=== PATIENT | female | born 1975 | race Caucasian/White ===

== ENCOUNTER → 2017-01-28 | Outpatient (REF) | payer MEDICAID ==
[~2017-01-28] MED LIST: /ADVA50050 INH; /LORA10TA PO; CITA20TA2 PO; FAMO40TA3 PO; HYDR-3363 PO; HYDROXYUREA; IRON325T PO; PRED1TAB32 PO; PROAAER INH; SYNT100T PO; albuterol INH
[2017-01-28 13:50] LABS: MEAN CORPUSCULAR HEMOGLOBIN 29.2 pg (27.0-33.0); MEAN CORPUSCULAR HGB CONC 32.6 g/dl (32.0-36.5); MEAN CORPUSCULAR VOLUME 89.8 fl (80.0-96.0); RED CELL DISTRIBUTION WIDTH 12.6 % (11.5-14.5); WHITE BLOOD COUNT 7.8 K/mm3 (4.0-10.0)
[2017-01-28 14:12] LABS: FOLATE 11.9 NG/ML; VITAMIN B12 LEVEL 558 PG/ML
[2017-01-28 14:18] LABS: ALBUMIN 3.6 GM/DL (3.2-5.2); ALBUMIN/GLOBULIN RATIO 0.92 (1.00-1.93); ALKALINE PHOSPHATASE 102 U/L (45-117); ALT/SGPT 23 U/L (12-78); ANION GAP 7 MEQ/L (8-16); AST/SGOT 11 U/L (15-37); BILIRUBIN,TOTAL 0.4 MG/DL (0.2-1.0); BLOOD UREA NITROGEN 12 MG/DL (7-18); CALCIUM LEVEL 8.9 MG/DL (8.5-10.1); CARBON DIOXIDE LEVEL 31 MEQ/L (21-32); CHLORIDE LEVEL 101 MEQ/L (98-107); CHOLESTEROL LEVEL 240 MG/DL (<200); CREATININE FOR GFR 0.82 MG/DL (0.55-1.02); FREE T4 0.89 NG/DL (0.76-1.46); GLOMERULAR FILTRATION RATE > 60.0 (>60); GLUCOSE, FASTING 97 MG/DL (70-105); POTASSIUM SERUM 4.4 MEQ/L (3.5-5.1); SODIUM LEVEL 139 MEQ/L (136-145); TOTAL PROTEIN 7.5 GM/DL (6.4-8.2); TRIGLYCERIDES LEVEL 200 MG/DL (<150)
== END ==
LOC: M LABDRAW1 13:13
PROVIDERS: ATTEND Family Medicine
DX: Z00.00 Encounter for general adult medical examination without abnormal findings (principal); E03.9 Hypothyroidism, unspecified; K21.9 Gastro-esophageal reflux disease without esophagitis; E55.9 Vitamin D deficiency, unspecified

== ENCOUNTER → 2017-02-02 | Outpatient (CLI) | payer MEDICAID ==
--- NOTE | 2017-02-05 06:48 | SLEEPCENT ---
DATE OF PROCEDURE: 02/02/2017 ORDERED BY: Dr. Roland. Nocturnal polysomnography was performed for evaluation of sleep apnea syndrome symptoms in this patient with a history of excessive somnolence, nonrestorative sleep, obesity, hypothyroidism, asthma, and a seizure disorder. 8 hours and 26 minutes of data were reviewed. There were 458 minutes of sleep identified. Sleep latency was prolonged at 13 minutes. REM latency was prolonged at 227 minutes. Sleep architecture showed poor progression early in the study. Some fragmentation was seen. There were 3 rapid eye movement (REM) periods and overall sleep efficiency was 91.5%. EKG showed a sinus rhythm with an average heart rate of 80 beats per minute. EEG showed reasonably normal wave forms for wake and sleep. There were no focal events identified. There were 160 respiratory events identified of 10 seconds in duration or greater for an apnea-hypopnea index of 21. The events were primarily obstructive not exclusive to sleep stage nor body position. Snoring was noted as well. Arousals from respiratory events cumulatively occurred 4.8 times per hour and oxygen desaturations were seen into the 70s. There was some limb activity but arousals from limb events were few. Remaining measures of sleep physiology were normal. IMPRESSION: Moderate obstructive sleep apnea syndrome (G47.33). Apnea-hypopnea index 21.0. RECOMMENDATION: The patient should be encouraged to return to the sleep disorder center for pressure therapy. In the interim, alcohol and sedative avoidance should be practiced and caution exercised during the operation of motor vehicles.
== END ==
LOC: M SLEEP 19:45
PROVIDERS: ATTEND Internal Medicine Pulmonary Disease
DX: G47.33 Obstructive sleep apnea (adult) (pediatric) (principal)

== ENCOUNTER → 2017-03-13 | Outpatient (CLI) | payer MEDICAID | LOC: M SLEEP 19:34 | PROVIDERS: ATTEND Internal Medicine Pulmonary Disease | DX: G47.33 Obstructive sleep apnea (adult) (pediatric) (principal) ==

== ENCOUNTER → 2017-04-28 | Outpatient (CLI) | payer MEDICAID ==
[2017-04-28 17:48] LABS: FREE T4 0.91 NG/DL (0.76-1.46)
== END ==
LOC: M LAB 14:34
PROVIDERS: ATTEND Family Medicine
DX: E03.9 Hypothyroidism, unspecified (principal)

== ENCOUNTER 2017-07-19 18:45 | Emergency (ER) | payer MEDICAID ==
[~2017-07-19] VITALS: Ht 154.9 cm; Wt 110.5 kg
[2017-07-19 18:49] VITALS: BP 120/68
[2017-07-19] MEDS ORDERED: IBUPROFEN 600 MG TAB PO ONE (19:30)
== END 2017-07-19 20:03 | disposition home or self-care (01) ==
LOC: M ED 18:45
DX: S93.491A Sprain of other ligament of right ankle, initial encounter (principal); X50.1XXA Overexertion from prolonged static or awkward postures, initial encounter; Y92.9 Unspecified place or not applicable; Y93.9 Activity, unspecified; Y99.9 Unspecified external cause status; E11.9 Type 2 diabetes mellitus without complications; F43.10 Post-traumatic stress disorder, unspecified; F10.10 Alcohol abuse, uncomplicated; F81.9 Developmental disorder of scholastic skills, unspecified; R56.9 Unspecified convulsions; J45.909 Unspecified asthma, uncomplicated; G47.33 Obstructive sleep apnea (adult) (pediatric); E03.9 Hypothyroidism, unspecified; Z87.891 Personal history of nicotine dependence; Z79.899 Other long term (current) drug therapy; Z88.6 Allergy status to analgesic agent; Z88.5 Allergy status to narcotic agent; Z88.8 Allergy status to other drugs, medicaments and biological substances

== ENCOUNTER 2017-09-03 03:53 | Emergency (ER) | payer MEDICAID ==
[~2017-09-03] VITALS: Ht 154.9 cm; Wt 108.2 kg
[2017-09-03] MEDS ORDERED: TRAZ25TA GT (04:07)
[2017-09-03] MEDS ORDERED: PRAZ1CAP PO (04:07)
[2017-09-03] MEDS ORDERED: OMEP20CA3 PO (04:07)
[2017-09-03] MEDS ORDERED: FOLI5INJ2 SC (04:07)
[2017-09-03] MEDS ORDERED: MORPHINE 4 MG/ML 1ML SYRINGE IV PRN (05:00)
[2017-09-03] MEDS ORDERED: NS 1,000 ML IV ONE (05:00)
[2017-09-03] MEDS ORDERED: ONDANSETRON 4MG/2ML VIAL (J2405) IV ONE (05:00)
[2017-09-03 05:18] LABS: BASO # 0.1 10^3/uL (0.0-0.2); BASO % 0.5 % (0.0-1.0); EOS # 0.3 10^3/uL (0.0-0.50); IMMATURE GRANULOCYTE % 0.2 % (0-0); LYMPH # 2.2 10^3/uL (1.5-4.5); MEAN CORPUSCULAR HEMOGLOBIN 29.2 pg (27.0-33.0); MEAN CORPUSCULAR HGB CONC 32.3 g/dl (32.0-36.5); MEAN CORPUSCULAR VOLUME 90.5 fl (80.0-96.0); MONO # 0.5 10^3/uL (0.0-0.8); MONO % 5.3 % (0.0-5.0); NEUTROPHILS # 6.9 10^3/uL (1.8-7.7); PLATELET COUNT, AUTOMATED 229 10^3/uL (150-450); RED CELL DISTRIBUTION WIDTH 12.7 % (11.5-14.5)
[2017-09-03 05:36] LABS: ALBUMIN 3.1 GM/DL (3.2-5.2); ALBUMIN/GLOBULIN RATIO 0.89 (1.00-1.93); ALKALINE PHOSPHATASE 83 U/L (45-117); ALT/SGPT 14 U/L (12-78); ANION GAP 7 MEQ/L (8-16); AST/SGOT 8 U/L (7-37); BILIRUBIN,DIRECT < 0.1 MG/DL (0.0-0.2); BILIRUBIN,TOTAL 0.2 MG/DL (0.2-1.0); BLOOD UREA NITROGEN 11 MG/DL (7-18); CALCIUM LEVEL 8.5 MG/DL (8.5-10.1); CARBON DIOXIDE LEVEL 28 MEQ/L (21-32); CHLORIDE LEVEL 105 MEQ/L (98-107); CREATININE FOR GFR 0.91 MG/DL (0.55-1.02); GLOMERULAR FILTRATION RATE > 60.0 (>60); GLUCOSE, FASTING 121 MG/DL (70-105); SODIUM LEVEL 140 MEQ/L (136-145); TOTAL PROTEIN 6.6 GM/DL (6.4-8.2)
[2017-09-03 06:11] LABS: CONTROL LINE HCG INT CTR LINE PRESENT
[2017-09-03] MEDS ORDERED: ISOVUE-370 76% 100ML VIAL (Q9967) As Ordered ONE (06:31)
--- NOTE | 2017-09-03 08:10 | REPUSA ---
CLINICAL HISTORY: Chest pain, exclude PE. TECHNIQUE: Multiple incremental axial, coronal and oblique images are obtained from the thoracic inle t to the upper abdomen. Intravenous contrast material was administered as per pulmonary embolism prot ocol. COMMENTS: Bilateral basilar atelectatic pulmonary changes. There is excellent opacification of pulmonary arterial system without evidence for pulmonary embolism . Aorta is of normal caliber without evidence for dissection or aneurysm. There is no evidence of pleural or parenchymal mass. There are no pleural effusions. There is no evid ence of hilar or mediastinal lymphadenopathy. The heart and great vessels are within normal limits. Images of the upper abdomen demonstrate no evidence of adrenal mass. The bony structures are free of lytic or blastic lesions. Multilevel degenerative changes are seen in volving the visualized thoracolumbar spine. Scattered calcifications are seen involving the aorta and major branches compatible with atherosclero sis. IMPRESSION: No evidence for pulmonary embolism. Bilateral basilar atelectatic pulmonary changes. Thank you for your kind referral of this patient.
--- NOTE | 2017-09-03 08:30 | REPUSA ---
CLINICAL HISTORY: Abdominal pain. TECHNIQUE: Multiple axial, sagittal and coronal CT images were obtained through the abdomen and pelvi s after administration of oral and intravenous contrast material. Images were obtained before and aft er IV contrast administration. COMMENTS: The liver is of uniform attenuation without mass or defect. There is no intra or extrahepatic biliary ductal dilatation. The spleen is normal. The gallbladder is diffusely thickened. The pancreas is of normal contour and attenuation characteristics. There is no evidence of adrenal mass. Both kidneys demonstrate prompt and equal nephrograms. The kidneys are normal in size, shape and conf iguration. There is no evidence of renal or ureteral mass. No renal or ureteral calculi are identifie d. There is no hydroureter or hydronephrosis. No evidence for appendicitis. There is no bowel wall thickening. No evidence for small or large vanessa l obstruction. There is no evidence of abdominal ascites or lymphadenopathy. There is no evidence of intrinsic or extrinsic bladder mass. There is no pelvic ascites or lymphadeno cydney. 3.5 cm uterine fibroid. Images of the lung bases show no evidence of pleural or parenchymal mass. There are no pleural effusi ons. Bilateral basilar atelectatic pulmonary changes. The bony structures are free of lytic or blastic lesions. Multilevel degenerative changes are seen in volving the thoracolumbar spine. Scattered calcifications are seen involving the aorta and major bran ches compatible with atherosclerosis. IMPRESSION: Thickened gallbladder. Possibly developing acute inflammatory changes. Clinical evaluation and possib ly further assessment by ultrasound exam are suggested. Hepatomegaly with fatty infiltration. Uterine fibroid. Thank you for your kind referral of this patient.
[2017-09-03 09:19] VITALS: BP 126/60
--- NOTE | 2017-09-03 14:19 | ECGEPIP ---
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
--- NOTE | 2017-09-03 14:27 | ED PDOC ---
Post-Departure Follow-Up Radiology report faxed to Danny Sal Sarah MD Sep 03, 2017 14:27
[2017-09-04] MEDS ORDERED: FOLI1TAB4 PO (00:40)
[2017-09-04] MEDS ORDERED: CELE10TA PO (00:40)
[2017-09-04] MEDS ORDERED: TRAZ50TA11 PO (00:40)
[2017-09-04] MEDS ORDERED: ADVA230A INH (00:40)
[2017-09-04] MEDS ORDERED: CELE20TA PO (00:40)
[2017-09-04] MEDS ORDERED: VITA1CAP40 PO (00:40)
[2017-09-04] MEDS ORDERED: PROAAER10 INH (00:40)
[2017-09-04] MEDS ORDERED: SYNT112T2 PO (00:40)
[2017-09-04] MEDS ORDERED: PRAZ1CAP PO (00:40)
[2017-09-04] MEDS ORDERED: SYNT100T PO (00:40)
[2017-09-04] MEDS ORDERED: FERR1TAB8 PO (00:40)
[2017-09-04] MEDS ORDERED: ALBU83IN INH (00:40)
[2017-09-04] MEDS ORDERED: VITA100072 PO (00:40)
[2017-09-04] MEDS ORDERED: OMEP20CA3 PO (00:40)
== END 2017-09-03 09:32 | disposition home or self-care (01) ==
LOC: M ED 03:53
DX: R10.9 Unspecified abdominal pain (principal); R07.9 Chest pain, unspecified; K76.0 Fatty (change of) liver, not elsewhere classified; N85.8 Other specified noninflammatory disorders of uterus; K82.9 Disease of gallbladder, unspecified; J98.11 Atelectasis; K21.9 Gastro-esophageal reflux disease without esophagitis; J44.9 Chronic obstructive pulmonary disease, unspecified; Z87.891 Personal history of nicotine dependence; Z79.899 Other long term (current) drug therapy; Z88.6 Allergy status to analgesic agent; Z88.5 Allergy status to narcotic agent; Z88.8 Allergy status to other drugs, medicaments and biological substances
CPT/HCPCS: 71275; 74177; 80048; 80076; 82550; 82553; 83605; 83690; 84703; 85025; 93005; 93041; 96361; 96374; 96375; 99285; J2405; Q9967

== ENCOUNTER 2017-09-03 18:46 | Inpatient (IN) | payer MEDICAID ==
[~2017-09-03] VITALS: Ht 154.9 cm; Wt 109.6 kg
[~2017-09-03 18:46] MED LIST changes: +FOLI5INJ2 SC; +OMEP20CA3 PO; +PRAZ1CAP PO; +TRAZ25TA GT
[2017-09-03] MEDS ORDERED: MORPHINE 4 MG/ML 1ML SYRINGE IV ONE (21:45)
[2017-09-03] MEDS ORDERED: NS 1,000 ML IV ONE (21:45)
[2017-09-03] MEDS ORDERED: ONDANSETRON 4MG/2ML VIAL (J2405) IV ONE (21:45)
[2017-09-03] MEDS ORDERED: ONDANSETRON 4MG/2ML VIAL (J2405) As Ordered ONE (22:07)
[2017-09-03] MEDS ORDERED: MORPHINE 4 MG/ML 1ML SYRINGE As Ordered ONE (22:07)
[2017-09-03 22:18] LABS: BASO % 0.5 % (0.0-1.0); EOS # 0.1 10^3/uL (0.0-0.50); EOS % 1.3 % (0.0-3.0); IMMATURE GRANULOCYTE % 0.2 % (0-0); LYMPH # 0.9 10^3/uL (1.5-4.5); LYMPH % 10.6 % (24.0-44.0); MEAN CORPUSCULAR HEMOGLOBIN 28.8 pg (27.0-33.0); MEAN CORPUSCULAR HGB CONC 31.9 g/dl (32.0-36.5); MEAN CORPUSCULAR VOLUME 90.5 fl (80.0-96.0); MONO # 0.4 10^3/uL (0.0-0.8); MONO % 4.1 % (0.0-5.0); NEUTROPHILS # 7.1 10^3/uL (1.8-7.7); NEUTROPHILS % 83.3 % (36.0-66.0); PLATELET COUNT, AUTOMATED 270 10^3/uL (150-450); RED CELL DISTRIBUTION WIDTH 12.9 % (11.5-14.5); WHITE BLOOD COUNT 8.5 10^3/uL (4.0-10.0)
[2017-09-03 22:36] LABS: ALBUMIN 3.3 GM/DL (3.2-5.2); ALKALINE PHOSPHATASE 116 U/L (45-117); ALT/SGPT 52 U/L (12-78); AMYLASE 29 U/L (25-115); ANION GAP 6 MEQ/L (8-16); AST/SGOT 78 U/L (7-37); BILIRUBIN,DIRECT 0.8 MG/DL (0.0-0.2); BLOOD UREA NITROGEN 7 MG/DL (7-18); CALCIUM LEVEL 8.5 MG/DL (8.5-10.1); CARBON DIOXIDE LEVEL 26 MEQ/L (21-32); CHLORIDE LEVEL 108 MEQ/L (98-107); CREATININE FOR GFR 0.86 MG/DL (0.55-1.02); GLOMERULAR FILTRATION RATE > 60.0 (>60); GLUCOSE, FASTING 139 MG/DL (70-105); SODIUM LEVEL 140 MEQ/L (136-145); TOTAL PROTEIN 7.4 GM/DL (6.4-8.2)
[2017-09-03 22:47] LABS: BILIRUBIN,TOTAL 1.3 MG/DL (0.2-1.0)
--- NOTE | 2017-09-03 23:10 | REPUSA ---
CLINICAL HISTORY: Epigastric pain. TECHNIQUE: Realtime sonographic images were obtained in multiple projections. COMMENTS: The liver is echogenic compatible with mild fatty infiltration without evidence of mass or defect. T here is no intra or extrahepatic biliary ductal dilatation. The common bile duct measures 11.2 mm. The gallbladder shows tiny mobile stones. The gallbladder wall is not thickened measuring 1.9 mm and there is no pericholecystic fluid. There is no abdominal ascites. The pancreas is not visualized due to bowel gas. The right kidney measures 11.6 x 5.9 x 5.5 cm. The right kidney is free of hydronephrosis. IMPRESSION: 1. Mild fatty infiltration of the liver. 2. Tiny mobile gallbladder stones.
[2017-09-04] MEDS ORDERED: PROAAER10 INH (00:40)
[2017-09-04] MEDS ORDERED: CELE20TA PO (00:40)
[2017-09-04] MEDS ORDERED: VITA1CAP40 PO (00:40)
[2017-09-04] MEDS ORDERED: ALBU83IN INH (00:40)
[2017-09-04] MEDS ORDERED: VITA100072 PO (00:40)
[2017-09-04] MEDS ORDERED: PRAZ1CAP PO (00:40)
[2017-09-04] MEDS ORDERED: FERR1TAB8 PO (00:40)
[2017-09-04] MEDS ORDERED: SYNT100T PO (00:40)
[2017-09-04] MEDS ORDERED: TRAZ50TA11 PO (00:40)
[2017-09-04] MEDS ORDERED: CELE10TA PO (00:40)
[2017-09-04] MEDS ORDERED: FOLI1TAB4 PO (00:40)
[2017-09-04] MEDS ORDERED: OMEP20CA3 PO (00:40)
[2017-09-04] MEDS ORDERED: SYNT112T2 PO (00:40)
[2017-09-04] MEDS ORDERED: ADVA230A INH (00:40)
--- NOTE | 2017-09-04 03:21 | HPEPDOC ---
General Date of Admission 09-04-17 Primary Care Physician: A Chief Complaint The patient is a 41-year-old female admitted with a reason for visit of Jania Marroquin. History of Present Illness Dr. Sal is PCP 41 y/o female with past medical history of COPD/asthma, hyperlipidemia, hypothyroidism, vitamin b12 and D deficiency and hx of anemia presents for diffuse and sharp abdominal pain that began one week ago. The pt. came to the ED one day ago and was given pain medication, CT scan at that time showed thickened gallbladder and uterine fibroid. She states that the pain was so intense this morning at home that she had to come back, it was very sharp in nature and in the middle of her abdomen. She states she has been feeling cold chills for the past few days and that the abdominal pain seemed to be worsened with intake of food. She states that she has increase frequency in urination but denied pain with urination nor blood in her urine, she denied change in vision or headaches but stated she was SOB for the past 2 days with exertion, not with laying down or worse at night. She admits she has some mid-sternal pain but she states this is radiating pain from her abdomen, the pain is worsened with a deep breath and pressing on her chest. She also has had some nausea in the past few days but denies vomiting. Denies fevers but admits to some loose stool for the past 3 days. Denies sick contacts or recent travel. She admits she picks and scratches at her skin because she thinks it always itches. Home Medications Scheduled Acetaminophen (Tylenol Extra Strength) 500 Mg Tab, 500 MG PO ASDIRECTED, ( Reported) Citalopram Hydrobromide (Celexa) 10 Mg Tab, 10 MG PO QHS, (Reported) TAKES WITH 20MG FOR 30MG TOTAL Citalopram Hydrobromide (Celexa) 20 Mg Tab, 20 MG PO QHS, (Reported) TAKES WITH 10MG FOR 30MG TOTAL Cyanocobalamin (Vitamin B12) 1,000 Mcg Tab, 1,000 MCG PO DAILY, (Reported) Ergocalciferol (Vitamin D) 50,000 Unit Cap, 50,000 UNIT PO ASDIRECTED, (Reported ) TAKES ON FRIDAY MORNINGS Ferrous Sulfate (Ferrous Sulfate) 325 Mg Tab, 325 MG PO DAILY, (Reported) Folic Acid (Folic Acid) 1 Mg Tab, 1 MG PO QHS, (Reported) Levothyroxine Sodium (Synthroid) 100 Mcg Tab, 100 MCG PO ASDIRECTED, (Reported) TAKES ON FRIDAY, FRIDAY, FRIDAY AND FRIDAY Levothyroxine Sodium (Synthroid) 112 Mcg Tab, 112 MCG PO ASDIRECTED, (Reported) TAKES ON FRIDAY, FRIDAY AND FRIDAY Omeprazole (Omeprazole) 20 Mg Cap, 40 MG PO BID, (Reported) Prazosin Hcl (Prazosin HCl) 1 Mg Cap, 1 MG PO QHS, (Reported) Salmeterol/Fluticasone (Advair Hfa 230-21 Mcg/Act) 1 Aer Aer, 2 PUFF INH BID, ( Reported) Trazodone HCl (Trazodone HCl) 50 Mg Tab, 25 MG PO QHS, (Reported) Trimethoprim/Sulfamethoxazole (Bactrim Ds 800-160 mg) 1 Tab Tab, 1 TAB PO Q12H Scheduled PRN Albuterol Sulfate (Proair Hfa) 108 Mcg/Act Aer, 2 PUFF INH Q4H PRN for SHORTNESS OF BREATH, (Reported) Albuterol Sulfate (Albuterol Sulfate) 2.5 Mg/3 Ml Nebu, 2.5 MG INH QID PRN for SHORTNESS OF BREATH, (Reported) Allergies Coded Allergies: Escitalopram (Unverified Allergy, Unknown, 09/03/17) Hydrocodone (Verified Allergy, Unknown, 09/03/17) Levothyroxine (Unverified Allergy, Unknown, NAUSEA, 09/03/17) Nefazodone (Verified Allergy, Unknown, 09/03/17) Paroxetine (Unverified Allergy, Unknown, 09/03/17) Topiramate (Verified Allergy, Unknown, 09/03/17) Uncoded Nonscreenable Allergen (Verified Adverse Reaction, Severe, ANTIFUNGAL-SEIZURE, 09/03/17) Aspirin (Verified Adverse Reaction, Mild, N/V, 09/04/17) HAS TAKEN IBUPROFEN & TORADOL IN PAST w/o PROBLEM Past Medical History Medical History as per hpi Surgical History tubal Family History Significant Family History: No pertinent family hx Social History * Smoker: former Smoker (quit 2007) Alcohol: other (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 Dyspnea, Edema, Lt Headedness Gastrointestinal: Reports: Nausea, Abdominal Pain, Diarrhea, Denies: Vomiting, Constipation, Melena, Hematochezia Hematologic: Denies: Bruising Neurological: Denies: Weakness, Numbness, Incoordination Psych: Reports: Mood Normal Physical Examination General Exam: Positive: Alert, Cooperative, Mild Distress Eye Exam: Positive: Conjunctiva & lids normal, EOMI, Negative: Sclera icteric ENT Exam: Positive: Atraumatic, Mucous membr. moist/pink, Pharynx Normal, Tongue Midline, Nares Patent Neck Exam: Positive: Supple Chest Exam: Positive: Clear to auscultation, Normal air movement, Negative: Rales, Rhonchi, Wheezing Heart Exam: Positive: Rate Normal, Normal S1, Normal S2, Negative: Tachycardic, Bradycardic, Gallops, Murmurs, Rubs Telemetry: Positive: No significant arrhythmia Abdomen Exam: Positive: Normal bowel sounds, Soft, Tenderness (diffuse), Negative: Hepatospenomegaly Extremity Exam: Negative: Clubbing, Cyanosis, Edema Skin Exam: Positive: Lesion, Other skin issue (scabs on b/l le from patient scratching), Negative: Rash, Breakdown Neuro Exam: Positive: Normal Speech Psych Exam: Positive: Mental status NL Vital Signs Vital Signs Date Time Temp Pulse Resp B/P (MAP) Pulse Ox O2 Delivery O2 Flow Rate FiO2 09/04/17 02:58 09/04/17 02:45 97.4 98 18 96 Room Air Laboratory Data Labs 24H Laboratory Tests 2 09/03/17 21:59: Immature Granulocyte % (Auto) 0.2H, White Blood Count 8.5, Red Blood Count 4.72 , Hemoglobin 13.6, Hematocrit 42.7, Mean Corpuscular Volume 90.5, Mean Corpuscular Hemoglobin 28.8, Mean Corpuscular Hemoglobin Concent 31.9L, Red Cell Distribution Width 12.9, Platelet Count 270, Neutrophils (%) (Auto) 83.3H, Lymphocytes (%) (Auto) 10.6L, Monocytes (%) (Auto) 4.1, Eosinophils (%) (Auto) 1.3, Basophils (%) (Auto) 0.5, Neutrophils # (Auto) 7.1, Lymphocytes # (Auto) 0.9L, Monocytes # (Auto) 0.4, Eosinophils # (Auto) 0.1, Basophils # (Auto) 0.0, Immature Granulocyte # (Auto) 0.0, Nucleated Red Blood Cells % (auto) 0.0, Anion Gap 6L, Glomerular Filtration Rate > 60.0, Calcium Level 8.5, Aspartate Amino Transf (AST/SGOT) 78H, Alanine Aminotransferase (ALT/SGPT) 52, Alkaline Phosphatase 116, Total Bilirubin 1.3#H, Direct Bilirubin 0.8H, Total Creatine Kinase 46, Creatine Kinase MB 1.0, Creatine Kinase MB Relative Index 2.17, Troponin I < 0.02, Total Protein 7.4, Albumin 3.3, Albumin/Globulin Ratio 0.80L , Amylase Level 29, Lipase 102 09/03/17 23:02: Urine Appearance HAZY, Urine Color LOVE, Urine pH 5.0, Urine Specific [place] 1.024, Urine Protein NEGATIVE, Urine Glucose (UA) NEGATIVE, Urine Ketones NEGATIVE, Urine Urobilinogen 4.0H, Urine Bilirubin NEGATIVE, Urine Leukocyte Esterase NEGATIVE, Urine Blood NEGATIVE, Urine Nitrite NEGATIVE, Urine WBC (Auto ) 2, Urine RBC (Auto) 6H, Urine Hyaline Casts (Auto) 0, Urine Bacteria (Auto) NEGATIVE, Urine Squamous Epithelial Cells 1, Urine Mucus (Auto) SMALL, Urine Sperm (Auto) CBC/BMP Laboratory Tests 09/03/17 21:59 Red Blood Count 4.72, Mean Corpuscular Volume 90.5, Mean Corpuscular Hemoglobin 28.8, Mean Corpuscular Hemoglobin Concent 31.9 L, Red Cell Distribution Width 12.9, Neutrophils (%) (Auto) 83.3 H, Lymphocytes (%) (Auto) 10.6 L, Monocytes (% ) (Auto) 4.1, Eosinophils (%) (Auto) 1.3, Basophils (%) (Auto) 0.5, Neutrophils # (Auto) 7.1, Lymphocytes # (Auto) 0.9 L, Monocytes # (Auto) 0.4, Eosinophils # (Auto) 0.1, Basophils # (Auto) 0.0 Problems (1) Abdominal pain Status: Acute Response to Treatment: Stable Problem Text: CT abdomen demonstrated thickening of GB wall and GB stones GB u/s showed mobile gallstones GI has been consulted and will see pt in AM, appreciate their recommendations pain control and NPO fluid hydration (2) COPD (chronic obstructive pulmonary disease) Status: Chronic Response to Treatment: Stable (3) Hyperlipidemia Status: Chronic Response to Treatment: Stable (4) Hypothyroid Status: Chronic Response to Treatment: Stable (5) DVT prophylaxis Status: Chronic Response to Treatment: Stable Problem Text: scd teds Plan / VTE VTE Prophylaxis Ordered?: Yes GME ATTESTATION GME ATTESTATION My faculty preceptor for this patient encounter was physically present during the encounter and was fully available. All aspects of the patient interview, examination, medical decision making process, and medical care plan development were reviewed and approved by the faculty preceptor. The faculty preceptor is aware and concurs with the plan as stated in the body of this note and will attest to such by his/her cosignature. ATTENDING NOTE I have seen and examined the patient as did the resident I have reviewed the case and discussed the plan with her I was not however present for the resident PE and Hx of the patient as she documented above I concur with her findings on HX and PE and agree with her A&P with the following additions/Exceptions: Patient was admitted with Abdominal pain requiring GI work up. LORENZO GROSS DO Sep 04, 2017 03:21 CATHERINE VIGIL MD Sep 13, 2017 22:26
[2017-09-04] MEDS ORDERED: IPRATROPIUM 0.5MG/ALBUTEROL 2.5MG INH SOL UD 3ML (DUONEB)(J7620) NEB PRN (04:30)
[2017-09-04 04:45] VITALS: BP 123/68
[2017-09-04] MEDS: MORPHINE 2 MG/ML 1ML SYRINGE IV PRN ×4 (05:26→20:51)
[2017-09-04] MEDS: LEVOTHYROXINE 100MCG TABLET (0.1MG) PO SCH (05:30)
[2017-09-04 06:37] LABS: BASO % 0.6 % (0.0-1.0); EOS # 0.2 10^3/uL (0.0-0.50); EOS % 2.6 % (0.0-3.0); IMMATURE GRANULOCYTE % 0.1 % (0-0); LYMPH # 1.8 10^3/uL (1.5-4.5); LYMPH % 24.1 % (24.0-44.0); MEAN CORPUSCULAR HEMOGLOBIN 28.9 pg (27.0-33.0); MEAN CORPUSCULAR VOLUME 90.4 fl (80.0-96.0); MONO # 0.6 10^3/uL (0.0-0.8); MONO % 7.6 % (0.0-5.0); NEUTROPHILS # 4.7 10^3/uL (1.8-7.7); PLATELET COUNT, AUTOMATED 230 10^3/uL (150-450); RED CELL DISTRIBUTION WIDTH 12.9 % (11.5-14.5); WHITE BLOOD COUNT 7.3 10^3/uL (4.0-10.0)
[2017-09-04 06:57] LABS: ANION GAP 4 MEQ/L (8-16); BLOOD UREA NITROGEN 5 MG/DL (7-18); CALCIUM LEVEL 8.4 MG/DL (8.5-10.1); CARBON DIOXIDE LEVEL 28 MEQ/L (21-32); CHLORIDE LEVEL 111 MEQ/L (98-107); GLOMERULAR FILTRATION RATE > 60.0 (>60); GLUCOSE, FASTING 98 MG/DL (70-105); POTASSIUM SERUM 4.1 MEQ/L (3.5-5.1); SODIUM LEVEL 143 MEQ/L (136-145)
[2017-09-04] MEDS: SYMBICORT 80/4.5MCG INHALER 6GM INH SCH ×2 (07:42→20:37)
[2017-09-04] MEDS ORDERED: FERROUS SULFATE 325MG TAB PO SCH (09:00)
[2017-09-04] MEDS ORDERED: OMEPRAZOLE 20 MG CAP PO SCH (09:00)
[2017-09-04] MEDS: D5W/0.45% SODIUM CHLORIDE 1,000 ML IV SCH ×2 (09:33→22:55)
--- NOTE | 2017-09-04 09:52 | IPNPDOC ---
Subjective Date Seen The patient was seen on 09/04/17. Subjective Chief Complaint/HPI The patient is a 41-year-old female admitted with a reason for visit of Abdominal Pain. Events since last encounter STILL WITH SEVERE PAIN MORE IN THE EPIGASTRIC AND PERIUMBILICAL AREAS, NO FEVER , NO NAUSEA OR VOMITING , NO CONSTIPATION. HAS NOT BEEN ABLE TO EAT MUCH FOR THE PAST 4 TO 5 DAYS. Objective Physical Examination General Exam: Positive: Alert, Cooperative, Mild Distress Eye Exam: Positive: Conjunctiva & lids normal, EOMI, Negative: Sclera icteric ENT Exam: Positive: Atraumatic, Mucous membr. moist/pink, Pharynx Normal, Tongue Midline, Nares Patent Neck Exam: Positive: Supple Chest Exam: Positive: Clear to auscultation, Normal air movement, Negative: Rales, Rhonchi, Wheezing Heart Exam: Positive: Rate Normal, Normal S1, Normal S2, Negative: Tachycardic, Bradycardic, Gallops, Murmurs, Rubs Telemetry: Positive: No significant arrhythmia Abdomen Exam: Positive: Normal bowel sounds, Soft, Tenderness (diffuse), Negative: Hepatospenomegaly Extremity Exam: Negative: Clubbing, Cyanosis, Edema Skin Exam: Positive: Lesion, Other skin issue (scabs on b/l le from patient scratching), Negative: Rash, Breakdown Neuro Exam: Positive: Normal Speech Psych Exam: Positive: Mental status NL Assessment /Plan Problems (1) Abdominal pain Status: Acute Response to Treatment: Stable Problem Text: Possible acute cholecystitis Vs gastritis and duodenitis. CT abdomen demonstrated thickening of GB wall and GB stones GB u/s showed mobile gallstones pain control and NPO fluid hydration will consult general surgery. (2) COPD (chronic obstructive pulmonary disease) Status: Chronic Response to Treatment: Stable Problem Text: will give symbicort in place of advair and continue duoneb prn (3) Hyperlipidemia Status: Chronic Response to Treatment: Stable (4) Hypothyroid Status: Chronic Response to Treatment: Stable (5) DVT prophylaxis Status: Chronic Response to Treatment: Stable Problem Text: scd teds (6) RIANA on CPAP Status: Chronic (7) Morbid obesity Status: Chronic (8) Anxiety and depression Status: Chronic Problem Text: continue citalopram and trazodone when able to eat by mouth (9) GERD (gastroesophageal reflux disease) Status: Chronic Plan/VTE VTE Prophylaxis Ordered?: Yes VS, I&O, 24H, [facility] Vital Signs/I&O Vital Signs Date Time Temp Pulse Resp B/P (MAP) Pulse Ox O2 Delivery O2 Flow Rate FiO2 09/04/17 05:36 16 09/04/17 04:45 98.1 64 123/68 (86) 97 Room Air Laboratory Data 24H LABS Laboratory Tests 2 09/03/17 21:59: Immature Granulocyte % (Auto) 0.2H, White Blood Count 8.5, Red Blood Count 4.72 , Hemoglobin 13.6, Hematocrit 42.7, Mean Corpuscular Volume 90.5, Mean Corpuscular Hemoglobin 28.8, Mean Corpuscular Hemoglobin Concent 31.9L, Red Cell Distribution Width 12.9, Platelet Count 270, Neutrophils (%) (Auto) 83.3H, Lymphocytes (%) (Auto) 10.6L, Monocytes (%) (Auto) 4.1, Eosinophils (%) (Auto) 1.3, Basophils (%) (Auto) 0.5, Neutrophils # (Auto) 7.1, Lymphocytes # (Auto) 0.9L, Monocytes # (Auto) 0.4, Eosinophils # (Auto) 0.1, Basophils # (Auto) 0.0, Immature Granulocyte # (Auto) 0.0, Nucleated Red Blood Cells % (auto) 0.0, Anion Gap 6L, Glomerular Filtration Rate > 60.0, Calcium Level 8.5, Aspartate Amino Transf (AST/SGOT) 78H, Alanine Aminotransferase (ALT/SGPT) 52, Alkaline Phosphatase 116, Total Bilirubin 1.3#H, Direct Bilirubin 0.8H, Total Creatine Kinase 46, Creatine Kinase MB 1.0, Creatine Kinase MB Relative Index 2.17, Troponin I < 0.02, Total Protein 7.4, Albumin 3.3, Albumin/Globulin Ratio 0.80L , Amylase Level 29, Lipase 102 09/03/17 23:02: Urine Appearance HAZY, Urine Color LOVE, Urine pH 5.0, Urine Specific [place] 1.024, Urine Protein NEGATIVE, Urine Glucose (UA) NEGATIVE, Urine Ketones NEGATIVE, Urine Urobilinogen 4.0H, Urine Bilirubin NEGATIVE, Urine Leukocyte Esterase NEGATIVE, Urine Blood NEGATIVE, Urine Nitrite NEGATIVE, Urine WBC (Auto ) 2, Urine RBC (Auto) 6H, Urine Hyaline Casts (Auto) 0, Urine Bacteria (Auto) NEGATIVE, Urine Squamous Epithelial Cells 1, Urine Mucus (Auto) SMALL, Urine Sperm (Auto) 09/04/17 06:19: Immature Granulocyte % (Auto) 0.1H, White Blood Count 7.3, Red Blood Count 4.08 , Hemoglobin 11.8L, Hematocrit 36.9, Mean Corpuscular Volume 90.4, Mean Corpuscular Hemoglobin 28.9, Mean Corpuscular Hemoglobin Concent 32.0, Red Cell Distribution Width 12.9, Platelet Count 230, Neutrophils (%) (Auto) 65.0, Lymphocytes (%) (Auto) 24.1, Monocytes (%) (Auto) 7.6H, Eosinophils (%) (Auto) 2.6, Basophils (%) (Auto) 0.6, Neutrophils # (Auto) 4.7, Lymphocytes # (Auto) 1.8, Monocytes # (Auto) 0.6, Eosinophils # (Auto) 0.2, Basophils # (Auto) 0.0, Immature Granulocyte # (Auto) 0.0, Nucleated Red Blood Cells % (auto) 0.0 CBC/BMP Laboratory Tests 09/03/17 21:59 Red Blood Count 4.72, Mean Corpuscular Volume 90.5, Mean Corpuscular Hemoglobin 28.8, Mean Corpuscular Hemoglobin Concent 31.9 L, Red Cell Distribution Width 12.9, Neutrophils (%) (Auto) 83.3 H, Lymphocytes (%) (Auto) 10.6 L, Monocytes (% ) (Auto) 4.1, Eosinophils (%) (Auto) 1.3, Basophils (%) (Auto) 0.5, Neutrophils # (Auto) 7.1, Lymphocytes # (Auto) 0.9 L, Monocytes # (Auto) 0.4, Eosinophils # (Auto) 0.1, Basophils # (Auto) 0.0 09/04/17 06:19 Red Blood Count 4.08, Mean Corpuscular Volume 90.4, Mean Corpuscular Hemoglobin 28.9, Mean Corpuscular Hemoglobin Concent 32.0, Red Cell Distribution Width 12.9 , Neutrophils (%) (Auto) 65.0, Lymphocytes (%) (Auto) 24.1, Monocytes (%) (Auto ) 7.6 H, Eosinophils (%) (Auto) 2.6, Basophils (%) (Auto) 0.6, Neutrophils # ( Auto) 4.7, Lymphocytes # (Auto) 1.8, Monocytes # (Auto) 0.6, Eosinophils # (Auto ) 0.2, Basophils # (Auto) 0.0 EUGENE MOSS MD Sep 04, 2017 06:43
[2017-09-04 10:47] LABS: ALBUMIN 2.7 GM/DL (3.2-5.2); ALBUMIN/GLOBULIN RATIO 0.77 (1.00-1.93); ALKALINE PHOSPHATASE 101 U/L (45-117); ALT/SGPT 65 U/L (12-78); AST/SGOT 77 U/L (7-37); BILIRUBIN,DIRECT 0.4 MG/DL (0.0-0.2); BILIRUBIN,TOTAL 0.8 MG/DL (0.2-1.0); TOTAL PROTEIN 6.2 GM/DL (6.4-8.2)
[2017-09-04] MEDS: SUCRALFATE SUSP 1GM/10ML UD PO SCH ×3 (12:29→20:49)
--- NOTE | 2017-09-04 13:54 | ECGEPIP ---
Stationary ECG Study [facility] - ED Test Date: 2017-09-04 Pat Name: SHILOH FLORES Department: Room: [place] [address] Gender: F Treer: : 1975 Requested By: JOSE ENRIQUE Stewart PA-C Order Number: [id number] Reading MD: Jesus Malik Measurements Intervals [place] Rate: 78 P: 42 UT: 154 QRS: 42 QRSD: 109 T: 55 QT: 387 QTc: 443 Interpretive Statements SINUS RHYTHM SIMILAR TO 09/03/17 Electronically Signed On 09-04-2017 13:54:32 EST by Jesus Malik
[2017-09-04 14:00] VITALS: BP 136/70
[2017-09-04] MEDS ORDERED: ACETAMINOPHEN 500 MG TAB PO PRN (17:15)
[2017-09-04] MEDS ORDERED: KETOROLAC 30 MG/ML VIAL (J1885) IV ONE (17:15)
[2017-09-04] MEDS: ONDANSETRON 4MG/2ML VIAL (J2405) IV PRN (18:33)
[2017-09-04] MEDS: PRAZOSIN 1 MG CAP PO SCH (20:50)
[2017-09-04] MEDS: CitaloPRAM (CeleXA) 10 MG TABLET PO SCH (20:50)
[2017-09-04] MEDS: PANTOPRAZOLE 40MG INJ (PROTONIX) (C9113) IV SCH (20:50)
[2017-09-04] MEDS: traZODone 25MG PER 1/2 TABLET PO SCH (20:50)
[2017-09-04] MEDS ORDERED: FOLIC ACID 1 MG TAB PO SCH (21:00)
[2017-09-04] MEDS ORDERED: CitaloPRAM (CeleXA) 20 MG TAB PO SCH (21:00)
[2017-09-04 22:00] VITALS: BP 109/66
[2017-09-05] VITALS (7 sets, daily range): BP systolic 113–133; BP diastolic 62–78
[2017-09-05] MEDS: LEVOTHYROXINE 112MCG TABLET (0.112MG) PO SCH (05:46)
[2017-09-05] MEDS: MORPHINE 2 MG/ML 1ML SYRINGE IV PRN ×2 (05:47→11:15)
[2017-09-05 06:30] LABS: BASO % 0.5 % (0.0-1.0); EOS # 0.2 10^3/uL (0.0-0.50); EOS % 2.7 % (0.0-3.0); IMMATURE GRANULOCYTE % 0.2 % (0-0); LYMPH # 1.7 10^3/uL (1.5-4.5); MEAN CORPUSCULAR HEMOGLOBIN 29.5 pg (27.0-33.0); MEAN CORPUSCULAR HGB CONC 32.2 g/dl (32.0-36.5); MEAN CORPUSCULAR VOLUME 91.6 fl (80.0-96.0); MONO # 0.4 10^3/uL (0.0-0.8); MONO % 6.4 % (0.0-5.0); NEUTROPHILS % 63.2 % (36.0-66.0); PLATELET COUNT, AUTOMATED 223 10^3/uL (150-450); RED CELL DISTRIBUTION WIDTH 13.2 % (11.5-14.5); WHITE BLOOD COUNT 6.3 10^3/uL (4.0-10.0)
[2017-09-05 06:54] LABS: ANION GAP 6 MEQ/L (8-16); BLOOD UREA NITROGEN 4 MG/DL (7-18); CARBON DIOXIDE LEVEL 28 MEQ/L (21-32); CHLORIDE LEVEL 108 MEQ/L (98-107); CREATININE FOR GFR 0.77 MG/DL (0.55-1.02); GLOMERULAR FILTRATION RATE > 60.0 (>60); GLUCOSE, FASTING 119 MG/DL (70-105); POTASSIUM SERUM 3.5 MEQ/L (3.5-5.1); SODIUM LEVEL 142 MEQ/L (136-145)
[2017-09-05] MEDS: SYMBICORT 80/4.5MCG INHALER 6GM INH SCH ×2 (07:10→20:07)
[2017-09-05] MEDS: SUCRALFATE SUSP 1GM/10ML UD PO SCH ×4 (07:43→21:22)
[2017-09-05] MEDS: PANTOPRAZOLE 40MG INJ (PROTONIX) (C9113) IV SCH ×2 (08:39→21:21)
--- NOTE | 2017-09-05 09:41 | CR.PDOC ---
General Surgery Consultation Date of Consultation 09/05/17 History and Physical CONSULT REPORT FOR: Karma Mario MD REASON FOR CONSULTATION: Abdominal pain HISTORY OF PRESENT ILLNESS: Patient is 15-year-old female, morbidly obese with a BMI of 44.5 admitted under the hospitalist service for sudden onset of severe midepigastric, lower sternal pain. Patient reports she's been having pain on and off for the past 5 days but worsened overnight Wednes evening with pain on her mid upper abdomen and lower chest area. She presented to the emergency room was worked up. She had a CTA chest and CT of the abdomen done at that time. Her LFTs and CBC were also taken. She had evidence of cholelithiasis, no evidence of pulmonary embolism. She was subsequently sent home when she mildly improved with the narcotic pain medications. When she got home she tried eating some toast but this worsened her pain prompting her to come back to the emergency room and subsequently was admitted. On her second presentation she had a gallbladder ultrasound done showing mobile gallstones. Also of note the LFTs were repeated and the bilirubin was mildly elevated from the morning labs. She's been admitted overnight and I was called to see the patient to evaluate her with regards to her midepigastric pain that has persisted. PAST MEDICAL HISTORY: 1. COPD/asthma 2. hyperlipidemia 3. hypothyroidism 4. vitamin b12 and D deficiency 5. hx of anemia 6. Patient mentions history of seizures but workup was apparently negative PAST SURGICAL HISTORY: INCLUDES: 1. Tubal ligation PREVIOUS ANESTHESIA REACTIONS: Vomiting ALLERGIES: Please see below. FAMILY HISTORY: Noncontributory HOME MEDICATIONS: Please see below. REVIEW OF SYSTEMS: GENERAL: Denies fevers or chills, sick contacts HEENT: Denies blurred vision and double vision. Denies ear symptoms. Denies hoarseness. NECK: Denies any neck pain. CARDIOVASCULAR: Presented with chest pain. MUSCULOSKELETAL: Denies arthralgias, back pain and thrombophlebitis. SKIN: Denies rash. NEUROLOGIC: Denies headache, stroke and transient ischemic attack. Reports previous history of grand mal seizure, though also reports her workup for this was negative. PSYCHIATRIC: Denies anxiety and depression. ENDOCRINE: Denies thyroid disease. HEMATOLOGY/ONCOLOGY: Denies bleeding or clotting disorder. HEART: Denies any chest pains, palpitations, paroxysmal dyspnea, orthopnea. PULMONARY: Denies chronic cough, dyspnea and wheezing. GASTROINTESTINAL: Denies rectal bleeding, family history of colon cancer, constipation, diarrhea, dysphagia, heartburn and jaundice. GENITOURINARY: Denies dysuria, frequency, hematuria and nocturia. ENDOCRINE: Denies polydipsia, polyphagia, polyuria, heat or cold intolerance. INFECTIOUS: Denies any recent upper respiratory tract infection, UTI, need for use of antibiotics. NUTRITION: Reports good appetite. PHYSICAL EXAMINATION: VITALS SIGNS: Please see below. GENERAL APPEARANCE:Patient seen, laying in bed, awake, alert, and oriented. Comfortable, in no acute distress. SKIN: Warm and moist. HEENT: Normocephalic, atraumatic. [place] palpebral conjunctiva, anicteric sclerae. Lips and mucosa appear moist. NECK: Supple, no thyromegaly. No obvious jugular venous distention. LUNGS: Clear to auscultation bilaterally. No wheezing appreciated. HEART: No chest wall abnormalities. Regular rate and rhythm with no murmurs appreciated. ABDOMEN: Abdomen is round, obese, soft, minimally distended. Tender over the epigastric area, right upper quadrant area, right lower quadrant area with no guarding. EXTREMITIES: Extremities have no deformities. No edema identified ANCILLARIES: . LABORATORY DATA: Please see below. IMAGING STUDIES: . CT scan of the abdomen and pelvis Thickened gallbladder. Possibly developing acute inflammatory changes. Clinical evaluation and possibly further assessment by ultrasound exam are suggested. Hepatomegaly with fatty infiltration. Uterine fibroid. Gallbladder ultrasound IMPRESSION: 1. Mild fatty infiltration of the liver. 2. Tiny mobile gallbladder stones. IMPRESSION AND PLAN: Cholelithiasis possible choledocholithiasis morbid obesity COPD Transient elevation of the LFTs including the direct bilirubin suspicious for most likely a stone from the gallbladder passing through the biliary tree. The last LFTs taken shows the liver function test this coming down with a total bilirubin going back to normal, most likely the stone is passed. Discussed with the patient in need for cholecystectomy whether interval or same hospitalization to prevent recurrence of her symptoms. Patient would like to have the surgery done during this hospitalization. I counseled her on the risks and benefits of performing cholecystectomy during the acute phase with mild increased risk for bleeding, conversion to open surgery, bile duct injury. He' ll perform laparoscopic cholecystectomy, possibly do cholangiogram. Consent was obtained from the patient. Significant medical comorbidities including morbid obesity and COPD so she seems medically stable from the COPD standpoint. Certainly the morbid obesity will affect the technical performance of the cholecystectomy. Vital Signs Vital Signs Date Time Temp Pulse Resp B/P (MAP) Pulse Ox O2 Delivery O2 Flow Rate FiO2 09/05/17 06:00 96.8 74 18 118/64 (82) 95 Room Air I&Os I&O- Last 24 Hours up to 6 AM 09/06/17 06:00 Intake Total 900 ml Output Total 400 ml Balance 500 ml Laboratory Data Labs 24H Laboratory Tests 2 09/05/17 06:21: Immature Granulocyte % (Auto) 0.2H, White Blood Count 6.3, Red Blood Count 3.80L , Hemoglobin 11.2L, Hematocrit 34.8L, Mean Corpuscular Volume 91.6, Mean Corpuscular Hemoglobin 29.5, Mean Corpuscular Hemoglobin Concent 32.2, Red Cell Distribution Width 13.2, Platelet Count 223, Neutrophils (%) (Auto) 63.2, Lymphocytes (%) (Auto) 27.0, Monocytes (%) (Auto) 6.4H, Eosinophils (%) (Auto) 2.7, Basophils (%) (Auto) 0.5, Neutrophils # (Auto) 4.0, Lymphocytes # (Auto) 1.7, Monocytes # (Auto) 0.4, Eosinophils # (Auto) 0.2, Basophils # (Auto) 0.0, Immature Granulocyte # (Auto) 0.0, Nucleated Red Blood Cells % (auto) 0.0, Anion Gap 6L, Glomerular Filtration Rate > 60.0, Blood Urea Nitrogen 4L, Creatinine 0.77, Sodium Level 142, Potassium Level 3.5, Chloride Level 108H, Carbon Dioxide Level 28, Calcium Level 8.0L CBC/BMP Laboratory Tests 09/05/17 06:21 Red Blood Count 3.80 L, Mean Corpuscular Volume 91.6, Mean Corpuscular Hemoglobin 29.5, Mean Corpuscular Hemoglobin Concent 32.2, Red Cell Distribution Width 13.2, Neutrophils (%) (Auto) 63.2, Lymphocytes (%) (Auto) 27.0, Monocytes (%) (Auto) 6.4 H, Eosinophils (%) (Auto) 2.7, Basophils (%) ( Auto) 0.5, Neutrophils # (Auto) 4.0, Lymphocytes # (Auto) 1.7, Monocytes # (Auto ) 0.4, Eosinophils # (Auto) 0.2, Basophils # (Auto) 0.0, Calcium Level 8.0 L Home Medications Scheduled Citalopram Hydrobromide (Celexa) 10 Mg Tab, 10 MG PO QHS, (Reported) TAKES WITH 20MG FOR 30MG TOTAL Citalopram Hydrobromide (Celexa) 20 Mg Tab, 20 MG PO QHS, (Reported) TAKES WITH 10MG FOR 30MG TOTAL Cyanocobalamin (Vitamin B12) 1,000 Mcg Tab, 1,000 MCG PO DAILY, (Reported) Ergocalciferol (Vitamin D) 50,000 Unit Cap, 50,000 UNIT PO ASDIRECTED, (Reported ) TAKES ON FRIDAY MORNING Ferrous Sulfate (Ferrous Sulfate) 325 Mg Tab, 325 MG PO DAILY, (Reported) Folic Acid (Folic Acid) 1 Mg Tab, 1 MG PO QHS, (Reported) Levothyroxine Sodium (Synthroid) 100 Mcg Tab, 100 MCG PO ASDIRECTED, (Reported) TAKES ON FRIDAY, FRIDAY, FRIDAY AND FRIDAY Levothyroxine Sodium (Synthroid) 112 Mcg Tab, 112 MCG PO ASDIRECTED, (Reported) TAKES ON FRIDAY, FRIDAY AND FRIDAY Omeprazole (Omeprazole) 20 Mg Cap, 40 MG PO BID, (Reported) Prazosin Hcl (Prazosin HCl) 1 Mg Cap, 1 MG PO QHS, (Reported) Salmeterol/Fluticasone (Advair Hfa 230-21 Mcg/Act) 1 Aer Aer, 2 PUFF INH BID, ( Reported) Trazodone HCl (Trazodone HCl) 50 Mg Tab, 25 MG PO QHS, (Reported) Scheduled PRN Albuterol Sulfate (Proair Hfa) 108 Mcg/Act Aer, 2 PUFF INH Q4H PRN for SHORTNESS OF BREATH, (Reported) Albuterol Sulfate (Albuterol Sulfate) 2.5 Mg/3 Ml Nebu, 2.5 MG INH QID PRN for SHORTNESS OF BREATH, (Reported) Allergies Coded Allergies: Escitalopram (Unverified Allergy, Unknown, 09/03/17) Hydrocodone (Verified Allergy, Unknown, 09/03/17) Levothyroxine (Unverified Allergy, Unknown, NAUSEA, 09/03/17) Nefazodone (Verified Allergy, Unknown, 09/03/17) Paroxetine (Unverified Allergy, Unknown, 09/03/17) Topiramate (Verified Allergy, Unknown, 09/03/17) Uncoded Nonscreenable Allergen (Verified Adverse Reaction, Severe, ANTIFUNGAL-SEIZURE, 09/03/17) Aspirin (Verified Adverse Reaction, Mild, N/V, 09/04/17) HAS TAKEN IBUPROFEN & TORADOL IN PAST w/o PROBLEM COLBY MATTHEW MD Sep 05, 2017 09:41
[2017-09-05] MEDS: D5W/0.45% SODIUM CHLORIDE 1,000 ML IV SCH (10:10)
--- NOTE | 2017-09-05 10:16 | IPNPDOC ---
Subjective Date Seen The patient was seen on 09/05/17. Subjective Chief Complaint/HPI The patient is a 41-year-old female admitted with a reason for visit of Abdominal Pain. Events since last encounter continues to have abdominal pain but feels that it is easing off a little. Was not able to tolerate clear liquids last night. Pateint going for cholecystectomy today. no fever or chills, no chest pain or sob , no diarrhea . Objective Physical Examination General Exam: Positive: Alert, Cooperative, Mild Distress Eye Exam: Positive: Conjunctiva & lids normal, EOMI, Negative: Sclera icteric ENT Exam: Positive: Atraumatic, Mucous membr. moist/pink, Pharynx Normal, Tongue Midline, Nares Patent Neck Exam: Positive: Supple Chest Exam: Positive: Clear to auscultation, Normal air movement, Negative: Rales, Rhonchi, Wheezing Heart Exam: Positive: Rate Normal, Normal S1, Normal S2, Negative: Tachycardic, Bradycardic, Gallops, Murmurs, Rubs Telemetry: Positive: No significant arrhythmia Abdomen Exam: Positive: Normal bowel sounds, Soft, Tenderness (diffuse), Negative: Hepatospenomegaly Extremity Exam: Negative: Clubbing, Cyanosis, Edema Skin Exam: Positive: Lesion, Other skin issue (scabs on b/l le from patient scratching), Negative: Rash, Breakdown Neuro Exam: Positive: Normal Speech Psych Exam: Positive: Mental status NL Assessment /Plan Problems (1) Abdominal pain Status: Acute Response to Treatment: Stable Problem Text: Possible acute cholecystitis with possibly biliary colic going for cholecystectomy today. CT abdomen demonstrated thickening of GB wall and GB stones GB u/s showed mobile gallstones (2) COPD (chronic obstructive pulmonary disease) Status: Chronic Response to Treatment: Stable Problem Text: will give symbicort in place of advair and continue duoneb prn (3) Hyperlipidemia Status: Chronic Response to Treatment: Stable (4) Hypothyroid Status: Chronic Response to Treatment: Stable (5) DVT prophylaxis Status: Chronic Response to Treatment: Stable Problem Text: scd teds (6) RIANA on CPAP Status: Chronic (7) Morbid obesity Status: Chronic (8) Anxiety and depression Status: Chronic Problem Text: continue citalopram and trazodone when able to eat by mouth (9) GERD (gastroesophageal reflux disease) Status: Chronic Plan/VTE VTE Prophylaxis Ordered?: Yes VS, I&O, 24H, Fishbone Vital Signs/I&O Vital Signs Date Time Temp Pulse Resp B/P (MAP) Pulse Ox O2 Delivery O2 Flow Rate FiO2 09/05/17 06:00 96.8 74 18 118/64 (82) 95 Room Air I&O- Last 24 Hours up to 6 AM 09/06/17 06:00 Intake Total 900 ml Output Total 400 ml Balance 500 ml Laboratory Data 24H LABS Laboratory Tests 2 09/05/17 06:21: Immature Granulocyte % (Auto) 0.2H, White Blood Count 6.3, Red Blood Count 3.80L , Hemoglobin 11.2L, Hematocrit 34.8L, Mean Corpuscular Volume 91.6, Mean Corpuscular Hemoglobin 29.5, Mean Corpuscular Hemoglobin Concent 32.2, Red Cell Distribution Width 13.2, Platelet Count 223, Neutrophils (%) (Auto) 63.2, Lymphocytes (%) (Auto) 27.0, Monocytes (%) (Auto) 6.4H, Eosinophils (%) (Auto) 2.7, Basophils (%) (Auto) 0.5, Neutrophils # (Auto) 4.0, Lymphocytes # (Auto) 1.7, Monocytes # (Auto) 0.4, Eosinophils # (Auto) 0.2, Basophils # (Auto) 0.0, Immature Granulocyte # (Auto) 0.0, Nucleated Red Blood Cells % (auto) 0.0, Anion Gap 6L, Glomerular Filtration Rate > 60.0, Blood Urea Nitrogen 4L, Creatinine 0.77, Sodium Level 142, Potassium Level 3.5, Chloride Level 108H, Carbon Dioxide Level 28, Calcium Level 8.0L CBC/BMP Laboratory Tests 09/05/17 06:21 Red Blood Count 3.80 L, Mean Corpuscular Volume 91.6, Mean Corpuscular Hemoglobin 29.5, Mean Corpuscular Hemoglobin Concent 32.2, Red Cell Distribution Width 13.2, Neutrophils (%) (Auto) 63.2, Lymphocytes (%) (Auto) 27.0, Monocytes (%) (Auto) 6.4 H, Eosinophils (%) (Auto) 2.7, Basophils (%) ( Auto) 0.5, Neutrophils # (Auto) 4.0, Lymphocytes # (Auto) 1.7, Monocytes # (Auto ) 0.4, Eosinophils # (Auto) 0.2, Basophils # (Auto) 0.0, Calcium Level 8.0 L EUGENE MOSS MD Sep 05, 2017 10:16
[2017-09-05] MEDS ORDERED: BUPIVACAINE HCL 0.25% 30 ML VIAL As Ordered ONE (14:43)
[2017-09-05] MEDS ORDERED: CONRAY-60 60% 50ML VIAL (Q9961) As Ordered ONE (14:43)
[2017-09-05] MEDS ORDERED: LIDOCAINE 1% SDV INJ 30 ML VIAL As Ordered ONE (14:43)
[2017-09-05] MEDS ORDERED: UNASYN 1.5 GM VIAL As Ordered ONE (16:40)
--- NOTE | 2017-09-05 17:32 | POST-OPPD ---
Date of Procedure: Sep 05, 2017 Postoperative Note PREOPERATIVE DIAGNOSIS: Acute Cholecystitis POSTOPERATIVE DIAGNOSIS: Acute Cholecystitis FINDINGS: Distended mildly inflamed gallbladder, thin wall. Cystic duct distended with stones within the cystic duct milked back to the gallbladder PROCEDURE: Laparoscopic Cholecystectomy with IOC SURGEON: Nati Carpenter MD ENTERPRISE MOBILITY ARCHITECT: ANESTHESIA: General Anesthesia SPECIMENS: [] ESTIMATED BLOOD LOSS: 20 mLs DRAINS: none COMPLICATIONS: none POSTOPERATIVE CONDITION: stable COLBY CARPENTER MD Sep 05, 2017 17:32
[2017-09-05] MEDS ORDERED: MIDAZOLAM INJ 2 MG/2 ML VIAL (J2250) As Ordered ONE (18:05)
[2017-09-05] MEDS ORDERED: fentaNYL 100 MCG/2 ML INJECTION (J3010) As Ordered ONE (18:05)
[2017-09-05] MEDS ORDERED: ONDANSETRON 4MG/2ML VIAL (J2405) As Ordered ONE ×2 (18:05→19:47)
[2017-09-05] MEDS ORDERED: ROCURONIUM BROMIDE 50 MG/5 ML VIAL/SYRINGE As Ordered ONE (18:05)
[2017-09-05] MEDS ORDERED: NEOSTIGMINE 10 MG/10 ML VIAL (J2710) As Ordered ONE (18:05)
[2017-09-05] MEDS ORDERED: fentaNYL 250 MCG/5 ML INJECTION (J3010) As Ordered ONE (18:05)
[2017-09-05] MEDS ORDERED: dexameTHASONE 4 MG/ML 1ML VIAL (J1100) As Ordered ONE (18:05)
[2017-09-05] MEDS ORDERED: GLYCOPYRROLATE INJ 0.2 MG/ML 2 ML VIAL As Ordered ONE (18:05)
[2017-09-05] MEDS ORDERED: LIDOCAINE 2% INJ 100 MG/5 ML SDV (FOR ANES.) As Ordered ONE (18:05)
[2017-09-05] MEDS ORDERED: PROPOFOL 200 MG/20 ML VIAL As Ordered ONE (18:05)
[2017-09-05] MEDS ORDERED: ESMOLOL INJ 100MG/10ML VIAL As Ordered ONE (18:11)
[2017-09-05] MEDS ORDERED: KETOROLAC 60 MG/2 ML VIAL (J1885) As Ordered ONE (18:17)
--- NOTE | 2017-09-05 19:20 | ROOPDOC ---
[facility] [place] Report Of Operation Report of Operation DATE OF PROCEDURE: 09/05/17 PREPROCEDURE DIAGNOSES: Acute Cholecystitis POSTPROCEDURE DIAGNOSES: Acute Cholecystitis. PROCEDURE: Laparoscopic Cholecystectomy. SURGEON: Nati Carpenter MD CARPET OR RUG LAYER HELPER: ANESTHESIA: general anesthesia. ESTIMATED BLOOD LOSS: Approximately 20 mL. COMPLICATIONS: none. REMARKS: 41 F with morbid obesity presented to the ED with 5 day worsening abdominal pain centered at the epigastric area with mild leukocytosis, transient elevation of her LFTs. By the following day her LFTs has gone down to normal. She is brought to the OR for Cholecystectomy PROCEDURE NOTE: distended gallbladder, tense, thin walled with mild pericholecystic edema consistent with acute cholecystitis. Distention extends to cystic duct with normal appearing CBD. Stones noted in the cystic duct. During dissection of the cystic duct the gallbladder wall overlying it was entered making it difficult to control the gallbladder for cholangiogram thus no IOC was performed.. DESCRIPTION OF PROCEDURE: COLBY CARPENTER MD Sep 05, 2017 19:20
[2017-09-05] MEDS ORDERED: PERCOCET 5MG/325MG TAB PO PRN (20:00)
[2017-09-05] MEDS ORDERED: LR 1,000 ML IV SCH (20:00)
[2017-09-05] MEDS ORDERED: MORPHINE 2 MG/ML 1ML SYRINGE IV PRN (20:00)
[2017-09-05] MEDS ORDERED: fentaNYL 100 MCG/2 ML INJECTION (J3010) IV PRN (20:00)
[2017-09-05] MEDS ORDERED: ONDANSETRON 4MG/2ML VIAL (J2405) IV PRN (20:00)
[2017-09-05] MEDS: CitaloPRAM (CeleXA) 10 MG TABLET PO SCH (21:21)
[2017-09-05] MEDS: traZODone 25MG PER 1/2 TABLET PO SCH (21:21)
[2017-09-05] MEDS: PRAZOSIN 1 MG CAP PO SCH (21:21)
[2017-09-06] VITALS (7 sets, daily range): BP systolic 113–142; BP diastolic 61–94
[2017-09-06] MEDS: D5W/0.45% SODIUM CHLORIDE 1,000 ML IV SCH (01:15)
[2017-09-06] MEDS: MORPHINE 2 MG/ML 1ML SYRINGE IV PRN ×2 (05:58→20:09)
[2017-09-06] MEDS: LEVOTHYROXINE 100MCG TABLET (0.1MG) PO SCH (05:58)
[2017-09-06 06:10] LABS: BASO % 0.3 % (0.0-1.0); EOS % 0.1 % (0.0-3.0); IMMATURE GRANULOCYTE % 0.3 % (0-0); LYMPH # 0.7 10^3/uL (1.5-4.5); LYMPH % 10.6 % (24.0-44.0); MEAN CORPUSCULAR HEMOGLOBIN 28.6 pg (27.0-33.0); MEAN CORPUSCULAR HGB CONC 32.1 g/dl (32.0-36.5); MONO # 0.3 10^3/uL (0.0-0.8); MONO % 4.1 % (0.0-5.0); NEUTROPHILS # 5.8 10^3/uL (1.8-7.7); NEUTROPHILS % 84.6 % (36.0-66.0); PLATELET COUNT, AUTOMATED 225 10^3/uL (150-450); RED CELL DISTRIBUTION WIDTH 13.2 % (11.5-14.5); WHITE BLOOD COUNT 6.8 10^3/uL (4.0-10.0)
[2017-09-06 06:41] LABS: ALBUMIN 2.6 GM/DL (3.2-5.2); ALBUMIN/GLOBULIN RATIO 0.74 (1.00-1.93); ALKALINE PHOSPHATASE 152 U/L (45-117); ALT/SGPT 143 U/L (12-78); ANION GAP 4 MEQ/L (8-16); AST/SGOT 164 U/L (7-37); BLOOD UREA NITROGEN 4 MG/DL (7-18); CALCIUM LEVEL 8.4 MG/DL (8.5-10.1); CARBON DIOXIDE LEVEL 28 MEQ/L (21-32); CHLORIDE LEVEL 107 MEQ/L (98-107); CREATININE FOR GFR 0.67 MG/DL (0.55-1.02); GLOMERULAR FILTRATION RATE > 60.0 (>60); GLUCOSE, FASTING 120 MG/DL (70-105); POTASSIUM SERUM 3.9 MEQ/L (3.5-5.1); SODIUM LEVEL 139 MEQ/L (136-145); TOTAL PROTEIN 6.1 GM/DL (6.4-8.2)
[2017-09-06 07:01] LABS: BILIRUBIN,TOTAL 2.3 MG/DL (0.2-1.0)
[2017-09-06] MEDS: SYMBICORT 80/4.5MCG INHALER 6GM INH SCH ×2 (07:13→19:47)
[2017-09-06] MEDS: SUCRALFATE SUSP 1GM/10ML UD PO SCH ×4 (08:29→20:07)
[2017-09-06] MEDS: PANTOPRAZOLE 40MG INJ (PROTONIX) (C9113) IV SCH ×2 (08:29→20:08)
[2017-09-06] MEDS ORDERED: IBUPROFEN 800 MG TAB PO PRN (09:00)
[2017-09-06] MEDS ORDERED: ACETAMINOPHEN TAB 650MG DOSE (2X325MG) PO PRN (09:00)
--- NOTE | 2017-09-06 10:48 | IPNPDOC ---
Subjective Date Seen The patient was seen on 09/06/17. Subjective Chief Complaint/HPI The patient is a 41-year-old female admitted with a reason for visit of Abdominal Pain. Events since last encounter Had lap amilcar done yesterday. no complaints this am. Objective Physical Examination General Exam: Positive: Alert, Cooperative, Mild Distress Eye Exam: Positive: Conjunctiva & lids normal, EOMI, Negative: Sclera icteric ENT Exam: Positive: Atraumatic, Mucous membr. moist/pink, Pharynx Normal, Tongue Midline, Nares Patent Neck Exam: Positive: Supple Chest Exam: Positive: Clear to auscultation, Normal air movement, Negative: Rales, Rhonchi, Wheezing Heart Exam: Positive: Rate Normal, Normal S1, Normal S2, Negative: Tachycardic, Bradycardic, Gallops, Murmurs, Rubs Telemetry: Positive: No significant arrhythmia Abdomen Exam: Positive: Normal bowel sounds, Soft, Tenderness (diffuse), Negative: Hepatospenomegaly Extremity Exam: Negative: Clubbing, Cyanosis, Edema Skin Exam: Positive: Lesion, Other skin issue (scabs on b/l le from patient scratching), Negative: Rash, Breakdown Neuro Exam: Positive: Normal Speech Psych Exam: Positive: Mental status NL Assessment /Plan Problems (1) Abdominal pain Status: Acute Response to Treatment: Stable Problem Text: acute cholecystitis with possibly biliary colic s/p lap amilcar on 09/05/17 CT abdomen demonstrated thickening of GB wall and GB stones GB u/s showed mobile gallstones This am LFTs elevated. will continue to monitor. (2) COPD (chronic obstructive pulmonary disease) Status: Chronic Response to Treatment: Stable Problem Text: will give symbicort in place of advair and continue duoneb prn (3) Hyperlipidemia Status: Chronic Response to Treatment: Stable Problem Text: not on statins (4) Hypothyroid Status: Chronic Response to Treatment: Stable (5) DVT prophylaxis Status: Chronic Response to Treatment: Stable Problem Text: scd teds (6) RIANA on CPAP Status: Chronic (7) Morbid obesity Status: Chronic (8) Anxiety and depression Status: Chronic Problem Text: continue citalopram and trazodone when able to eat by mouth (9) GERD (gastroesophageal reflux disease) Status: Chronic Plan/VTE VTE Prophylaxis Ordered?: Yes VS, I&O, 24H, Fishbone Vital Signs/I&O Vital Signs Date Time Temp Pulse Resp B/P (MAP) Pulse Ox O2 Delivery O2 Flow Rate FiO2 09/06/17 06:08 16 09/06/17 06:00 97.2 80 113/61 (78) 93 Room Air 09/05/17 20:17 2 Laboratory Data 24H LABS Laboratory Tests 2 09/06/17 05:50: Immature Granulocyte % (Auto) 0.3H, White Blood Count 6.8, Red Blood Count 3.92L , Hemoglobin 11.2L, Hematocrit 34.9L, Mean Corpuscular Volume 89.0, Mean Corpuscular Hemoglobin 28.6, Mean Corpuscular Hemoglobin Concent 32.1, Red Cell Distribution Width 13.2, Platelet Count 225, Neutrophils (%) (Auto) 84.6H, Lymphocytes (%) (Auto) 10.6L, Monocytes (%) (Auto) 4.1, Eosinophils (%) (Auto) 0.1, Basophils (%) (Auto) 0.3, Neutrophils # (Auto) 5.8, Lymphocytes # (Auto) 0.7L, Monocytes # (Auto) 0.3, Eosinophils # (Auto) 0.0, Basophils # (Auto) 0.0, Immature Granulocyte # (Auto) 0.0, Nucleated Red Blood Cells % (auto) 0.0, Anion Gap 4L, Glomerular Filtration Rate > 60.0, Blood Urea Nitrogen 4L, Creatinine 0.67, Sodium Level 139, Potassium Level 3.9, Chloride Level 107, Carbon Dioxide Level 28, Calcium Level 8.4L, Aspartate Amino Transf (AST/SGOT) 164H, Alanine Aminotransferase (ALT/SGPT) 143H, Alkaline Phosphatase 152H, Total Bilirubin 2.3#H, Total Protein 6.1L, Albumin 2.6L, Albumin/Globulin Ratio 0.74L CBC/BMP Laboratory Tests 09/06/17 05:50 Red Blood Count 3.92 L, Mean Corpuscular Volume 89.0, Mean Corpuscular Hemoglobin 28.6, Mean Corpuscular Hemoglobin Concent 32.1, Red Cell Distribution Width 13.2, Neutrophils (%) (Auto) 84.6 H, Lymphocytes (%) (Auto) 10.6 L, Monocytes (%) (Auto) 4.1, Eosinophils (%) (Auto) 0.1, Basophils (%) ( Auto) 0.3, Neutrophils # (Auto) 5.8, Lymphocytes # (Auto) 0.7 L, Monocytes # ( Auto) 0.3, Eosinophils # (Auto) 0.0, Basophils # (Auto) 0.0, Calcium Level 8.4 L , Aspartate Amino Transf (AST/SGOT) 164 H, Alanine Aminotransferase (ALT/SGPT) 143 H, Alkaline Phosphatase 152 H, Total Bilirubin 2.3 #H, Total Protein 6.1 L, Albumin 2.6 L EGUENE MOSS MD Sep 06, 2017 10:48
[2017-09-06] MEDS: ONDANSETRON 4MG/2ML VIAL (J2405) IV PRN ×2 (12:49→20:08)
[2017-09-06] MEDS ORDERED: LORazepam 2 MG/ML VIAL (J2060) As Ordered ONE ×2 (14:32→14:34)
[2017-09-06] MEDS ORDERED: LORazepam 2 MG/ML VIAL (J2060) IV STA (14:53)
[2017-09-06 14:59] LABS: BASO % 0.4 % (0.0-1.0); EOS % 0.3 % (0.0-3.0); IMMATURE GRANULOCYTE % 0.3 % (0-0); LYMPH # 1.7 10^3/uL (1.5-4.5); LYMPH % 18.4 % (24.0-44.0); MEAN CORPUSCULAR HEMOGLOBIN 29.6 pg (27.0-33.0); MEAN CORPUSCULAR HGB CONC 32.5 g/dl (32.0-36.5); MEAN CORPUSCULAR VOLUME 91.3 fl (80.0-96.0); MONO # 0.6 10^3/uL (0.0-0.8); MONO % 6.2 % (0.0-5.0); NEUTROPHILS # 6.8 10^3/uL (1.8-7.7); NEUTROPHILS % 74.4 % (36.0-66.0); PLATELET COUNT, AUTOMATED 249 10^3/uL (150-450); RED CELL DISTRIBUTION WIDTH 13.3 % (11.5-14.5); WHITE BLOOD COUNT 9.2 10^3/uL (4.0-10.0)
--- NOTE | 2017-09-06 15:10 | IPNPDOC ---
Text Note Date of Service The patient was seen on 09/06/17. NOTE Rapid response called at approximately 2:15PM on patient. Upon entering the patient's room she was found to be laying on her left side and shaking. Vitals were obtained with an initial SBP in the 160s. Oxygenation initially 88%. Improved to 99%. Patient was given 2mg of Ativan IV which appeared to swetha the seizures. After a few seconds, patient was able to provide her name, date of , her history of seizures, that she is not currently on medications for seizure prophylaxis, and that she has previously seen by Dr. Mancilla. No post- ictal state witnessed. No tongue maceration or urinary/bowel incontinence. Tongue midline on physical examination. 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 She presented to the ED in 2013 with seizures. There has been no further report of seizure activity since then. Labs, including CBC with differential, CMP, prolactin, lactic acid, and cardiac markers have been obtained. Neurology has been consulted and an EEG has been ordered. Patient has been transported to the PCU. Will also obtain a CT head without contrast. VS,Fishbone, I+O VS, Fishbone, I+O Laboratory Tests 09/06/17 05:50 Red Blood Count 3.92 L, Mean Corpuscular Volume 89.0, Mean Corpuscular Hemoglobin 28.6, Mean Corpuscular Hemoglobin Concent 32.1, Red Cell Distribution Width 13.2, Neutrophils (%) (Auto) 84.6 H, Lymphocytes (%) (Auto) 10.6 L, Monocytes (%) (Auto) 4.1, Eosinophils (%) (Auto) 0.1, Basophils (%) ( Auto) 0.3, Neutrophils # (Auto) 5.8, Lymphocytes # (Auto) 0.7 L, Monocytes # ( Auto) 0.3, Eosinophils # (Auto) 0.0, Basophils # (Auto) 0.0, Calcium Level 8.4 L , Aspartate Amino Transf (AST/SGOT) 164 H, Alanine Aminotransferase (ALT/SGPT) 143 H, Alkaline Phosphatase 152 H, Total Bilirubin 2.3 #H, Total Protein 6.1 L, Albumin 2.6 L Vital Signs Date Time Temp Pulse Resp B/P (MAP) Pulse Ox O2 Delivery O2 Flow Rate FiO2 09/06/17 06:08 16 09/06/17 06:00 97.2 80 113/61 (78) 93 Room Air 09/05/17 20:17 2 I&O- Last 24 Hours up to 6 AM 09/07/17 06:00 Output Total 200 ml Balance -200 ml CATALINA CARTWRIGHT DO Sep 06, 2017 15:10
[2017-09-06 15:32] LABS: ALBUMIN 3.2 GM/DL (3.2-5.2); ALBUMIN/GLOBULIN RATIO 0.82 (1.00-1.93); ALKALINE PHOSPHATASE 234 U/L (45-117); ALT/SGPT 284 U/L (12-78); ANION GAP 8 MEQ/L (8-16); AST/SGOT 348 U/L (7-37); BILIRUBIN,TOTAL 2.7 MG/DL (0.2-1.0); BLOOD UREA NITROGEN 5 MG/DL (7-18); CALCIUM LEVEL 8.7 MG/DL (8.5-10.1); CARBON DIOXIDE LEVEL 25 MEQ/L (21-32); CHLORIDE LEVEL 106 MEQ/L (98-107); CREATININE FOR GFR 1.07 MG/DL (0.55-1.02); GLUCOSE, FASTING 97 MG/DL (70-105); POTASSIUM SERUM 3.3 MEQ/L (3.5-5.1); SODIUM LEVEL 139 MEQ/L (136-145); TOTAL PROTEIN 7.1 GM/DL (6.4-8.2)
[2017-09-06 16:00] LABS: GLOMERULAR FILTRATION RATE > 60.0 (>60)
--- NOTE | 2017-09-06 16:01 | IPN ---
DATE: 09/06/2017 Rapid response was called at around 2:20 p.m. for seizure. The patient was seen at the bedside having tonic-clonic movements, nonresponsive with tachycardia into 160s but not hypoxic with continuous pulse oximetry running in the high 90s, 94% . Ativan was given 2 mg IV subsequently with resolution of shaking movements. As per family, the patient has a history of questionable seizure. Medication was verified. The patient is not on any seizure medication as an outpatient. Fingerstick shows 90. The patient is admitted to the hospital for abdominal pain for acute cholecystitis. After the seizure ended, the patient was arousable, slightly lethargic, alert and oriented times three, no postictal state was noticed. no focal neural def, follows command. No tongue bitting, fecal or urinary incontinence. The patient reported seeing Dr. Mancilla years ago and last EEG performed on record in 2012 reported psychogenic epileptiform spells. Stat laboratories were sent, including complete blood count (CBC), CMP, prolactin, lactic acid, and cardiac markers. Neurology was consulted. EEG and CT of the head was ordered. Likely, the patient had an episode of pseudoseizure, but we will discuss with neurology for further confirmation. Case discussed with Dr. Karma Mario, who is the primary on the case. The patient's trazodone was discontinued. Seizure precautions and neurochecks ordered in the computer. We will further monitor the patient. The patient was transferred to progressive care unit (PCU) for closer monitoring. Critical care time spent was 35 minutes. [facility]
[2017-09-06] MEDS ORDERED: NS 1,000 ML IV SCH (17:15)
[2017-09-06] MEDS ORDERED: POTASSIUM CHLORIDE 10 MEQ SR TABLET PO ONE (18:00)
[2017-09-06] MEDS: KCL 20MEQ in NS 1000ML 1,000 ML IV SCH (18:01)
[2017-09-06] MEDS: CitaloPRAM (CeleXA) 10 MG TABLET PO SCH (21:17)
[2017-09-06] MEDS: PRAZOSIN 1 MG CAP PO SCH (21:17)
[2017-09-07] MEDS: KCL 20MEQ in NS 1000ML 1,000 ML IV SCH ×3 (02:33→20:45)
[2017-09-07 04:00] VITALS: BP 117/58
[2017-09-07] MEDS: LEVOTHYROXINE 100MCG TABLET (0.1MG) PO SCH (05:39)
[2017-09-07 06:14] LABS: BASO % 0.9 % (0.0-1.0); EOS # 0.1 10^3/uL (0.0-0.50); EOS % 1.7 % (0.0-3.0); IMMATURE GRANULOCYTE % 0.2 % (0-0); LYMPH # 1.4 10^3/uL (1.5-4.5); LYMPH % 31.8 % (24.0-44.0); MEAN CORPUSCULAR HEMOGLOBIN 28.8 pg (27.0-33.0); MONO # 0.4 10^3/uL (0.0-0.8); MONO % 8.5 % (0.0-5.0); NEUTROPHILS # 2.4 10^3/uL (1.8-7.7); NEUTROPHILS % 56.9 % (36.0-66.0); PLATELET COUNT, AUTOMATED 216 10^3/uL (150-450); RED CELL DISTRIBUTION WIDTH 13.6 % (11.5-14.5); WHITE BLOOD COUNT 4.2 10^3/uL (4.0-10.0)
[2017-09-07 06:30] LABS: ALBUMIN/GLOBULIN RATIO 0.77 (1.00-1.93); ALKALINE PHOSPHATASE 194 U/L (45-117); ALT/SGPT 286 U/L (12-78); ANION GAP 7 MEQ/L (8-16); AST/SGOT 278 U/L (7-37); BILIRUBIN,DIRECT 2.8 MG/DL (0.0-0.2); BILIRUBIN,TOTAL 3.3 MG/DL (0.2-1.0); BLOOD UREA NITROGEN 6 MG/DL (7-18); CALCIUM LEVEL 7.6 MG/DL (8.5-10.1); CARBON DIOXIDE LEVEL 25 MEQ/L (21-32); CHLORIDE LEVEL 112 MEQ/L (98-107); CREATININE FOR GFR 0.76 MG/DL (0.55-1.02); GLOMERULAR FILTRATION RATE > 60.0 (>60); GLUCOSE, FASTING 119 MG/DL (70-105); POTASSIUM SERUM 3.5 MEQ/L (3.5-5.1); SODIUM LEVEL 144 MEQ/L (136-145)
[2017-09-07 06:45] LABS: ALBUMIN 2.4 GM/DL (3.2-5.2); TOTAL PROTEIN 5.5 GM/DL (6.4-8.2)
[2017-09-07] MEDS ORDERED: ISOVUE-300 61% 50ML VIAL (Q9967) As Ordered ONE (07:10)
[2017-09-07] MEDS: SUCRALFATE SUSP 1GM/10ML UD PO SCH ×4 (07:30→20:44)
[2017-09-07] MEDS ORDERED: GLYCOPYRROLATE INJ 0.2 MG/ML 2 ML VIAL As Ordered ONE ×2 (07:37→07:38)
[2017-09-07] MEDS ORDERED: MIDAZOLAM INJ 2 MG/2 ML VIAL (J2250) As Ordered ONE (07:37)
[2017-09-07] MEDS ORDERED: ROCURONIUM BROMIDE 50 MG/5 ML VIAL/SYRINGE As Ordered ONE (07:37)
[2017-09-07] MEDS ORDERED: PROPOFOL 200 MG/20 ML VIAL As Ordered ONE (07:37)
[2017-09-07] MEDS ORDERED: NEOSTIGMINE 10 MG/10 ML VIAL (J2710) As Ordered ONE (07:37)
[2017-09-07] MEDS ORDERED: fentaNYL 100 MCG/2 ML INJECTION (J3010) As Ordered ONE (07:37)
[2017-09-07] MEDS ORDERED: LIDOCAINE 2% INJ 100 MG/5 ML SDV (FOR ANES.) As Ordered ONE (07:37)
[2017-09-07] MEDS ORDERED: ONDANSETRON 4MG/2ML VIAL (J2405) As Ordered ONE (07:38)
[2017-09-07] MEDS ORDERED: SUCCINYLCHOLINE 100 MG/5 ML SYRINGE (J0330) As Ordered ONE (07:38)
[2017-09-07] MEDS: SYMBICORT 80/4.5MCG INHALER 6GM INH SCH ×2 (07:46→20:23)
--- NOTE | 2017-09-07 08:04 | REP ---
CT BRAIN WITHOUT IV CONTRAST: CT brain is performed without IV contrast. Ventricles are normal in size and position. There is no midline shift or mass effect. Raygoza-white differentiation is well maintained. There is no acute hemorrhage. There is no extra-axial fluid collection. No skull fracture is seen. IMPRESSION: Negative noncontrast CT brain. Signed by Johan Raygoza MD 09/07/2017 05:27 P
[2017-09-07] MEDS ORDERED: EPINEPHrine 1MG/10ML SYRINGE 1.5IN As Ordered ONE (08:48)
[2017-09-07] MEDS ORDERED: LEVALBUTEROL 1.25 MG/0.5 ML CONCENTRATE NEB As Ordered ONE (09:18)
--- NOTE | 2017-09-07 09:38 | ROOR ---
Patient Name: Joyce Mata Procedure Date: 09/07/2017 7:43 AM Date of : 1975 Age: 41 Room: Main OR Gender: Female Note Status: Finalized Procedure: ERCP + Papillotomy + Balloon Sweep + 1.5 cc of 1:10,000 Epinephrine Indications: Biliary dilation on Ultrasound, Elevated liver enzymes, Elevated aspartate transaminase (AST), Elevated alanine transaminase (ALT), Elevated bilirubin, Elevated alkaline phosphatase Providers: Quinton Farnsworth MD Referring MD: 2. Inpatient 2. Inpatient Requesting Provider: Medicines: General Anesthesia Complications: No immediate complications. Procedure: Pre-Anesthesia Assessment: - The heart rate, respiratory rate, oxygen saturations, blood pressure, adequacy of pulmonary ventilation, and response to care were monitored throughout the procedure. The Duodenoscope was introduced through the mouth, and advanced to the duodenum and used to inject contrast into the bile duct. The ERCP was accomplished without difficulty. The patient tolerated the procedure well. Findings: The scope was passed through the upper GI tract without discovering UGI findings. The major papilla was bulging. A short 0.035 inch Soft Jagwire was passed into the biliary tree. The short-nosed traction sphincterotome was passed over the guidewire and the bile duct was then deeply cannulated. Contrast was injected. I personally interpreted the bile duct images. Ductal flow of contrast was adequate. Image quality was adequate. Contrast extended to the entire biliary tree. The entire biliary tree was moderately dilated, uncertain etiology. A cholecystectomy had been performed. Biliary sphincterotomy was made with a monofilament traction (standard) sphincterotome using ERBE electrocautery. The sphincterotomy oozed blood. 1.5 cc of 1:10,000 epinephrine was injected into the papillotomy site. No oozing at scope withdrawal. To discover objects, the biliary tree was swept with a 12 mm balloon starting at the bifurcation. Sludge was swept from the duct. Impression: - The major papilla appeared to be bulging. - The entire biliary tree was moderately dilated, uncertain etiology. - The patient has had a cholecystectomy. - A biliary sphincterotomy was performed. - The biliary tree was swept and sludge was found. - The examination was otherwise normal. Recommendation: - Avoid aspirin and nonsteroidal anti-inflammatory medicines. - Return patient to [facility] for ongoing care. - Continue present medications. - Watch for pancreatitis, bleeding, perforation, and cholangitis. - The findings and recommendations were discussed with the referring physician. Quinton Farnsworth MD Quinton Farnsworth MD 09/07/2017 9:38:06 AM This report has been signed electronically. Number of Addenda: 0 Note Initiated On: 09/07/2017 7:43 AM Estimated Blood Loss: Estimated blood loss: none.
[2017-09-07] MEDS ORDERED: LR 1,000 ML IV SCH (10:00)
[2017-09-07] MEDS ORDERED: PERCOCET 5MG/325MG TAB PO PRN (10:00)
[2017-09-07] MEDS ORDERED: fentaNYL 100 MCG/2 ML INJECTION (J3010) IV PRN (10:00)
[2017-09-07] MEDS ORDERED: ONDANSETRON 4MG/2ML VIAL (J2405) IV PRN (10:00)
[2017-09-07] MEDS ORDERED: LEVALBUTEROL 1.25 MG/0.5 ML CONCENTRATE NEB INH ONE (10:15)
[2017-09-07] MEDS: PANTOPRAZOLE 40MG INJ (PROTONIX) (C9113) IV SCH ×2 (11:28→20:45)
[2017-09-07] MEDS ORDERED: MORPHINE 4 MG/ML 1ML SYRINGE IV PRN (12:00)
--- NOTE | 2017-09-07 12:02 | IPNPDOC ---
Subjective Date Seen The patient was seen on 09/07/17. Subjective Chief Complaint/HPI The patient is a 41-year-old female admitted with a reason for visit of Abdominal Pain. Events since last encounter patient had a rapid assessment called for seizure like activity. It was felt to be seizure vs pseudoseizure by the rapid assessment team . patient was moved to PCU for close monitoring. Had a similar episode again last night around 11 pm there there was shakiness of all 4 limbs. which lasted for 5 mins with sinus tachycardia in the telemonitor , patient was conscious looking around the room throughout the event. Was able to elevate her arm when asked by the nurse to put on the BP monitor cuff. was also able to hold her leg still when held down by the nurse and asked to calm down . Seems like pseudoseizure. This am went down for ERCP for elevated LFTs post cholecystectomy. Objective Physical Examination General Exam: Positive: Alert, Cooperative, Mild Distress Eye Exam: Positive: Conjunctiva & lids normal, EOMI, Negative: Sclera icteric ENT Exam: Positive: Atraumatic, Mucous membr. moist/pink, Pharynx Normal, Tongue Midline, Nares Patent Neck Exam: Positive: Supple Chest Exam: Positive: Clear to auscultation, Normal air movement, Negative: Rales, Rhonchi, Wheezing Heart Exam: Positive: Rate Normal, Normal S1, Normal S2, Negative: Tachycardic, Bradycardic, Gallops, Murmurs, Rubs Telemetry: Positive: No significant arrhythmia Abdomen Exam: Positive: Normal bowel sounds, Soft, Tenderness (diffuse), Negative: Hepatospenomegaly Extremity Exam: Negative: Clubbing, Cyanosis, Edema Skin Exam: Positive: Lesion, Other skin issue (scabs on b/l le from patient scratching), Negative: Rash, Breakdown Neuro Exam: Positive: Normal Speech Psych Exam: Positive: Mental status NL Assessment /Plan Problems (1) Abnormal LFTs Status: Acute Problem Text: worsened after cholecystectomy. Had ERCP this am showed bulging papilla sphincterotomy done and biliary tree swept clean of sludge. No NSAIDS or ASA. pain control with morphine avoid tylenol with elevated lfts. (2) Abdominal pain Status: Acute Response to Treatment: Improving Problem Text: acute cholecystitis with possibly biliary colic s/p lap amilcar on 09/05/17 CT abdomen demonstrated thickening of GB wall and GB stones GB u/s showed mobile gallstones LFTs elevated post cholecystectomy. (3) Pseudoseizures Status: Acute Problem Text: Seizure vs pseudoseizure. patient does have history of pseudoseizures in the past. used to follow with Dr Mancilla was was discharged from their practice 2 episodes here both looked like pseudoseizure neurology consulted. (4) COPD (chronic obstructive pulmonary disease) Status: Chronic Response to Treatment: Stable Problem Text: will give symbicort in place of advair and continue duoneb prn (5) Hyperlipidemia Status: Chronic Response to Treatment: Stable Problem Text: not on statins (6) Hypothyroid Status: Chronic Response to Treatment: Stable (7) DVT prophylaxis Status: Chronic Response to Treatment: Stable Problem Text: scd teds (8) RIANA on CPAP Status: Chronic (9) Morbid obesity Status: Chronic (10) Anxiety and depression Status: Chronic Problem Text: continue citalopram and trazodone when able to eat by mouth (11) GERD (gastroesophageal reflux disease) Status: Chronic Plan/VTE VTE Prophylaxis Ordered?: Yes VS, I&O, 24H, Fishbone Vital Signs/I&O Vital Signs Date Time Temp Pulse Resp B/P (MAP) Pulse Ox O2 Delivery O2 Flow Rate FiO2 09/07/17 09:41 97.2 109 22 94 09/07/17 09:40 122/64 (83) 09/07/17 09:26 Non-Rebreather 09/05/17 20:17 2 I&O- Last 24 Hours up to 6 AM 09/08/17 06:00 Intake Total 1000 ml Output Total 0 ml Balance 1000 ml Laboratory Data 24H LABS Laboratory Tests 2 09/06/17 14:34: Bedside Glucose (Misc Panel) 98 09/06/17 14:49: Immature Granulocyte % (Auto) 0.3H, White Blood Count 9.2, Red Blood Count 4.15 , Hemoglobin 12.3, Hematocrit 37.9, Mean Corpuscular Volume 91.3, Mean Corpuscular Hemoglobin 29.6, Mean Corpuscular Hemoglobin Concent 32.5, Red Cell Distribution Width 13.3, Platelet Count 249, Neutrophils (%) (Auto) 74.4H, Lymphocytes (%) (Auto) 18.4L, Monocytes (%) (Auto) 6.2H, Eosinophils (%) (Auto) 0.3, Basophils (%) (Auto) 0.4, Neutrophils # (Auto) 6.8, Lymphocytes # (Auto) 1.7, Monocytes # (Auto) 0.6, Eosinophils # (Auto) 0.0, Basophils # (Auto) 0.0, Immature Granulocyte # (Auto) 0.0, Nucleated Red Blood Cells % (auto) 0.0, Anion Gap 8, Glomerular Filtration Rate > 60.0, Lactic Acid Level 3.3*H, Blood Urea Nitrogen 5L, Creatinine 1.07#H, Sodium Level 139, Potassium Level 3.3L, Chloride Level 106, Carbon Dioxide Level 25, Calcium Level 8.7, Aspartate Amino Transf (AST/SGOT) 348H, Alanine Aminotransferase (ALT/SGPT) 284H, Total Creatine Kinase 106#, Alkaline Phosphatase 234H, Total Bilirubin 2.7H, Total Protein 7.1, Albumin 3.2#, Creatine Kinase MB 1.0, Creatine Kinase MB Relative Index 0.94, Troponin I < 0.02, Albumin/Globulin Ratio 0.82L 09/06/17 19:16: Lactic Acid Level 0.8 09/07/17 05:46: Immature Granulocyte % (Auto) 0.2H, White Blood Count 4.2, Red Blood Count 3.61L , Hemoglobin 10.4L, Hematocrit 32.5L, Mean Corpuscular Volume 90.0, Mean Corpuscular Hemoglobin 28.8, Mean Corpuscular Hemoglobin Concent 32.0, Red Cell Distribution Width 13.6, Platelet Count 216, Neutrophils (%) (Auto) 56.9, Lymphocytes (%) (Auto) 31.8, Monocytes (%) (Auto) 8.5H, Eosinophils (%) (Auto) 1.7, Basophils (%) (Auto) 0.9, Neutrophils # (Auto) 2.4, Lymphocytes # (Auto) 1.4L, Monocytes # (Auto) 0.4, Eosinophils # (Auto) 0.1, Basophils # (Auto) 0.0, Immature Granulocyte # (Auto) 0.0, Nucleated Red Blood Cells % (auto) 0.0, Anion Gap 7L, Glomerular Filtration Rate > 60.0, Blood Urea Nitrogen 6L, Creatinine 0.76, Sodium Level 144, Potassium Level 3.5, Chloride Level 112H, Carbon Dioxide Level 25, Calcium Level 7.6L, Aspartate Amino Transf (AST/SGOT) 278H, Alanine Aminotransferase (ALT/SGPT) 286H, Alkaline Phosphatase 194H, Total Bilirubin 3.3H, Total Protein 5.5#L, Albumin 2.4#L, Albumin/Globulin Ratio 0.77L, Direct Bilirubin 2.8H CBC/BMP Laboratory Tests 09/06/17 14:49 Red Blood Count 4.15, Mean Corpuscular Volume 91.3, Mean Corpuscular Hemoglobin 29.6, Mean Corpuscular Hemoglobin Concent 32.5, Red Cell Distribution Width 13.3 , Neutrophils (%) (Auto) 74.4 H, Lymphocytes (%) (Auto) 18.4 L, Monocytes (%) ( Auto) 6.2 H, Eosinophils (%) (Auto) 0.3, Basophils (%) (Auto) 0.4, Neutrophils # (Auto) 6.8, Lymphocytes # (Auto) 1.7, Monocytes # (Auto) 0.6, Eosinophils # ( Auto) 0.0, Basophils # (Auto) 0.0, Calcium Level 8.7, Aspartate Amino Transf ( AST/SGOT) 348 H, Alanine Aminotransferase (ALT/SGPT) 284 H, Total Creatine Kinase 106 #, Alkaline Phosphatase 234 H, Total Bilirubin 2.7 H, Total Protein 7.1, Albumin 3.2 # 09/07/17 05:46 Red Blood Count 3.61 L, Mean Corpuscular Volume 90.0, Mean Corpuscular Hemoglobin 28.8, Mean Corpuscular Hemoglobin Concent 32.0, Red Cell Distribution Width 13.6, Neutrophils (%) (Auto) 56.9, Lymphocytes (%) (Auto) 31.8, Monocytes (%) (Auto) 8.5 H, Eosinophils (%) (Auto) 1.7, Basophils (%) ( Auto) 0.9, Neutrophils # (Auto) 2.4, Lymphocytes # (Auto) 1.4 L, Monocytes # ( Auto) 0.4, Eosinophils # (Auto) 0.1, Basophils # (Auto) 0.0, Calcium Level 7.6 L , Aspartate Amino Transf (AST/SGOT) 278 H, Alanine Aminotransferase (ALT/SGPT) 286 H, Alkaline Phosphatase 194 H, Total Bilirubin 3.3 H, Total Protein 5.5 #L, Albumin 2.4 #L, Direct Bilirubin 2.8 H EUGENE MOSS MD Sep 07, 2017 12:02
[2017-09-07 12:46] VITALS: BP 130/47
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
[2017-09-07 15:35] VITALS: BP 137/69
--- NOTE | 2017-09-07 19:05 | CR ---
DATE OF CONSULTATION: 09/05/2017 REASON FOR CONSULTATION: This is a 41-year-old white female who was admitted to [facility] ([facility]) with a past medical history of chronic obstructive pulmonary disease (COPD) and asthma, hyperlipidemia, hypothyroidism, vitamin B12 and D deficiency, history of anemia and morbid obesity. The patient presented with a one-week history of abdominal pain of unclear etiology. The patient had a CT scan of the abdomen which showed a thickened gallbladder wall but no biliary dilatation. The patient stated she was having cold chills associated with the abdominal pain. The patient was admitted for further treatment and evaluation. MEDICATIONS: Included Celexa, vitamin D, iron, folic acid, Synthroid, omeprazole, prazosin and trazodone. ALLERGIES: 1. ASPIRIN. 2. HYDROCODONE. 3. LEVOTHYROXINE 4. PAXIL. 5. TOPIRAMATE. PAST MEDICAL HISTORY: As above. PAST SURGICAL HISTORY: The patient has had a previous tubal ligation. FAMILY HISTORY: No pertinent family history associated with this problem. SOCIAL HISTORY: The patient used to smoke until 2007. Alcohol: The patient has been sober for one year, but she used to drink up to 20 screwdrivers a day since she was a teen. REVIEW OF SYSTEMS: Noncontributory to the above problem. PHYSICAL EXAMINATION: GENERAL: This is a well-developed obese white female in no obvious acute distress. Appears stated age. CHEST: Clear to auscultation. CARDIOVASCULAR: Exam showed regular rhythm. No murmurs or gallops. Normal physiological split S1, S2. ABDOMEN: Soft, nontender. No masses, guarding. Soft, positive mild epigastric tenderness. No hepatosplenomegaly. Bowel sounds positive. DIAGNOSTIC DATA: Laboratory studies on admission showed a white count of 8500, hemoglobin and hematocrit normal. Chemistry on admission showed normal liver functions with a very mild transaminitis. Amylase and lipase were normal. The patient was seen for consideration of possible endoscopic retrograde cholangiopancreatography (ERCP), since she had a gallbladder ultrasound which suggested fatty liver, tiny mobile gall stones in the gallbladder and common bile duct was felt to be 11.2 mm in diameter. Initially the plan was to consider doing an ERCP immediately after the laparoscopic cholecystectomy on 09/05. This was not needed at the time. The patient was then seen again and over the weekend, the patient developed liver function elevation with a bilirubin that loren to a high of 3.3 Transaminases were up and the alkaline phosphatase was up. The patient was seen for, again, consideration of ERCP, papillotomy and balloon sweep. Indication for consultation is abnormal imaging with sudden rise and abnormal liver functions. Plan will be to set the patient up for an ERCP, papillotomy and balloon sweep. Informed consent had been given to the patient.
[2017-09-07] MEDS: CitaloPRAM (CeleXA) 10 MG TABLET PO SCH (20:43)
[2017-09-07] MEDS: PRAZOSIN 1 MG CAP PO SCH (20:44)
[2017-09-07 22:00] VITALS: BP 130/73
[2017-09-08] MEDS: KCL 20MEQ in NS 1000ML 1,000 ML IV SCH ×2 (04:34→17:43)
[2017-09-08] MEDS: LEVOTHYROXINE 112MCG TABLET (0.112MG) PO SCH (05:41)
--- NOTE | 2017-09-08 05:50 | REP ---
C-ARM VIEW DURING ERCP: Single C-arm view of the abdomen is performed. There appears to be a balloon catheter present. 5.4 seconds fluoroscopy time utilized for the procedure. Signed by Johan Raygoza MD 09/08/2017 09:02 A
[2017-09-08 06:00] VITALS: BP 138/74
[2017-09-08] MEDS: SUCRALFATE SUSP 1GM/10ML UD PO SCH ×4 (08:17→21:11)
[2017-09-08] MEDS: PANTOPRAZOLE 40MG INJ (PROTONIX) (C9113) IV SCH ×2 (08:17→21:11)
[2017-09-08] MEDS: SYMBICORT 80/4.5MCG INHALER 6GM INH SCH ×2 (08:39→20:14)
[2017-09-08 08:52] LABS: BASO % 0.6 % (0.0-1.0); EOS # 0.2 10^3/uL (0.0-0.50); EOS % 3.2 % (0.0-3.0); IMMATURE GRANULOCYTE % 0.5 % (0-0); LYMPH # 1.3 10^3/uL (1.5-4.5); LYMPH % 20.7 % (24.0-44.0); MEAN CORPUSCULAR HEMOGLOBIN 29.1 pg (27.0-33.0); MEAN CORPUSCULAR HGB CONC 31.8 g/dl (32.0-36.5); MEAN CORPUSCULAR VOLUME 91.5 fl (80.0-96.0); MONO # 0.4 10^3/uL (0.0-0.8); MONO % 6.3 % (0.0-5.0); NEUTROPHILS # 4.4 10^3/uL (1.8-7.7); NEUTROPHILS % 68.7 % (36.0-66.0); PLATELET COUNT, AUTOMATED 229 10^3/uL (150-450); RED CELL DISTRIBUTION WIDTH 14.1 % (11.5-14.5); WHITE BLOOD COUNT 6.3 10^3/uL (4.0-10.0)
--- NOTE | 2017-09-08 08:59 | IPNPDOC ---
Subjective Date Seen The patient was seen on 09/08/17. Subjective Chief Complaint/HPI The patient is a 41-year-old female admitted with a reason for visit of Abdominal Pain. Events since last encounter ling better this am , on clear liquids no abdominal pain , nausea or vomiting or diarrhea, no fever or chills, no further pseudoseizure like episodes. Labs pending. Objective Physical Examination General Exam: Positive: Alert, Cooperative, Mild Distress Eye Exam: Positive: Conjunctiva & lids normal, EOMI, Negative: Sclera icteric ENT Exam: Positive: Atraumatic, Mucous membr. moist/pink, Pharynx Normal, Tongue Midline, Nares Patent Neck Exam: Positive: Supple Chest Exam: Positive: Clear to auscultation, Normal air movement, Negative: Rales, Rhonchi, Wheezing Heart Exam: Positive: Rate Normal, Normal S1, Normal S2, Negative: Tachycardic, Bradycardic, Gallops, Murmurs, Rubs Telemetry: Positive: No significant arrhythmia Abdomen Exam: Positive: Normal bowel sounds, Soft, Tenderness (diffuse), Negative: Hepatospenomegaly Extremity Exam: Negative: Clubbing, Cyanosis, Edema Skin Exam: Positive: Lesion, Other skin issue (scabs on b/l le from patient scratching), Negative: Rash, Breakdown Neuro Exam: Positive: Normal Speech Psych Exam: Positive: Mental status NL Assessment /Plan Problems (1) Abnormal LFTs Status: Acute Problem Text: worsened after cholecystectomy. Had ERCP this am showed bulging papilla sphincterotomy done and biliary tree swept clean of sludge. No NSAIDS or ASA. pain control with morphine avoid tylenol with elevated lfts. labs this am pending diet as per surgery (2) Abdominal pain Status: Acute Response to Treatment: Improving Problem Text: acute cholecystitis with possibly biliary colic s/p lap amilcar on 09/05/17 CT abdomen demonstrated thickening of GB wall and GB stones GB u/s showed mobile gallstones LFTs elevated post cholecystectomy. diet as per surgery (3) Pseudoseizures Status: Acute Problem Text: pseudoseizure. patient does have history of pseudoseizures in the past. used to follow with Dr Mancilla was was discharged from their practice. Had video EEG in the past at [facility] and diagnosed with pseudoseizures there. 2 episodes here both looked like pseudoseizure neurology consulted. (4) COPD (chronic obstructive pulmonary disease) Status: Chronic Response to Treatment: Stable Problem Text: will give symbicort in place of advair and continue duoneb prn (5) Hyperlipidemia Status: Chronic Response to Treatment: Stable Problem Text: not on statins (6) Hypothyroid Status: Chronic Response to Treatment: Stable (7) DVT prophylaxis Status: Chronic Response to Treatment: Stable Problem Text: scd teds (8) RIANA on CPAP Status: Chronic (9) Morbid obesity Status: Chronic (10) Anxiety and depression Status: Chronic Problem Text: continue citalopram and trazodone when able to eat by mouth (11) GERD (gastroesophageal reflux disease) Status: Chronic (12) Intellectual disability Status: Chronic Problem Text: developmental delay with intellectual disability used to be a resident of [facility]. Her children live with her parents. 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. Plan/VTE VTE Prophylaxis Ordered?: Yes VS, I&O, 24H, Fishbone Vital Signs/I&O Vital Signs Date Time Temp Pulse Resp B/P (MAP) Pulse Ox O2 Delivery O2 Flow Rate FiO2 09/08/17 06:00 98.0 68 18 138/74 (95) 91 Room Air 09/05/17 20:17 2 Laboratory Data 24H LABS Laboratory Tests 2 09/08/17 08:42: Immature Granulocyte % (Auto) 0.5H, White Blood Count 6.3, Red Blood Count 3.78L , Hemoglobin 11.0L, Hematocrit 34.6L, Mean Corpuscular Volume 91.5, Mean Corpuscular Hemoglobin 29.1, Mean Corpuscular Hemoglobin Concent 31.8L, Red Cell Distribution Width 14.1, Platelet Count 229, Neutrophils (%) (Auto) 68.7H, Lymphocytes (%) (Auto) 20.7L, Monocytes (%) (Auto) 6.3H, Eosinophils (%) (Auto) 3.2H, Basophils (%) (Auto) 0.6, Neutrophils # (Auto) 4.4, Lymphocytes # (Auto) 1.3L, Monocytes # (Auto) 0.4, Eosinophils # (Auto) 0.2, Basophils # (Auto) 0.0, Immature Granulocyte # (Auto) 0.0, Nucleated Red Blood Cells % (auto) 0.0 CBC/BMP Laboratory Tests 09/08/17 08:42 Red Blood Count 3.78 L, Mean Corpuscular Volume 91.5, Mean Corpuscular Hemoglobin 29.1, Mean Corpuscular Hemoglobin Concent 31.8 L, Red Cell Distribution Width 14.1, Neutrophils (%) (Auto) 68.7 H, Lymphocytes (%) (Auto) 20.7 L, Monocytes (%) (Auto) 6.3 H, Eosinophils (%) (Auto) 3.2 H, Basophils (%) (Auto) 0.6, Neutrophils # (Auto) 4.4, Lymphocytes # (Auto) 1.3 L, Monocytes # ( Auto) 0.4, Eosinophils # (Auto) 0.2, Basophils # (Auto) 0.0 EUGENE MOSS MD Sep 08, 2017 08:59
[2017-09-08 09:22] LABS: ALBUMIN 2.6 GM/DL (3.2-5.2); ALBUMIN/GLOBULIN RATIO 0.79 (1.00-1.93); ALKALINE PHOSPHATASE 228 U/L (45-117); ALT/SGPT 245 U/L (12-78); ANION GAP 6 MEQ/L (8-16); AST/SGOT 121 U/L (7-37); BILIRUBIN,TOTAL 1.7 MG/DL (0.2-1.0); BLOOD UREA NITROGEN 6 MG/DL (7-18); CALCIUM LEVEL 7.8 MG/DL (8.5-10.1); CARBON DIOXIDE LEVEL 25 MEQ/L (21-32); CHLORIDE LEVEL 109 MEQ/L (98-107); GLOMERULAR FILTRATION RATE > 60.0 (>60); GLUCOSE, FASTING 120 MG/DL (70-105); POTASSIUM SERUM 3.7 MEQ/L (3.5-5.1); SODIUM LEVEL 140 MEQ/L (136-145); TOTAL PROTEIN 5.9 GM/DL (6.4-8.2)
[2017-09-08 14:00] VITALS: BP 135/76
[2017-09-08 14:29] LABS: PROLACTIN 21.2 NG/ML
--- NOTE | 2017-09-08 14:46 | IPNPDOC ---
Subjective General Date/Time Seen The patient was seen on 09/08/17 at 14:43. Subject Chief Complaint/History Patient seen laying on bed appears very comfortable at this time. She had ERCP done yesterday. No stones were found the duct was enlarged and sludge was removed. Patient reports her pain has went away after the procedure. Her LFTs this morning shows improvement of the bilirubin as well as AST and ALT. Current Medications Current Medications Current Medications Acetaminophen (Tylenol Tab) 650 mg Q6HP PRN PO PAIN / FEVER; Start 09/06/17 at 09:00; Stop 09/07/17 at 11:50; Status DC Acetaminophen (Tylenol Tab) 1,000 mg NOW PRN PO PAIN / FEVER Last administered on 09/04/17 18:34; Start 09/04/17 at 17:15; Stop 09/04/17 at 23:59; Status DC Albuterol/ Ipratropium (Duoneb (Ipr 0.5mg/Alb 2.5mg)) 3 ml Q4HP PRN NEB SOB/ WHEEZING Last administered on 09/04/17 07:42; Start 09/04/17 at 04:30; Stop 10/07/17 at 04:29 Budesonide/ Formoterol Fumarate (Symbicort 80/ 4.5mcg) 2 puff BID INH Last administered on 09/08/17 08:39; Start 09/04/17 at 09:00; Stop 10/07/17 at 08 :59 Citalopram Hydrobromide (CeleXA) 20 mg QHS PO ; Start 09/04/17 at 21:00; Stop 09/04/17 at 21:00; Status DC Citalopram Hydrobromide (CeleXA) 30 mg QHS PO Last administered on 09/07/17 20:43; Start 09/04/17 at 21:00; Stop 10/07/17 at 20:59 Dextrose/Sodium Chloride 1,000 ml @ 75 mls/hr [id number] IV Last administered on 09/05/17 10:10; Start 09/04/17 at 09:15; Stop 09/06/17 at 01:36; Status DC Fentanyl Citrate (Sublimaze) 25 mcg Q5MP PRN IV MODERATE PAIN (PS 4-7); Start 09/05/17 at 20:00; Stop 09/05/17 at 21:00; Status DC Fentanyl Citrate (Sublimaze) 25 mcg Q5MP PRN IV MODERATE PAIN (PS 4-7); Start 09/07/17 at 10:00; Stop 09/07/17 at 11:00; Status DC Ferrous Sulfate (Ferrous Sulfate) 325 mg DAILY PO Last administered on 08:45; Start 09/04/17 at 09:00; Stop 09/04/17 at 09:49; Status DC Folic Acid (Folic Acid) 1 mg QHS PO ; Start 09/04/17 at 21:00; Stop 09/04/17 at 21:00; Status DC Home Med (Med Rec Complete!) ASDIRECTED XX ; Start 09/04/17 at 00:45; Stop at 00:45; Status DC Ibuprofen (Advil) 800 mg Q8HP PRN PO MODERATE PAIN (PS 5-7) Last administered on 09/06/17 14:23; Start 09/06/17 at 09:00; Stop 09/07/17 at 11:50; Status DC Lactated Ringer's 1,000 ml @ 75 mls/hr [id number] IV ; Start 09/07/17 at 10:00; Stop 09/07/17 at 11:00; Status DC Lactated Ringer's 1,000 ml @ 80 mls/hr [id number] IV ; Start 09/05/17 at 20:00; Stop 09/05/17 at 21:00; Status DC Levothyroxine Sodium (Synthroid) 100 mcg SuTuThSa@0600 PO Last administered on 09/07/17 05:39; Start 09/04/17 at 06:00; Stop 10/07/17 at 05:59 Levothyroxine Sodium (Synthroid) 112 mcg MoWeFr@0600 PO Last administered on 05:41; Start 09/05/17 at 06:00; Stop 10/07/17 at 05:59 Lorazepam (Ativan) 2 mg STAT STAT IV Last administered on 09/06/17 14:53; Start 09/06/17 at 14:53; Stop 09/06/17 at 14:56; Status DC Morphine Sulfate (Morphine Sulfate Inj) 1 mg Q4HP PRN IV PAIN Last administered on 09/04/17 09:33; Start 09/04/17 at 04:45; Stop 09/04/17 at 09 :49; Status DC Morphine Sulfate (Morphine Sulfate Inj) 2 mg Q4HP PRN IV SEVERE BREAKTHROUGH PAIN Last administered on 09/06/17 20:09; Start 09/04/17 at 10:00; Stop at 11:50; Status DC Morphine Sulfate (Morphine Sulfate Inj) 2 mg Q5MP PRN IV MODERATE/SEVERE PAIN ( PS 7-10); Start 09/05/17 at 20:00; Stop 09/05/17 at 21:00; Status DC Morphine Sulfate (Morphine Sulfate Inj) 3 mg Q3HP PRN IV SEVERE PAIN (PS 8-10) ; Start 09/07/17 at 12:00; Stop 09/14/17 at 11:59 Omeprazole (PriLOSEC) 40 mg BID PO Last administered on 09/04/17 08:45; Start 09/04/17 at 09:00; Stop 09/04/17 at 09:49; Status DC Ondansetron HCl (ZOFRAN INJection) 4 mg Q4HP PRN IV NAUSEA OR VOMITING Last administered on 09/05/17 19:30; Start 09/05/17 at 20:00; Stop 09/05/17 at 21 :00; Status DC Ondansetron HCl (ZOFRAN INJection) 4 mg Q4HP PRN IV NAUSEA OR VOMITING; Start 09/07/17 at 10:00; Stop 09/07/17 at 11:00; Status DC Ondansetron HCl (ZOFRAN INJection) 4 mg Q6HP PRN IV NAUSEA OR VOMITING Last administered on 09/06/17 20:08; Start 09/04/17 at 18:15; Stop 10/07/17 at 18 :14 Oxycodone/ Acetaminophen (Percocet 5mg/ 325mg Tablet) 1 tab ASDIRECTED PRN PO MILD/MODERATE PAIN (PS 1-7); Start 09/05/17 at 20:00; Stop 09/05/17 at 21:00; Status DC Oxycodone/ Acetaminophen (Percocet 5mg/ 325mg Tablet) 1 tab ASDIRECTED PRN PO MILD/MODERATE PAIN (PS 1-7); Start 09/07/17 at 10:00; Stop 09/07/17 at 11:00; Status DC Pantoprazole Sodium (Protonix) 40 mg BID IV Last administered on 09/08/17 08: 17; Start 09/04/17 at 21:00; Stop 10/07/17 at 20:59 Potassium Chloride/Sodium Chloride 1,000 ml @ 100 mls/hr Q10H IV Last administered on 09/08/17 04:34; Start 09/06/17 at 17:30; Stop 10/07/17 at 17 :29 Prazosin HCl (Minipress) 1 mg QHS PO Last administered on 09/07/17 20:44; Start 09/04/17 at 21:00; Stop 10/07/17 at 20:59 Sodium Chloride 1,000 ml @ 100 mls/hr Q10H IV ; Start 09/06/17 at 17:15; Stop 09/06/17 at 17:20; Status DC Sucralfate (Carafate Suspension) 1 gm ACHS PO Last administered on 09/08/17 11:35; Start 09/04/17 at 12:00; Stop 10/07/17 at 11:59 Trazodone HCl (Desyrel) 25 mg QHS PO Last administered on 09/05/17 21:21; Start 09/04/17 at 21:00; Stop 09/06/17 at 14:42; Status DC Allergies Coded Allergies: Escitalopram (Unverified Allergy, Unknown, 09/03/17) Hydrocodone (Verified Allergy, Unknown, 09/03/17) Levothyroxine (Unverified Allergy, Unknown, NAUSEA, 09/03/17) Nefazodone (Verified Allergy, Unknown, 09/03/17) Paroxetine (Unverified Allergy, Unknown, 09/03/17) Topiramate (Verified Allergy, Unknown, 09/03/17) Uncoded Nonscreenable Allergen (Verified Adverse Reaction, Severe, ANTIFUNGAL-SEIZURE, 09/03/17) Aspirin (Verified Adverse Reaction, Mild, N/V, 09/04/17) HAS TAKEN IBUPROFEN & TORADOL IN PAST w/o PROBLEM Objective Physical Examination Examination GENERAL APPEARANCE:Patient seen, laying in bed, awake, alert, and oriented. Comfortable, in no acute distress. SKIN: Warm and moist. HEENT: Normocephalic, atraumatic. [place] palpebral conjunctiva, anicteric sclerae. Lips and mucosa appear moist. NECK: Supple, no thyromegaly. No obvious jugular venous distention. LUNGS: Clear to auscultation bilaterally. No wheezing appreciated. HEART: No chest wall abnormalities. Regular rate and rhythm with no murmurs appreciated. ABDOMEN: Abdomen is round, soft, minimally distended. Port sites are clean, dry and intact. Nontender and palpation. EXTREMITIES: Extremities have no deformities. No edema identified. Vital Signs Vital Signs Date Time Temp Pulse Resp B/P (MAP) Pulse Ox O2 Delivery O2 Flow Rate FiO2 09/08/17 14:00 99.0 78 20 135/76 (95) 92 09/08/17 10:00 BIPAP/CPAP 09/05/17 20:17 2 I&Os I&O- Last 24 Hours up to 6 AM 09/09/17 06:00 Intake Total 720 ml Output Total 600 ml Balance 120 ml Laboratory Data Labs 24H Laboratory Tests 2 09/08/17 08:42: Immature Granulocyte % (Auto) 0.5H, White Blood Count 6.3, Red Blood Count 3.78L , Hemoglobin 11.0L, Hematocrit 34.6L, Mean Corpuscular Volume 91.5, Mean Corpuscular Hemoglobin 29.1, Mean Corpuscular Hemoglobin Concent 31.8L, Red Cell Distribution Width 14.1, Platelet Count 229, Neutrophils (%) (Auto) 68.7H, Lymphocytes (%) (Auto) 20.7L, Monocytes (%) (Auto) 6.3H, Eosinophils (%) (Auto) 3.2H, Basophils (%) (Auto) 0.6, Neutrophils # (Auto) 4.4, Lymphocytes # (Auto) 1.3L, Monocytes # (Auto) 0.4, Eosinophils # (Auto) 0.2, Basophils # (Auto) 0.0, Immature Granulocyte # (Auto) 0.0, Nucleated Red Blood Cells % (auto) 0.0, Anion Gap 6L, Glomerular Filtration Rate > 60.0, Blood Urea Nitrogen 6L, Creatinine 0.70, Sodium Level 140, Potassium Level 3.7, Chloride Level 109H, Carbon Dioxide Level 25, Calcium Level 7.8L, Aspartate Amino Transf (AST/SGOT) 121H, Alanine Aminotransferase (ALT/SGPT) 245H, Alkaline Phosphatase 228H, Total Bilirubin 1.7H, Total Protein 5.9L, Albumin 2.6L, Albumin/Globulin Ratio 0.79L CBC/BMP Laboratory Tests 09/08/17 08:42 Red Blood Count 3.78 L, Mean Corpuscular Volume 91.5, Mean Corpuscular Hemoglobin 29.1, Mean Corpuscular Hemoglobin Concent 31.8 L, Red Cell Distribution Width 14.1, Neutrophils (%) (Auto) 68.7 H, Lymphocytes (%) (Auto) 20.7 L, Monocytes (%) (Auto) 6.3 H, Eosinophils (%) (Auto) 3.2 H, Basophils (%) (Auto) 0.6, Neutrophils # (Auto) 4.4, Lymphocytes # (Auto) 1.3 L, Monocytes # ( Auto) 0.4, Eosinophils # (Auto) 0.2, Basophils # (Auto) 0.0, Calcium Level 7.8 L , Aspartate Amino Transf (AST/SGOT) 121 H, Alanine Aminotransferase (ALT/SGPT) 245 H, Alkaline Phosphatase 228 H, Total Bilirubin 1.7 H, Total Protein 5.9 L, Albumin 2.6 L Impression Cholelithiasis with acute cholecystitis postop day 3 status post laparoscopic cholecystectomy Choledocholithiasis postop day 1 status post ERCP Abnormal LFTs improving after ERCP Pseudoseizures I will advance her diet and see how she does with diet. If her LFTs done down to normal, should be able to go home by tomorrow. Plan / VTE VTE Prophylaxis Ordered?: Yes COLBY MATTHEW MD Sep 08, 2017 14:46
--- NOTE | 2017-09-08 19:19 | EEG ---
DATE OF PROCEDURE: 09/08/2017 REFERRING PHYSICIAN: Dr. Karma Mario DIAGNOSIS: Seizure. EEG NUMBER: [id number] HISTORY: Patient is a 41-year-old woman who was admitted at [facility] due to right upper quadrant abdominal pain and had cholecystectomy. She had seizure-like spells. She has a history of psychogenic nonepileptic spells in past. She is currently taking Celexa, prazosin, Protonix, ibuprofen, Percocet etc. TECHNICAL DESCRIPTION: This digital EEG was recorded by 21 scalp, ear and two EKG electrodes and was reviewed in bipolar and referential montages following reformatting in 10-20 international electrode placement system. INTERPRETATION: The patient was noted to be in awake and drowsy states during this EEG. Resting awake background rhythm consisted of well-formed posterior dominant rhythm with anterior/posterior gradient comprising of 10 Hz alpha activity measuring 15-40 microvolts in amplitude, which was symmetric and reactive to eye opening. Attenuation of posterior dominant rhythm was seen during transition into drowsiness. Stage I and II sleep were reviewed and were symmetric bilaterally. Hyperventilation elicited mild theta slowing of background rhythm. Photic stimulation remained unremarkable. EKG revealed normal sinus rhythm. No focal, lateralizing or epileptiform abnormalities were seen. No clinical or electrographic seizures were recorded. CONCLUSION: This EEG in awake, drowsy states, stage I and II sleep is within normal limits.
[2017-09-08 21:12] VITALS: BP 111/60
[2017-09-08] MEDS: CitaloPRAM (CeleXA) 10 MG TABLET PO SCH (21:12)
[2017-09-08] MEDS: PRAZOSIN 1 MG CAP PO SCH (21:12)
[2017-09-08 22:00] VITALS: BP 111/60
[2017-09-09] MEDS: KCL 20MEQ in NS 1000ML 1,000 ML IV SCH (02:35)
[2017-09-09] MEDS: LEVOTHYROXINE 100MCG TABLET (0.1MG) PO SCH (05:29)
[2017-09-09 06:00] VITALS: BP 130/76
[2017-09-09 06:39] LABS: MEAN CORPUSCULAR HEMOGLOBIN 29.1 pg (27.0-33.0); MEAN CORPUSCULAR HGB CONC 31.8 g/dl (32.0-36.5); MEAN CORPUSCULAR VOLUME 91.5 fl (80.0-96.0); PLATELET COUNT, AUTOMATED 231 10^3/uL (150-450); RED CELL DISTRIBUTION WIDTH 14.1 % (11.5-14.5)
[2017-09-09 07:01] LABS: ALBUMIN 2.3 GM/DL (3.2-5.2); ALBUMIN/GLOBULIN RATIO 0.74 (1.00-1.93); ALKALINE PHOSPHATASE 175 U/L (45-117); ALT/SGPT 149 U/L (12-78); ANION GAP 5 MEQ/L (8-16); AST/SGOT 42 U/L (7-37); BILIRUBIN,TOTAL 0.8 MG/DL (0.2-1.0); BLOOD UREA NITROGEN 6 MG/DL (7-18); CALCIUM LEVEL 7.8 MG/DL (8.5-10.1); CARBON DIOXIDE LEVEL 25 MEQ/L (21-32); CHLORIDE LEVEL 110 MEQ/L (98-107); CREATININE FOR GFR 0.65 MG/DL (0.55-1.02); GLOMERULAR FILTRATION RATE > 60.0 (>60); GLUCOSE, FASTING 106 MG/DL (70-105); SODIUM LEVEL 140 MEQ/L (136-145); TOTAL PROTEIN 5.4 GM/DL (6.4-8.2)
[2017-09-09] MEDS: SYMBICORT 80/4.5MCG INHALER 6GM INH SCH (08:00)
[2017-09-09] MEDS: SUCRALFATE SUSP 1GM/10ML UD PO SCH (08:40)
[2017-09-09] MEDS: PANTOPRAZOLE 40MG INJ (PROTONIX) (C9113) IV SCH (08:40)
--- NOTE | 2017-09-09 13:05 | DSES ---
DATE OF ADMISSION: 09/03/2017 DATE OF DISCHARGE: 09/09/2017 PRIMARY CARE PROVIDER: Dr. Sal DISCHARGE DIAGNOSES: 1. Acute cholecystitis status post laparoscopic cholecystectomy on 09/05/2017. 2. Choledocholithiasis status post endoscopic retrograde cholangiopancreatography (ERCP), papillotomy on postoperative day #1 done on 09/07/2017. 3. Abnormal liver function tests (LFTs) after cholecystectomy improving after the ERCP. 4. Pseudoseizures. 5. Obesity. 6. Obstructive sleep apnea (RIANA) on continuous positive airway pressure (CPAP). 7. Chronic obstructive pulmonary disease (COPD). 8. Hypothyroid. 9. Hyperlipidemia. 10. Anxiety and depression. 11. Gastroesophageal reflux disease (GERD). 12. Developmental delay and intellectual disability. DISCHARGE MEDICATIONS: - albuterol sulfate two puff inhalation every 4 hours as needed, shortness of breath - albuterol sulfate nebulizer solution one respule four times a day as needed, shortness of breath - cyanocobalamin 1000 mcg by mouth daily - Celexa 30 mg at bedtime - ergocalciferol 50,000 units as directed - ferrous sulfate 325 mg by mouth daily - folic acid 1 mg at bedtime - Synthroid 100 mcg as directed - Synthroid 112 mcg as directed - omeprazole 40 mg by mouth twice a day - prazosin 1 mg by mouth at bedtime - salmeterol/fluticasone 230/21 MDI two puffs inhalation twice a day - trazodone 25 mg at bedtime HOSPITAL COURSE: This is a 41-year-old female presented to the hospital with 3- 4 day history of abdominal pain with nausea. She had initially come to the emergency room, was evaluated and discharged home; however, came back next day without resolution of symptoms and persistent nausea and vomiting. Patient was admitted to the hospital and diagnosed with acute cholecystitis. Patient underwent laparoscopic cholecystectomy on 09/05/2017. On postoperative day #1, patient was noted to have abnormal LFTs. She underwent ERCP with papillotomy and balloon sweep of the common bile duct. The major papilla was bulging and the anterior biliary tree was dilated. A biliary sphincterotomy was also performed. Biliary tree was swept and sludge was found. Post ERCP, patient's LFTs have started improving. Patient does not have any abdominal pain, nausea or vomiting. The hospital course was complicated by two episodes of pseudoseizures. Patient was seen by neurology. Previously, patient had a video EG done at [facility] for seizure-like episodes and at that time she was diagnosed with pseudoseizures. At present, patient does not have any complaints. Vital signs are stable. Function issues at baseline. She has been tolerating a low fat diet. PHYSICAL EXAMINATION: VITAL SIGNS: Temperature 96.7. Pulse 75. Respiratory rate 19. Blood pressure 130/76. Pulse oximetry 93% in room air. GENERAL: Patient awake, alert, oriented times three, sitting up in bed, in no acute distress. HEENT: Normocephalic, atraumatic. Moist mucous membranes. Anicteric eyes. CHEST: Clear to auscultation. CARDIOVASCULAR: S1, S2 regular. No rub, murmur or gallop. ABDOMEN: Obese, soft, nontender. Bowel sounds present. EXTREMITIES: No edema. LABORATORY DATA: WBC 7, hemoglobin 10.2, platelets 231. Sodium 140, potassium 4, chloride 110, bicarbonate 25, BUN 6, creatinine 0.6, glucose 106, calcium 7.8 , total bilirubin 0.8, AST 42, ALT 149, alkaline phosphatase 175. Gallbladder pathology showed subacute and chronic cholecystitis, cholelithiasis and extensive cholesterolosis. DISPOSITION: Patient is discharged home in stable condition. DISCHARGE INSTRUCTIONS: Patient to followup with surgeon in 1 weeks' time. Patient to followup with primary care provider in 2 weeks' time. Low fat, low cholesterol diet. Activity as tolerated. MTDD
== END 2017-09-09 11:27 | disposition home or self-care (01) | DRG 263 ==
LOC: M ED 18:46 → OBSVTOIN 18:47 → M ED INP 18:47 → M MS5PR 09-04 04:31 → INTOOBSV 09-05 10:06 → OBSVTOIN 09-05 10:06 → M PCU 09-06 14:52 → M MSPAV 09-07 15:31
PROVIDERS: ADMIT Internal Medicine; ATTEND Internal Medicine Nephrology
PROC: 0FT44ZZ Resection of Gallbladder, Percutaneous Endoscopic Approach (ICD-10-PCS; principal; 2017-09-05 15:00)
PROC: 0FC98ZZ Extirpation of Matter from Common Bile Duct, Via Natural or Artificial Opening Endoscopic (ICD-10-PCS; 2017-09-07)
DX: K80.62 Calculus of gallbladder and bile duct with acute cholecystitis without obstruction (principal); Z68.41 Body mass index [BMI] 40.0-44.9, adult; G40.89 Other seizures; E66.01 Morbid (severe) obesity due to excess calories; J44.9 Chronic obstructive pulmonary disease, unspecified; E78.5 Hyperlipidemia, unspecified; F32.9 Major depressive disorder, single episode, unspecified; F41.9 Anxiety disorder, unspecified; G47.33 Obstructive sleep apnea (adult) (pediatric); E03.9 Hypothyroidism, unspecified; Z79.899 Other long term (current) drug therapy; Z88.8 Allergy status to other drugs, medicaments and biological substances; Z88.6 Allergy status to analgesic agent; Z98.51 Tubal ligation status; Z87.891 Personal history of nicotine dependence; Z99.89 Dependence on other enabling machines and devices

== ENCOUNTER 2017-09-11 22:57 | Emergency (ER) | payer MEDICAID ==
[~2017-09-11] VITALS: Ht 154.9 cm; Wt 108.2 kg
[~2017-09-11 22:57] MED LIST changes: +ADVA230A INH; +ALBU83IN INH; +CELE10TA PO; +CELE20TA PO; +FERR1TAB8 PO; +FOLI1TAB4 PO; +PROAAER10 INH; +SYNT112T2 PO; +TRAZ50TA11 PO; +VITA100072 PO; +VITA1CAP40 PO
[2017-09-11] MEDS ORDERED: TYLE500T78 PO (23:10)
[2017-09-11 23:59] LABS: BASO # 0.1 10^3/uL (0.0-0.2); BASO % 0.9 % (0.0-1.0); EOS # 0.4 10^3/uL (0.0-0.50); IMMATURE GRANULOCYTE % 0.3 % (0-0); LYMPH % 25.4 % (24.0-44.0); MEAN CORPUSCULAR HEMOGLOBIN 29.6 pg (27.0-33.0); MEAN CORPUSCULAR HGB CONC 32.4 g/dl (32.0-36.5); MEAN CORPUSCULAR VOLUME 91.2 fl (80.0-96.0); MONO # 0.5 10^3/uL (0.0-0.8); MONO % 6.4 % (0.0-5.0); PLATELET COUNT, AUTOMATED 308 10^3/uL (150-450); RED CELL DISTRIBUTION WIDTH 13.6 % (11.5-14.5)
[2017-09-12 00:42] LABS: ALBUMIN/GLOBULIN RATIO 0.83 (1.00-1.93); ALKALINE PHOSPHATASE 177 U/L (45-117); ALT/SGPT 94 U/L (12-78); ANION GAP 8 MEQ/L (8-16); AST/SGOT 38 U/L (7-37); BILIRUBIN,TOTAL 0.6 MG/DL (0.2-1.0); BLOOD UREA NITROGEN 10 MG/DL (7-18); CALCIUM LEVEL 9.4 MG/DL (8.5-10.1); CARBON DIOXIDE LEVEL 30 MEQ/L (21-32); CHLORIDE LEVEL 101 MEQ/L (98-107); CREATININE FOR GFR 0.79 MG/DL (0.55-1.02); GLOMERULAR FILTRATION RATE > 60.0 (>60); GLUCOSE, FASTING 116 MG/DL (70-105); POTASSIUM SERUM 4.3 MEQ/L (3.5-5.1); SODIUM LEVEL 139 MEQ/L (136-145); TOTAL PROTEIN 6.6 GM/DL (6.4-8.2)
[2017-09-12] MEDS ORDERED: BACT800T5 PO (00:55)
[2017-09-12 00:57] VITALS: BP 121/83
== END 2017-09-12 01:05 | disposition home or self-care (01) ==
LOC: M ED 22:57
DX: F32.9 Major depressive disorder, single episode, unspecified (principal); R10.9 Unspecified abdominal pain; G47.33 Obstructive sleep apnea (adult) (pediatric); J45.909 Unspecified asthma, uncomplicated; K21.9 Gastro-esophageal reflux disease without esophagitis; E03.9 Hypothyroidism, unspecified; F41.9 Anxiety disorder, unspecified; Z79.899 Other long term (current) drug therapy; Z88.6 Allergy status to analgesic agent; Z88.5 Allergy status to narcotic agent; Z88.8 Allergy status to other drugs, medicaments and biological substances

== ENCOUNTER 2017-10-06 22:08 | Emergency (ER) | payer MEDICAID ==
[~2017-10-06] VITALS: Ht 154.9 cm; Wt 105.5 kg
[~2017-10-06 22:08] MED LIST changes: +BACT800T5 PO; +TYLE500T78 PO
[2017-10-06] MEDS ORDERED: ONDANSETRON 4MG/2ML VIAL (J2405) IV ONE (23:15)
[2017-10-06] MEDS ORDERED: NS 1,000 ML IV ONE (23:15)
[2017-10-06 23:28] LABS: BASO # 0.1 10^3/uL (0.0-0.2); BASO % 0.6 % (0.0-1.0); EOS # 0.3 10^3/uL (0.0-0.50); EOS % 3.9 % (0.0-3.0); IMMATURE GRANULOCYTE % 0.3 % (0-0); LYMPH # 2.4 10^3/uL (1.5-4.5); LYMPH % 29.6 % (24.0-44.0); MEAN CORPUSCULAR HEMOGLOBIN 29.5 pg (27.0-33.0); MEAN CORPUSCULAR HGB CONC 32.8 g/dl (32.0-36.5); MEAN CORPUSCULAR VOLUME 89.8 fl (80.0-96.0); MONO # 0.6 10^3/uL (0.0-0.8); MONO % 7.4 % (0.0-5.0); NEUTROPHILS # 4.6 10^3/uL (1.8-7.7); NEUTROPHILS % 58.2 % (36.0-66.0); PLATELET COUNT, AUTOMATED 273 10^3/uL (150-450); RED CELL DISTRIBUTION WIDTH 12.8 % (11.5-14.5)
[2017-10-06 23:39] LABS: INR 0.96
[2017-10-06 23:55] LABS: ALBUMIN 3.3 GM/DL (3.2-5.2); ALBUMIN/GLOBULIN RATIO 0.79 (1.00-1.93); ALKALINE PHOSPHATASE 94 U/L (45-117); ALT/SGPT 26 U/L (12-78); AMYLASE 38 U/L (25-115); ANION GAP 9 MEQ/L (8-16); AST/SGOT 14 U/L (7-37); BILIRUBIN,DIRECT < 0.1 MG/DL (0.0-0.2); BILIRUBIN,TOTAL 0.3 MG/DL (0.2-1.0); BLOOD UREA NITROGEN 11 MG/DL (7-18); CALCIUM LEVEL 8.5 MG/DL (8.5-10.1); CARBON DIOXIDE LEVEL 24 MEQ/L (21-32); CHLORIDE LEVEL 106 MEQ/L (98-107); CREATININE FOR GFR 0.92 MG/DL (0.55-1.02); GLOMERULAR FILTRATION RATE > 60.0 (>58); GLUCOSE, FASTING 104 MG/DL (70-105); POTASSIUM SERUM 3.7 MEQ/L (3.5-5.1); SODIUM LEVEL 139 MEQ/L (136-145); TOTAL PROTEIN 7.5 GM/DL (6.4-8.2)
--- NOTE | 2017-10-07 01:30 | REPUSA ---
CLINICAL HISTORY: Vaginal bleeding. TECHNIQUE: Realtime sonographic images were obtained in multiple projections via TA approach. COMMENTS: The uterus is anteverted measuring 11x5.3x6.1 cm. The endometrial echo pattern is within normal limit s measuring 10 mm. There is a left anterolateral intramural uterine fibroid measuring 3.6x 3x2.9 cm. There is no evidence of free fluid within the pelvic cul-de-sac. The right ovary measures 3.1x2.1x2.6 cm and the left ovary measures 4.6 times a 2.5x2.9 cm. Both ovar ies are free of solid or cystic mass. There is no evidence for abnormal vascularity. IMPRESSION: Left anterolateral intramural uterine fibroid. Normal ovaries. Normal bilateral ovarian flow. Thank you for your kind referral of this patient.
[2017-10-07] MEDS ORDERED: ZOFR4TAB3 PO (01:38)
[2017-10-07] MEDS ORDERED: MACR100C43 PO (01:42)
[2017-10-07 02:01] VITALS: BP 111/80
--- NOTE | 2017-10-07 08:46 | ECGEPIP ---
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
== END 2017-10-07 02:06 | disposition home or self-care (01) ==
LOC: M ED 22:08
DX: D25.9 Leiomyoma of uterus, unspecified (principal); N39.0 Urinary tract infection, site not specified; R11.0 Nausea; R51 Headache; Z87.820 Personal history of traumatic brain injury; J45.909 Unspecified asthma, uncomplicated; G47.30 Sleep apnea, unspecified; E03.9 Hypothyroidism, unspecified; F41.9 Anxiety disorder, unspecified; F32.9 Major depressive disorder, single episode, unspecified; Z87.891 Personal history of nicotine dependence; Z79.899 Other long term (current) drug therapy; Z88.6 Allergy status to analgesic agent; Z88.5 Allergy status to narcotic agent; Z88.8 Allergy status to other drugs, medicaments and biological substances
CPT/HCPCS: 76830; 76856; 80048; 80076; 81001; 82150; 82550; 82553; 83690; 85025; 85610; 93005; 93976; 96374; 99284; J2405

== ENCOUNTER → 2017-10-31 | Outpatient (CLI) | payer MEDICAID ==
[2017-10-31 13:01] LABS: APPEARANCE, URINE HAZY (CLEAR); BACTERIA, URINE AUTO NEGATIVE (NEGATIVE); BILIRUBIN, URINE AUTO NEGATIVE (NEGATIVE); BLOOD, URINE BLOOD 2+ (NEGATIVE); COLOR, URINE YELLOW (YELLOW); GLUCOSE, URINE (UA) AUTO NEGATIVE (NEGATIVE); KETONE, URINE AUTO TRACE mg/dL (NEGATIVE); LEUKOCYTE ESTERASE, URINE AUTO 1+ (NEGATIVE); MUCUS, URINE SMALL (NEGATIVE); NITRITE, URINE AUTO NEGATIVE (NEGATIVE); PROTEIN, URINE AUTO NEGATIVE (NEGATIVE); RBC, URINE AUTO 7 /HPF (0-3); SPECIFIC GRAVITY URINE AUTO 1.029 (1.002-1.035); SQUAMOUS EPITHELIAL CELL UR AU 3 /HPF (0-6); WBC, URINE AUTO 5 /HPF (0-3)
== END ==
LOC: M LAB 12:12
DX: N39.0 Urinary tract infection, site not specified (principal)
CPT/HCPCS: 36415

== ENCOUNTER → 2017-11-06 | Outpatient (REF) | payer MEDICAID ==
[2017-11-06 14:34] LABS: HEMATOCRIT 39.8 % (36.0-47.0); HEMOGLOBIN 12.8 g/dl (12.0-16.0); MEAN CORPUSCULAR HEMOGLOBIN 29.6 pg (27.0-33.0); MEAN CORPUSCULAR HGB CONC 32.2 g/dl (32.0-36.5); MEAN CORPUSCULAR VOLUME 91.9 fl (80.0-96.0); PLATELET COUNT, AUTOMATED 251 10^3/uL (150-450); RED BLOOD COUNT 4.33 10^6/uL (4.00-5.40); WHITE BLOOD COUNT 6.2 10^3/uL (4.0-10.0)
[2017-11-06 14:42] LABS: ALBUMIN 3.3 GM/DL (3.2-5.2); ALBUMIN/GLOBULIN RATIO 0.97 (1.00-1.93); ALKALINE PHOSPHATASE 83 U/L (45-117); ALT/SGPT 15 U/L (12-78); ANION GAP 5 MEQ/L (8-16); AST/SGOT 10 U/L (7-37); BILIRUBIN,TOTAL 0.3 MG/DL (0.2-1.0); BLOOD UREA NITROGEN 11 MG/DL (7-18); CALCIUM LEVEL 8.4 MG/DL (8.5-10.1); CARBON DIOXIDE LEVEL 29 MEQ/L (21-32); CHLORIDE LEVEL 107 MEQ/L (98-107); CHOLESTEROL LEVEL 173 MG/DL (<200); CHOLESTEROL RISK RATIO 4.219 (<5); CREATININE FOR GFR 0.88 MG/DL (0.55-1.02); FREE T4 1.08 NG/DL (0.76-1.46); GLOMERULAR FILTRATION RATE > 60.0 (>58); GLUCOSE, FASTING 101 MG/DL (70-105); HDL CHOLESTEROL 41 MG/DL (>40); LDL CHOLESTEROL 98.4 MG/DL (<100); NON-HDL-C 132 MG/DL; POTASSIUM SERUM 4.3 MEQ/L (3.5-5.1); SODIUM LEVEL 141 MEQ/L (136-145); TOTAL PROTEIN 6.7 GM/DL (6.4-8.2); TRIGLYCERIDES LEVEL 168 MG/DL (<150)
[2017-11-06 14:43] LABS: TOTAL 25(OH) VITAMIN D 27.6 NG/ML (30.0-100.0); VITAMIN B12 LEVEL 892 PG/ML (247-911)
== END ==
LOC: M LAB REF 13:52 → M LABDRAW1 13:52
DX: E03.9 Hypothyroidism, unspecified (principal); E55.9 Vitamin D deficiency, unspecified; K21.9 Gastro-esophageal reflux disease without esophagitis

== ENCOUNTER 2017-11-27 16:30 | Emergency (ER) | payer MEDICAID | END 2017-11-27 18:27 | disposition home or self-care (01) | LOC: M ED 16:30 | DX: J02.0 Streptococcal pharyngitis (principal); Z79.899 Other long term (current) drug therapy; Z88.6 Allergy status to analgesic agent; Z88.5 Allergy status to narcotic agent; Z88.8 Allergy status to other drugs, medicaments and biological substances | CPT/HCPCS: 87880 ==

== ENCOUNTER 2018-03-02 23:37 | Emergency (ER) | payer MEDICAID ==
[2018-03-03] MEDS: IBUPROFEN 800 MG TAB PO (01:22)
[2018-03-03] MEDS: CORTISPORIN OTIC SOLN 10 ML BTL AS (01:31)
== END 2018-03-03 01:32 | disposition home or self-care (01) ==
LOC: M ED 23:37
DX: H60.90 Unspecified otitis externa, unspecified ear (principal); J45.909 Unspecified asthma, uncomplicated; E11.9 Type 2 diabetes mellitus without complications; K21.9 Gastro-esophageal reflux disease without esophagitis; F33.9 Major depressive disorder, recurrent, unspecified; G31.84 Mild cognitive impairment of uncertain or unknown etiology; Z88.8 Allergy status to other drugs, medicaments and biological substances; Z88.5 Allergy status to narcotic agent; Z86.2 Personal history of diseases of the blood and blood-forming organs and certain disorders involving the immune mechanism
CPT/HCPCS: 99284

== ENCOUNTER → 2018-05-12 | Outpatient (CLI) | payer MEDICAID ==
[2018-05-12 11:29] LABS: BASO # 0.1 10^3/uL (0.0-0.2); BASO % 0.7 % (0.0-1.0); EOS # 0.2 10^3/uL (0.0-0.50); EOS % 3.1 % (0.0-3.0); HEMATOCRIT 40.8 % (36.0-47.0); HEMOGLOBIN 13.5 g/dl (12.0-15.5); IMMATURE GRANULOCYTE % 0.1 % (0-3.0); LYMPH # 1.7 10^3/uL (1.5-4.5); LYMPH % 25.3 % (24.0-44.0); MEAN CORPUSCULAR HEMOGLOBIN 29.3 pg (27.0-33.0); MEAN CORPUSCULAR HGB CONC 33.1 g/dl (32.0-36.5); MEAN CORPUSCULAR VOLUME 88.7 fl (80.0-96.0); MONO # 0.4 10^3/uL (0.0-0.8); MONO % 6.1 % (0.0-5.0); NEUTROPHILS # 4.4 10^3/uL (1.8-7.7); NEUTROPHILS % 64.7 % (36.0-66.0); PLATELET COUNT, AUTOMATED 256 10^3/uL (150-450); RED CELL DISTRIBUTION WIDTH 13.1 % (11.5-14.5); WHITE BLOOD COUNT 6.9 10^3/uL (4.0-10.0)
[2018-05-12 11:46] LABS: TOTAL 25(OH) VITAMIN D 59.3 NG/ML (30.0-100.0)
[2018-05-12 11:57] LABS: ERYTHROCYTE SEDIMENTATION RATE 31 mm/hr (0-20)
[2018-05-12 12:03] LABS: ALBUMIN 3.3 GM/DL (3.2-5.2); ALBUMIN/GLOBULIN RATIO 0.89 (1.00-1.93); ALKALINE PHOSPHATASE 75 U/L (45-117); ALT/SGPT 15 U/L (12-78); ANION GAP 8 MEQ/L (8-16); AST/SGOT 10 U/L (7-37); BILIRUBIN,TOTAL 0.4 MG/DL (0.2-1.0); BLOOD UREA NITROGEN 9 MG/DL (7-18); CARBON DIOXIDE LEVEL 24 MEQ/L (21-32); CHLORIDE LEVEL 109 MEQ/L (98-107); GLOMERULAR FILTRATION RATE 58.6 (>58); GLUCOSE, FASTING 103 MG/DL (70-100); POTASSIUM SERUM 4.2 MEQ/L (3.5-5.1); RHEUMATOID FACTOR QUANT < 10.0 IU/ML (<15.0); SODIUM LEVEL 141 MEQ/L (136-145)
[2018-05-13 10:18] LABS: ANTINUCLEAR ANTIBODIES DIRECT Negative (Negative)
== END ==
LOC: M LAB 10:45
DX: R51 Headache (principal)
CPT/HCPCS: 84443

== ENCOUNTER → 2018-05-28 | Outpatient (CLI) | payer MEDICAID | LOC: M RAD 11:53 | DX: S99.921A Unspecified injury of right foot, initial encounter (principal); X58.XXXA Exposure to other specified factors, initial encounter; Y92.89 Other specified places as the place of occurrence of the external cause | CPT/HCPCS: 73630 ==

== ENCOUNTER → 2018-06-02 | Outpatient (CLI) | payer MEDICAID ==
[2018-06-02 09:22] LABS: HEMATOCRIT 41.7 % (36.0-47.0); HEMOGLOBIN 13.4 g/dl (12.0-15.5)
[2018-06-02 09:35] LABS: APPEARANCE, URINE MANUAL HAZY (CLEAR); COLOR, URINE MANUAL YELLOW (YELLOW)
[2018-06-02 09:36] LABS: PH,URINE MAN 5.5 UNITS (5.0 - 7.0); SPECIFIC GRAVITY,URINE MANUAL 1.025 (1.002-1.035)
[2018-06-02 09:37] LABS: BILIRUBIN, URINE MANUAL NEGATIVE (NEGATIVE); GLUCOSE, URINE (UA) MANUAL NEGATIVE (NEGATIVE); KETONE, URINE MANUAL NEGATIVE (NEGATIVE); LEUKOCYTE ESTERASE, URINE MAN POSITIVE (NEGATIVE); NITRITE, URINE MANUAL NEGATIVE (NEGATIVE); PROTEIN, URINE MANUAL NEGATIVE (NEGATIVE); UROBILINOGEN, URINE MANUAL NORMAL (NORMAL)
[2018-06-02 09:38] LABS: BLOOD URINE MANUAL TRACE (NEGATIVE)
[2018-06-02 09:39] LABS: MICROSCOPIC INDICATED? MAN YES (NO)
[2018-06-02 09:47] LABS: RBC, URINE 0-1 /hpf (0-3); SQUAMOUS EPITHELIAL CELL URINE SMALL AMOUNT /hpf (SMALL AMT)
[2018-06-02 09:48] LABS: AMORPHOUS SEDIMENT, URINE SMALL AMOUNT (NEGATIVE); BACTERIA, URINE SMALL AMOUNT; HYALINE CAST, URINE NONE SEEN /lpf (0-1); RENAL EPITHELIAL CELLS, URINE SMALL AMOUNT /hpf
[2018-06-02 09:49] LABS: MICROSCOPIC EXAM PERFORMED
[2018-06-02 10:09] LABS: ALBUMIN 2.9 GM/DL (3.2-5.2); ALBUMIN/GLOBULIN RATIO 0.81 (1.00-1.93); ALKALINE PHOSPHATASE 62 U/L (45-117); ALT/SGPT 13 U/L (12-78); ANION GAP 6 MEQ/L (8-16); AST/SGOT 6 U/L (7-37); BILIRUBIN,TOTAL 0.2 MG/DL (0.2-1.0); BLOOD UREA NITROGEN 8 MG/DL (7-18); CALCIUM LEVEL 8.4 MG/DL (8.5-10.1); CARBON DIOXIDE LEVEL 26 MEQ/L (21-32); CHLORIDE LEVEL 110 MEQ/L (98-107); CREATININE FOR GFR 0.92 MG/DL (0.55-1.30); FREE T4 1.16 NG/DL (0.76-1.46); GLOMERULAR FILTRATION RATE > 60.0 (>58); GLUCOSE, FASTING 114 MG/DL (70-100); POTASSIUM SERUM 4.2 MEQ/L (3.5-5.1); SODIUM LEVEL 142 MEQ/L (136-145); TOTAL PROTEIN 6.5 GM/DL (6.4-8.2)
[2018-06-02 10:35] LABS: MALB URINE SIEMENS 10.9 MG/L; MAU/CREAT RATIO 2.4 MCG/MG (0.0-30.0)
[2018-06-02 10:39] LABS: ESTIMATED AVERAGE GLUCOSE 120 MG/DL (60-110); HEMOGLOBIN A1c 5.8 %
== END ==
LOC: M LAB 08:33
DX: R73.9 Hyperglycemia, unspecified (principal); E03.9 Hypothyroidism, unspecified; K21.9 Gastro-esophageal reflux disease without esophagitis
CPT/HCPCS: 84443

== ENCOUNTER → 2018-06-04 | Outpatient (CLI) | payer MEDICAID ==
[2018-06-04 10:10] LABS: FREE T4 1.06 NG/DL (0.76-1.46)
[2018-06-05 10:15] LABS: TISSUE TRANSGLUTAMINASE IgA <2 U/mL (0-3)
== END ==
LOC: M LAB 08:40
DX: R19.7 Diarrhea, unspecified (principal)
CPT/HCPCS: 84443

== ENCOUNTER → 2018-07-18 | Outpatient (CLI) | payer MEDICAID ==
[2018-07-20 09:52] LABS: FOLATE > 24.0 NG/ML (>5.4)
[2018-07-23 08:08] LABS: VITAMIN B1 LEVEL WHOLE BLOOD 110.9 nmol/L (66.5-200.0); VITAMIN E(ALPHA TOCOPHEROL) 11.4 mg/L (7.0-25.1); VITAMIN E(GAMMA TOCOPHEROL) 1.8 mg/L (0.5-5.5)
== END ==
LOC: M LAB 13:14
DX: G60.9 Hereditary and idiopathic neuropathy, unspecified (principal)
CPT/HCPCS: 82746

== ENCOUNTER → 2018-07-18 | Outpatient (CLI) | payer MEDICAID | LOC: M LAB 13:16 | DX: R19.7 Diarrhea, unspecified (principal) ==

== ENCOUNTER 2018-08-14 12:34 | Day surgery (SDC) | payer MEDICAID ==
[2018-08-14] MEDS: NS 1,000 ML IV (13:44)
[2018-08-14] MEDS ORDERED: PROPOFOL 200 MG/20 ML VIAL As Ordered ×3 (14:48→15:01)
[2018-08-14] MEDS ORDERED: LIDOCAINE 2% INJ 100 MG/5 ML SDV (FOR ANES.) As Ordered (14:48)
== END 2018-08-14 15:40 | disposition home or self-care (01) ==
LOC: M OPP 12:34
DX: D12.3 Benign neoplasm of transverse colon (principal); D12.2 Benign neoplasm of ascending colon; K64.8 Other hemorrhoids; R19.4 Change in bowel habit; K52.9 Noninfective gastroenteritis and colitis, unspecified; K29.70 Gastritis, unspecified, without bleeding; R12 Heartburn; G47.30 Sleep apnea, unspecified; R07.9 Chest pain, unspecified; E03.9 Hypothyroidism, unspecified; R73.03 Prediabetes; K21.9 Gastro-esophageal reflux disease without esophagitis; D50.9 Iron deficiency anemia, unspecified; R23.3 Spontaneous ecchymoses; F41.9 Anxiety disorder, unspecified; F32.9 Major depressive disorder, single episode, unspecified; J44.9 Chronic obstructive pulmonary disease, unspecified; E78.5 Hyperlipidemia, unspecified; Z79.899 Other long term (current) drug therapy; Z88.5 Allergy status to narcotic agent; Z88.6 Allergy status to analgesic agent; Z88.8 Allergy status to other drugs, medicaments and biological substances; Z91.018 Allergy to other foods; Z90.49 Acquired absence of other specified parts of digestive tract; Z98.51 Tubal ligation status
CPT/HCPCS: 45385

== ENCOUNTER → 2018-10-08 | Outpatient (CLI) | payer MEDICAID ==
[~2018-10-08] MED LIST changes: -FOLI1TAB4 PO; +FOLI1TAB5 PO; +IBUP200C25 PO; +KEFL500C17 PO; +LEVO112T2 PO; +LORA-243 PO; +MACR100C43 PO; +TRAZ-160 PO; -TRAZ50TA11 PO; -VITA1CAP40 PO; +VITA50005 PO; +ZOFR4TAB14 PO; +duoneb INH
[2018-10-08 09:18] LABS: ALBUMIN 3.2 GM/DL (3.2-5.2); BILIRUBIN,TOTAL 0.4 MG/DL (0.2-1.0); CHOLESTEROL RISK RATIO 7.142 (<5); CREATININE FOR GFR 1.12 MG/DL (0.55-1.30); FREE T4 1.23 NG/DL (0.76-1.46); GLOMERULAR FILTRATION RATE 57.1 (>58); POTASSIUM SERUM 4.4 MEQ/L (3.5-5.1); THYROID STIMULATING HORMONE 2.8 uIU/ML (0.358-3.740); TOTAL PROTEIN 6.9 GM/DL (6.4-8.2)
[2018-10-08 10:46] LABS: TOTAL 25(OH) VITAMIN D 68.8 NG/ML (30.0-100.0)
== END ==
LOC: M LAB 08:24
PROVIDERS: ATTEND Nurse Practitioner Family
DX: Z00.00 Encounter for general adult medical examination without abnormal findings (principal); Z68.41 Body mass index [BMI] 40.0-44.9, adult; E03.9 Hypothyroidism, unspecified; Z13.220 Encounter for screening for lipoid disorders; E55.9 Vitamin D deficiency, unspecified

== ENCOUNTER 2018-10-15 12:26 | Outpatient (RCR) | payer MEDICAID ==
[~2018-10-15 12:26] MED LIST changes: +FOLI1TAB11 PO; -FOLI1TAB5 PO
== END 2018-10-19 ==
LOC: M PT 12:26
PROVIDERS: ATTEND Nurse Practitioner Family
DX: M51.26 Other intervertebral disc displacement, lumbar region (principal)

== ENCOUNTER 2018-10-27 14:24 | Outpatient (RCR) | payer MEDICAID ==
[2018-11-10] MEDS ORDERED: NORE0.353 PO (20:58)
[2018-11-10] MEDS ORDERED: FOLI800C PO (20:58)
[2018-11-10] MEDS ORDERED: DULO30CA PO (20:58)
[2018-11-10] MEDS ORDERED: ZONI100C2 PO (21:02)
[2018-11-10] MEDS ORDERED: PANT40TA3 PO (21:02)
[2018-11-10] MEDS ORDERED: CETI1SYP16 PO (21:02)
[2018-11-11] MEDS ORDERED: CAPS0.022 TOP (01:12)
== END 2018-11-19 ==
LOC: M PT 14:24
PROVIDERS: ATTEND Nurse Practitioner Family
DX: M51.26 Other intervertebral disc displacement, lumbar region (principal)

== ENCOUNTER 2018-11-10 20:26 | Emergency (ER) | payer MEDICAID ==
[~2018-11-10] VITALS: Ht 154.9 cm; Wt 104.5 kg
[2018-11-10] MEDS ORDERED: NORE0.353 PO (20:58)
[2018-11-10] MEDS ORDERED: FOLI800C PO (20:58)
[2018-11-10] MEDS ORDERED: DULO30CA PO (20:58)
[2018-11-10] MEDS ORDERED: ZONI100C2 PO (21:02)
[2018-11-10] MEDS ORDERED: CETI1SYP16 PO (21:02)
[2018-11-10] MEDS ORDERED: PANT40TA3 PO (21:02)
[2018-11-10] MEDS ORDERED: IBUPROFEN 600 MG TAB PO ONE (22:00)
[2018-11-10] MEDS ORDERED: traMADol 50 MG TAB PO ONE (22:00)
[2018-11-11] MEDS ORDERED: CAPS0.022 TOP (01:12)
[2018-11-11 01:20] VITALS: BP 124/83
--- NOTE | 2018-11-12 08:50 | REP ---
Duplex extremity venous ultrasound: Left lower extremity. Repeat dictation. History: Pain and calf swelling. Question DVT. Preliminary report is provided at the time of exam by [facility]. Findings: The deep veins are anechoic and fully compressible from the groin to the popliteal fossa in the left lower extremity. Color flow imaging is homogeneous. Spectral Doppler interrogation demonstrates intact respiratory variation in flow and normal manual augmentation of flow. There is no evidence of deep vein thrombosis. Impression: Negative left lower extremity duplex venous ultrasound. No evidence of deep vein thrombosis. Electronically Signed by Glynn Anne MD 11/12/2018 08:42 A
== END 2018-11-11 01:24 | disposition home or self-care (01) ==
LOC: M ED 20:26
DX: M79.662 Pain in left lower leg (principal); M79.89 Other specified soft tissue disorders; M25.562 Pain in left knee; E11.9 Type 2 diabetes mellitus without complications; K27.9 Peptic ulcer, site unspecified, unspecified as acute or chronic, without hemorrhage or perforation; J44.9 Chronic obstructive pulmonary disease, unspecified; Z88.8 Allergy status to other drugs, medicaments and biological substances; Z88.5 Allergy status to narcotic agent; Z91.018 Allergy to other foods; Z88.3 Allergy status to other anti-infective agents; Z79.899 Other long term (current) drug therapy

== ENCOUNTER → 2018-11-24 | Outpatient (REF) | payer MEDICAID ==
[~2018-11-24] MED LIST changes: +CAPS0.022 TOP; +CETI1SYP16 PO; +DULO30CA PO; +FOLI800C PO; +NORE0.353 PO; +PANT40TA3 PO; +ZONI100C2 PO
[2018-11-26 14:16] LABS: HPV HYBRID CAPTURE II Negative (Negative)
== END ==
LOC: M SFHCWAGY 10:38
PROVIDERS: ATTEND Nurse Practitioner Family
DX: Z12.4 Encounter for screening for malignant neoplasm of cervix (principal)

== ENCOUNTER → 2018-11-24 | Outpatient (CLI) | payer MEDICAID ==
--- NOTE | 2018-11-24 15:39 | REPMRS ---
Patient History The patient states she had a clinical breast exam in 11/2018. No known family history of cancer. Taking hormonal contraceptives for 1 year. Digital Woman Screen Mammo: November 24, 2018 - Exam #: [id number] Bilateral CC and MLO view(s) were taken. Technologist: Reshma Mckeon, Technologist Prior study comparison: January 20, 2014, bilateral digital mammo screening bilat, performed at [facility]. December 17, 2012, digital mammo diagnostic bilateral, performed at [facility]. FINDINGS: The breast tissue is almost entirely fat. There has been no change in the appearance of the mammogram from the prior studies. There is no interval development of dominant mass, architectural distortion, or clustered microcalcification typical of malignancy. 3-D tomosynthesis shows no additional findings. Assessment: BI-RADS/ACR category 1 mammogram. Negative Mammogram. Recommendation Routine screening mammogram of both breasts in 1 year (for women over age 40). This patient's Lifetime Breast Cancer RIsk is estimated at 9.1 %. This mammogram was interpreted with the aid of an FDA-approved computer-aided dectection system. Electronically Signed By: Tito Anne MD 11/24/18 [id number]
== END ==
LOC: M WHC 10:08
PROVIDERS: ATTEND Nurse Practitioner Family
DX: Z12.31 Encounter for screening mammogram for malignant neoplasm of breast (principal)

== ENCOUNTER 2018-12-15 11:27 | Outpatient (RCR) | payer MEDICAID | END 2018-12-17 | LOC: M PT 11:27 | PROVIDERS: ATTEND Orthopaedic Surgery | DX: M25.362 Other instability, left knee (principal) ==

== ENCOUNTER → 2018-12-21 | Outpatient (CLI) | payer MEDICAID ==
--- NOTE | 2019-01-04 00:06 | ECWPNPC ---
PATIENT NAME: SHILOH FLORES : 1975 GENDER: FEMALE VISIT DATE: 12/21/2018 DISCHARGE DATE: 12/21/18 1122 VISIT LOCKED DATE TIME: PHYSICIAN: BROCK KOHLER MD RESOURCE: BROCK KOHLER MD REASON FOR APPOINTMENT 1. LOW BACK PAIN HISTORY OF PRESENT ILLNESS FALL RISK SCREENING: SCREENING : NO FALLS IN THE PAST YEAR. PAIN SCREENING: PATIENT HAS A COMPLAINT OF ACUTE OR CHRONIC PAIN :YES 43 YEAR OLD FEMALE PATIENT WITH A HISTORY OF CHRONIC LOW BACK PAIN. THE PATIENT DESCRIBES THE PAIN ACHING, STABBING, TENDER, SORE, SHOOTING, AND CONTINUOUS WITH A PAIN SCORE OF 8-10/10 DEPENDING ON PHYSICAL ACTIVITY. THE PATIENT SAYS HER PAIN STARTS IN HER LOW BACK AREA AND RADIATES DOWN BOTH LEGS. THE PATIENT STATES THAT HER PAIN STARTED SPONTANEOUSLY SEVERAL YEARS AGO AND HAS WORSENED OVER TIME. THE PATIENT SAYS THAT SHE HAS DIFFICULTY DOING DAILY ACTIVITIES SUCH COOKING, CLEANING, AND GETTING GROCERIES DUE TO THIS PAIN. PATIENT DENIES UNEXPLAINABLE WEIGHT LOSS, FEVER, CHILLS, NEW CHANGES ON HER URINARY OR BOWEL CONTROL. CURRENT MEDICATIONS TAKING ADVAIR HFA 230-21 MCG/ACT AEROSOL 2 PUFFS INHALATION TWICE A DAY TAKING PROAIR HFA 108 (90 BASE) MCG/ACT AEROSOL SOLUTION 2 PUFFS NEEDED INHALATION EVERY 6 HRS TAKING DRISDOL 12629 UNIT CAPSULE 1 CAPSULE ORALLY ONCE WEEK TAKING LEVOTHYROXINE SODIUM 112 MCG TABLET 1 TABLET ON AN EMPTY STOMACH IN THE MORNING ORALLY ONCE A DAY TAKING ALBUTEROL SULFATE (2.5 MG/3ML) 0.083% NEBULIZATION SOLUTION 3 ML NEEDED INHALATION THREE TIMES A DAY TAKING CPAP MACHINE MANAGED PULMONARY TAKING PANTOPRAZOLE SODIUM 40 MG TABLET DELAYED RELEASE 1 TABLET ORALLY ONCE A DAY, NOTES: REINDL TAKING DICYCLOMINE HCL 20 MG TABLET 1 TABLET ORALLY BID PRN, NOTES: REINDL TAKING ZONISAMIDE 50 MG CAPSULE 1 CAPSULE ORALLY TWICE A DAY, NOTES: LOLA TAKING VITAMIN B-12 1000 MCG TABLET 1 TABLET ORALLY ONCE A DAY TAKING NORETHINDRONE ACETATE 5 MG TABLET 1 TABLET ORALLY ONCE A DAY, NOTES: OBGYN TAKING FERROUS SULFATE 325 (65 FE) MG TABLET 1 TABLET ORALLY ONCE A DAY TAKING FLEXERIL 5 MG TABLET 1 TABLET NEEDED ORALLY THREE TIMES A DAY PRN TAKING ZYRTEC 10 MG TABLET 1 TABLET ORALLY ONCE A DAY TAKING PRAZOSIN HCL 1 MG CAPSULE 1 CAPSULE AT BEDTIME ORALLY ONCE A DAY TAKING CYMBALTA 20 MG CAPSULE DELAYED RELEASE PARTICLES 1 CAPSULE ORALLY BID TAKING FOLIC ACID 1 MG TABLET 1 TABLET ORALLY ONCE A DAY TAKING IBUPROFEN 600 MG TABLET 1 TABLET WITH FOOD OR MILK NEEDED ORALLY THREE TIMES A DAY PRN TAKE WITH FOOD NOT-TAKING CITALOPRAM HYDROBROMIDE 10 MG TABLET 1 TABLET ORALLY ONCE A DAY, NOTES: [facility] NOT-TAKING CITALOPRAM HYDROBROMIDE 20 MG TABLET 1 TABLET ORALLY ONCE A DAY, NOTES: [facility] NOT-TAKING AMOXICILLIN-POT CLAVULANATE 875-125 MG TABLET 1 TABLET ORALLY EVERY 12 HRS, NOTES: [employer] SINUS INFECTION MEDICATION LIST REVIEWED AND RECONCILED WITH THE PATIENT PAST MEDICAL HISTORY SEIZURE DISORDER- MOOD SIEZURE DISORDER ASTHMA: DR. ESTRELLA; DX YOUNG ADULT COPD: DR. ESTRELLA; DX UNKNOWN DEPRESSION: LORRAINE HIGHTOWER, [facility] ANXIETY: LORRAINE HIGHTOWER, [facility] PTSD: LORRAINE HIGHTOWER, [facility] SLEEP APNEA: DR. ESTRELLA HYPOTHYROIDISM ALLERGIES BULGING DISC- LOWER BACK RIGHT FOOT TENDONITIS ARTHRITIS- BACK VIT D DEFICIENCY OBESITY HX HEART FAILURE 2002 WITH - WAS SEEN BY CARDIOLOGY THYROID NODULES: PER PATIENT, FOLLOWS WITH [facility] ENT HX. OF ANEMIA ASTHMA LOW O2 SATS 2009 SEIZURES ESOPHAGEAL REFLUX PTSD ABNORMAL PAP SMEAR LEARNING DISABILITY ALCOHOLISM 3 YEARS REMISSION ONCHYCHOMYCOSIS BACK PAIN,SEEKING BREAST REDUCTION 2009, HAS TO WEIGH 190LBS. TMJ HEADACHE MRI NEG 2009 STOOL FOR OCCULT-PER PT. NEGATIVE X 3, 2011 COLONOSCOPY 2017, 3 POLYPS, REPEAT COLONOSCOPY 5-10 YEARS ECHO 07/2018: NORMAL LEFT VENTRICULAR SIZE, WALL THICKENESS AND WALL MOTION, LEFT ATRIAL SIZE UPPER LIMITS OF NORMAL WITH EVIDENCE OF IMPAIRMENT OF LV DIASTOLIC FUNCTION BUT CURRENTLY NORMAL ESTIMATED MEAN LEFT ATRIAL PRESSURE. NL RIGHT HEART CHAMBER SIZES, WALL MOTION AND ESTIMATED PULMONARY ARTERIAL PRESSURE. NL IVC SIZE AND COLLAPSED AGAINST AN ELEVATED CENTRAL VENOUS PRESSURE STRESS TEST NEGATIVE 07/2018 ALLERGIES ANTIFUNGAL: SEIZURE: ALLERGY ASPIRIN: VOMITING BLOOD: ALLERGY VICODIN: SEIZURES: ALLERGY TOPAMAX: SEIZURES: ALLERGY LEXAPRO: BP DEC.: ALLERGY SEROQUEL: SEIZURES: ALLERGY PAXIL: SEIZURE: ALLERGY STAWBERRY: HIVES: ALLERGY SYNTHROID: NAUSEA: ALLERGY MILK: MUCOUS: ALLERGY SURGICAL HISTORY GALLBLADDER REMOVED- [facility] 08/2017 TUBAL- [facility] 2002 UPPER GI SCOPE, WITH BIOPSIES- COLONOSCOPY- [facility]: DR. ESCUDERO, TUBULAR ADENOMA 08/14/18 FAMILY HISTORY FATHER: ALIVE 68 YRS MOTHER: ALIVE 58 YRS, DIAGNOSED WITH DIABETES SIBLINGS: UNKNOWN SON(S): ALIVE 15 YRS, DIAGNOSED WITH PSYCHIATRIC CONDITIONS DAUGHTER(S): ALIVE 22 YRS, DIAGNOSED WITH PSYCHIATRIC CONDITIONS PATERNAL GRAND FATHER: PATERNAL GRAND MOTHER: , DIAGNOSED WITH HEART DISEASE MATERNAL GRAND FATHER: UNKNOWN MATERNAL GRAND MOTHER: UNKNOWN 4 SISTER(S) . 1 SON(S) , 1 DAUGHTER(S) . DAUGHTER AGE22- MULTIPLE MISSCARRAGES, ANEMIA, OBESITYSON AGE 15- AUTISIMDAUGHTER ANEMIA, BIPOLARPATERNAL GRANDFATHER- COMMITTED SUICIDE. SOCIAL HISTORY GENERAL: TOBACCO USE ARE YOU A:FORMER SMOKER HOW LONG HAS IT BEEN SINCE YOU LAST SMOKED?5-10 YEARS BMI CARE GOAL FOLLOW-UP ABOVE NORMAL BMI FOLLOW-UPLIFESTYLE EDUCATION REGARDING DIET ALCOHOL SCREENING DID YOU HAVE A DRINK CONTAINING ALCOHOL IN THE PAST YEAR?NO POINTS0 INTERPRETATIONNEGATIVE RECREATIONAL DRUG USE DRUG USE?NO CAFFEINE CAFFEINE USE?YES OCCASIONAL TEA DECAFE COFFEE. NO SODA SEXUAL HX HAD SEX IN THE LAST 12 MONTHS (VAGINAL, ORAL, OR ANAL)?NO HIV / HEP-C SCREENING HIV TEST OFFERED TO PATIENT:YES DATE OFFERED:08/26/2018 TEST ACCEPTED:NO HEP-C TEST OFFERED TO PATIENT:YES DATE OFFERED:08/26/2018 REASON:PATIENT DECLINED TEST ACCEPTED:NO REASON:PATIENT DECLINED BROCHURE PROVIDED TO PATIENTYES YAZIDI [id number] [employer]AP[employer] LANGUAGE LANGUAGES SPOKEN:PORTUGUESE EDUCATION LEVEL OF EDUCATION:NOT FINISHED HIGH SCHOOL 11TH GRADE LEARNING BARRIERS / SPECIAL NEEDS CHANGE FROM LAST VISIT?NO BARRIERS TO LEARNING?YES HEARING IMPAIRED?NO VISION IMPAIRED?YES :CORRECTIVE LENSES COGNITIVELY IMPAIRED?YES :LEARNING DISABILITY PT HAS AN AIDE 5 DAYS/WEEK (32 HOURS/WEEK) WHO SETS UP MEDS, COMES TO DOCTOR'S APPT, ASSISTS WITH HOUSEWORK READINESS TO LEARN?YES LEARNING PREFERENCES?NO LEARNING CAPABILITIES PRESENT?YES EMOTIONAL BARRIERS?NO SPECIAL DEVICES?NO CIGARETTE VENDOR NEEDED?NO DOMESTIC VIOLENCE DO YOU FEEL SAFE IN YOUR ENVIRONMENT?YES OCCUPATION: DISABLED. DIET: [facility]- DR. 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 EXERCISE: DAILY, WALKING. MARITAL STATUS: . OTHERS AT HOME: LIVES WITH SIGNIFICANT OTHER. NEW PATIENT PAIN DIARY PATIENT DESCRIBES PAIN :ACHING, HAVE IT ALL THE TIME, STABBING, TENDER, SORE, SHOOTING FROM 0-10, WHAT LEVEL IS YOUR PAIN TODAY?9 PRECIPITATING FACTORS INCREASES WITH ACTIVITY ALLEVIATING FACTORS USES A HEATING PAD PAIN CLINIC PFS, CLERGY, PUBLIC HEALTH REFERRALS HAS THE PATIENT BEEN EDUCATED REGARDING HIS/HER PLAN OF CARE?YES HAS THE PATIENT BEEN EDUCATED REGARDING PAIN, THE RISK FOR PAIN, THE IMPORTANCE OF EFFECTIVE PAIN MANAGEMENT, AND THE PAIN ASSESSMENT PROCESS?YES ADVANCE DIRECTIVE ADVANCE DIRECTIVE DISCUSSED WITH PATIENT:YES PT HAS NO ADVANCED DIRECTIVES, HCP INFORMATION GIVEN TO PT AND REVIEWED. PT STATES HER AIDE WILL HELP HER WITH IT. 12/21/18 1030 LAS REVIEWED WITH PT 12/21/18 1035 LAS. HOSPITALIZATION/MAJOR DIAGNOSTIC PROCEDURE ASTHMA- [facility] 2017 [facility]- VAGINAL - WITH COMPLICATIONS- SEIZURES CANNOT RECALL 2002 [facility]- VAGINAL NO COMPLICATIONS 1995 REVIEW OF SYSTEMS REVIEWED BY: PROVIDER: BROCK KOHLER MD . CONSTITUTIONAL: ANY CHANGE IN YOUR MEDICAL CONDITION? NO . CHILLS NO . FEVER NO . INFECTION: DO YOU HAVE NEW INFECTIONS? NO . DO YOU HAVE HISTORY OF MRSA? NO . MUSCULOSKELETAL: ANY NEW PATTERNS OF PAIN OR NUMBNESS? NO . SYTEMIC LUPUS NO . GASTROENTEROLOGY: ANY NEW CHANGE IN BOWEL CONTROL? NO . BARRETTS ESOPHAGUS NO . CIRRHOSIS NO . HEPATITIS NO . LIVER FAILURE NO . ACID REFLUX YES . UNEXPLAINED WEIGHT LOSS NO . GENITOURINARY: ANY NEW CHANGE IN BLADDER CONTROL? NO . IS THERE A CHANCE YOU COULD BE ? NO . HEMATOLOGY/LYMPH: DO YOU TAKE ANY BLOOD THINNERS? (FOR EXAMPLE- COUMADIN, PLAVIX, AGGRENOX, PLATEL, PRADAXA, OR XARELTO) NO . WHEN WAS YOUR LAST DOSE? DATE: TIME: . LOW PLATELET COUNT NO . SICKLE CELL DISEASE NO . VON WILLIEBRANDS NO . FACTOR V LEIDEN NO . THALLASEMIA NO . ANEMIA YES . EASY BRUISING NO . NEUROLOGY: HAVE YOU FALLEN IN THE PAST 12 MONTHS? YES PT REPORTS POOR BALANCE, AND SHE STARTS TO FALL BUT IS ABLE TO CATCH HERSELF. . ANY NEW EXTREMITY NUMBNESS OR WEAKNESS? NO . HEAD INJURY CONCUSSION AFTER FALL 2016. SHE STATES SHE WAS INTOXICATED AT THE TIME, WAS AN ALCOHOLIC. NOW REPORTS SHE IS NO LONGER DRINKING. . DEMENTIA NO . CEREBRAL PALSY NO . MULTIPLE SCLEROSIS NO . DIZZINESS NO . HEADACHE NO . STROKES NO . VERTIGO NO . CARDIOLOGY: DO YOU HAVE A PACEMAKER OR DEFIBRILLATOR? NO . ANGINA NO . HEART ATTACK NO . HEART SURGERY NO . CONGESTIVE HEART FAILURE/FLUID OVERLOAD DURING . CHEST PAIN NO . HIGH BLOOD PRESSURE NO . IRREGULAR HEART BEAT NO . RESPIRATORY: HAVE YOU BEEN SICK IN THE PAST WEEK? NO . FEVER NO . FLU LIKE SYMPTOMS? NO . CPAP YES . BYPAP NO . ASTHMA YES . EMPHYSEMA NO . CHRONIC LUNG DISEASES NO . SHORTNESS OF BREATH ON EXERTION NO . COUGH MILD . SNORING NO . INTEGUMENTARY: DO YOU HAVE ANY RASHES OR OPEN SORES? NO . ALLERGIC/IMMUNO: ARE YOU ALLERGIC TO IV DYE? NO . ANY NEW ALLERGIES? NO . PSYCHIATRIC: DO YOU HAVE THOUGHTS OF HURTING YOURSELF OR SOMEONE ELSE? NO . ARE YOU ABUSED, NEGLECTED, OR IN AN UNSAFE ENVIRONMENT? NO . ENDOCRINOLOGY: ARE YOU DIABETIC? NO . THYROID DISORDER HYPOTHYROID . OTHER: DO YOU NEED ANY PRESCRIPTIONS? NO . IF YES, PLEASE LIST: ____ . ANY NEW PROBLEMS WITH YOUR MEDICATIONS? NO . WHEN DID YOU LAST EAT? ____ . WHEN DID YOU LAST DRINK? ____ . WHAT DID YOU LAST DRINK? ____ . NAME OF PERSON DRIVING YOU HOME? ____ . DO YOU HAVE ANY OTHER QUESTIONS OR CONCERNS NO . VITAL SIGNS WT 233.6 LBS, HT 61 IN, BMI 44.13 INDEX, BP 120/89 MM HG, HR 94 /MIN, RR 18 /MIN, TEMP 96.1 F, OXYGEN SAT % 98%, SAFE IN ENV? (Y/N) YES, NA INITIALS AW 1012, REVIEWED BY: UMAIR. EXAMINATION GENERAL EXAMINATION: PATIENT IS ALERT O X 3 AND COOPERATIVE. LUNGS CLEAR, TO AUSCULTATION. HEART: NO MURMURS OR GALLOPS; FACIAL CRANIAL NERVES ARE GROSSLY NORMAL. GOOD SYMMETRY OF FACIAL MUSCLE MOVEMENT. NORMAL VISUAL FRAUSTO. TENDERNESS IN THE LOW BACK AREA. PATIENT IS LIMPING FROM HER LEFT LEG AND STATES IT IS DUE TO AN INJURY OVER HER KNEE. PRESENCE OF TRIGGER POINTS AND BANDS OF TISSUE WITH RESTRICTION OF MOVEMENT OF THE BACK. STRAIGHT LEG RAISE OF THE RIGHT LEG IS POSITIVE AT 45 DEGREES FOR RADICULOPATHY. MRI OF THE LUMBAR SPINE DONE ON 08/11/2018 SHOWS A BULGING DISC AT L4-L5 AND FACET ARTHROPATHY CHANGES AT MULTIPLE LEVELS. 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 FLORES'S PAIN MANAGEMENT CASE. DUE TO THE TRIGGER POINTS, BANDS OF TISSUE, AND RESTRICTION OF MOVEMENT, I WOULD LIKE TO MOVE FORWARD WITH A TRIGGER POINT INJECTION AT THIS TIME. WE DISCUSSED THE BENEFITS, RISKS, AND ALTERNATIVES OF THE INJECTION AND THE PATIENT WOULD LIKE TO PROCEED. DEPENDING ON THE RESULTS OF THE INJECTION, THE PATIENT WILL CONSIDER A LUMBAR EPIDURAL STEROID INJECTION IN THE FUTURE. THE PATIENT WILL FOLLOW UP 1 MONTH AFTER THE INJECTION. INSTRUCTIONS WERE GIVEN, QUESTIONS WERE ANSWERED, PATIENT REPORTS UNDERSTANDING AND AGREES WITH THE PLAN. I, ERIBERTO VELÁSQUEZ, DOCUMENTED THE ABOVE INFORMATION ACTING A SCRIBE FOR DR. KOHLER. I HAVE REVIEWED THE ABOVE DOCUMENT, WRITTEN BY ERIBERTO SERRATOIBThomas AND I VERIFY THAT IT IS ACCURATE. DEAR DR. TILLMAN:THANK YOU FOR YOUR KIND REFERRAL OF MRS. FLORES. IF YOU WANT TO DISCUSS HER CASE WITH ME PLEASE CALL ME AT THE PAIN CENTER AT [phone]. SINCERELY,BROCK KOHLER, [facility]. OTHERS NOTES: TRIGGER POINT INJECTION: YOUR EXPERIENCE MATERIAL WAS PRINTED,TRIGGER POINT INJECTION MATERIAL WAS PRINTED. PROCEDURE CODES FA211 ESTABILISHED PATIENT [facility] FACILITY CHARGE G8427 CURRENT MEDS W/DOSAGES DOCUMENTED G8730 PAIN ASSESS POS TOOL F/U PLAN DOC DISPOSITION & COMMUNICATION FOLLOW UP TPI & F/U 3-4 WEEKS AFTER ELECTRONICALLY SIGNED BY BROCK KOHLER MD, ON 01/02/2019 AT 07:01 PM EDT DISCLAIMER : THIS IS A VISIT SUMMARY EXTRACTED FROM THE [employer] CHART. IT IS NOT A COPY OF THE [employer] PROGRESS NOTE. [facility]
== END ==
LOC: M PAIN 10:00
PROVIDERS: ATTEND Anesthesiology
DX: M79.18 Myalgia, other site (principal); M51.16 Intervertebral disc disorders with radiculopathy, lumbar region; R56.9 Unspecified convulsions; J44.9 Chronic obstructive pulmonary disease, unspecified; E03.9 Hypothyroidism, unspecified; G47.30 Sleep apnea, unspecified; K21.9 Gastro-esophageal reflux disease without esophagitis; F10.21 Alcohol dependence, in remission; E66.01 Morbid (severe) obesity due to excess calories; Z68.41 Body mass index [BMI] 40.0-44.9, adult; Z79.899 Other long term (current) drug therapy; Z88.5 Allergy status to narcotic agent; Z88.6 Allergy status to analgesic agent; Z88.8 Allergy status to other drugs, medicaments and biological substances; Z91.018 Allergy to other foods; Z91.011 Allergy to milk products; Z87.891 Personal history of nicotine dependence; Z86.59 Personal history of other mental and behavioral disorders; Z86.79 Personal history of other diseases of the circulatory system

== ENCOUNTER → 2018-12-22 | Outpatient (CLI) | payer MEDICAID ==
[2018-12-22 14:49] LABS: THYROID STIMULATING HORMONE 4.28 uIU/ML (0.358-3.740); TOTAL 25(OH) VITAMIN D 49.5 NG/ML (30.0-100.0)
== END ==
LOC: M LAB 12:59
PROVIDERS: ATTEND Nurse Practitioner Family
DX: E03.9 Hypothyroidism, unspecified (principal); E55.9 Vitamin D deficiency, unspecified

== ENCOUNTER → 2019-01-06 | Outpatient (CLI) | payer MEDICAID ==
[~2019-01-06] MED LIST changes: +BUPIVACAINE HCL 0.25% 10 ML VIAL As Ordered ONE; +BUPIVACAINE HCL 0.25% 30 ML VIAL As Ordered ONE; +NAPR-50 PO; +TRIAMCINOLONE ACETONIDE SUSP 40 MG/ML VIAL (J3301) As Ordered ONE; +diazePAM 5 MG TAB As Ordered ONE
--- NOTE | 2019-01-18 00:23 | ECWPNPC ---
PATIENT NAME: SHILOH FLORES : 1975 GENDER: FEMALE VISIT DATE: 01/06/2019 DISCHARGE DATE: 01/06/19 1504 VISIT LOCKED DATE TIME: PHYSICIAN: BROCK KOHLER MD RESOURCE: BROCK KOHLER MD REASON FOR APPOINTMENT 1. TPI LOW BACK PAIN HISTORY OF PRESENT ILLNESS HISTORY OF PRESENT ILLNESS: PAIN THE PATIENT DESCRIBES THE PAIN... FALL RISK SCREENING: SCREENING : NO FALLS IN THE PAST YEAR. CURRENT MEDICATIONS TAKING DRISDOL 54603 UNIT CAPSULE 1 CAPSULE ORALLY ONCE WEEK, NOTES: THURSDAYS TAKING ADVAIR HFA 230-21 MCG/ACT AEROSOL 2 PUFFS INHALATION TWICE A DAY, NOTES: 01/05/19 AM TAKING PROAIR HFA 108 (90 BASE) MCG/ACT AEROSOL SOLUTION 2 PUFFS NEEDED INHALATION EVERY 6 HRS, NOTES: NONE RECENT TAKING LEVOTHYROXINE SODIUM 112 MCG TABLET 1 TABLET ON AN EMPTY STOMACH IN THE MORNING ORALLY ONCE A DAY, NOTES: 01/05/19 AM TAKING ALBUTEROL SULFATE (2.5 MG/3ML) 0.083% NEBULIZATION SOLUTION 3 ML NEEDED INHALATION THREE TIMES A DAY, NOTES: NONE RECENT TAKING CPAP MACHINE MANAGED PULMONARY , NOTES: HAS NOT USED RECENTLY TAKING PANTOPRAZOLE SODIUM 40 MG TABLET DELAYED RELEASE 1 TABLET ORALLY ONCE A DAY, NOTES: 01/05/19 AM TAKING DICYCLOMINE HCL 20 MG TABLET 1 TABLET ORALLY BID PRN, NOTES: NONE RECENT TAKING ZONISAMIDE 100 MG CAPSULE 1 CAPSULE ORALLY DAILY, NOTES: 01/05/19 PM TAKING VITAMIN B-12 1000 MCG TABLET 1 TABLET ORALLY ONCE A DAY, NOTES: 3 AM TAKING NORETHINDRONE ACETATE 5 MG TABLET 1 TABLET ORALLY ONCE A DAY, NOTES: OBGYN 01/05/19 AM TAKING FERROUS SULFATE 325 (65 FE) MG TABLET 1 TABLET ORALLY ONCE A DAY, NOTES: 01/05/19 AM TAKING FLEXERIL 5 MG TABLET 1 TABLET NEEDED ORALLY THREE TIMES A DAY PRN, NOTES: NONE IN A COUPLE WEEKS TAKING ZYRTEC 10 MG TABLET 1 TABLET ORALLY ONCE A DAY, NOTES: 01/05/19 AM TAKING PRAZOSIN HCL 1 MG CAPSULE 1 CAPSULE AT BEDTIME ORALLY ONCE A DAY, NOTES: 01/05/19 PM TAKING CYMBALTA 20 MG CAPSULE DELAYED RELEASE PARTICLES 1 CAPSULE ORALLY BID, NOTES: 01/05/19 PM TAKING FOLIC ACID 1 MG TABLET 1 TABLET ORALLY ONCE A DAY, NOTES: 01/05/19 PM TAKING IBUPROFEN 600 MG TABLET 1 TABLET WITH FOOD OR MILK NEEDED ORALLY THREE TIMES A DAY PRN TAKE WITH FOOD, NOTES: 01/05/19 1400 NOT-TAKING CITALOPRAM HYDROBROMIDE 10 MG TABLET 1 TABLET ORALLY ONCE A DAY, NOTES: [facility] NOT-TAKING CITALOPRAM HYDROBROMIDE 20 MG TABLET 1 TABLET ORALLY ONCE A DAY, NOTES: [facility] NOT-TAKING AMOXICILLIN-POT CLAVULANATE 875-125 MG TABLET 1 TABLET ORALLY EVERY 12 HRS, NOTES: [facility] SINUS INFECTION MEDICATION LIST REVIEWED AND RECONCILED WITH THE PATIENT PAST MEDICAL HISTORY SEIZURE DISORDER- MOOD SIEZURE DISORDER ASTHMA: DR. ESTRELLA; DX YOUNG ADULT COPD: DR. ESTRELLA; DX UNKNOWN DEPRESSION: LORRAINE HIGHTOWER, [facility] ANXIETY: LORRAINE HIGHTOWER, [facility] PTSD: LORRAINE HIGHTOWER, [facility] SLEEP APNEA: DR. ESTRELLA HYPOTHYROIDISM ALLERGIES BULGING DISC- LOWER BACK RIGHT FOOT TENDONITIS ARTHRITIS- BACK VIT D DEFICIENCY OBESITY HX HEART FAILURE 2002 WITH - WAS SEEN BY CARDIOLOGY THYROID NODULES: PER PATIENT, FOLLOWS WITH [facility] ENT HX. OF ANEMIA ASTHMA LOW O2 SATS 2009 SEIZURES ESOPHAGEAL REFLUX PTSD ABNORMAL PAP SMEAR LEARNING DISABILITY ALCOHOLISM 3 YEARS REMISSION ONCHYCHOMYCOSIS BACK PAIN,SEEKING BREAST REDUCTION 2009, HAS TO WEIGH 190LBS. TMJ HEADACHE MRI NEG 2009 STOOL FOR OCCULT-PER PT. NEGATIVE X , 2011 COLONOSCOPY 2017, 3 POLYPS, REPEAT COLONOSCOPY 5-10 YEARS ECHO 07/2018: NORMAL LEFT VENTRICULAR SIZE, WALL THICKENESS AND WALL MOTION, LEFT ATRIAL SIZE UPPER LIMITS OF NORMAL WITH EVIDENCE OF IMPAIRMENT OF LV DIASTOLIC FUNCTION BUT CURRENTLY NORMAL ESTIMATED MEAN LEFT ATRIAL PRESSURE. NL RIGHT HEART CHAMBER SIZES, WALL MOTION AND ESTIMATED PULMONARY ARTERIAL PRESSURE. NL IVC SIZE AND COLLAPSED AGAINST AN ELEVATED CENTRAL VENOUS PRESSURE STRESS TEST NEGATIVE 07/2018 ALLERGIES ANTIFUNGAL: SEIZURE - ALLERGY ASPIRIN: VOMITING BLOOD - ALLERGY VICODIN: SEIZURES - ALLERGY TOPAMAX: SEIZURES - ALLERGY LEXAPRO: BP - ALLERGY SEROQUEL: SEIZURES - ALLERGY PAXIL: SEIZURE - ALLERGY STAWBERRY: HIVES - ALLERGY SYNTHROID: NAUSEA - ALLERGY MILK: MUCOUS - ALLERGY SURGICAL HISTORY GALLBLADDER REMOVED- [facility] 08/2017 TUBAL- [facility] 2002 UPPER GI SCOPE, WITH BIOPSIES- COLONOSCOPY- [facility]: DR. ESCUDERO, TUBULAR ADENOMA 08/14/18 FAMILY HISTORY FATHER: ALIVE 68 YRS MOTHER: ALIVE 58 YRS, DIAGNOSED WITH DIABETES SIBLINGS: UNKNOWN SON(S): ALIVE 15 YRS, PSYCHIATRIC CONDITIONS DAUGHTER(S): ALIVE 22 YRS, PSYCHIATRIC CONDITIONS PATERNAL GRAND FATHER: PATERNAL GRAND MOTHER: , HEART DISEASE MATERNAL GRAND FATHER: UNKNOWN MATERNAL GRAND MOTHER: UNKNOWN 4 SISTER(S) . 1 SON(S) , 1 DAUGHTER(S) . DAUGHTER AGE22- MULTIPLE MISSCARRAGES, ANEMIA, OBESITY\NSON AGE 15- AUTISIM\NDAUGHTER ANEMIA, BIPOLAR\N\NPATERNAL GRANDFATHER- COMMITTED SUICIDE. SOCIAL HISTORY GENERAL: TOBACCO USE ARE YOU A:FORMER SMOKER HOW LONG HAS IT BEEN SINCE YOU LAST SMOKED?5-10 YEARS LATEX QUESTIONNAIRE LATEX ALLERGY : HAVE YOU EVER DEVELOPED ANY TYPE OF REACTION AFTER HANDLING LATEX PRODUCTS SUCH RUBBER GLOVES, CONDOMS, DIAPHRAGMS, BALLOONS, SOCKS, OR UNDERWEAR?NO LATEX ALLERGY : HAVE YOU EVER DEVELOPED ANY TYPE OF REACTION DURING OR AFTER DENTAL APPOINTMENT, VAGINAL/RECTAL EXAMINATION, SURGICAL PROCEDURE, OR ANY OTHER EXPOSURE?NO LATEX RISK : HAVE YOU EVER HAD ANY DIFFICULTY BREATHING OR HIVES AFTER EATING OR HANDLING ANY FRUITS, OR VEGETABLES; SUCH KIWI, BANANAS, STONE FRUITS, OR CHESTNUTSNO LATEX RISK : DO YOU HAVE A PREVIOUS PERSONAL HISTORY OF MORE THAN NINE SURGERIES, SPINA BIFIDA, OR REPEATED CATHERTIZATIONS? NO LATEX RISK : ARE YOU FREQUENTLY EXPOSED TO LATEX PRODUCTS IN YOUR OCCUPATION?NO DATE ASKED : 01/06/2019 BMI CARE GOAL FOLLOW-UP ABOVE NORMAL BMI FOLLOW-UPLIFESTYLE EDUCATION REGARDING DIET ALCOHOL SCREENING DID YOU HAVE A DRINK CONTAINING ALCOHOL IN THE PAST YEAR?NO POINTS0 INTERPRETATIONNEGATIVE RECREATIONAL DRUG USE DRUG USE?NO CAFFEINE CAFFEINE USE?YES OCCASIONAL TEA DECAFE COFFEE. NO SODA SEXUAL HX HAD SEX IN THE LAST 12 MONTHS (VAGINAL, ORAL, OR ANAL)?NO HIV / HEP-C SCREENING HIV TEST OFFERED TO PATIENT:YES DATE OFFERED:08/26/2018 TEST ACCEPTED:NO HEP-C TEST OFFERED TO PATIENT:YES DATE OFFERED:08/26/2018 REASON:PATIENT DECLINED TEST ACCEPTED:NO REASON:PATIENT DECLINED BROCHURE PROVIDED TO PATIENTYES ZOROASTRIANISM [id number] ORTHODOXY LANGUAGE LANGUAGES SPOKEN:CYPRIOT EDUCATION LEVEL OF EDUCATION:NOT FINISHED HIGH SCHOOL 11TH GRADE LEARNING BARRIERS / SPECIAL NEEDS CHANGE FROM LAST VISIT?NO BARRIERS TO LEARNING?YES HEARING IMPAIRED?NO VISION IMPAIRED?YES COGNITIVELY IMPAIRED?YES :CORRECTIVE LENSES :LEARNING DISABILITY PT HAS AN AIDE 5 DAYS/WEEK (32 HOURS/WEEK) WHO SETS UP MEDS, COMES TO DOCTOR'S APPT, ASSISTS WITH HOUSEWORK READINESS TO LEARN?YES LEARNING PREFERENCES?NO LEARNING CAPABILITIES PRESENT?YES EMOTIONAL BARRIERS?NO SPECIAL DEVICES?NO JANITOR CARETAKER NEEDED?NO DOMESTIC VIOLENCE DO YOU FEEL SAFE IN YOUR ENVIRONMENT?YES OCCUPATION: DISABLED. DIET: [employer] PUTNAM- DR. 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 EXERCISE: DAILY, WALKING. MARITAL STATUS: . OTHERS AT HOME: LIVES WITH SIGNIFICANT OTHER. NEW PATIENT PAIN DIARY PATIENT DESCRIBES PAIN :ACHING, HAVE IT ALL THE TIME, STABBING, TENDER, SORE, SHOOTING FROM 0-10, WHAT LEVEL IS YOUR PAIN TODAY?9 PRECIPITATING FACTORS INCREASES WITH ACTIVITY ALLEVIATING FACTORS USES A HEATING PAD PAIN CLINIC PFS, CLERGY, PUBLIC HEALTH REFERRALS HAS THE PATIENT BEEN EDUCATED REGARDING HIS/HER PLAN OF CARE?YES HAS THE PATIENT BEEN EDUCATED REGARDING PAIN, THE RISK FOR PAIN, THE IMPORTANCE OF EFFECTIVE PAIN MANAGEMENT, AND THE PAIN ASSESSMENT PROCESS?YES ADVANCE DIRECTIVE ADVANCE DIRECTIVE DISCUSSED WITH PATIENT:YES PT HAS NO ADVANCED DIRECTIVES, HCP INFORMATION GIVEN TO PT AND REVIEWED. PT STATES HER AIDE WILL HELP HER WITH IT. 12/21/18 1030 LAS REVIEWED WITH PT 12/21/18 1035 LASREVIEWED WITH PT 01/06/19 1405 BV. HOSPITALIZATION/MAJOR DIAGNOSTIC PROCEDURE ASTHMA- [facility] 2017 [facility]- VAGINAL - WITH COMPLICATIONS- SEIZURES CANNOT RECALL 2002 [facility]- VAGINAL NO COMPLICATIONS 1995 REVIEW OF SYSTEMS REVIEWED BY: PROVIDER: . CONSTITUTIONAL: ANY CHANGE IN YOUR MEDICAL CONDITION? NO . CHILLS NO . FEVER NO . INFECTION: DO YOU HAVE NEW INFECTIONS? NO . DO YOU HAVE HISTORY OF MRSA? NO . MUSCULOSKELETAL: ANY NEW PATTERNS OF PAIN OR NUMBNESS? YES, PT COMPLAINS OF NEW INTERMITTENT NUMBNESS IN LEFT LEG FOR THE PAST 2 DAYS. . GASTROENTEROLOGY: ANY NEW CHANGE IN BOWEL CONTROL? NO . GENITOURINARY: ANY NEW CHANGE IN BLADDER CONTROL? NO . IS THERE A CHANCE YOU COULD BE ? NO . HEMATOLOGY/LYMPH: DO YOU TAKE ANY BLOOD THINNERS? (FOR EXAMPLE- COUMADIN, PLAVIX, AGGRENOX, PLATEL, PRADAXA, OR XARELTO) NO . WHEN WAS YOUR LAST DOSE? DATE: TIME: . NEUROLOGY: HAVE YOU FALLEN IN THE PAST 12 MONTHS? YES, PT DENIES ANY FALLS SINCE LAST VISIT WITH US. . ANY NEW EXTREMITY NUMBNESS OR WEAKNESS? NO . CARDIOLOGY: DO YOU HAVE A PACEMAKER OR DEFIBRILLATOR? NO . RESPIRATORY: HAVE YOU BEEN SICK IN THE PAST WEEK? NO . FEVER NO . FLU LIKE SYMPTOMS? NO . COUGH NO . INTEGUMENTARY: DO YOU HAVE ANY RASHES OR OPEN SORES? NO . ALLERGIC/IMMUNO: ARE YOU ALLERGIC TO IV DYE? NO . ANY NEW ALLERGIES? NO . PSYCHIATRIC: DO YOU HAVE THOUGHTS OF HURTING YOURSELF OR SOMEONE ELSE? NO . ARE YOU ABUSED, NEGLECTED, OR IN AN UNSAFE ENVIRONMENT? NO . ENDOCRINOLOGY: ARE YOU DIABETIC? NO . OTHER: DO YOU NEED ANY PRESCRIPTIONS? NO . IF YES, PLEASE LIST: ____ . ANY NEW PROBLEMS WITH YOUR MEDICATIONS? NO . WHEN DID YOU LAST EAT? 01/05/192099 . WHEN DID YOU LAST DRINK? 01/05/19 2200 . WHAT DID YOU LAST DRINK? WATER . NAME OF PERSON DRIVING YOU HOME? Uepaa . DO YOU HAVE ANY OTHER QUESTIONS OR CONCERNS NO . VITAL SIGNS WT 233.6 LBS, HT 61 IN, BMI 44.13 INDEX, BP 117/75 MM HG, HR 103 /MIN, RR 18 /MIN, TEMP 96.6 F, OXYGEN SAT % 96%, NA INITIALS AW 1204, REVIEWED BY: BV. ASSESSMENTS MYALGIA, OTHER SITE - M79.18 (PRIMARY) PROCEDURES PN TRIGGER POINT INJECTION WITH STEROIDS PRE PROCEDURE DIAGNOSIS 1. MYALGIA 2. PAIN AT RIGHT LOW BACK AREA POST PROCEDURE DIAGNOSIS 1. MYALGIA 2. PAIN AT RIGHT LOW BACK AREA PROCEDURE TRIGGER POINT INJECTION AT RIGHT LOW BACK AREA SURGEON DR. BROCK KOHLER SENIOR INTERIOR DESIGNER NONE ANESTHESIA LOCAL PRE PROCEDURE NOTE THE PATIENT HAS A HISTORY OF CHRONIC PAIN AT THE RIGHT LOW BACK AREA. I EVALUATE THE PATIENT AND REVIEWED THE CHART. THERE IS EVIDENCE OF BANDS OF TISSUE WITH RESTRICTION OF MOVEMENT AND PRESENCE OF TRIGGER POINT AT THE AFFECTED AREA. I WENT OVER THE RISKS, ALTERNATIVES, AND BENEFITS ASSOCIATED WITH THIS PROCEDURE. THE PATIENT WOULD LIKE TO PROCEED AND GIVE CONSENT TO PERFORMED THE PROCEDURE. THE PATIENT DENIES UNEXPLAINABLE WEIGHT LOSS, FEVER, CHILLS, OR NEW CHANGES IN URINARY OR BOWEL CONTROL DESCRIPTION OF PROCEDURE THE PATIENT WAS BROUGHT TO THE PROCEDURE ROOM AND PLACED IN THE SITTING POSITION. THE AREA WAS CLEANED WITH ALCOHOL. THE PROCEDURE WAS DONE USING ASEPTIC STERILE TECHNIQUE. I CHECKED LATERALITY AND THE LEVEL WHERE THE PROCEDURE WAS GOING TO BE PERFORMED WITH THE PATIENT AND THE SUPPORTING STAFF AT THE MOMENT OF THE TIME OUT IN THE PROCEDURE ROOM. USING A 25-GAUGE NEEDLE, TRIGGER POINTS WERE INJECTED AT THE RIGHT LOW BACK AREA WITH A TOTAL OF 40 ML OF BUPIVACAINE 0.25% AND KENALOG 40 MG. THERE WAS NO EVIDENCE OF BLOOD, PARESTHESIA OR CEREBROSPINAL FLUID DURING THE PROCEDURE. THE PATIENT WAS SENT TO THE RECOVERY ROOM. THE PATIENT WAS MOVING THE EXTREMITIES AND DOING WELL. THERE WAS NO COMPLICATION DURING THE PROCEDURE POST PROCEDURE NOTE THE PATIENT WILL BE SEEN IN A FOLLOW UP IN THE NEXT FEW WEEKS. INSTRUCTIONS WERE GIVEN, QUESTIONS WERE ANSWERED, AND THE PATIENT EXPRESSED UNDERSTANDING AND AGREES WITH THE PLAN. I, ERIBERTO VELÁSQUEZ, DOCUMENTED THE ABOVE INFORMATION ACTING A SCRIBE FOR DR. KOHLER. I HAVE REVIEWED THE ABOVE DOCUMENT, WRITTEN BY ERIBERTO DURHAM AND I VERIFY THAT IT IS ACCURATE. PROCEDURE CODES 41256 INJ TRIGGER POINT / [facility] DISPOSITION & COMMUNICATION FOLLOW UP 3 WEEKS ELECTRONICALLY SIGNED BY BROCK KOHLER MD, MD ON 01/17/2019 AT 07:37 PM EDT DISCLAIMER : THIS IS A VISIT SUMMARY EXTRACTED FROM THE [employer] CHART. IT IS NOT A COPY OF THE [employer] PROGRESS NOTE. [facility]
== END ==
LOC: M PAIN 12:00
PROVIDERS: ATTEND Anesthesiology
DX: M79.18 Myalgia, other site (principal); M54.5 Low back pain; R56.9 Unspecified convulsions; J44.9 Chronic obstructive pulmonary disease, unspecified; E03.9 Hypothyroidism, unspecified; K21.9 Gastro-esophageal reflux disease without esophagitis; F32.9 Major depressive disorder, single episode, unspecified; F41.9 Anxiety disorder, unspecified; F43.10 Post-traumatic stress disorder, unspecified; F10.21 Alcohol dependence, in remission; G47.30 Sleep apnea, unspecified; E66.01 Morbid (severe) obesity due to excess calories; Z68.41 Body mass index [BMI] 40.0-44.9, adult; Z79.899 Other long term (current) drug therapy; Z88.5 Allergy status to narcotic agent; Z88.6 Allergy status to analgesic agent; Z88.8 Allergy status to other drugs, medicaments and biological substances; Z91.018 Allergy to other foods; Z91.011 Allergy to milk products; Z87.891 Personal history of nicotine dependence; Z86.79 Personal history of other diseases of the circulatory system
CPT/HCPCS: 20552; J3301

== ENCOUNTER 2019-01-14 11:56 | Outpatient (RCR) | payer MEDICAID ==
[~2019-01-14 11:56] MED LIST changes: -BUPIVACAINE HCL 0.25% 10 ML VIAL As Ordered ONE; -BUPIVACAINE HCL 0.25% 30 ML VIAL As Ordered ONE; -NAPR-50 PO; -TRIAMCINOLONE ACETONIDE SUSP 40 MG/ML VIAL (J3301) As Ordered ONE; -diazePAM 5 MG TAB As Ordered ONE
== END 2019-01-17 ==
LOC: M PT 11:56
PROVIDERS: ATTEND Orthopaedic Surgery
DX: Z47.89 Encounter for other orthopedic aftercare (principal); M25.362 Other instability, left knee

== ENCOUNTER 2019-01-20 11:42 | Emergency (ER) | payer MEDICAID ==
[~2019-01-20] VITALS: Ht 154.9 cm; Wt 100.3 kg
[~2019-01-20 11:42] MED LIST changes: -/ADVA50050 INH; -/LORA10TA PO; +ADVA1AER2 INH; -DULO30CA PO; +DULO30CA9 PO; +LORA-385 PO; +VITA100018 PO; -VITA100072 PO
[2019-01-20 13:32] VITALS: BP 121/68
--- NOTE | 2019-01-20 13:43 | REP ---
Left lower extremity Duplex Doppler venous ultrasound: Real time compression and duplex Doppler interrogation of the left lower extremity deep venous system is performed. The left common femoral, superficial femoral and popliteal veins are fully compressible with transducer pressure and demonstrate normal spontaneous and phasic flow, without evidence of deep venous thrombosis. Impression: No evidence of deep venous thrombosis of the left lower extremity femoral popliteal venous system. Electronically Signed by Johan Raygoza MD 01/20/2019 01:35 P
[2019-01-20] MEDS ORDERED: NAPR-837 PO (13:53)
== END 2019-01-20 14:04 | disposition home or self-care (01) ==
LOC: M ED 11:42
DX: M25.562 Pain in left knee (principal); J45.909 Unspecified asthma, uncomplicated; Z98.890 Other specified postprocedural states; Z87.891 Personal history of nicotine dependence; Z79.899 Other long term (current) drug therapy

== ENCOUNTER → 2019-01-27 | Outpatient (REF) | payer MEDICAID ==
[~2019-01-27] MED LIST changes: +NAPR-837 PO
[2019-01-27 16:43] LABS: HEMOGLOBIN A1c 6.3 %
[2019-01-27 16:44] LABS: HEMATOCRIT 48.9 % (36.0-47.0); HEMOGLOBIN 15.6 g/dl (12.0-15.5); MEAN CORPUSCULAR HEMOGLOBIN 30.1 pg (27.0-33.0); MEAN CORPUSCULAR HGB CONC 31.9 g/dl (32.0-36.5); MEAN CORPUSCULAR VOLUME 94.2 fl (80.0-96.0); PLATELET COUNT, AUTOMATED 322 10^3/uL (150-450); RED BLOOD COUNT 5.19 10^6/uL (4.00-5.40); WHITE BLOOD COUNT 8.7 10^3/uL (4.0-10.0)
[2019-01-27 17:01] LABS: CALCIUM LEVEL 8.9 MG/DL (8.5-10.1); CREATININE FOR GFR 1.22 MG/DL (0.55-1.30); GLOMERULAR FILTRATION RATE 51.7 (>58); POTASSIUM SERUM 4.7 MEQ/L (3.5-5.1); THYROID STIMULATING HORMONE 2.43 uIU/ML (0.358-3.740)
[2019-01-27 17:02] LABS: TOTAL 25(OH) VITAMIN D 54.2 NG/ML (30.0-100.0)
== END ==
LOC: M SFHCPLAZ 14:22
PROVIDERS: ATTEND Nurse Practitioner Family
DX: E55.9 Vitamin D deficiency, unspecified (principal); E03.9 Hypothyroidism, unspecified; R73.01 Impaired fasting glucose

== ENCOUNTER → 2019-02-16 | Outpatient (RCR) | payer MEDICAID | LOC: M PT 01-20 10:55 | PROVIDERS: ATTEND Orthopaedic Surgery | DX: M25.362 Other instability, left knee (principal) ==

== ENCOUNTER → 2019-02-25 | Outpatient (CLI) | payer MEDICAID ==
[2019-02-25 12:14] LABS: CALCIUM LEVEL 8.7 MG/DL (8.5-10.1); CREATININE FOR GFR 1.19 MG/DL (0.55-1.30); GLOMERULAR FILTRATION RATE 53.2 (>58)
== END ==
LOC: M LAB 11:16
PROVIDERS: ATTEND Nurse Practitioner Family
DX: N17.9 Acute kidney failure, unspecified (principal)

== ENCOUNTER 2019-03-02 11:31 | Outpatient (RCR) | payer MEDICAID | END 2019-03-19 | LOC: M PT 11:31 | PROVIDERS: ATTEND Orthopaedic Surgery | DX: M25.562 Pain in left knee (principal); M66.0 Rupture of popliteal cyst ==

== ENCOUNTER → 2019-04-16 | Outpatient (CLI) | payer MEDICAID ==
[~2019-04-16] MED LIST changes: -TRAZ-160 PO; +TRAZ-252 PO; +TRAZ1TAB11 GT; -TRAZ25TA GT
--- NOTE | 2019-04-22 01:11 | ECWPNPC ---
PATIENT NAME: SHILOH FLORES : 1975 GENDER: FEMALE VISIT DATE: 04/16/2019 DISCHARGE DATE: 04/16/19 1349 VISIT LOCKED DATE TIME: PHYSICIAN: BROCK KOHLER MD RESOURCE: BROCK KOHLER MD REASON FOR APPOINTMENT 1. POST PROC TPI-MEDICAID HISTORY OF PRESENT ILLNESS HISTORY OF PRESENT ILLNESS: PAIN THE PATIENT DESCRIBES THE PAIN... 43 YEAR OLD FEMALE PATIENT WITH A HISTORY OF CHRONIC LOW BACK PAIN. THE PATIENT DESCRIBES THE PAIN ACHING, SORE, TENDER, AND BRIEF WITH A PAIN SCORE OF 3-4/10 DEPENDING ON PHYSICAL ACTIVITY. THE PATIENT RECEIVED A RIGHT LUMBAR TRIGGER POINT INJECTION ON 01/06/2019, WHICH SHE SAYS SHE IS OFFERING GOOD PAIN RELIEF FOR HER. THE PATIENT STATES SHE IS DOING VERY WELL SINCE THE INJECTION. PATIENT DENIES UNEXPLAINABLE WEIGHT LOSS, FEVER, CHILLS, NEW CHANGES ON HER URINARY OR BOWEL CONTROL. FALL RISK SCREENING: SCREENING :NO FALLS REPORTED IN THE LAST YEAR CURRENT MEDICATIONS TAKING ADVAIR HFA 230-21 MCG/ACT AEROSOL 2 PUFFS INHALATION TWICE A DAY TAKING PROAIR HFA 108 (90 BASE) MCG/ACT AEROSOL SOLUTION 2 PUFFS NEEDED INHALATION EVERY 6 HRS TAKING DRISDOL 08430 UNIT CAPSULE 1 CAPSULE ORALLY ONCE WEEK TAKING PRAZOSIN HCL 1 MG CAPSULE 1 CAPSULE AT BEDTIME ORALLY ONCE A DAY TAKING CYMBALTA 20 MG CAPSULE DELAYED RELEASE PARTICLES 1 CAPSULE ORALLY BID TAKING ALBUTEROL SULFATE (2.5 MG/3ML) 0.083% NEBULIZATION SOLUTION 3 ML NEEDED INHALATION THREE TIMES A DAY TAKING CPAP MACHINE MANAGED PULMONARY TAKING DICYCLOMINE HCL 20 MG TABLET 1 TABLET ORALLY BID PRN TAKING ZONISAMIDE 100 MG CAPSULE 1 CAPSULE ORALLY DAILY TAKING FLEXERIL 5 MG TABLET 1 TABLET NEEDED ORALLY THREE TIMES A DAY PRN TAKING LEVOTHYROXINE SODIUM 112 MCG TABLET 1 TABLET ON AN EMPTY STOMACH IN THE MORNING ORALLY ONCE A DAY TAKING ZYRTEC 10 MG TABLET 1 TABLET ORALLY ONCE A DAY TAKING FERROUS SULFATE 325 (65 FE) MG TABLET 1 TABLET ORALLY ONCE A DAY TAKING FOLIC ACID 1 MG TABLET 1 TABLET ORALLY ONCE A DAY TAKING VITAMIN B-12 1000 MCG TABLET 1 TABLET ORALLY ONCE A DAY TAKING NORETHINDRONE ACETATE 5 MG TABLET 1 TABLET ORALLY ONCE A DAY TAKING PANTOPRAZOLE SODIUM 40 MG TABLET DELAYED RELEASE 1 TABLET ORALLY ONCE A DAY MEDICATION LIST REVIEWED AND RECONCILED WITH THE PATIENT PAST MEDICAL HISTORY SEIZURE DISORDER- MOOD SIEZURE DISORDER ASTHMA: DR. ESTRELLA; DX YOUNG ADULT COPD: DR. ESTRELLA; DX UNKNOWN DEPRESSION: LORRAINE HIGHTOWER, [facility] ANXIETY: LORRAINE HIGHTOWER, [facility] PTSD: LORRAINE HIGHTOWER, [facility] SLEEP APNEA: DR. ESTRELLA HYPOTHYROIDISM ALLERGIES BULGING DISC- LOWER BACK RIGHT FOOT TENDONITIS ARTHRITIS- BACK VIT D DEFICIENCY OBESITY HX HEART FAILURE 2002 WITH - WAS SEEN BY CARDIOLOGY THYROID NODULES: PER PATIENT, FOLLOWS WITH [facility] ENT HX. OF ANEMIA ASTHMA LOW O2 SATS 2009 SEIZURES ESOPHAGEAL REFLUX PTSD ABNORMAL PAP SMEAR LEARNING DISABILITY ALCOHOLISM 3 YEARS REMISSION ONCHYCHOMYCOSIS BACK PAIN,SEEKING BREAST REDUCTION 2009, HAS TO WEIGH 190LBS. TMJ HEADACHE MRI NEG 2009 STOOL FOR OCCULT-PER PT. NEGATIVE X 3, 2011 COLONOSCOPY 2017, 3 POLYPS, REPEAT COLONOSCOPY 5-10 YEARS ECHO 07/2018: NORMAL LEFT VENTRICULAR SIZE, WALL THICKENESS AND WALL MOTION, LEFT ATRIAL SIZE UPPER LIMITS OF NORMAL WITH EVIDENCE OF IMPAIRMENT OF LV DIASTOLIC FUNCTION BUT CURRENTLY NORMAL ESTIMATED MEAN LEFT ATRIAL PRESSURE. NL RIGHT HEART CHAMBER SIZES, WALL MOTION AND ESTIMATED PULMONARY ARTERIAL PRESSURE. NL IVC SIZE AND COLLAPSED AGAINST AN ELEVATED CENTRAL VENOUS PRESSURE STRESS TEST NEGATIVE 07/2018 THYROID DISEASE - HYPOTHYROID ALLERGIES ANTIFUNGAL: SEIZURE - ALLERGY ASPIRIN: VOMITING BLOOD - ALLERGY VICODIN: SEIZURES - ALLERGY TOPAMAX: SEIZURES - ALLERGY LEXAPRO: BP - ALLERGY SEROQUEL: SEIZURES - ALLERGY PAXIL: SEIZURE - ALLERGY STAWBERRY: HIVES - ALLERGY SYNTHROID: NAUSEA - ALLERGY MILK: MUCOUS - ALLERGY SURGICAL HISTORY GALLBLADDER REMOVED- [facility] 08/2017 TUBAL- [facility] 2002 UPPER GI SCOPE, WITH BIOPSIES- COLONOSCOPY- [facility]: DR. ESCUDERO, TUBULAR ADENOMA 08/14/18 FAMILY HISTORY FATHER: ALIVE 68 YRS MOTHER: ALIVE 58 YRS, DIAGNOSED WITH DIABETES SIBLINGS: UNKNOWN SON(S): ALIVE 15 YRS, PSYCHIATRIC CONDITIONS DAUGHTER(S): ALIVE 22 YRS, PSYCHIATRIC CONDITIONS PATERNAL GRAND FATHER: PATERNAL GRAND MOTHER: , HEART DISEASE MATERNAL GRAND FATHER: UNKNOWN MATERNAL GRAND MOTHER: UNKNOWN 4 SISTER(S) . 1 SON(S) , 1 DAUGHTER(S) . DAUGHTER AGE22- MULTIPLE MISSCARRAGES, ANEMIA, OBESITY\\NSON AGE 15- AUTISIM\\NDAUGHTER ANEMIA, BIPOLAR\\N\\NPATERNAL GRANDFATHER- COMMITTED SUICIDE. SOCIAL HISTORY GENERAL: TOBACCO USE ARE YOU A:FORMER SMOKER HOW LONG HAS IT BEEN SINCE YOU LAST SMOKED?5-10 YEARS HIV / HEP-C SCREENING HIV TEST OFFERED TO PATIENT:YES DATE OFFERED:08/26/2018 TEST ACCEPTED:NO HEP-C TEST OFFERED TO PATIENT:YES DATE OFFERED:08/26/2018 REASON:PATIENT DECLINED TEST ACCEPTED:NO REASON:PATIENT DECLINED BROCHURE PROVIDED TO PATIENTYES OTHERS AT HOME: LIVES WITH SIGNIFICANT OTHER. 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 GUY ROAD WORKER- SEEING RODDING MACHINE TENDER. LANGUAGE LANGUAGES SPOKEN:GUAMANIAN DOMESTIC VIOLENCE DO YOU FEEL SAFE IN YOUR ENVIRONMENT?YES NEW PATIENT PAIN DIARY PATIENT DESCRIBES PAIN :ACHING, HAVE IT ALL THE TIME, STABBING, TENDER, SORE, SHOOTING FROM 0-10, WHAT LEVEL IS YOUR PAIN TODAY?9 PRECIPITATING FACTORS INCREASES WITH ACTIVITY ALLEVIATING FACTORS USES A HEATING PAD BMI CARE GOAL FOLLOW-UP ABOVE NORMAL BMI FOLLOW-UPLIFESTYLE EDUCATION REGARDING DIET RECREATIONAL DRUG USE DRUG USE?NO EXERCISE: DAILY, WALKING. LEARNING BARRIERS / SPECIAL NEEDS CHANGE FROM LAST VISIT?NO BARRIERS TO LEARNING?YES HEARING IMPAIRED?NO VISION IMPAIRED?YES COGNITIVELY IMPAIRED?YES :CORRECTIVE LENSES :LEARNING DISABILITY PT HAS AN AIDE 5 DAYS/WEEK (32 HOURS/WEEK) WHO SETS UP MEDS, COMES TO DOCTOR'S APPT, ASSISTS WITH HOUSEWORK READINESS TO LEARN?YES LEARNING PREFERENCES?NO LEARNING CAPABILITIES PRESENT?YES EMOTIONAL BARRIERS?NO SPECIAL DEVICES?NO GREY ROLL WORKER NEEDED?NO PAIN CLINIC PFS, CLERGY, PUBLIC HEALTH REFERRALS HAS THE PATIENT BEEN EDUCATED REGARDING HIS/HER PLAN OF CARE?YES HAS THE PATIENT BEEN EDUCATED REGARDING PAIN, THE RISK FOR PAIN, THE IMPORTANCE OF EFFECTIVE PAIN MANAGEMENT, AND THE PAIN ASSESSMENT PROCESS?YES LATEX QUESTIONNAIRE LATEX ALLERGY : HAVE YOU EVER DEVELOPED ANY TYPE OF REACTION AFTER HANDLING LATEX PRODUCTS SUCH RUBBER GLOVES, CONDOMS, DIAPHRAGMS, BALLOONS, SOCKS, OR UNDERWEAR?NO LATEX ALLERGY : HAVE YOU EVER DEVELOPED ANY TYPE OF REACTION DURING OR AFTER DENTAL APPOINTMENT, VAGINAL/RECTAL EXAMINATION, SURGICAL PROCEDURE, OR ANY OTHER EXPOSURE?NO LATEX RISK : HAVE YOU EVER HAD ANY DIFFICULTY BREATHING OR HIVES AFTER EATING OR HANDLING ANY FRUITS, OR VEGETABLES; SUCH KIWI, BANANAS, STONE FRUITS, OR CHESTNUTSNO LATEX RISK : DO YOU HAVE A PREVIOUS PERSONAL HISTORY OF MORE THAN NINE SURGERIES, SPINA BIFIDA, OR REPEATED CATHERTIZATIONS? NO LATEX RISK : ARE YOU FREQUENTLY EXPOSED TO LATEX PRODUCTS IN YOUR OCCUPATION?NO DATE ASKED : 01/06/2019 CAFFEINE CAFFEINE USE?YES OCCASIONAL TEA DECAFE COFFEE. NO SODA ADVANCE DIRECTIVE ADVANCE DIRECTIVE DISCUSSED WITH PATIENT:YES PT HAS NO ADVANCED DIRECTIVES, HCP INFORMATION AT HOME AND SHE STATES SHE HAS BEEN WORKING ON IT. DECLINED ASSISTANCE IN FILLING OUT THE PAPERWORK. ALEVISM [id number] LATTER-DAY MARITAL STATUS: . ALCOHOL SCREENING DID YOU HAVE A DRINK CONTAINING ALCOHOL IN THE PAST YEAR?NO POINTS0 INTERPRETATIONNEGATIVE OCCUPATION: DISABLED. SEXUAL HX HAD SEX IN THE LAST 12 MONTHS (VAGINAL, ORAL, OR ANAL)?NO REVIEWED WITH PT 12/21/18 1035 LASREVIEWED WITH PT 01/06/19 1405 BVREVIEWED WITH PATIENT 04/16/19 1241 JS. HOSPITALIZATION/MAJOR DIAGNOSTIC PROCEDURE ASTHMA- [facility] 2017 [facility]- VAGINAL - WITH COMPLICATIONS- SEIZURES CANNOT RECALL 2002 [facility]- VAGINAL NO COMPLICATIONS 1995 REVIEW OF SYSTEMS REVIEWED BY: PROVIDER: BROCK KOHLER MD . CONSTITUTIONAL: ANY CHANGE IN YOUR MEDICAL CONDITION? YES, STATES THYROID DISEASE, HYPOTHYROID . CHILLS NO . FEVER NO . INFECTION: DO YOU HAVE NEW INFECTIONS? NO . DO YOU HAVE HISTORY OF MRSA? NO . MUSCULOSKELETAL: ANY NEW PATTERNS OF PAIN OR NUMBNESS? NO . GASTROENTEROLOGY: ANY NEW CHANGE IN BOWEL CONTROL? NO . GENITOURINARY: ANY NEW CHANGE IN BLADDER CONTROL? NO . IS THERE A CHANCE YOU COULD BE ? NO . HEMATOLOGY/LYMPH: DO YOU TAKE ANY BLOOD THINNERS? (FOR EXAMPLE- COUMADIN, PLAVIX, AGGRENOX, PLATEL, PRADAXA, OR XARELTO) NO . WHEN WAS YOUR LAST DOSE? DATE: TIME: . NEUROLOGY: HAVE YOU FALLEN IN THE PAST 12 MONTHS? NO . ANY NEW EXTREMITY NUMBNESS OR WEAKNESS? NO . CARDIOLOGY: DO YOU HAVE A PACEMAKER OR DEFIBRILLATOR? NO . RESPIRATORY: HAVE YOU BEEN SICK IN THE PAST WEEK? NO . FEVER NO . FLU LIKE SYMPTOMS? NO . COUGH NO . INTEGUMENTARY: DO YOU HAVE ANY RASHES OR OPEN SORES? NO . ALLERGIC/IMMUNO: ARE YOU ALLERGIC TO IV DYE? NO . ANY NEW ALLERGIES? NO . PSYCHIATRIC: DO YOU HAVE THOUGHTS OF HURTING YOURSELF OR SOMEONE ELSE? NO . ARE YOU ABUSED, NEGLECTED, OR IN AN UNSAFE ENVIRONMENT? NO . ENDOCRINOLOGY: ARE YOU DIABETIC? NO . OTHER: DO YOU NEED ANY PRESCRIPTIONS? NO . IF YES, PLEASE LIST: ____ . ANY NEW PROBLEMS WITH YOUR MEDICATIONS? NO . WHEN DID YOU LAST EAT? ____ . WHEN DID YOU LAST DRINK? ____ . WHAT DID YOU LAST DRINK? ____ . NAME OF PERSON DRIVING YOU HOME? ____ . DO YOU HAVE ANY OTHER QUESTIONS OR CONCERNS NO . VITAL SIGNS WT 233.4 LBS, HT 61 IN, BMI 44.10 INDEX, BP 119/79 MM HG, HR 86 /MIN, RR 18 /MIN, TEMP 96.3 F, OXYGEN SAT % 95%, SAFE IN ENV? (Y/N) YES, NA INITIALS 12:32 SC, REVIEWED BY: JS. EXAMINATION GENERAL EXAMINATION: PATIENT IS ALERT O X 3 AND COOPERATIVE. ASSESSMENTS LOW BACK PAIN - M54.5 (PRIMARY) OTHER CHRONIC PAIN - G89.29 MYALGIA, OTHER SITE - M79.18 TREATMENT LOW BACK PAIN CLINICAL NOTES: WE DISCUSSED SEVERAL ISSUES WITH MS. [facility]' PAIN MANAGEMENT CASE. THE PATIENT RECEIVED A RIGHT LUMBAR TRIGGER POINT INJECTION ON 01/06/2019, WHICH SHE HAS BEEN DOING VERY WELL FOR THE PAST THREE MONTHS AND DOES NOT NEED TO PROCEED WITH FURTHER INTERVENTIONS AT THIS TIME. THE PATIENT WILL FOLLOW UP IN 3 MONTHS, BUT WAS ADVISED TO CALL IF SHE NEEDS TO BE SEEN SOONER. INSTRUCTIONS WERE GIVEN, QUESTIONS WERE ANSWERED, PATIENT REPORTS UNDERSTANDING AND AGREES WITH THE PLAN. I, CARLA ISBELL, DOCUMENTED THE ABOVE INFORMATION ACTING A SCRIBE FOR DR. KOHLER. I HAVE REVIEWED THE ABOVE DOCUMENT, WRITTEN BY CARLA DURHAM AND I VERIFY THAT IT IS ACCURATE. . PREVENTIVE MEDICINE PAIN CLINIC TEACHING: PROCEDURE TEACHING PRE-PROCEDURE INSTRUCTIONS REVIEWED WITH PT. VERBALIZED UNDERSTANDING.. PROCEDURE CODES FA211 ESTABILISHED PATIENT [facility] FACILITY CHARGE [id number] CURRENT MEDS W/DOSAGES DOCUMENTED G8730 PAIN ASSESS POS TOOL F/U PLAN DOC DISPOSITION & COMMUNICATION FOLLOW UP 3 MONTHS ELECTRONICALLY SIGNED BY BROCK KOHLER MD, MD ON 04/21/2019 AT 05:48 PM EDT DISCLAIMER : THIS IS A VISIT SUMMARY EXTRACTED FROM THE [employer] CHART. IT IS NOT A COPY OF THE [employer] PROGRESS NOTE. KITD
== END ==
LOC: M PAIN 12:45
PROVIDERS: ATTEND Anesthesiology
DX: G89.29 Other chronic pain (principal); M54.5 Low back pain; M79.18 Myalgia, other site; G40.909 Epilepsy, unspecified, not intractable, without status epilepticus; J45.909 Unspecified asthma, uncomplicated; J44.9 Chronic obstructive pulmonary disease, unspecified; F32.9 Major depressive disorder, single episode, unspecified; F41.9 Anxiety disorder, unspecified; F43.10 Post-traumatic stress disorder, unspecified; G47.30 Sleep apnea, unspecified; E03.9 Hypothyroidism, unspecified; E55.9 Vitamin D deficiency, unspecified; E66.9 Obesity, unspecified; E04.2 Nontoxic multinodular goiter; K21.9 Gastro-esophageal reflux disease without esophagitis; F10.21 Alcohol dependence, in remission; Z87.891 Personal history of nicotine dependence; Z79.899 Other long term (current) drug therapy; Z88.6 Allergy status to analgesic agent; Z88.5 Allergy status to narcotic agent; Z91.011 Allergy to milk products; Z91.018 Allergy to other foods; Z88.8 Allergy status to other drugs, medicaments and biological substances

== ENCOUNTER 2019-04-29 22:18 | Emergency (ER) | payer MEDICAID ==
[~2019-04-29 22:18] MED LIST changes: -OMEP20CA3 PO; +OMEP20CA4 PO
[2019-04-29] MEDS ORDERED: METOCLOPRAMIDE INJ 10MG/2ML VIAL (J2765) IV ONE (23:00)
[2019-04-29] MEDS ORDERED: NS 1,000 ML IV ONE (23:00)
[2019-04-29] MEDS ORDERED: diphenhydrAMINE INJ 50MG/ML VIAL (J1200) IV ONE (23:00)
[2019-04-29] MEDS ORDERED: KETOROLAC 30 MG/ML VIAL (J1885) IV ONE (23:00)
[2019-04-29 23:42] LABS: BASO # 0.1 10^3/uL (0.0-0.2); BASO % 0.8 % (0.0-1.0); EOS # 0.2 10^3/uL (0.0-0.50); EOS % 2.6 % (0.0-3.0); HEMATOCRIT 43.6 % (36.0-47.0); HEMOGLOBIN 14.3 g/dl (12.0-15.5); LYMPH # 1.6 10^3/uL (1.5-4.5); LYMPH % 17.3 % (24.0-44.0); MEAN CORPUSCULAR HEMOGLOBIN 30.9 pg (27.0-33.0); MEAN CORPUSCULAR HGB CONC 32.8 g/dl (32.0-36.5); MEAN CORPUSCULAR VOLUME 94.2 fl (80.0-96.0); MONO # 0.6 10^3/uL (0.0-0.8); MONO % 6.3 % (0.0-5.0); NEUTROPHILS # 6.6 10^3/uL (1.8-7.7); NEUTROPHILS % 72.7 % (36.0-66.0); PLATELET COUNT, AUTOMATED 249 10^3/uL (150-450); RED BLOOD COUNT 4.63 10^6/uL (4.00-5.40); WHITE BLOOD COUNT 9.1 10^3/uL (4.0-10.0)
[2019-04-30 00:03] LABS: CALCIUM LEVEL 8.3 MG/DL (8.5-10.1); CREATININE FOR GFR 1.08 MG/DL (0.55-1.30); GLOMERULAR FILTRATION RATE 59.5 (>58)
[2019-04-30 01:15] VITALS: BP 160/87
--- NOTE | 2019-04-30 08:01 | REP ---
Head CT without contrast: Repeat dictation. History: Headache left-sided pain. Preliminary report is provided at the time of examination by [facility]. Comparison study: September 06, 2017. CT findings: Bone window settings demonstrate an intact bony calvarium. There is no evidence of skull fracture or incidental bony calvarial lesion. The visualized paranasal sinuses appear clear. No intraorbital abnormality is seen. On soft tissue window setting images; the lateral, third, and fourth ventricles are normal in size and position. Raygoza-white differentiation pattern is normal above and below the tentorium. There are is no evidence of intracranial hemorrhage. No mass, edema, infarction, or midline shift is seen. No extra-axial fluid collection is appreciated. Impression: Negative noncontrast head CT. Electronically Signed by Glynn Anne MD 04/30/2019 07:53 A
== END 2019-04-30 01:40 | disposition home or self-care (01) ==
LOC: M ED 22:18
DX: G43.909 Migraine, unspecified, not intractable, without status migrainosus (principal); K21.9 Gastro-esophageal reflux disease without esophagitis; E03.9 Hypothyroidism, unspecified; E78.5 Hyperlipidemia, unspecified; F44.5 Conversion disorder with seizures or convulsions; Z87.891 Personal history of nicotine dependence; Z79.899 Other long term (current) drug therapy; Z88.8 Allergy status to other drugs, medicaments and biological substances; Z88.5 Allergy status to narcotic agent; Z91.018 Allergy to other foods
CPT/HCPCS: 70450; 80048; 85025; 96374; 96375; 99284; J1200; J1885; J2765

== ENCOUNTER → 2019-05-17 | Outpatient (REF) | payer MEDICAID ==
[2019-05-17 17:32] LABS: HEMOGLOBIN A1c 6.2 %
[2019-05-17 17:40] LABS: ALBUMIN 3.5 GM/DL (3.2-5.2); BILIRUBIN,TOTAL 0.4 MG/DL (0.2-1.0); CALCIUM LEVEL 9.4 MG/DL (8.5-10.1); CREATININE FOR GFR 1.17 MG/DL (0.55-1.30); GLOMERULAR FILTRATION RATE 54.3 (>58); POTASSIUM SERUM 4.6 MEQ/L (3.5-5.1); THYROID STIMULATING HORMONE 0.145 uIU/ML (0.358-3.740); TOTAL 25(OH) VITAMIN D 65.3 NG/ML (30.0-100.0); TOTAL PROTEIN 7.4 GM/DL (6.4-8.2)
== END ==
LOC: M SFHCPLAZ 14:51
PROVIDERS: ATTEND Nurse Practitioner Family
DX: E03.9 Hypothyroidism, unspecified (principal); E55.9 Vitamin D deficiency, unspecified; R73.01 Impaired fasting glucose; E78.5 Hyperlipidemia, unspecified

== ENCOUNTER → 2019-05-31 | Outpatient (REF) | payer MEDICAID ==
[2019-05-31 12:05] LABS: APPEARANCE, URINE MANUAL HAZY (CLEAR); COLOR, URINE MANUAL YELLOW (YELLOW); PH,URINE MAN 5.5 UNITS (5.0 - 7.0); SPECIFIC GRAVITY,URINE MANUAL 1.025 (1.002-1.035)
[2019-05-31 12:06] LABS: BILIRUBIN, URINE MANUAL NEGATIVE (NEGATIVE); BLOOD URINE MANUAL TRACE (NEGATIVE); GLUCOSE, URINE (UA) MANUAL NEGATIVE (NEGATIVE); KETONE, URINE MANUAL 1+ mg/dL (NEGATIVE); LEUKOCYTE ESTERASE, URINE MAN TRACE (NEGATIVE); NITRITE, URINE MANUAL NEGATIVE (NEGATIVE); PROTEIN, URINE MANUAL NEGATIVE (NEGATIVE); UROBILINOGEN, URINE MANUAL NORMAL (NORMAL)
[2019-05-31 12:11] LABS: AMORPHOUS SEDIMENT, URINE SMALL AMOUNT (NEGATIVE); BACTERIA, URINE SMALL AMOUNT; CALCIUM OXALATE CRYSTALS,URINE SMALL AMOUNT /hpf; HYALINE CAST, URINE NONE SEEN /lpf (0-1); MUCUS, URINE LARGE AMOUNT (NEGATIVE); SQUAMOUS EPITHELIAL CELL URINE LARGE AMOUNT /hpf (SMALL AMT)
[2019-05-31 12:55] LABS: MALB URINE SIEMENS 15.4 MG/L; MAU/CREAT RATIO 4.4 MCG/MG (0.0-30.0)
== END ==
LOC: M SFHCPLAZ 08:45
PROVIDERS: ATTEND Nurse Practitioner Family
DX: N18.3 Chronic kidney disease, stage 3 (moderate) (principal)

== ENCOUNTER → 2019-06-08 | Outpatient (CLI) | payer MEDICAID ==
--- NOTE | 2019-06-08 13:08 | REP ---
RENAL ULTRASOUND: REASON FOR EXAM: Kidney disease. There are no priors for comparison. Since only renal ultrasonography was ordered, images of the urinary bladder were obtained only to assess for uro-jet phenomenon. FINDINGS: Multiple ultrasonographic images of the right kidney show the right kidney to measure 10.6 x 6.3 x 5.2 cm. The renal cortical echotexture is unremarkable. There are no masses. There is good corticomedullary differentiation. There is no hydronephrosis. There are no perinephric fluid collections. Multiple ultrasonographic images of the left kidney show the left kidney to measure 10.2 x 5.4 x 4.9 cm. The renal cortical echotexture is unremarkable. There are no masses. There is good corticomedullary differentiation. There is no hydronephrosis. There are no perinephric fluid collections. Color Doppler imaging of the urinary bladder shows uro-jet phenomenon on the right side only. The imaged portions of the bladder show no gross abnormalities. IMPRESSION: Unremarkable renal ultrasonography. Electronically Signed by Khanh Melvin DO 06/08/2019 03:31 P
== END ==
LOC: M RAD 10:44
PROVIDERS: ATTEND Nurse Practitioner Family
DX: N18.3 Chronic kidney disease, stage 3 (moderate) (principal)

== ENCOUNTER → 2019-06-15 | Outpatient (REF) | payer MEDICAID ==
[~2019-06-15] MED LIST changes: +ADVA115A INH; +ALL10TAB29 PO; +DICY10CA13 PO; +DULO-34 PO; +ESTR1TAB PO; +LEVO100T54 PO; +NORE5TAB PO; +OMEP1CAP73 PO; -OMEP20CA4 PO; +PRAZ2CAP PO; +ZONI100C17 PO; -ZONI100C2 PO
[2019-06-15 14:40] LABS: BASO # 0.1 10^3/uL (0.0-0.2); BASO % 1.1 % (0.0-1.0); EOS # 0.3 10^3/uL (0.0-0.50); EOS % 4.3 % (0.0-3.0); HEMATOCRIT 47.6 % (36.0-47.0); HEMOGLOBIN 15.3 g/dl (12.0-15.5); LYMPH # 1.8 10^3/uL (1.5-4.5); LYMPH % 27.5 % (24.0-44.0); MEAN CORPUSCULAR HEMOGLOBIN 29.5 pg (27.0-33.0); MEAN CORPUSCULAR HGB CONC 32.1 g/dl (32.0-36.5); MEAN CORPUSCULAR VOLUME 91.7 fl (80.0-96.0); MONO # 0.4 10^3/uL (0.0-0.8); MONO % 6.6 % (0.0-5.0); NEUTROPHILS % 60.3 % (36.0-66.0); PLATELET COUNT, AUTOMATED 284 10^3/uL (150-450); RED BLOOD COUNT 5.19 10^6/uL (4.00-5.40); WHITE BLOOD COUNT 6.6 10^3/uL (4.0-10.0)
[2019-06-15 14:43] LABS: ALBUMIN 3.6 GM/DL (3.2-5.2); BILIRUBIN,TOTAL 0.5 MG/DL (0.2-1.0); CALCIUM LEVEL 9.3 MG/DL (8.5-10.1); CREATININE FOR GFR 1.13 MG/DL (0.55-1.30); GLOMERULAR FILTRATION RATE 56.5 (>58); POTASSIUM SERUM 4.5 MEQ/L (3.5-5.1); TOTAL PROTEIN 7.5 GM/DL (6.4-8.2)
== END ==
LOC: M SFHCPLAZ 11:19
PROVIDERS: ATTEND Family Medicine
DX: R10.13 Epigastric pain (principal); R11.0 Nausea; R19.7 Diarrhea, unspecified

== ENCOUNTER → 2019-07-16 | Outpatient (CLI) | payer MEDICAID ==
--- NOTE | 2019-07-24 02:03 | ECWPNPC ---
PATIENT NAME: SHILOH FLORES : 1975 GENDER: FEMALE VISIT DATE: 07/16/2019 DISCHARGE DATE: 07/16/19 1411 VISIT LOCKED DATE TIME: PHYSICIAN: BROCK KOHLER MD RESOURCE: BROCK KOHLER MD REASON FOR APPOINTMENT 1. BACK-MEDICAID HISTORY OF PRESENT ILLNESS HISTORY OF PRESENT ILLNESS: PAIN THE PATIENT DESCRIBES THE PAIN... 43 YEAR OLD FEMALE PATIENT WITH A HISTORY OF CHRONIC LOW BACK PAIN. THE PATIENT DESCRIBES THE PAIN ACHING, SORE, TENDER, AND DAILY WITH A PAIN SCORE OF 7-10/10 DEPENDING ON PHYSICAL ACTIVITY. THE PATIENT STATES HER PAIN IS MAINLY IN HER RIGHT LOWER BACK. THE PATIENT RECEIVED A RIGHT LUMBAR CLINICAL NURSING COORDINATOR POINT INJECTION ON 01/06/2019, WHICH SHE SAYS HELPED HER FOR SEVERAL MONTHS WITH GOOD PAIN RELIEF AND INCREASED FUNCTIONALITY, BUT THE PAIN HAS NOW RETURNED. PATIENT DENIES UNEXPLAINABLE WEIGHT LOSS, FEVER, CHILLS, NEW CHANGES ON HER URINARY OR BOWEL CONTROL. FALL RISK SCREENING: SCREENING :NO FALLS REPORTED IN THE LAST YEAR CURRENT MEDICATIONS TAKING ADVAIR HFA 230-21 MCG/ACT AEROSOL 2 PUFFS INHALATION TWICE A DAY TAKING PROAIR HFA 108 (90 BASE) MCG/ACT AEROSOL SOLUTION 2 PUFFS NEEDED INHALATION EVERY 6 HRS TAKING PRAZOSIN HCL 2 MG CAPSULE 1 CAPSULE AT BEDTIME ORALLY ONCE A DAY TAKING CYMBALTA 30 MG CAPSULE DELAYED RELEASE PARTICLES 1 CAPSULE ORALLY BID TAKING ALBUTEROL SULFATE (2.5 MG/3ML) 0.083% NEBULIZATION SOLUTION 3 ML NEEDED INHALATION THREE TIMES A DAY TAKING CPAP MACHINE MANAGED PULMONARY TAKING FERROUS SULFATE 325 (65 FE) MG TABLET 1 TABLET ORALLY ONCE A DAY TAKING NORETHINDRONE ACETATE 5 MG TABLET 1 TABLET ORALLY ONCE A DAY TAKING ZONISAMIDE 100 MG CAPSULE 1 CAPSULE ORALLY TWICE A DAY TAKING VITAMIN B-12 1000 MCG TABLET 1 TABLET ORALLY ONCE A DAY TAKING LEVOTHYROXINE SODIUM 100 MCG TABLET 1 TABLET ON AN EMPTY STOMACH IN THE MORNING ORALLY ONCE A DAY TAKING SALINE NASAL SPRAY 0.65 % SOLUTION 2 SPRAYS IN EACH NOSTRIL NEEDED NASALLY EVERY 2 HRS TAKING FOLIC ACID 1 MG TABLET TAKE ONE TABLET BY MOUTH EVERY DAY - - TAKING ZYRTEC 10 MG TABLET 1 TABLET ORALLY ONCE A DAY TAKING PANTOPRAZOLE SODIUM 40 MG TABLET DELAYED RELEASE 1 TABLET ORALLY ONCE DAILY TAKING RANITIDINE HCL 300 MG TABLET 1 TABLET ORALLY ONCE A DAY, NOTES: PRN PER PT DISCONTINUED DICYCLOMINE HCL 20 MG TABLET 1 TABLET ORALLY BID PRN DISCONTINUED DRISDOL 36156 UNIT CAPSULE 1 CAPSULE ORALLY ONCE WEEK DISCONTINUED FLEXERIL 5 MG TABLET 1 TABLET NEEDED ORALLY THREE TIMES A DAY PRN MEDICATION LIST REVIEWED AND RECONCILED WITH THE PATIENT PAST MEDICAL HISTORY SEIZURE DISORDER- MOOD SIEZURE DISORDER ASTHMA: DR. ESTRELLA; DX YOUNG ADULT COPD: DR. ESTRELLA; DX UNKNOWN DEPRESSION: LORRAINE HIGHTOWER, [facility] ANXIETY: LORRAINE HIGHTOWER, [facility] PTSD: LORRAINE HIGHTOWER, [facility] SLEEP APNEA: DR. ESTRELLA HYPOTHYROIDISM ALLERGIES BULGING DISC- LOWER BACK RIGHT FOOT TENDONITIS ARTHRITIS- BACK VIT D DEFICIENCY OBESITY HX HEART FAILURE 2002 WITH - WAS SEEN BY CARDIOLOGY THYROID NODULES: PER PATIENT, FOLLOWS WITH [facility] ENT HX. OF ANEMIA ASTHMA LOW O2 SATS 2009 SEIZURES ESOPHAGEAL REFLUX PTSD ABNORMAL PAP SMEAR LEARNING DISABILITYKI ALCOHOLISM 3 YEARS REMISSION ONCHYCHOMYCOSIS BACK PAIN,SEEKING BREAST REDUCTION 2009, HAS TO WEIGH 190LBS. TMJ HEADACHE MRI NEG 2009 STOOL FOR OCCULT-PER PT. NEGATIVE X 3, 2011 COLONOSCOPY 2017, 3 POLYPS, REPEAT COLONOSCOPY 5-10 YEARS ECHO 07/2018: NORMAL LEFT VENTRICULAR SIZE, WALL THICKENESS AND WALL MOTION, LEFT ATRIAL SIZE UPPER LIMITS OF NORMAL WITH EVIDENCE OF IMPAIRMENT OF LV DIASTOLIC FUNCTION BUT CURRENTLY NORMAL ESTIMATED MEAN LEFT ATRIAL PRESSURE. NL RIGHT HEART CHAMBER SIZES, WALL MOTION AND ESTIMATED PULMONARY ARTERIAL PRESSURE. NL IVC SIZE AND COLLAPSED AGAINST AN ELEVATED CENTRAL VENOUS PRESSURE STRESS TEST NEGATIVE 07/2018 THYROID DISEASE - HYPOTHYROID STAGE III KIDNEY DIEASE ALLERGIES ANTIFUNGAL: SEIZURE - ALLERGY ASPIRIN: VOMITING BLOOD - ALLERGY VICODIN: SEIZURES - ALLERGY TOPAMAX: SEIZURES - ALLERGY LEXAPRO: BP - ALLERGY SEROQUEL: SEIZURES - ALLERGY PAXIL: SEIZURE - ALLERGY STAWBERRY: HIVES - ALLERGY SYNTHROID: NAUSEA - ALLERGY MILK: MUCOUS - ALLERGY SURGICAL HISTORY GALLBLADDER REMOVED- [facility] 08/2017 TUBAL- [facility] 2002 UPPER GI SCOPE, WITH BIOPSIES- COLONOSCOPY- [facility]: DR. ESCUDERO, TUBULAR ADENOMA 08/14/18 FAMILY HISTORY FATHER: ALIVE 68 YRS MOTHER: ALIVE 58 YRS, DIAGNOSED WITH DIABETES SIBLINGS: UNKNOWN SON(S): ALIVE 15 YRS, UNSPECIFIED NONPSYCHOTIC MENTAL DISORDER FOLLOWING ORGANIC BRAIN DAMAGE DAUGHTER(S): ALIVE 22 YRS, UNSPECIFIED NONPSYCHOTIC MENTAL DISORDER FOLLOWING ORGANIC BRAIN DAMAGE PATERNAL GRAND FATHER: PATERNAL GRAND MOTHER: , UNSPECIFIED HEART DISEASE MATERNAL GRAND FATHER: UNKNOWN MATERNAL GRAND MOTHER: UNKNOWN 4 SISTER(S) . 1 SON(S) , 1 DAUGHTER(S) . DAUGHTER AGE22- MULTIPLE MISSCARRAGES, ANEMIA, OBESITY\\NSON AGE 15- AUTISIM\\NDAUGHTER ANEMIA, BIPOLAR\\N\\NPATERNAL GRANDFATHER- COMMITTED SUICIDE. SOCIAL HISTORY GENERAL: TOBACCO USE ARE YOU A:FORMER SMOKER HOW LONG HAS IT BEEN SINCE YOU LAST SMOKED?5-10 YEARS HIV / HEP-C SCREENING HIV TEST OFFERED TO PATIENT:YES DATE OFFERED:08/26/2018 TEST ACCEPTED:NO HEP-C TEST OFFERED TO PATIENT:YES DATE OFFERED:08/26/2018 REASON:PATIENT DECLINED TEST ACCEPTED:NO REASON:PATIENT DECLINED BROCHURE PROVIDED TO PATIENTYES OTHERS AT HOME: LIVES WITH SIGNIFICANT OTHER. 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 LANGUAGE LANGUAGES SPOKEN:IRISH DOMESTIC VIOLENCE DO YOU FEEL SAFE IN YOUR ENVIRONMENT?YES NEW PATIENT PAIN DIARY PATIENT DESCRIBES PAIN :ACHING, HAVE IT ALL THE TIME, STABBING, TENDER, SORE, SHOOTING FROM 0-10, WHAT LEVEL IS YOUR PAIN TODAY?9 PRECIPITATING FACTORS INCREASES WITH ACTIVITY ALLEVIATING FACTORS USES A HEATING PAD BMI CARE GOAL FOLLOW-UP ABOVE NORMAL BMI FOLLOW-UPLIFESTYLE EDUCATION REGARDING DIET RECREATIONAL DRUG USE DRUG USE?NO EXERCISE: DAILY, WALKING. LEARNING BARRIERS / SPECIAL NEEDS CHANGE FROM LAST VISIT?NO BARRIERS TO LEARNING?YES HEARING IMPAIRED?NO VISION IMPAIRED?YES COGNITIVELY IMPAIRED?YES :CORRECTIVE LENSES :LEARNING DISABILITY PT HAS AN AIDE 5 DAYS/WEEK (32 HOURS/WEEK) WHO SETS UP MEDS, COMES TO DOCTOR'S APPT, ASSISTS WITH HOUSEWORK READINESS TO LEARN?YES LEARNING PREFERENCES?NO LEARNING CAPABILITIES PRESENT?YES EMOTIONAL BARRIERS?NO SPECIAL DEVICES?NO TECHNICAL SALES SPECIALIST NEEDED?NO PAIN CLINIC PFS, CLERGY, PUBLIC HEALTH REFERRALS HAS THE PATIENT BEEN EDUCATED REGARDING HIS/HER PLAN OF CARE?YES HAS THE PATIENT BEEN EDUCATED REGARDING PAIN, THE RISK FOR PAIN, THE IMPORTANCE OF EFFECTIVE PAIN MANAGEMENT, AND THE PAIN ASSESSMENT PROCESS?YES LATEX QUESTIONNAIRE LATEX ALLERGY : HAVE YOU EVER DEVELOPED ANY TYPE OF REACTION AFTER HANDLING LATEX PRODUCTS SUCH RUBBER GLOVES, CONDOMS, DIAPHRAGMS, BALLOONS, SOCKS, OR UNDERWEAR?NO LATEX ALLERGY : HAVE YOU EVER DEVELOPED ANY TYPE OF REACTION DURING OR AFTER DENTAL APPOINTMENT, VAGINAL/RECTAL EXAMINATION, SURGICAL PROCEDURE, OR ANY OTHER EXPOSURE?NO LATEX RISK : HAVE YOU EVER HAD ANY DIFFICULTY BREATHING OR HIVES AFTER EATING OR HANDLING ANY FRUITS, OR VEGETABLES; SUCH KIWI, BANANAS, STONE FRUITS, OR CHESTNUTSNO LATEX RISK : DO YOU HAVE A PREVIOUS PERSONAL HISTORY OF MORE THAN NINE SURGERIES, SPINA BIFIDA, OR REPEATED CATHERIZATIONS? NO LATEX RISK : ARE YOU FREQUENTLY EXPOSED TO LATEX PRODUCTS IN YOUR OCCUPATION?NO DATE ASKED : 07/16/2019 CAFFEINE CAFFEINE USE?YES OCCASIONAL TEA DECAFE COFFEE. NO SODA ADVANCE DIRECTIVE ADVANCE DIRECTIVE DISCUSSED WITH PATIENT:YES PT HAS NO ADVANCED DIRECTIVES, HCP INFORMATION AT HOME AND SHE STATES SHE HAS BEEN WORKING ON IT. DECLINED ASSISTANCE IN FILLING OUT THE PAPERWORK. YAZDANISM [id number] TEMPLE MARITAL STATUS: . ALCOHOL SCREENING DID YOU HAVE A DRINK CONTAINING ALCOHOL IN THE PAST YEAR?NO POINTS0 INTERPRETATIONNEGATIVE OCCUPATION: DISABLED. SEXUAL HX HAD SEX IN THE LAST 12 MONTHS (VAGINAL, ORAL, OR ANAL)?NO REVIEWED WITH PT 12/21/18 1035 LASREVIEWED WITH PT 01/06/19 1405 BVREVIEWED WITH PATIENT 04/16/19 1241 JS. HOSPITALIZATION/MAJOR DIAGNOSTIC PROCEDURE ASTHMA- [facility] 2017 [facility]- VAGINAL - WITH COMPLICATIONS- SEIZURES CANNOT RECALL 2002 [facility]- VAGINAL NO COMPLICATIONS 1995 REVIEW OF SYSTEMS REVIEWED BY: PROVIDER: BROCK KOHLER MD . CONSTITUTIONAL: ANY CHANGE IN YOUR MEDICAL CONDITION? NO . CHILLS NO . FEVER NO . INFECTION: DO YOU HAVE NEW INFECTIONS? NO . DO YOU HAVE HISTORY OF MRSA? NO . MUSCULOSKELETAL: ANY NEW PATTERNS OF PAIN OR NUMBNESS? NO . GASTROENTEROLOGY: ANY NEW CHANGE IN BOWEL CONTROL? NO . GENITOURINARY: ANY NEW CHANGE IN BLADDER CONTROL? NO . IS THERE A CHANCE YOU COULD BE ? NO . HEMATOLOGY/LYMPH: DO YOU TAKE ANY BLOOD THINNERS? (FOR EXAMPLE- COUMADIN, PLAVIX, AGGRENOX, PLATEL, PRADAXA, OR XARELTO) NO . WHEN WAS YOUR LAST DOSE? DATE: TIME: . NEUROLOGY: HAVE YOU FALLEN IN THE PAST 12 MONTHS? NO . ANY NEW EXTREMITY NUMBNESS OR WEAKNESS? NO . CARDIOLOGY: DO YOU HAVE A PACEMAKER OR DEFIBRILLATOR? NO . RESPIRATORY: HAVE YOU BEEN SICK IN THE PAST WEEK? NO . FEVER NO . FLU LIKE SYMPTOMS? NO . COUGH NO . INTEGUMENTARY: DO YOU HAVE ANY RASHES OR OPEN SORES? NO . ALLERGIC/IMMUNO: ARE YOU ALLERGIC TO IV DYE? NO . ANY NEW ALLERGIES? NO . PSYCHIATRIC: DO YOU HAVE THOUGHTS OF HURTING YOURSELF OR SOMEONE ELSE? NO . ARE YOU ABUSED, NEGLECTED, OR IN AN UNSAFE ENVIRONMENT? NO . ENDOCRINOLOGY: ARE YOU DIABETIC? NO . OTHER: DO YOU NEED ANY PRESCRIPTIONS? NO . IF YES, PLEASE LIST: ____ . ANY NEW PROBLEMS WITH YOUR MEDICATIONS? NO . WHEN DID YOU LAST EAT? ____ . WHEN DID YOU LAST DRINK? ____ . WHAT DID YOU LAST DRINK? ____ . NAME OF PERSON DRIVING YOU HOME? ____ . DO YOU HAVE ANY OTHER QUESTIONS OR CONCERNS NO . VITAL SIGNS WT 229.4 LBS, HT 61 IN, BMI 43.34 INDEX, BP 131/77 MM HG, HR 94 /MIN, RR 18 /MIN, TEMP 97.1 F, OXYGEN SAT % 97%, SAFE IN ENV? (Y/N) YES, NA INITIALS AW 1312, REVIEWED BY: JODI. EXAMINATION GENERAL EXAMINATION: PATIENT IS ALERT O X 3 AND COOPERATIVE. SEVERE TENDERNESS IN THE RIGHT LOWER BACK AREA. PRESENCE OF BANDS OF TISSUE AND TRIGGER POINTS WITH RESTRICTION OF MOVEMENT OF THE LOW BACK. ASSESSMENTS MYALGIA, OTHER SITE - M79.18 (PRIMARY) TREATMENT MYALGIA, OTHER SITE CLINICAL NOTES: WE DISCUSSED SEVERAL ISSUES WITH MS. FLORES' PAIN MANAGEMENT CASE. DUE TO THE TRIGGER POINTS, BANDS OF TISSUE, AND RESTRICTION OF MOVEMENT, I WOULD LIKE TO MOVE FORWARD WITH A TRIGGER POINT INJECTION AT THIS TIME. WE DISCUSSED THE BENEFITS, RISKS, AND ALTERNATIVES OF THE INJECTION AND THE PATIENT WOULD LIKE TO PROCEED. THE PATIENT RECEIVED GOOD PAIN RELIEF FOR SEVERAL MONTHS AFTER HER LAST TRIGGER POINT INJECTION IN DECEMBER AND I EXPECT GOOD RESULTS AGAIN WITH THIS INJECTION. THE PATIENT WILL FOLLOW UP IN SEVERAL WEEKS AFTER HER INJECTION. INSTRUCTIONS WERE GIVEN, QUESTIONS WERE ANSWERED, PATIENT REPORTS UNDERSTANDING AND AGREES WITH THE PLAN. I, CARLA ISBELL, DOCUMENTED THE ABOVE INFORMATION ACTING A SCRIBE FOR DR. KOHLER. I HAVE REVIEWED THE ABOVE DOCUMENT, WRITTEN BY CARLA ISBELL SCRIBThomas AND I VERIFY THAT IT IS ACCURATE. . PROCEDURE CODES FA211 ESTABILISHED PATIENT [facility] CHARGE [id number] CURRENT MEDS W/DOSAGES DOCUMENTED C3122 PAIN ASSESS POS TOOL F/U PLAN DOC DISPOSITION & COMMUNICATION FOLLOW UP REASON: TPI ELECTRONICALLY SIGNED BY BROCK KOHLER MD, MD ON 07/23/2019 AT 05:52 PM EDT DISCLAIMER : THIS IS A VISIT SUMMARY EXTRACTED FROM THE [employer] CHART. IT IS NOT A COPY OF THE [employer] PROGRESS NOTE. MTDD
== END ==
LOC: M PAIN 13:00
PROVIDERS: ATTEND Anesthesiology
DX: M79.18 Myalgia, other site (principal); G40.909 Epilepsy, unspecified, not intractable, without status epilepticus; J44.9 Chronic obstructive pulmonary disease, unspecified; Z86.59 Personal history of other mental and behavioral disorders; G47.30 Sleep apnea, unspecified; E03.9 Hypothyroidism, unspecified; D50.9 Iron deficiency anemia, unspecified; K21.9 Gastro-esophageal reflux disease without esophagitis; Z87.891 Personal history of nicotine dependence; Z88.5 Allergy status to narcotic agent; Z88.6 Allergy status to analgesic agent; Z88.8 Allergy status to other drugs, medicaments and biological substances; Z91.011 Allergy to milk products; Z91.018 Allergy to other foods; E66.01 Morbid (severe) obesity due to excess calories; Z68.41 Body mass index [BMI] 40.0-44.9, adult; Z79.899 Other long term (current) drug therapy

== ENCOUNTER → 2019-07-29 | Outpatient (CLI) | payer MEDICAID ==
[~2019-07-29] MED LIST changes: -ADVA115A INH; -ALL10TAB29 PO; +BUPIVACAINE HCL 0.25% 10 ML VIAL As Ordered ONE; +BUPIVACAINE HCL 0.25% 30 ML VIAL As Ordered ONE; -DICY10CA13 PO; -DULO-34 PO; -ESTR1TAB PO; -LEVO100T54 PO; -NORE5TAB PO; -OMEP1CAP73 PO; +OMEP20CA4 PO; -PRAZ2CAP PO; +TRIAMCINOLONE ACETONIDE SUSP 40 MG/ML VIAL (J3301) As Ordered ONE; -ZONI100C17 PO; +ZONI100C2 PO; +diazePAM 5 MG TAB As Ordered ONE
--- NOTE | 2019-08-12 00:34 | ECWPNPC ---
PATIENT NAME: SHILOH FLORES : 1975 GENDER: FEMALE VISIT DATE: 07/29/2019 DISCHARGE DATE: 07/29/19 1007 VISIT LOCKED DATE TIME: PHYSICIAN: BROCK KOHLER MD RESOURCE: BROCK KOHLER MD REASON FOR APPOINTMENT 1. TPI, LOW BACK HISTORY OF PRESENT ILLNESS HISTORY OF PRESENT ILLNESS: PAIN THE PATIENT DESCRIBES THE PAIN... FALL RISK SCREENING: SCREENING :NO FALLS REPORTED IN THE LAST YEAR CURRENT MEDICATIONS TAKING ADVAIR HFA 230-21 MCG/ACT AEROSOL 2 PUFFS INHALATION TWICE A DAY TAKING PROAIR HFA 108 (90 BASE) MCG/ACT AEROSOL SOLUTION 2 PUFFS NEEDED INHALATION EVERY 6 HRS TAKING PRAZOSIN HCL 2 MG CAPSULE 1 CAPSULE AT BEDTIME ORALLY ONCE A DAY TAKING CYMBALTA 30 MG CAPSULE DELAYED RELEASE PARTICLES 1 CAPSULE ORALLY BID TAKING ALBUTEROL SULFATE (2.5 MG/3ML) 0.083% NEBULIZATION SOLUTION 3 ML NEEDED INHALATION THREE TIMES A DAY TAKING CPAP MACHINE MANAGED PULMONARY TAKING NORETHINDRONE ACETATE 5 MG TABLET 1 TABLET ORALLY ONCE A DAY TAKING ZONISAMIDE 100 MG CAPSULE 1 CAPSULE ORALLY TWICE A DAY TAKING VITAMIN B-12 1000 MCG TABLET 1 TABLET ORALLY ONCE A DAY TAKING LEVOTHYROXINE SODIUM 100 MCG TABLET 1 TABLET ON AN EMPTY STOMACH IN THE MORNING ORALLY ONCE A DAY TAKING SALINE NASAL SPRAY 0.65 % SOLUTION 2 SPRAYS IN EACH NOSTRIL NEEDED NASALLY EVERY 2 HRS TAKING FOLIC ACID 1 MG TABLET TAKE ONE TABLET BY MOUTH EVERY DAY - - TAKING ZYRTEC 10 MG TABLET 1 TABLET ORALLY ONCE A DAY TAKING PANTOPRAZOLE SODIUM 40 MG TABLET DELAYED RELEASE 1 TABLET ORALLY ONCE DAILY TAKING RANITIDINE HCL 300 MG TABLET 1 TABLET ORALLY ONCE A DAY, NOTES: PRN PER PT DISCONTINUED FERROUS SULFATE 325 (65 FE) MG TABLET 1 TABLET ORALLY ONCE A DAY MEDICATION LIST REVIEWED AND RECONCILED WITH THE PATIENT PAST MEDICAL HISTORY SEIZURE DISORDER- MOOD SIEZURE DISORDER ASTHMA: DR. ESTRELLA; DX YOUNG ADULT COPD: DR. ESTRELLA; DX UNKNOWN DEPRESSION: LORRAINE HIGHTOWER, [facility] ANXIETY: LORRAINE HIGHTOWER, [facility] PTSD: LORRAINE HIGHTOWER, [facility] SLEEP APNEA: DR. ESTRELLA HYPOTHYROIDISM ALLERGIES BULGING DISC- LOWER BACK RIGHT FOOT TENDONITIS ARTHRITIS- BACK VIT D DEFICIENCY OBESITY HX HEART FAILURE 2002 WITH - WAS SEEN BY CARDIOLOGY THYROID NODULES: PER PATIENT, FOLLOWS WITH [facility] ENT HX. OF ANEMIA ASTHMA LOW O2 SATS 2009 SEIZURES ESOPHAGEAL REFLUX PTSD ABNORMAL PAP SMEAR LEARNING DISABILITYKI ALCOHOLISM 3 YEARS REMISSION ONCHYCHOMYCOSIS BACK PAIN,SEEKING BREAST REDUCTION 2009, HAS TO WEIGH 190LBS. TMJ HEADACHE MRI NEG 2009 STOOL FOR OCCULT-PER PT. NEGATIVE X 3, 2011 COLONOSCOPY 2017, 3 POLYPS, REPEAT COLONOSCOPY 5-10 YEARS ECHO 07/2018: NORMAL LEFT VENTRICULAR SIZE, WALL THICKENESS AND WALL MOTION, LEFT ATRIAL SIZE UPPER LIMITS OF NORMAL WITH EVIDENCE OF IMPAIRMENT OF LV DIASTOLIC FUNCTION BUT CURRENTLY NORMAL ESTIMATED MEAN LEFT ATRIAL PRESSURE. NL RIGHT HEART CHAMBER SIZES, WALL MOTION AND ESTIMATED PULMONARY ARTERIAL PRESSURE. NL IVC SIZE AND COLLAPSED AGAINST AN ELEVATED CENTRAL VENOUS PRESSURE STRESS TEST NEGATIVE 07/2018 THYROID DISEASE - HYPOTHYROID STAGE III KIDNEY DIEASE ALLERGIES ANTIFUNGAL: SEIZURE - ALLERGY ASPIRIN: VOMITING BLOOD - ALLERGY VICODIN: SEIZURES - ALLERGY TOPAMAX: SEIZURES - ALLERGY LEXAPRO: BP - ALLERGY SEROQUEL: SEIZURES - ALLERGY PAXIL: SEIZURE - ALLERGY STAWBERRY: HIVES - ALLERGY SYNTHROID: NAUSEA FROM HIGHER DOES - ALLERGY MILK: MUCOUS - ALLERGY SURGICAL HISTORY GALLBLADDER REMOVED- [facility] 08/2017 TUBAL- [facility] 2002 UPPER GI SCOPE, WITH BIOPSIES- COLONOSCOPY- [facility]: DR. ESCUDERO, TUBULAR ADENOMA 08/14/18 FAMILY HISTORY FATHER: ALIVE 68 YRS MOTHER: ALIVE 58 YRS, DIAGNOSED WITH DIABETES SIBLINGS: UNKNOWN SON(S): ALIVE 15 YRS, UNSPECIFIED NONPSYCHOTIC MENTAL DISORDER FOLLOWING ORGANIC BRAIN DAMAGE DAUGHTER(S): ALIVE 22 YRS, UNSPECIFIED NONPSYCHOTIC MENTAL DISORDER FOLLOWING ORGANIC BRAIN DAMAGE PATERNAL GRAND FATHER: PATERNAL GRAND MOTHER: , UNSPECIFIED HEART DISEASE MATERNAL GRAND FATHER: UNKNOWN MATERNAL GRAND MOTHER: UNKNOWN 4 SISTER(S) . 1 SON(S) , 1 DAUGHTER(S) . DAUGHTER AGE22- MULTIPLE MISSCARRAGES, ANEMIA, OBESITY\\NSON AGE 15- AUTISIM\\NDAUGHTER ANEMIA, BIPOLAR\\N\\NPATERNAL GRANDFATHER- COMMITTED SUICIDE. SOCIAL HISTORY GENERAL: TOBACCO USE ARE YOU A:FORMER SMOKER HOW LONG HAS IT BEEN SINCE YOU LAST SMOKED?5-10 YEARS HIV / HEP-C SCREENING HIV TEST OFFERED TO PATIENT:YES DATE OFFERED:08/26/2018 TEST ACCEPTED:NO HEP-C TEST OFFERED TO PATIENT:YES DATE OFFERED:08/26/2018 REASON:PATIENT DECLINED TEST ACCEPTED:NO REASON:PATIENT DECLINED BROCHURE PROVIDED TO PATIENTYES OTHERS AT HOME: LIVES WITH SIGNIFICANT OTHER. 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 GUY LAWYERS- SEEING RESEARCH ATTORNEY. LANGUAGE LANGUAGES SPOKEN:MALAGASY DOMESTIC VIOLENCE DO YOU FEEL SAFE IN YOUR ENVIRONMENT?YES NEW PATIENT PAIN DIARY PATIENT DESCRIBES PAIN :ACHING, HAVE IT ALL THE TIME, STABBING, TENDER, SORE, SHOOTING FROM 0-10, WHAT LEVEL IS YOUR PAIN TODAY?9 PRECIPITATING FACTORS INCREASES WITH ACTIVITY ALLEVIATING FACTORS USES A HEATING PAD BMI CARE GOAL FOLLOW-UP ABOVE NORMAL BMI FOLLOW-UPLIFESTYLE EDUCATION REGARDING DIET RECREATIONAL DRUG USE DRUG USE?NO EXERCISE: DAILY, WALKING. LEARNING BARRIERS / SPECIAL NEEDS CHANGE FROM LAST VISIT?NO BARRIERS TO LEARNING?YES HEARING IMPAIRED?NO VISION IMPAIRED?YES COGNITIVELY IMPAIRED?YES :CORRECTIVE LENSES :LEARNING DISABILITY PT HAS AN AIDE 5 DAYS/WEEK (32 HOURS/WEEK) WHO SETS UP MEDS, COMES TO DOCTOR'S APPT, ASSISTS WITH HOUSEWORK READINESS TO LEARN?YES LEARNING PREFERENCES?NO LEARNING CAPABILITIES PRESENT?YES EMOTIONAL BARRIERS?NO SPECIAL DEVICES?NO MANAGER ENTRY NEEDED?NO PAIN CLINIC PFS, CLERGY, PUBLIC HEALTH REFERRALS HAS THE PATIENT BEEN EDUCATED REGARDING HIS/HER PLAN OF CARE?YES HAS THE PATIENT BEEN EDUCATED REGARDING PAIN, THE RISK FOR PAIN, THE IMPORTANCE OF EFFECTIVE PAIN MANAGEMENT, AND THE PAIN ASSESSMENT PROCESS?YES LATEX QUESTIONNAIRE LATEX ALLERGY : HAVE YOU EVER DEVELOPED ANY TYPE OF REACTION AFTER HANDLING LATEX PRODUCTS SUCH RUBBER GLOVES, CONDOMS, DIAPHRAGMS, BALLOONS, SOCKS, OR UNDERWEAR?NO LATEX ALLERGY : HAVE YOU EVER DEVELOPED ANY TYPE OF REACTION DURING OR AFTER DENTAL APPOINTMENT, VAGINAL/RECTAL EXAMINATION, SURGICAL PROCEDURE, OR ANY OTHER EXPOSURE?NO DATE ASKED : 07/16/2019 LATEX RISK : HAVE YOU EVER HAD ANY DIFFICULTY BREATHING OR HIVES AFTER EATING OR HANDLING ANY FRUITS, OR VEGETABLES; SUCH KIWI, BANANAS, STONE FRUITS, OR CHESTNUTSNO LATEX RISK : DO YOU HAVE A PREVIOUS PERSONAL HISTORY OF MORE THAN NINE SURGERIES, SPINA BIFIDA, OR REPEATED CATHERIZATIONS? NO LATEX RISK : ARE YOU FREQUENTLY EXPOSED TO LATEX PRODUCTS IN YOUR OCCUPATION?NO CAFFEINE CAFFEINE USE?YES OCCASIONAL TEA DECAFE COFFEE. NO SODA ADVANCE DIRECTIVE ADVANCE DIRECTIVE DISCUSSED WITH PATIENT:YES PT HAS NO ADVANCED DIRECTIVES, HCP INFORMATION AT HOME AND SHE STATES SHE HAS BEEN WORKING ON IT. DECLINED ASSISTANCE IN FILLING OUT THE PAPERWORK. 07/29/19 CONGREGATION [id number] VOODOO MARITAL STATUS: . ALCOHOL SCREENING DID YOU HAVE A DRINK CONTAINING ALCOHOL IN THE PAST YEAR?NO POINTS0 INTERPRETATIONNEGATIVE OCCUPATION: DISABLED. SEXUAL HX HAD SEX IN THE LAST 12 MONTHS (VAGINAL, ORAL, OR ANAL)?NO REVIEWED WITH PT 12/21/18 1035 LASREVIEWED WITH PT 01/06/19 1405 BVREVIEWED WITH PATIENT 04/16/19 1241 JSREVIEWED WITH PATIENT 07/29/19 0852 BV. HOSPITALIZATION/MAJOR DIAGNOSTIC PROCEDURE ASTHMA- [facility] 2017 [facility]- VAGINAL - WITH COMPLICATIONS- SEIZURES CANNOT RECALL 2002 [facility]- VAGINAL NO COMPLICATIONS 1995 REVIEW OF SYSTEMS REVIEWED BY: PROVIDER: . CONSTITUTIONAL: ANY CHANGE IN YOUR MEDICAL CONDITION? NO . CHILLS NO . FEVER NO . INFECTION: DO YOU HAVE NEW INFECTIONS? NO . DO YOU HAVE HISTORY OF MRSA? NO . MUSCULOSKELETAL: ANY NEW PATTERNS OF PAIN OR NUMBNESS? YES, INCREASING INTENSITY OF PAIN OVER THE PAST MONTH . GASTROENTEROLOGY: ANY NEW CHANGE IN BOWEL CONTROL? NO . GENITOURINARY: ANY NEW CHANGE IN BLADDER CONTROL? NO . IS THERE A CHANCE YOU COULD BE ? NO . HEMATOLOGY/LYMPH: DO YOU TAKE ANY BLOOD THINNERS? (FOR EXAMPLE- COUMADIN, PLAVIX, AGGRENOX, PLATEL, PRADAXA, OR XARELTO) NO . WHEN WAS YOUR LAST DOSE? DATE: TIME: . NEUROLOGY: HAVE YOU FALLEN IN THE PAST 12 MONTHS? NO . ANY NEW EXTREMITY NUMBNESS OR WEAKNESS? NO . CARDIOLOGY: DO YOU HAVE A PACEMAKER OR DEFIBRILLATOR? NO . RESPIRATORY: HAVE YOU BEEN SICK IN THE PAST WEEK? NO . FEVER NO . FLU LIKE SYMPTOMS? NO . COUGH NO . INTEGUMENTARY: DO YOU HAVE ANY RASHES OR OPEN SORES? NO . ALLERGIC/IMMUNO: ARE YOU ALLERGIC TO IV DYE? NO . ANY NEW ALLERGIES? NO . PSYCHIATRIC: DO YOU HAVE THOUGHTS OF HURTING YOURSELF OR SOMEONE ELSE? NO . ARE YOU ABUSED, NEGLECTED, OR IN AN UNSAFE ENVIRONMENT? NO . ENDOCRINOLOGY: ARE YOU DIABETIC? NO . OTHER: DO YOU NEED ANY PRESCRIPTIONS? NO . IF YES, PLEASE LIST: ____ . ANY NEW PROBLEMS WITH YOUR MEDICATIONS? NO . WHEN DID YOU LAST EAT? 07/28/190 . WHEN DID YOU LAST DRINK? 07/28/19 2100 . WHAT DID YOU LAST DRINK? WATER . NAME OF PERSON DRIVING YOU HOME? TENNESHA . DO YOU HAVE ANY OTHER QUESTIONS OR CONCERNS NO . VITAL SIGNS WT 228.8 LBS, HT 61 IN, BMI 43.23 INDEX, BP 120/80 MM HG, HR 92 /MIN, RR 18 /MIN, TEMP 97.7 F, OXYGEN SAT % 97%, NA INITIALS SC 08:55, REVIEWED BY: BV. ASSESSMENTS MYALGIA, OTHER SITE - M79.18 (PRIMARY) PROCEDURES PN TRIGGER POINT INJECTION WITH STEROIDS PRE PROCEDURE DIAGNOSIS 1. MYALGIA 2. PAIN AT BILATERAL LOW BACK AREA. POST PROCEDURE DIAGNOSIS 1. MYALGIA 2. PAIN AT BILATERAL LOW BACK AREA. PROCEDURE TRIGGER POINT INJECTION AT RIGHT AND LEFT LOW BACK AREA. SURGEON DR. BROCK KOHLER LIMNOLOGIST NONE ANESTHESIA LOCAL PRE PROCEDURE NOTE THE PATIENT HAS A HISTORY OF CHRONIC PAIN AT THE RIGHT AND LEFT LOW BACK AREA. I EVALUATED THE PATIENT AND REVIEWED THE CHART. THERE IS EVIDENCE OF BANDS OF TISSUE WITH RESTRICTION OF MOVEMENT AND PRESENCE OF TRIGGER POINT AT THE AFFECTED AREA. I WENT OVER THE RISKS, ALTERNATIVES, AND BENEFITS ASSOCIATED WITH THIS PROCEDURE. THE PATIENT WOULD LIKE TO PROCEED AND GIVES CONSENT TO PERFORM THE PROCEDURE. THE PATIENT DENIES UNEXPLAINABLE WEIGHT LOSS, FEVER, CHILLS, OR NEW CHANGES IN URINARY OR BOWEL CONTROL DESCRIPTION OF PROCEDURE THE PATIENT WAS BROUGHT TO THE PROCEDURE ROOM AND PLACED IN THE SITTING POSITION. THE AREA WAS CLEANED WITH ALCOHOL. THE PROCEDURE WAS DONE USING ASEPTIC STERILE TECHNIQUE. I CHECKED LATERALITY AND THE LEVEL WHERE THE PROCEDURE WAS GOING TO BE PERFORMED WITH THE PATIENT AND THE SUPPORTING STAFF AT THE MOMENT OF THE TIME OUT IN THE PROCEDURE ROOM. USING A 25-GAUGE NEEDLE, TRIGGER POINTS WERE INJECTED AT THE RIGHT AND LEFT LOW BACK AREA WITH A TOTAL OF 40 ML OF BUPIVACAINE 0.25% AND KENALOG 40 MG. THERE WAS NO EVIDENCE OF BLOOD, PARESTHESIA OR CEREBROSPINAL FLUID DURING THE PROCEDURE. THE PATIENT WAS SENT TO THE RECOVERY ROOM. THE PATIENT WAS MOVING THE EXTREMITIES AND DOING WELL. THERE WAS NO COMPLICATION DURING THE PROCEDURE POST PROCEDURE NOTE THE PATIENT WILL BE SEEN IN A FOLLOW UP IN THE NEXT FEW WEEKS. INSTRUCTIONS WERE GIVEN, QUESTIONS WERE ANSWERED, AND THE PATIENT EXPRESSED UNDERSTANDING AND AGREES WITH THE PLAN. I, CARLA ISBELL, DOCUMENTED THE ABOVE INFORMATION ACTING A SCRIBE FOR DR. KOHLER. I HAVE REVIEWED THE ABOVE DOCUMENT, WRITTEN BY CARLA HEMRIC SCRIBE AND I VERIFY THAT IT IS ACCURATE. PROCEDURE CODES 63669 INJ TRIGGER POINT / MUSCL DISPOSITION & COMMUNICATION FOLLOW UP 3 WEEKS ELECTRONICALLY SIGNED BY BROCK KOHLER MD, MD ON 08/11/2019 AT 10:21 AM EDT DISCLAIMER : THIS IS A VISIT SUMMARY EXTRACTED FROM THE [employer] CHART. IT IS NOT A COPY OF THE [employer] PROGRESS NOTE. [facility]
== END ==
LOC: M PAIN 08:30
PROVIDERS: ATTEND Anesthesiology
DX: M79.18 Myalgia, other site (principal); G40.909 Epilepsy, unspecified, not intractable, without status epilepticus; J45.909 Unspecified asthma, uncomplicated; J44.9 Chronic obstructive pulmonary disease, unspecified; F32.9 Major depressive disorder, single episode, unspecified; F41.9 Anxiety disorder, unspecified; G47.30 Sleep apnea, unspecified; E03.9 Hypothyroidism, unspecified; M51.26 Other intervertebral disc displacement, lumbar region; E55.9 Vitamin D deficiency, unspecified; E66.9 Obesity, unspecified; Z68.41 Body mass index [BMI] 40.0-44.9, adult; E04.2 Nontoxic multinodular goiter; K21.9 Gastro-esophageal reflux disease without esophagitis; F43.10 Post-traumatic stress disorder, unspecified; F10.21 Alcohol dependence, in remission; N18.3 Chronic kidney disease, stage 3 (moderate); Z87.891 Personal history of nicotine dependence; Z79.899 Other long term (current) drug therapy; Z88.5 Allergy status to narcotic agent; Z88.6 Allergy status to analgesic agent; Z88.8 Allergy status to other drugs, medicaments and biological substances; Z91.011 Allergy to milk products; Z91.018 Allergy to other foods
CPT/HCPCS: 20552; J3301

== ENCOUNTER → 2019-08-10 | Outpatient (CLI) | payer MEDICAID ==
[~2019-08-10] MED LIST changes: -BUPIVACAINE HCL 0.25% 10 ML VIAL As Ordered ONE; -BUPIVACAINE HCL 0.25% 30 ML VIAL As Ordered ONE; -TRIAMCINOLONE ACETONIDE SUSP 40 MG/ML VIAL (J3301) As Ordered ONE; -diazePAM 5 MG TAB As Ordered ONE
--- NOTE | 2019-08-10 10:01 | REP ---
NUCLEAR GASTRIC EMPTYING SCAN: Following the oral administration of 1.04 millicuries technetium 99m sulfur colloid in two scrambled eggs and 6 ounces of water, multiple images of the upper abdomen are performed in the anterior and posterior projections. At the end of 90 minutes, 23% of the ingested activity is emptied from the stomach. T-1/2 is 200 minutes. This is above the normal valve of 90 minutes. IMPRESSION: Moderately delayed gastric emptying. Electronically Signed by Johan Raygoza MD 08/11/2019 11:41 A
== END ==
LOC: M RAD 07:29
PROVIDERS: ATTEND Internal Medicine Gastroenterology
DX: K31.84 Gastroparesis (principal); K59.8 Other specified functional intestinal disorders
CPT/HCPCS: 78264; A9541

== ENCOUNTER → 2019-08-23 | Outpatient (CLI) | payer MEDICAID ==
--- NOTE | 2019-09-07 04:44 | ECWPNPC ---
PATIENT NAME: SHILOH FLORES : 1975 GENDER: FEMALE VISIT DATE: 08/23/2019 DISCHARGE DATE: 08/23/19 1144 VISIT LOCKED DATE TIME: PHYSICIAN: BROCK KOHLER MD RESOURCE: BROCK KOHLER MD REASON FOR APPOINTMENT 1. POST PROC HISTORY OF PRESENT ILLNESS HISTORY OF PRESENT ILLNESS: PAIN THE PATIENT DESCRIBES THE PAIN... 43 YEAR OLD FEMALE PATIENT WITH A HISTORY OF CHRONIC LOW BACK PAIN. THE PATIENT DESCRIBES THE PAIN ACHING, SORE, TENDER, SPECIFIC, AND BRIEF WITH A PAIN SCORE OF 5-8/10 DEPENDING ON PHYSICAL ACTIVITY. THE PATIENT STATES SHE HAS BEEN SUFFERING FROM HER PAIN FOR MANY YEARS. THE PATIENT RECEIVED A RIGHT LOW BACK TRIGGER POINT INJECTION ON 01/06/2019 THAT PROVIDED HER WITH GOOD PAIN RELIEF FOR MONTHS AND THEN HAD A REPEAT BILATERAL LOW BACK TRIGGER POINT INJECTION ON 07/29/2019 THAT IS STILL PROVIDING GOOD PAIN RELIEF IN HER LOW BACK. THE PATIENT SAYS HER PAIN IS NOW HIGHER IN HER THORACIC BACK AREA. PATIENT DENIES UNEXPLAINABLE WEIGHT LOSS, FEVER, CHILLS, NEW CHANGES ON HER URINARY OR BOWEL CONTROL. FALL RISK SCREENING: SCREENING :NO FALLS REPORTED IN THE LAST YEAR CURRENT MEDICATIONS TAKING ADVAIR HFA 230-21 MCG/ACT AEROSOL 2 PUFFS INHALATION TWICE A DAY TAKING PROAIR HFA 108 (90 BASE) MCG/ACT AEROSOL SOLUTION 2 PUFFS NEEDED INHALATION EVERY 6 HRS TAKING PRAZOSIN HCL 2 MG CAPSULE 1 CAPSULE AT BEDTIME ORALLY ONCE A DAY TAKING ALBUTEROL SULFATE (2.5 MG/3ML) 0.083% NEBULIZATION SOLUTION 3 ML NEEDED INHALATION THREE TIMES A DAY TAKING CPAP MACHINE MANAGED PULMONARY TAKING NORETHINDRONE ACETATE 5 MG TABLET 1 TABLET ORALLY ONCE A DAY TAKING ZONISAMIDE 100 MG CAPSULE 1 CAPSULE ORALLY TWICE A DAY TAKING LEVOTHYROXINE SODIUM 100 MCG TABLET 1 TABLET ON AN EMPTY STOMACH IN THE MORNING ORALLY ONCE A DAY TAKING FOLIC ACID 1 MG TABLET TAKE ONE TABLET BY MOUTH EVERY DAY - - TAKING PANTOPRAZOLE SODIUM 40 MG TABLET DELAYED RELEASE 1 TABLET ORALLY ONCE DAILY TAKING RANITIDINE HCL 300 MG TABLET 1 TABLET ORALLY ONCE A DAY, NOTES: PRN PER PT TAKING ZYRTEC 10 MG TABLET 1 TABLET ORALLY ONCE A DAY TAKING SALINE NASAL SPRAY 0.65 % SOLUTION 2 SPRAYS IN EACH NOSTRIL NEEDED NASALLY EVERY 2 HRS TAKING DULOXETINE HCL 40 MG CAPSULE DELAYED RELEASE PARTICLES 1 CAPSULE ORALLY ONCE A DAY NOT-TAKING VITAMIN B-12 1000 MCG TABLET 1 TABLET ORALLY ONCE A DAY DISCONTINUED CYMBALTA 30 MG CAPSULE DELAYED RELEASE PARTICLES 1 CAPSULE ORALLY BID, NOTES: NOT SURE DOSE DISCONTINUED AMOXICILLIN 875 MG TABLET 1 TABLET ORALLY EVERY 12 HRS MEDICATION LIST REVIEWED AND RECONCILED WITH THE PATIENT PAST MEDICAL HISTORY SEIZURE DISORDER- MOOD SIEZURE DISORDER ASTHMA: DR. ESTRELLA; DX YOUNG ADULT COPD: DR. ESTRELLA; DX UNKNOWN DEPRESSION: LORRAINE HIGHTOWER, [facility] ANXIETY: LORRAINE HIGHTOWER, [facility] PTSD: LORRAINE HIGHTOWER, [facility] SLEEP APNEA: DR. ESTRELLA HYPOTHYROIDISM ALLERGIES BULGING DISC- LOWER BACK RIGHT FOOT TENDONITIS ARTHRITIS- BACK VIT D DEFICIENCY OBESITY HX HEART FAILURE 2002 WITH - WAS SEEN BY CARDIOLOGY THYROID NODULES: PER PATIENT, FOLLOWS WITH [facility] ENT HX. OF ANEMIA ASTHMA LOW O2 SATS 2009 SEIZURES ESOPHAGEAL REFLUX PTSD ABNORMAL PAP SMEAR LEARNING DISABILITYKI ALCOHOLISM 3 YEARS REMISSION ONCHYCHOMYCOSIS BACK PAIN,SEEKING BREAST REDUCTION 2009, HAS TO WEIGH 190LBS. TMJ HEADACHE MRI NEG 2009 STOOL FOR OCCULT-PER PT. NEGATIVE X 3, 2011 COLONOSCOPY 2017, 3 POLYPS, REPEAT COLONOSCOPY 5-10 YEARS ECHO 07/2018: NORMAL LEFT VENTRICULAR SIZE, WALL THICKENESS AND WALL MOTION, LEFT ATRIAL SIZE UPPER LIMITS OF NORMAL WITH EVIDENCE OF IMPAIRMENT OF LV DIASTOLIC FUNCTION BUT CURRENTLY NORMAL ESTIMATED MEAN LEFT ATRIAL PRESSURE. NL RIGHT HEART CHAMBER SIZES, WALL MOTION AND ESTIMATED PULMONARY ARTERIAL PRESSURE. NL IVC SIZE AND COLLAPSED AGAINST AN ELEVATED CENTRAL VENOUS PRESSURE STRESS TEST NEGATIVE 07/2018 THYROID DISEASE - HYPOTHYROID STAGE III KIDNEY DIEASE ALLERGIES ANTIFUNGAL: SEIZURE - ALLERGY ASPIRIN: VOMITING BLOOD - ALLERGY VICODIN: SEIZURES - ALLERGY TOPAMAX: SEIZURES - ALLERGY LEXAPRO: BP - ALLERGY SEROQUEL: SEIZURES - ALLERGY PAXIL: SEIZURE - ALLERGY STAWBERRY: HIVES - ALLERGY SYNTHROID: NAUSEA FROM HIGHER DOES - ALLERGY MILK: MUCOUS - ALLERGY SURGICAL HISTORY GALLBLADDER REMOVED- [facility] 08/2017 TUBAL- [facility] 2002 UPPER GI SCOPE, WITH BIOPSIES- COLONOSCOPY- [facility]: DR. ESCUDERO, TUBULAR ADENOMA 08/14/18 FAMILY HISTORY FATHER: ALIVE 68 YRS MOTHER: ALIVE 58 YRS, DIAGNOSED WITH DIABETES SIBLINGS: UNKNOWN SON(S): ALIVE 15 YRS, UNSPECIFIED NONPSYCHOTIC MENTAL DISORDER FOLLOWING ORGANIC BRAIN DAMAGE DAUGHTER(S): ALIVE 22 YRS, UNSPECIFIED NONPSYCHOTIC MENTAL DISORDER FOLLOWING ORGANIC BRAIN DAMAGE PATERNAL GRAND FATHER: PATERNAL GRAND MOTHER: , UNSPECIFIED HEART DISEASE MATERNAL GRAND FATHER: UNKNOWN MATERNAL GRAND MOTHER: UNKNOWN 4 SISTER(S) . 1 SON(S) , 1 DAUGHTER(S) . DAUGHTER AGE22- MULTIPLE MISSCARRAGES, ANEMIA, OBESITY\\NSON AGE 15- AUTISIM\\NDAUGHTER ANEMIA, BIPOLAR\\N\\NPATERNAL GRANDFATHER- COMMITTED SUICIDE. SOCIAL HISTORY GENERAL: TOBACCO USE ARE YOU A:FORMER SMOKER HOW LONG HAS IT BEEN SINCE YOU LAST SMOKED?5-10 YEARS HIV / HEP-C SCREENING HIV TEST OFFERED TO PATIENT:YES DATE OFFERED:08/26/2018 TEST ACCEPTED:NO HEP-C TEST OFFERED TO PATIENT:YES DATE OFFERED:08/26/2018 REASON:PATIENT DECLINED TEST ACCEPTED:NO REASON:PATIENT DECLINED BROCHURE PROVIDED TO PATIENTYES OTHERS AT HOME: LIVES WITH SIGNIFICANT OTHER. 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- SEEING SYNTHETIC DEPARTMENT SUPERVISOR. LANGUAGE LANGUAGES SPOKEN:[place] DOMESTIC VIOLENCE DO YOU FEEL SAFE IN YOUR ENVIRONMENT?YES NEW PATIENT PAIN DIARY PATIENT DESCRIBES PAIN :ACHING, HAVE IT ALL THE TIME, STABBING, TENDER, SORE, SHOOTING FROM 0-10, WHAT LEVEL IS YOUR PAIN TODAY?9 PRECIPITATING FACTORS INCREASES WITH ACTIVITY ALLEVIATING FACTORS USES A HEATING PAD BMI CARE GOAL FOLLOW-UP ABOVE NORMAL BMI FOLLOW-UPLIFESTYLE EDUCATION REGARDING DIET RECREATIONAL DRUG USE DRUG USE?NO EXERCISE: DAILY, WALKING. LEARNING BARRIERS / SPECIAL NEEDS CHANGE FROM LAST VISIT?NO BARRIERS TO LEARNING?YES HEARING IMPAIRED?NO VISION IMPAIRED?YES COGNITIVELY IMPAIRED?YES :CORRECTIVE LENSES :LEARNING DISABILITY PT HAS AN AIDE 5 DAYS/WEEK (32 HOURS/WEEK) WHO SETS UP MEDS, COMES TO DOCTOR'S APPT, ASSISTS WITH HOUSEWORK READINESS TO LEARN?YES LEARNING PREFERENCES?NO LEARNING CAPABILITIES PRESENT?YES EMOTIONAL BARRIERS?NO SPECIAL DEVICES?NO R PROGRAMMER NEEDED?NO PAIN CLINIC PFS, CLERGY, PUBLIC HEALTH REFERRALS HAS THE PATIENT BEEN EDUCATED REGARDING HIS/HER PLAN OF CARE?YES HAS THE PATIENT BEEN EDUCATED REGARDING PAIN, THE RISK FOR PAIN, THE IMPORTANCE OF EFFECTIVE PAIN MANAGEMENT, AND THE PAIN ASSESSMENT PROCESS?YES LATEX QUESTIONNAIRE LATEX ALLERGY : HAVE YOU EVER DEVELOPED ANY TYPE OF REACTION AFTER HANDLING LATEX PRODUCTS SUCH RUBBER GLOVES, CONDOMS, DIAPHRAGMS, BALLOONS, SOCKS, OR UNDERWEAR?NO LATEX ALLERGY : HAVE YOU EVER DEVELOPED ANY TYPE OF REACTION DURING OR AFTER DENTAL APPOINTMENT, VAGINAL/RECTAL EXAMINATION, SURGICAL PROCEDURE, OR ANY OTHER EXPOSURE?NO DATE ASKED : 07/16/2019 LATEX RISK : HAVE YOU EVER HAD ANY DIFFICULTY BREATHING OR HIVES AFTER EATING OR HANDLING ANY FRUITS, OR VEGETABLES; SUCH KIWI, BANANAS, STONE FRUITS, OR CHESTNUTSNO LATEX RISK : DO YOU HAVE A PREVIOUS PERSONAL HISTORY OF MORE THAN NINE SURGERIES, SPINA BIFIDA, OR REPEATED CATHERIZATIONS? NO LATEX RISK : ARE YOU FREQUENTLY EXPOSED TO LATEX PRODUCTS IN YOUR OCCUPATION?NO CAFFEINE CAFFEINE USE?YES OCCASIONAL TEA DECAFE COFFEE. NO SODA ADVANCE DIRECTIVE ADVANCE DIRECTIVE DISCUSSED WITH PATIENT:YES PT HAS NO ADVANCED DIRECTIVES, GIVEN HCP INFORMATION,. DECLINED ASSISTANCE IN FILLING OUT THE PAPERWORK. 07/29/19 JAIN [id number] RESTORATIONIST MARITAL STATUS: . ALCOHOL SCREENING DID YOU HAVE A DRINK CONTAINING ALCOHOL IN THE PAST YEAR?NO POINTS0 INTERPRETATIONNEGATIVE OCCUPATION: DISABLED. SEXUAL HX HAD SEX IN THE LAST 12 MONTHS (VAGINAL, ORAL, OR ANAL)?NO REVIEWED WITH PT 12/21/18 1035 LASREVIEWED WITH PT 01/06/19 1405 BVREVIEWED WITH PATIENT 04/16/19 1241 JSREVIEWED WITH PATIENT 07/29/19 0852 BVREVIEWED WITH PATIENT 08/23/19 LAS. HOSPITALIZATION/MAJOR DIAGNOSTIC PROCEDURE ASTHMA- [facility] 2016 [facility]- VAGINAL - WITH COMPLICATIONS- SEIZURES CANNOT RECALL 2002 [facility]- VAGINAL NO COMPLICATIONS 1995 REVIEW OF SYSTEMS REVIEWED BY: PROVIDER: BROCK KOHLER MD . CONSTITUTIONAL: ANY CHANGE IN YOUR MEDICAL CONDITION? NO . CHILLS NO . FEVER NO . INFECTION: DO YOU HAVE NEW INFECTIONS? NO . DO YOU HAVE HISTORY OF MRSA? NO . MUSCULOSKELETAL: ANY NEW PATTERNS OF PAIN OR NUMBNESS? NO . GASTROENTEROLOGY: ANY NEW CHANGE IN BOWEL CONTROL? NO . GENITOURINARY: ANY NEW CHANGE IN BLADDER CONTROL? NO . IS THERE A CHANCE YOU COULD BE ? NO . HEMATOLOGY/LYMPH: DO YOU TAKE ANY BLOOD THINNERS? (FOR EXAMPLE- COUMADIN, PLAVIX, AGGRENOX, PLATEL, PRADAXA, OR XARELTO) NO . WHEN WAS YOUR LAST DOSE? DATE: TIME: . NEUROLOGY: HAVE YOU FALLEN IN THE PAST 12 MONTHS? NO . ANY NEW EXTREMITY NUMBNESS OR WEAKNESS? NO . CARDIOLOGY: DO YOU HAVE A PACEMAKER OR DEFIBRILLATOR? NO . RESPIRATORY: HAVE YOU BEEN SICK IN THE PAST WEEK? NO . FEVER NO . FLU LIKE SYMPTOMS? NO . COUGH NO . INTEGUMENTARY: DO YOU HAVE ANY RASHES OR OPEN SORES? NO . ALLERGIC/IMMUNO: ARE YOU ALLERGIC TO IV DYE? NO . ANY NEW ALLERGIES? NO . PSYCHIATRIC: DO YOU HAVE THOUGHTS OF HURTING YOURSELF OR SOMEONE ELSE? NO . ARE YOU ABUSED, NEGLECTED, OR IN AN UNSAFE ENVIRONMENT? NO . ENDOCRINOLOGY: ARE YOU DIABETIC? NO . OTHER: DO YOU NEED ANY PRESCRIPTIONS? NO . IF YES, PLEASE LIST: ____ . ANY NEW PROBLEMS WITH YOUR MEDICATIONS? NO . WHEN DID YOU LAST EAT? ____ . WHEN DID YOU LAST DRINK? ____ . WHAT DID YOU LAST DRINK? ____ . NAME OF PERSON DRIVING YOU HOME? ____ . DO YOU HAVE ANY OTHER QUESTIONS OR CONCERNS NO . VITAL SIGNS WT 244.4 LBS, HT 61 IN, BMI 46.17 INDEX, BP 133/64 MM HG, HR 94 /MIN, RR 18 /MIN, TEMP 97.0 F, OXYGEN SAT % 95%, SAFE IN ENV? (Y/N) YES, NA INITIALS AW 1009, REVIEWED BY: UMAIR. EXAMINATION GENERAL EXAMINATION: PATIENT IS ALERT O X 3 AND COOPERATIVE. TENDERNESS OVER THE PARASPINAL MUSCLE GROUP OF THE THORACIC BACK. PRESENCE OF BANDS OF TISSUE AND TRIGGER POINTS WITH RESTRICTION OF MOVEMENT OF THE THORACIC AREA. ASSESSMENTS MYALGIA, OTHER SITE - M79.18 (PRIMARY) PAIN IN THORACIC SPINE - M54.6 OTHER CHRONIC PAIN - G89.29 TREATMENT MYALGIA, OTHER SITE CLINICAL NOTES: WE DISCUSSED SEVERAL ISSUES WITH [facility] [facility]' PAIN MANAGEMENT CASE. THE PATIENT IS DOING VERY WELL IN HER LOW BACK SINCE HER LAST BILATERAL LOW BACK TRIGGER POINT INJECTION DONE ON 07/29/2019. HOWEVER, DUE TO THE TRIGGER POINTS, BANDS OF TISSUE, AND RESTRICTION OF MOVEMENT, I WOULD LIKE TO MOVE FORWARD WITH A THORACIC TRIGGER POINT INJECTION AT THIS TIME. WE DISCUSSED THE BENEFITS, RISKS, AND ALTERNATIVES OF THE INJECTION AND THE PATIENT WOULD LIKE TO PROCEED. I AM LOOKING FOR LONG LASTING PAIN RELIEF FROM THIS INJECTION FOR THE PATIENT. THE PATIENT WILL FOLLOW UP IN SEVERAL WEEKS AFTER HER INJECTION. INSTRUCTIONS WERE GIVEN, QUESTIONS WERE ANSWERED, PATIENT REPORTS UNDERSTANDING AND AGREES WITH THE PLAN. I, CARLA ISBELL, DOCUMENTED THE ABOVE INFORMATION ACTING A SCRIBE FOR DR. KOHLER. I HAVE REVIEWED THE ABOVE DOCUMENT, WRITTEN BY CARLA DURHAM AND I VERIFY THAT IT IS ACCURATE. . PROCEDURE CODES FA211 ESTABILISHED PATIENT [facility] CHARGE G8427 CURRENT MEDS W/DOSAGES DOCUMENTED G8730 PAIN ASSESS POS TOOL F/U PLAN DOC DISPOSITION & COMMUNICATION FOLLOW UP 3 WEEKS ELECTRONICALLY SIGNED BY BROCK KOHLER MD, MD ON 09/06/2019 AT 05:29 PM EST DISCLAIMER : THIS IS A VISIT SUMMARY EXTRACTED FROM THE [employer] CHART. IT IS NOT A COPY OF THE [employer] PROGRESS NOTE. MTDD
== END ==
LOC: M PAIN 10:00
PROVIDERS: ATTEND Anesthesiology
DX: M79.18 Myalgia, other site (principal); M54.6 Pain in thoracic spine; G89.29 Other chronic pain; J44.9 Chronic obstructive pulmonary disease, unspecified; Z86.59 Personal history of other mental and behavioral disorders; G47.30 Sleep apnea, unspecified; E03.9 Hypothyroidism, unspecified; K21.9 Gastro-esophageal reflux disease without esophagitis; Z87.891 Personal history of nicotine dependence; Z88.5 Allergy status to narcotic agent; Z88.6 Allergy status to analgesic agent; Z88.8 Allergy status to other drugs, medicaments and biological substances; Z91.011 Allergy to milk products; Z91.018 Allergy to other foods; E66.01 Morbid (severe) obesity due to excess calories; Z68.42 Body mass index [BMI] 45.0-49.9, adult; Z79.899 Other long term (current) drug therapy

== ENCOUNTER 2019-10-01 09:45 | Day surgery (SDC) | payer MEDICAID ==
[~2019-10-01] VITALS: Ht 154.9 cm; Wt 102.9 kg
[~2019-10-01 09:45] MED LIST changes: +NS 1,000 ML IV SCH; +OMEP-172 PO; -OMEP20CA4 PO
[2019-10-01] MEDS ORDERED: LIDOCAINE 2% INJ 100 MG/5 ML SDV (FOR ANES.) As Ordered ONE (10:36)
[2019-10-01] MEDS ORDERED: PROPOFOL 200 MG/20 ML VIAL As Ordered ONE (10:36)
--- NOTE | 2019-10-01 11:27 | ROOR ---
Patient Name: Joyce Mata Procedure Date: 10/01/2019 11:07 AM Date of : 1975 Age: 44 Room: [facility] Gender: Female Note Status: Finalized Procedure: Upper GI endoscopy Indications: Gastroparesis, Nausea Providers: Gage ESCUDERO MD Referring MD: EDUIN MARQUEZ MD Requesting Provider: Medicines: Monitored Anesthesia Care Complications: No immediate complications. Procedure: Pre-Anesthesia Assessment: - The heart rate, respiratory rate, oxygen saturations, blood pressure, adequacy of pulmonary ventilation, and response to care were monitored throughout the procedure. The Endoscope was introduced through the mouth, and advanced to the second part of duodenum. The upper GI endoscopy was accomplished without difficulty. The patient tolerated the procedure well. Findings: A single 4 mm mucosal nodule was found at the gastroesophageal junction. Biopsies were taken with a cold forceps for histology. The exam of the esophagus was otherwise normal. A few sessile fundic gland polyps were found in the stomach. Biopsies were taken with a cold forceps for histology. The exam of the stomach was otherwise normal. The examined duodenum was normal. Impression: - Inflammatory appearing mucosal nodule found at the GE junction. Biopsied. - The esophagus is otherwise normal. - A few fundic gland polyps. Biopsied. - The stomach is otherwise normal. - The duodenum is normal. Recommendation: - Use Protonix (pantoprazole) 40 mg in AM. - Use Pepcid (famotidine) 40 mg in PM - script sent to your pharmacy. - Follow a Gastroparesis diet: - Eat smaller, more frequent meals throughout the day. - Low fat diet. - Liquid/soft foods are tolerated better than solid foods. - Low fiber/well cooked vegetables are tolerated better than high fiber/fibrous foods/raw vegetables. - Avoid medications that inhibit gastric/intestinal motility such as narcotic medications. Gage Escudero MD Gage ESCUDERO MD 10/01/2019 11:27:13 AM Electronically signed by Gage ESCUDERO MD Number of Addenda: 0 Note Initiated On: 10/01/2019 11:07 AM Estimated Blood Loss: Estimated blood loss: none.
[2019-10-01 11:50] VITALS: BP 120/76
== END 2019-10-01 12:01 | disposition home or self-care (01) ==
LOC: M OPP 09:45
PROVIDERS: ATTEND Internal Medicine Gastroenterology
DX: K22.8 Other specified diseases of esophagus (principal); K31.7 Polyp of stomach and duodenum; K31.84 Gastroparesis; R11.0 Nausea; Z79.899 Other long term (current) drug therapy; Z88.5 Allergy status to narcotic agent; Z88.6 Allergy status to analgesic agent; Z88.8 Allergy status to other drugs, medicaments and biological substances; Z87.891 Personal history of nicotine dependence

== ENCOUNTER → 2019-10-14 | Outpatient (REF) | payer MEDICAID ==
[~2019-10-14] MED LIST changes: -NS 1,000 ML IV SCH
[2019-10-14 15:29] LABS: APPEARANCE, URINE CLEAR (CLEAR); BACTERIA, URINE AUTO 1+ (NEGATIVE); BILIRUBIN, URINE AUTO NEGATIVE (NEGATIVE); BLOOD, URINE BLOOD 1+ (NEGATIVE); COLOR, URINE YELLOW (YELLOW); GLUCOSE, URINE (UA) AUTO NEGATIVE (NEGATIVE); KETONE, URINE AUTO NEGATIVE (NEGATIVE); LEUKOCYTE ESTERASE, URINE AUTO NEGATIVE (NEGATIVE); MUCUS, URINE SMALL (NEGATIVE); NITRITE, URINE AUTO NEGATIVE (NEGATIVE); PROTEIN, URINE AUTO NEGATIVE (NEGATIVE); RBC, URINE AUTO 2 /HPF (0-3); SPECIFIC GRAVITY URINE AUTO 1.021 (1.002-1.035); SQUAMOUS EPITHELIAL CELL UR AU 6 /HPF (0-6); WBC, URINE AUTO 3 /HPF (0-3)
== END ==
LOC: M SFHCPLAZ 15:00
PROVIDERS: ATTEND Physician Assistant
DX: R58 Hemorrhage, not elsewhere classified (principal)

== ENCOUNTER → 2019-10-14 | Outpatient (CLI) | payer MEDICAID ==
--- NOTE | 2019-10-14 16:02 | REP ---
Clinical: Flank pain. Kidney stones. Technique: Axial noncontrast images from the lung bases to the pubic symphysis with coronal and sagittal re-formations. Comparison: 09/03/2017. Findings: Lung bases are clear. Visualized heart and pericardium normal. Liver, spleen, pancreas, bilateral adrenal glands and kidneys are normal. No hydronephrosis, perinephric stranding, intrarenal or obstructing ureteral calculi noted. Evidence of prior cholecystectomy. The enteric system is without obstruction or acute inflammatory process. Normal terminal ileum, cecum, appendix identified in the right lower quadrant. Pelvis demonstrates normal bladder and age-appropriate uterus/adnexa. No ascites. No free air. No adenopathy. Abdominal aorta without aneurysm. Musculoskeletal structures are intact. Impression: No acute abdominopelvic pathology appreciated. Electronically Signed by Mark Ervin MD 10/14/2019 03:53 P
[2019-10-14 16:23] LABS: HEMATOCRIT 44.3 % (36.0-47.0); HEMOGLOBIN 14.2 g/dl (12.0-15.5); MEAN CORPUSCULAR HEMOGLOBIN 29.7 pg (27.0-33.0); MEAN CORPUSCULAR HGB CONC 32.1 g/dl (32.0-36.5); MEAN CORPUSCULAR VOLUME 92.7 fl (80.0-96.0); PLATELET COUNT, AUTOMATED 302 10^3/uL (150-450); RED BLOOD COUNT 4.78 10^6/uL (4.00-5.40); WHITE BLOOD COUNT 7.1 10^3/uL (4.0-10.0)
[2019-10-14 16:46] LABS: ALBUMIN 3.3 GM/DL (3.2-5.2); BILIRUBIN,TOTAL 0.3 MG/DL (0.2-1.0); CREATININE FOR GFR 1.17 MG/DL (0.55-1.30); PERCENT SATURATION 16.7 % (13.2-45.0); POTASSIUM SERUM 4.2 MEQ/L (3.5-5.1); TOTAL PROTEIN 7.3 GM/DL (6.4-8.2)
== END ==
LOC: M LAB 15:15 → M RAD 15:15
PROVIDERS: ATTEND Physician Assistant
DX: R58 Hemorrhage, not elsewhere classified (principal)

== ENCOUNTER → 2019-10-21 | Outpatient (CLI) | payer MEDICAID ==
--- NOTE | 2019-10-21 12:14 | REP ---
Clinical: Abnormal menstrual cycles . Technique: Transabdominal pelvic ultrasound followed by transvaginal examination for better evaluation of the endometrium and adnexa with color Doppler evaluation of the ovaries. Findings: Bladder is unremarkable and measures 7.8 x 4.5 x 5.5 cm . Heterogeneous retroverted uterus measures 7.6 x 5.4 x 5.6 cm and includes 3.4 x 3.0 x 2.2 cm anterior fundal fibroid. The endometrial complex measures 9.0 mm thickness. No discrete uterine or endometrial abnormalities are appreciated. Right ovary is not visualized. Left ovary measures 3.2 x 2.5 x 2.6 cm and includes 1.9 x 1.7 x 2.2 cm complex cyst possibly hemorrhagic physiologic cyst. No pelvic fluid or adnexal mass lesion Impression: 1. Suspected 3.4 cm fundal fibroid. 2. Complex 2.2 cm left ovarian cyst likely physiologic. Consider reevaluation in 4-6 weeks to evaluate for resolution. Electronically Signed by Mark Ervin MD 10/21/2019 12:06 P
== END ==
LOC: M WHC 08:48
PROVIDERS: ATTEND Nurse Practitioner Family
DX: N83.292 Other ovarian cyst, left side (principal); N92.1 Excessive and frequent menstruation with irregular cycle

== ENCOUNTER 2019-10-26 11:28 | Observation (INO) | payer MEDICAID ==
[~2019-10-26] VITALS: Ht 154.9 cm; Wt 106.7 kg
[2019-10-26] MEDS: DULoxetine 20 MG CAP (CYMBALTA) PO SCH (09:00)
[2019-10-26] MEDS: CETIRIZINE (ZyrTEC) 10 MG TAB PO SCH (09:00)
[2019-10-26] MEDS: FOLIC ACID 1 MG TAB PO SCH (09:00)
[2019-10-26] MEDS: PANTOPRAZOLE 40MG TAB (PROTONIX) PO SCH (09:00)
[~2019-10-26 11:28] MED LIST changes: -ADVA115A INH; -ALL10TAB29 PO; -BUPIVACAINE HCL 0.25% 10 ML VIAL As Ordered ONE; -BUPIVACAINE HCL 0.25% 30 ML VIAL As Ordered ONE; -DICY10CA13 PO; -DULO-34 PO; -ESTR1TAB PO; -LEVO100T54 PO; -MIDAZOLAM INJ 2 MG/2 ML VIAL (J2250) As Ordered ONE; -NORE5TAB PO; -ONDANSETRON 4MG/2ML VIAL (J2405) As Ordered ONE; -PRAZ2CAP PO; -TRIAMCINOLONE ACETONIDE SUSP 40 MG/ML VIAL (J3301) As Ordered ONE; -diazePAM 10 MG/2 ML INJ (J3360) As Ordered ONE; -diazePAM 5 MG TAB As Ordered ONE
[2019-10-26] MEDS ORDERED: FAMO40TA3 PO (11:55)
[2019-10-26] MEDS ORDERED: PRAZ2CAP PO (11:55)
[2019-10-26] MEDS ORDERED: DICY10CA13 PO (11:55)
[2019-10-26] MEDS ORDERED: ADVA115A INH (11:55)
[2019-10-26] MEDS ORDERED: ESTR1TAB PO (11:55)
[2019-10-26 12:50] LABS: BASO % 0.7 % (0.0-1.0); EOS # 0.1 10^3/uL (0.0-0.5); HEMATOCRIT 43.7 % (36.0-47.0); HEMOGLOBIN 13.5 g/dl (12.0-15.5); LYMPH # 1.1 10^3/uL (1.5-5.0); MEAN CORPUSCULAR HGB CONC 30.9 g/dl (32.0-36.5); MEAN CORPUSCULAR VOLUME 93.8 fl (80.0-96.0); MONO # 0.3 10^3/uL (0.0-0.8); NEUTROPHILS # 4.5 10^3/uL (1.5-8.5); PLATELET COUNT, AUTOMATED 244 10^3/uL (150-450); RED BLOOD COUNT 4.66 10^6/uL (4.00-5.40); WHITE BLOOD COUNT 6.1 10^3/uL (4.0-10.0)
[2019-10-26] MEDS ORDERED: LORazepam 2 MG/ML VIAL (J2060) As Ordered ONE (13:23)
[2019-10-26] MEDS ORDERED: LORazepam 2 MG/ML VIAL (J2060) IV STA (13:23)
[2019-10-26 13:41] LABS: ALBUMIN 2.9 GM/DL (3.2-5.2); ALT/SGPT 14 U/L (12-78); BILIRUBIN,DIRECT 0.2 MG/DL (0.0-0.2); BILIRUBIN,TOTAL 0.6 MG/DL (0.2-1.0); BLOOD UREA NITROGEN 8 MG/DL (7-18); CALCIUM LEVEL 8.6 MG/DL (8.5-10.1); CARBON DIOXIDE LEVEL 21 MEQ/L (21-32); CHLORIDE LEVEL 109 MEQ/L (98-107); CREATININE FOR GFR 1.04 MG/DL (0.55-1.30); GLOMERULAR FILTRATION RATE > 60.0 (>58); GLUCOSE, FASTING 101 MG/DL (70-100); MAGNESIUM LEVEL 2.1 MG/DL (1.8-2.4); PHOSPHORUS LEVEL 1.6 MG/DL (2.5-4.9); POTASSIUM SERUM 4.5 MEQ/L (3.5-5.1); SODIUM LEVEL 139 MEQ/L (136-145); TOTAL PROTEIN 6.5 GM/DL (6.4-8.2)
--- NOTE | 2019-10-26 14:02 | REP ---
INDICATION: Multiple seizures. PROCEDURE: CT of the head without contrast. COMPARISON STUDIES: Head CT 04/29/2019. FINDINGS: No acute bleed or acute large vessel territorial infarct. Ventricles, cisterns and sulci within normal limits. No mass effect or midline shift. No abnormal fluid collections. Paranasal sinuses and mastoid air cells are clear. IMPRESSION: No acute findings. No significant changes. Electronically Signed by Gage Wiley MD 10/26/2019 01:53 P
[2019-10-26] MEDS ORDERED: ALL10TAB29 PO (14:10)
[2019-10-26] MEDS ORDERED: LEVO100T54 PO (14:10)
[2019-10-26] MEDS ORDERED: DULO-34 PO (14:10)
[2019-10-26] MEDS ORDERED: NORE5TAB PO (14:10)
[2019-10-26] MEDS ORDERED: FOLI1TAB11 PO (14:10)
--- NOTE | 2019-10-26 14:18 | REP ---
CHEST X-RAY: Two views. HISTORY: Syncope versus seizure. COMPARISON CHEST X-RAY: September 01, 2015. FINDINGS: Monitoring electrodes are seen. The lungs are symmetrically aerated and clear. Pleural angles are sharp. Heart size is normal. Pulmonary vasculature is not increased. No bony abnormality. IMPRESSION: No active disease. Electronically Signed by Glynn Anne MD 10/26/2019 06:19 P
[2019-10-26 14:30] LABS: AMPHETAMINES LEVEL URINE NEGATIVE (NEGATIVE); BARBITURATES URINE NEGATIVE (NEGATIVE); BENZODIAZEPINES URINE POSITIVE (NEGATIVE); CANNABINOIDS URINE NEGATIVE (NEGATIVE); COCAINE METABOLITE URINE NEGATIVE (NEGATIVE); METHADONE URINE NEGATIVE (NEGATIVE); OPIATES URINE NEGATIVE (NEGATIVE); PHENCYCLIDINE URINE NEGATIVE (NEGATIVE)
[2019-10-26] MEDS ORDERED: GLUCOSE 4 GM CHEW TABLET PO PRN (14:45)
[2019-10-26] MEDS ORDERED: GLUCAGON FOR INJ 1 MG VIAL (J1610) SC PRN (14:45)
[2019-10-26] MEDS ORDERED: DEXTROSE 50% 50 ML SYRINGE IV PRN (14:45)
[2019-10-26] MEDS ORDERED: NS 500 ML IV ONE (14:45)
[2019-10-26] MEDS ORDERED: D5W/0.45% SODIUM CHLORIDE 1,000 ML IV SCH ×2 (15:00→17:00)
[2019-10-26 15:18] LABS: PROLACTIN 18.4 NG/ML
[2019-10-26 16:00] VITALS: BP 139/76
[2019-10-26] MEDS ORDERED: LORazepam 2 MG/ML VIAL (J2060) IV PRN (16:45)
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
[2019-10-26] MEDS ORDERED: ACETAMINOPHEN TAB 650MG DOSE (2X325MG) PO PRN (17:45)
[2019-10-26] MEDS: ONDANSETRON 4MG/2ML VIAL (J2405) IV SCH (17:51)
[2019-10-26 20:00] VITALS: BP 108/80
[2019-10-26] MEDS ORDERED: DICYCLOMINE 10 MG CAP PO SCH (21:00)
[2019-10-26] MEDS ORDERED: FAMOTIDINE 20 MG TAB PO SCH (21:00)
[2019-10-26] MEDS ORDERED: PRAZOSIN 1 MG CAP PO SCH (21:00)
[2019-10-26] MEDS: ADVAIR HFA 115/21MCG INHALER INH SCH (21:32)
[2019-10-26 22:06] VITALS: BP 108/80
[2019-10-26] MEDS: ZONISAMIDE 100 MG CAP (ZONEGRAN) PO SCH (22:06)
[2019-10-27] VITALS: BP 128/64
[2019-10-27] MEDS: ONDANSETRON 4MG/2ML VIAL (J2405) IV SCH ×2 (00:14→05:28)
[2019-10-27 04:00] VITALS: BP 119/59
[2019-10-27] MEDS ORDERED: LEVOTHYROXINE 100MCG TABLET (0.1MG) PO SCH (06:00)
[2019-10-27 07:04] LABS: BLOOD UREA NITROGEN 8 MG/DL (7-18); CALCIUM LEVEL 8.1 MG/DL (8.5-10.1); CARBON DIOXIDE LEVEL 21 MEQ/L (21-32); CHLORIDE LEVEL 110 MEQ/L (98-107); CREATININE FOR GFR 0.99 MG/DL (0.55-1.30); GLOMERULAR FILTRATION RATE > 60.0 (>58); GLUCOSE, FASTING 116 MG/DL (70-100); MAGNESIUM LEVEL 1.9 MG/DL (1.8-2.4); PHOSPHORUS LEVEL 2.9 MG/DL (2.5-4.9); POTASSIUM SERUM 4.2 MEQ/L (3.5-5.1); SODIUM LEVEL 138 MEQ/L (136-145)
[2019-10-27] MEDS: ADVAIR HFA 115/21MCG INHALER INH SCH (07:38)
--- NOTE | 2019-10-27 07:57 | ECGEPIP ---
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
[2019-10-27 08:00] VITALS: BP 133/82
[2019-10-27] MEDS: ZONISAMIDE 100 MG CAP (ZONEGRAN) PO SCH (08:02)
[2019-10-27] MEDS: CETIRIZINE (ZyrTEC) 10 MG TAB PO SCH (08:02)
[2019-10-27] MEDS: PANTOPRAZOLE 40MG TAB (PROTONIX) PO SCH (08:02)
[2019-10-27] MEDS: DULoxetine 20 MG CAP (CYMBALTA) PO SCH (08:02)
[2019-10-27] MEDS: FOLIC ACID 1 MG TAB PO SCH (08:02)
[2019-10-27] MEDS ORDERED: ENOXAPARIN 40 MG/0.4 ML SYRINGE (J1650) SC SCH (09:00)
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
== END 2019-10-27 10:40 | disposition home or self-care (01) ==
LOC: M ED 11:28 → M ED INP 11:29 → UNDOADMOB 14:39 → M ED INP 14:39 → ENRESERVTM 15:28 → ENRESERVDT 15:28 → M PCU 16:00
PROVIDERS: ADMIT General Practice; ATTEND General Practice
DX: F44.5 Conversion disorder with seizures or convulsions (principal); H40.9 Unspecified glaucoma; N18.3 Chronic kidney disease, stage 3 (moderate); K21.9 Gastro-esophageal reflux disease without esophagitis; K31.84 Gastroparesis; J44.9 Chronic obstructive pulmonary disease, unspecified; G47.33 Obstructive sleep apnea (adult) (pediatric); Z72.89 Other problems related to lifestyle; R73.03 Prediabetes; F43.10 Post-traumatic stress disorder, unspecified; F81.9 Developmental disorder of scholastic skills, unspecified; N39.3 Stress incontinence (female) (male); M19.90 Unspecified osteoarthritis, unspecified site; D64.9 Anemia, unspecified; M54.9 Dorsalgia, unspecified; G89.29 Other chronic pain; E78.5 Hyperlipidemia, unspecified; F32.9 Major depressive disorder, single episode, unspecified; E03.9 Hypothyroidism, unspecified; Z79.899 Other long term (current) drug therapy; Z79.51 Long term (current) use of inhaled steroids; Z91.018 Allergy to other foods; Z88.8 Allergy status to other drugs, medicaments and biological substances; Z88.6 Allergy status to analgesic agent; Z88.5 Allergy status to narcotic agent; Z87.891 Personal history of nicotine dependence
CPT/HCPCS: 36415; 51701; 70450; 71046; 80048; 80076; 80203; 80307; 81001; 83036; 83735; 84100; 84146; 85025; 93005; 94640; 94760; 96361; 96372; 96374; 96375; 96376; 99285; J1650; J2060; J2405

== ENCOUNTER → 2019-10-26 | Outpatient (CLI) | payer MEDICAID ==
[~2019-10-26] MED LIST changes: +ADVA115A INH; +ALL10TAB29 PO; +BUPIVACAINE HCL 0.25% 10 ML VIAL As Ordered ONE; +BUPIVACAINE HCL 0.25% 30 ML VIAL As Ordered ONE; +DICY10CA13 PO; +DULO-34 PO; +ESTR1TAB PO; +LEVO100T54 PO; +MIDAZOLAM INJ 2 MG/2 ML VIAL (J2250) As Ordered ONE; +NORE5TAB PO; -OMEP-172 PO; +OMEP1CAP73 PO; +ONDANSETRON 4MG/2ML VIAL (J2405) As Ordered ONE; +PRAZ2CAP PO; +TRIAMCINOLONE ACETONIDE SUSP 40 MG/ML VIAL (J3301) As Ordered ONE; +ZONI100C17 PO; -ZONI100C2 PO; +diazePAM 10 MG/2 ML INJ (J3360) As Ordered ONE; +diazePAM 5 MG TAB As Ordered ONE
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
== END ==
LOC: M PAIN 09:15
PROVIDERS: ATTEND Anesthesiology
DX: M79.18 Myalgia, other site (principal); G40.909 Epilepsy, unspecified, not intractable, without status epilepticus; J44.9 Chronic obstructive pulmonary disease, unspecified; Z86.59 Personal history of other mental and behavioral disorders; G47.30 Sleep apnea, unspecified; E03.9 Hypothyroidism, unspecified; K21.9 Gastro-esophageal reflux disease without esophagitis; Z87.891 Personal history of nicotine dependence; Z88.5 Allergy status to narcotic agent; Z88.6 Allergy status to analgesic agent; Z88.8 Allergy status to other drugs, medicaments and biological substances; Z91.011 Allergy to milk products; Z91.018 Allergy to other foods; E66.01 Morbid (severe) obesity due to excess calories; Z68.41 Body mass index [BMI] 40.0-44.9, adult; Z79.899 Other long term (current) drug therapy
CPT/HCPCS: 20552; J2250; J2405; J3301; J3360

== ENCOUNTER → 2019-11-12 | Outpatient (CLI) | payer MEDICAID ==
[~2019-11-12] MED LIST changes: +ADVA115A INH; +ALL10TAB29 PO; +DICY10CA13 PO; +DULO-34 PO; +ESTR1TAB PO; +LEVO100T54 PO; +NORE5TAB PO; +PRAZ2CAP PO
== END ==
LOC: M PAIN 14:15
PROVIDERS: ATTEND Anesthesiology
DX: Z53.20 Procedure and treatment not carried out because of patient's decision for unspecified reasons (principal)

== ENCOUNTER → 2019-11-30 | Outpatient (CLI) | payer MEDICAID ==
--- NOTE | 2019-12-04 02:22 | ECWPNPC ---
PATIENT NAME: SHILOH FLORES : 1975 GENDER: FEMALE VISIT DATE: 11/30/2019 DISCHARGE DATE: 11/30/19 1518 VISIT LOCKED DATE TIME: PHYSICIAN: BROCK KOHLER MD RESOURCE: BROCK KOHLER MD REASON FOR APPOINTMENT 1. POST TPI HISTORY OF PRESENT ILLNESS HISTORY OF PRESENT ILLNESS: PAIN THE PATIENT DESCRIBES THE PAIN... 44 YEAR OLD FEMALE PATIENT WITH A HISTORY OF CHRONIC BACK PAIN. THE PATIENT DESCRIBES THE PAIN ACHING WITH A PAIN SCORE OF 0-3/10 DEPENDING ON PHYSICAL ACTIVITY. THE PATIENT SAYS HER PAIN IS USUALLY IN HER RIGHT THORACIC AND LOW BACK AREAS, BUT SHE IS CURRENTLY NOT EXPERIENCING MUCH PAIN. THE PATIENT SAYS SHE EXPERIENCED A SEIZURE AFTER HER LAST TRIGGER POINT INJECTION. THE PATIENT SAYS SHE WAS SEEN BY HER NEUROLOGIST, FAIZAN TILLMAN, WHO SAYS SHE EXPERIENCES PSEUDO SEIZURES AND THERE IS NO TREATMENT REQUIRED LONG IT LASTS FOR LESS THAN 10 MINUTES AND NO CHANGE IN PROPRANOLOL MEDICATION. PATIENT DENIES UNEXPLAINABLE WEIGHT LOSS, FEVER, CHILLS, NEW CHANGES ON HER URINARY OR BOWEL CONTROL. FALL RISK SCREENING: SCREENING :NO FALLS REPORTED IN THE LAST YEAR CURRENT MEDICATIONS TAKING ADVAIR HFA 230-21 MCG/ACT AEROSOL 2 PUFFS INHALATION TWICE A DAY TAKING PROAIR HFA 108 (90 BASE) MCG/ACT AEROSOL SOLUTION 2 PUFFS NEEDED INHALATION EVERY 6 HRS TAKING PRAZOSIN HCL 2 MG CAPSULE 1 CAPSULE AT BEDTIME ORALLY ONCE A DAY TAKING ALBUTEROL SULFATE (2.5 MG/3ML) 0.083% NEBULIZATION SOLUTION 3 ML NEEDED INHALATION THREE TIMES A DAY TAKING CPAP MACHINE MANAGED PULMONARY TAKING ZONISAMIDE 100 MG CAPSULE 1 CAPSULE ORALLY TWICE A DAY TAKING DULOXETINE HCL 40 MG CAPSULE DELAYED RELEASE PARTICLES 1 CAPSULE ORALLY ONCE A DAY TAKING PANTOPRAZOLE SODIUM 40 MG TABLET DELAYED RELEASE 1 TABLET ORALLY ONCE DAILY TAKING LEVOTHYROXINE SODIUM 100 MCG TABLET 1 TABLET ON AN EMPTY STOMACH IN THE MORNING ORALLY ONCE A DAY TAKING SALINE NASAL SPRAY 0.65 % SOLUTION 2 NASALLY EVERY 2 HRS TAKING NORETHINDRONE ACETATE 5 MG TABLET 1 TABLET ORALLY ONCE A DAY TAKING FOLIC ACID 1 MG TABLET TAKE ONE TABLET BY MOUTH EVERY DAY - - TAKING PEPCID 40 MG TABLET 1 TABLET ORALLY ONCE A DAY TAKING ONDANSETRON HCL 8 MG TABLET 1 TABLET NEEDED ORALLY THREE TIMES DAILY NEEDED TAKING ESTRADIOL 1 MG TABLET 1 TABLET ORALLY ONCE A DAY TAKING ZYRTEC 10 MG TABLET 1 TABLET ORALLY ONCE A DAY TAKING PROPRANOLOL HCL 10 MG TABLET 1 TABLET ON AN EMPTY STOMACH ORALLY TWICE A DAY TAKING FERROUS SULFATE 325 (65 FE) MG TABLET 1 TABLET ORALLY THREE TIMES A WEEK NOT-TAKING AMOXICILLIN 500 MG TABLET 1 CAPSULE ORALLY THREE TIMES DAILY NOT-TAKING ZOFRAN 8 MG TABLET 1 TABLET NEEDED ORALLY ONCE A DAY NOT-TAKING RANITIDINE HCL 300 MG TABLET 1 TABLET ORALLY ONCE A DAY, NOTES: PRN PER PT NOT-TAKING AMOXICILLIN-POT CLAVULANATE 875-125 MG TABLET 1 TABLET ORALLY EVERY 12 HRS NOT-TAKING VITAMIN B-12 1000 MCG TABLET 1 TABLET ORALLY ONCE A DAY MEDICATION LIST REVIEWED AND RECONCILED WITH THE PATIENT PAST MEDICAL HISTORY SEIZURE DISORDER- MOOD SIEZURE DISORDER ASTHMA: DR. ESTRELLA; DX YOUNG ADULT COPD: DR. ESTRELLA; DX UNKNOWN DEPRESSION: LORRAINE HIGHTOWER, [facility] ANXIETY: LORRAINE HIGHTOWER, [facility] PTSD: LORRAINE HIGHTOWER, [facility] SLEEP APNEA: DR. ESTRELLA HYPOTHYROIDISM ALLERGIES BULGING DISC- LOWER BACK RIGHT FOOT TENDONITIS ARTHRITIS- BACK VIT D DEFICIENCY OBESITY HX HEART FAILURE 2002 WITH - WAS SEEN BY CARDIOLOGY THYROID NODULES: PER PATIENT, FOLLOWS WITH [facility] ENT HX. OF ANEMIA ESOPHAGEAL REFLUX ABNORMAL PAP SMEAR LEARNING DISABILITYKI ALCOHOLISM 3 YEARS REMISSION ONCHYCHOMYCOSIS BACK PAIN,SEEKING BREAST REDUCTION 2009, HAS TO WEIGH 190LBS. TMJ HEADACHE MRI NEG 2009 STOOL FOR OCCULT-PER PT. NEGATIVE X 3, 2011 COLONOSCOPY 2017, 3 POLYPS, REPEAT COLONOSCOPY 5-10 YEARS ECHO 07/2018: NORMAL LEFT VENTRICULAR SIZE, WALL THICKENESS AND WALL MOTION, LEFT ATRIAL SIZE UPPER LIMITS OF NORMAL WITH EVIDENCE OF IMPAIRMENT OF LV DIASTOLIC FUNCTION BUT CURRENTLY NORMAL ESTIMATED MEAN LEFT ATRIAL PRESSURE. NL RIGHT HEART CHAMBER SIZES, WALL MOTION AND ESTIMATED PULMONARY ARTERIAL PRESSURE. NL IVC SIZE AND COLLAPSED AGAINST AN ELEVATED CENTRAL VENOUS PRESSURE STRESS TEST NEGATIVE 07/2018 STAGE III KIDNEY DIEASE GASTROPARESIS OVAIRAN CYSTS RECENT RECURRENT PSEUDOSEIZURES ALLERGIES ANTIFUNGAL: SEIZURE - CONTRAINDICATION ASPIRIN: VOMITING BLOOD - ALLERGY VICODIN: SEIZURES - CONTRAINDICATION TOPAMAX: SEIZURES - CONTRAINDICATION LEXAPRO: BP - ALLERGY SEROQUEL: SEIZURES - CONTRAINDICATION PAXIL: SEIZURE - CONTRAINDICATION STRAWBERRY: HIVES - ALLERGY SYNTHROID: NAUSEA FROM HIGHER DOES - ALLERGY MILK: MUCOUS - ALLERGY SURGICAL HISTORY GALLBLADDER REMOVED- [facility] 08/2017 TUBAL- [facility] 2002 UPPER GI SCOPE, WITH BIOPSIES- COLONOSCOPY- [facility]: DR. ESCUDERO, TUBULAR ADENOMA 08/14/18 UPPER GI SCOPE 09/2019 FAMILY HISTORY FATHER: ALIVE 68 YRS MOTHER: ALIVE 58 YRS, DIAGNOSED WITH DIABETES SIBLINGS: UNKNOWN SON(S): ALIVE 15 YRS, UNSPECIFIED NONPSYCHOTIC MENTAL DISORDER FOLLOWING ORGANIC BRAIN DAMAGE DAUGHTER(S): ALIVE 22 YRS, UNSPECIFIED NONPSYCHOTIC MENTAL DISORDER FOLLOWING ORGANIC BRAIN DAMAGE PATERNAL GRAND FATHER: PATERNAL GRAND MOTHER: , UNSPECIFIED HEART DISEASE MATERNAL GRAND FATHER: UNKNOWN MATERNAL GRAND MOTHER: UNKNOWN 4 SISTER(S) . 1 SON(S) , 1 DAUGHTER(S) . DAUGHTER AGE22- MULTIPLE MISSCARRAGES, ANEMIA, OBESITY\\NSON AGE 15- AUTISIM\\NDAUGHTER ANEMIA, BIPOLAR\\N\\NPATERNAL GRANDFATHER- COMMITTED SUICIDE. SOCIAL HISTORY GENERAL: TOBACCO USE ARE YOU A:FORMER SMOKER HOW LONG HAS IT BEEN SINCE YOU LAST SMOKED?5-10 YEARS HIV / HEP-C SCREENING HIV TEST OFFERED TO PATIENT:YES DATE OFFERED:08/26/2018 TEST ACCEPTED:NO HEP-C TEST OFFERED TO PATIENT:YES DATE OFFERED:08/26/2018 REASON:PATIENT DECLINED TEST ACCEPTED:NO REASON:PATIENT DECLINED BROCHURE PROVIDED TO PATIENTYES OTHERS AT HOME: LIVES WITH SIGNIFICANT OTHER. 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 LANGUAGE LANGUAGES SPOKEN:HAITIAN DOMESTIC VIOLENCE DO YOU FEEL SAFE IN YOUR ENVIRONMENT?YES NEW PATIENT PAIN DIARY PATIENT DESCRIBES PAIN :ACHING, HAVE IT ALL THE TIME, STABBING, TENDER, SORE, SHOOTING FROM 0-10, WHAT LEVEL IS YOUR PAIN TODAY?9 PRECIPITATING FACTORS INCREASES WITH ACTIVITY ALLEVIATING FACTORS USES A HEATING PAD BMI CARE GOAL FOLLOW-UP ABOVE NORMAL BMI FOLLOW-UPLIFESTYLE EDUCATION REGARDING DIET RECREATIONAL DRUG USE DRUG USE?NO EXERCISE: DAILY, WALKING. LEARNING BARRIERS / SPECIAL NEEDS CHANGE FROM LAST VISIT?NO BARRIERS TO LEARNING?YES HEARING IMPAIRED?NO VISION IMPAIRED?YES COGNITIVELY IMPAIRED?YES :CORRECTIVE LENSES :LEARNING DISABILITY PT HAS AN AIDE 5 DAYS/WEEK (32 HOURS/WEEK) WHO SETS UP MEDS, COMES TO DOCTOR'S APPT, ASSISTS WITH HOUSEWORK READINESS TO LEARN?YES LEARNING PREFERENCES?NO LEARNING CAPABILITIES PRESENT?YES EMOTIONAL BARRIERS?NO SPECIAL DEVICES?NO GUEST SERVICE AIDE NEEDED?NO PAIN CLINIC PFS, CLERGY, PUBLIC HEALTH REFERRALS HAS THE PATIENT BEEN EDUCATED REGARDING HIS/HER PLAN OF CARE?YES HAS THE PATIENT BEEN EDUCATED REGARDING PAIN, THE RISK FOR PAIN, THE IMPORTANCE OF EFFECTIVE PAIN MANAGEMENT, AND THE PAIN ASSESSMENT PROCESS?YES LATEX QUESTIONNAIRE LATEX ALLERGY : HAVE YOU EVER DEVELOPED ANY TYPE OF REACTION AFTER HANDLING LATEX PRODUCTS SUCH RUBBER GLOVES, CONDOMS, DIAPHRAGMS, BALLOONS, SOCKS, OR UNDERWEAR?NO LATEX ALLERGY : HAVE YOU EVER DEVELOPED ANY TYPE OF REACTION DURING OR AFTER DENTAL APPOINTMENT, VAGINAL/RECTAL EXAMINATION, SURGICAL PROCEDURE, OR ANY OTHER EXPOSURE?NO DATE ASKED : 07/16/2019 LATEX RISK : HAVE YOU EVER HAD ANY DIFFICULTY BREATHING OR HIVES AFTER EATING OR HANDLING ANY FRUITS, OR VEGETABLES; SUCH KIWI, BANANAS, STONE FRUITS, OR CHESTNUTSNO LATEX RISK : DO YOU HAVE A PREVIOUS PERSONAL HISTORY OF MORE THAN NINE SURGERIES, SPINA BIFIDA, OR REPEATED CATHERIZATIONS? NO LATEX RISK : ARE YOU FREQUENTLY EXPOSED TO LATEX PRODUCTS IN YOUR OCCUPATION?NO CAFFEINE CAFFEINE USE?YES OCCASIONAL TEA DECAFE COFFEE. NO SODA ADVANCE DIRECTIVE ADVANCE DIRECTIVE DISCUSSED WITH PATIENT:YES 10/21/2019 PT HAS NO ADVANCED DIRECTIVES, DECLINED HCO INFORMATION AND ASSISTANCE IN FILLING OUT THE PAPERWORK. JS MOSQUE [id number] PROTESTANT MARITAL STATUS: . ALCOHOL SCREENING DID YOU HAVE A DRINK CONTAINING ALCOHOL IN THE PAST YEAR?NO POINTS0 INTERPRETATIONNEGATIVE OCCUPATION: DISABLED. SEXUAL HX HAD SEX IN THE LAST 12 MONTHS (VAGINAL, ORAL, OR ANAL)?NO REVIEWED WITH PT 12/21/18 1035 LASREVIEWED WITH PT 01/06/19 1405 BVREVIEWED WITH PATIENT 04/16/19 1241 JSREVIEWED WITH PATIENT 07/29/19 0852 BVREVIEWED WITH PATIENT 08/23/19 LASPRE-SCREENING COMPLETED 10/21/2019 1618 JSREVIEWED WITH PATIENT AND CAREGIVER 11/12/2019 1430 NLJ. HOSPITALIZATION/MAJOR DIAGNOSTIC PROCEDURE ASTHMA- [facility] 2016 [facility]- VAGINAL - WITH COMPLICATIONS- SEIZURES CANNOT RECALL 2002 [facility]- VAGINAL NO COMPLICATIONS 1996 OBSERVATION-PSEUDOSEIZURES 10/2019 REVIEW OF SYSTEMS REVIEWED BY: PROVIDER: BROCK KOHLER MD . CONSTITUTIONAL: ANY CHANGE IN YOUR MEDICAL CONDITION? NO . CHILLS NO . FEVER NO . INFECTION: DO YOU HAVE NEW INFECTIONS? NO; DID HAVE SOME EAR CONGESTION TREATED WITH MUCINEX, NOW RESOLVED . DO YOU HAVE HISTORY OF MRSA? NO . MUSCULOSKELETAL: ANY NEW PATTERNS OF PAIN OR NUMBNESS? NO . GASTROENTEROLOGY: ANY NEW CHANGE IN BOWEL CONTROL? NO . GENITOURINARY: ANY NEW CHANGE IN BLADDER CONTROL? NO . IS THERE A CHANCE YOU COULD BE ? NO . HEMATOLOGY/LYMPH: DO YOU TAKE ANY BLOOD THINNERS? (FOR EXAMPLE- COUMADIN, PLAVIX, AGGRENOX, PLATEL, PRADAXA, OR XARELTO) NO . WHEN WAS YOUR LAST DOSE? DATE: TIME: . NEUROLOGY: HAVE YOU FALLEN IN THE PAST 12 MONTHS? NO . ANY NEW EXTREMITY NUMBNESS OR WEAKNESS? NO . CARDIOLOGY: DO YOU HAVE A PACEMAKER OR DEFIBRILLATOR? NO . RESPIRATORY: HAVE YOU BEEN SICK IN THE PAST WEEK? NO . FEVER NO . FLU LIKE SYMPTOMS? NO . COUGH NO . INTEGUMENTARY: DO YOU HAVE ANY RASHES OR OPEN SORES? NO . ALLERGIC/IMMUNO: ARE YOU ALLERGIC TO IV DYE? NO . ANY NEW ALLERGIES? NO . PSYCHIATRIC: DO YOU HAVE THOUGHTS OF HURTING YOURSELF OR SOMEONE ELSE? NO . ARE YOU ABUSED, NEGLECTED, OR IN AN UNSAFE ENVIRONMENT? NO . ENDOCRINOLOGY: ARE YOU DIABETIC? NO . OTHER: DO YOU NEED ANY PRESCRIPTIONS? NO . IF YES, PLEASE LIST: ____ . ANY NEW PROBLEMS WITH YOUR MEDICATIONS? NO . WHEN DID YOU LAST EAT? ____ . WHEN DID YOU LAST DRINK? ____ . WHAT DID YOU LAST DRINK? ____ . NAME OF PERSON DRIVING YOU HOME? ____ . DO YOU HAVE ANY OTHER QUESTIONS OR CONCERNS NO . VITAL SIGNS WT 232.0 LBS, HT 61 IN, BMI 43.83 INDEX, BP 110/69 MM HG, HR 83 /MIN, RR 18 /MIN, TEMP 97.8 F, OXYGEN SAT % 97%, NA INITIALS AW 1425, REVIEWED BY: LS. EXAMINATION GENERAL EXAMINATION: PATIENT IS ALERT O X 3 AND COOPERATIVE. MILD TENDERNESS OVER BACK AREA. PATIENT REPORTS FEELING FINE AT THE MOMENT. ASSESSMENTS MYALGIA, OTHER SITE - M79.18 (PRIMARY) HISTORY OF SEIZURES - Z87.898 TREATMENT MYALGIA, OTHER SITE CLINICAL NOTES: WE DISCUSSED SEVERAL ISSUES WITH MS. FLORES' PAIN MANAGEMENT CASE. I DISCUSSED WITH THE PATIENT AND HER FAMILY MEMBERS THAT I WOULD LIKE TO START AN IV FOR THE PATIENT BEFORE ANY TRIGGER POINT INJECTIONS IN THE FUTURE. I WILL ALSO INCREASE THE PATIENT'S VALIUM FROM 5 MG TO 10 MG BEFORE THE PROCEDURE, WELL. I WOULD LIKE TO DISCUSS THE PATIENT'S CASE WITH THE PATIENT'S NEUROLOGIST, FAIZAN TILLMAN. THE PATIENT WILL FOLLOW UP WITH ME IN ONE MONTH. INSTRUCTIONS WERE GIVEN, QUESTIONS WERE ANSWERED, PATIENT REPORTS UNDERSTANDING AND AGREES WITH THE PLAN. I, CARLA ISBELL, DOCUMENTED THE ABOVE INFORMATION ACTING A SCRIBE FOR DR. KOHLER. I HAVE REVIEWED THE ABOVE DOCUMENT, WRITTEN BY CARLA SERRATOIBThomas AND I VERIFY THAT IT IS ACCURATE. . PROCEDURE CODES G8427 CURRENT MEDS W/DOSAGES DOCUMENTED G8730 PAIN ASSESS POS TOOL F/U PLAN DOC FA211 ESTABILISHED PATIENT [facility] CHARGE DISPOSITION & COMMUNICATION FOLLOW UP 4 WEEKS (REASON: BOOKED PT ON 12/29/[address] Gottlieb; NEEDS TO SPEAK WITH FAIZAN TILLMAN) ELECTRONICALLY SIGNED BY BROCK KOHLER MD, MD ON 12/03/2019 AT 11:52 AM EST DISCLAIMER : THIS IS A VISIT SUMMARY EXTRACTED FROM THE [email or web address] CHART. IT IS NOT A COPY OF THE [email or web address] PROGRESS NOTE. MTDD
== END ==
LOC: M PAIN 14:15
PROVIDERS: ATTEND Anesthesiology
DX: M79.18 Myalgia, other site (principal); Z87.898 Personal history of other specified conditions; G40.909 Epilepsy, unspecified, not intractable, without status epilepticus; J44.9 Chronic obstructive pulmonary disease, unspecified; Z86.59 Personal history of other mental and behavioral disorders; G47.30 Sleep apnea, unspecified; E03.9 Hypothyroidism, unspecified; K21.9 Gastro-esophageal reflux disease without esophagitis; Z87.891 Personal history of nicotine dependence; Z88.5 Allergy status to narcotic agent; Z88.6 Allergy status to analgesic agent; Z88.8 Allergy status to other drugs, medicaments and biological substances; Z91.011 Allergy to milk products; Z91.018 Allergy to other foods; E66.01 Morbid (severe) obesity due to excess calories; Z68.41 Body mass index [BMI] 40.0-44.9, adult; Z79.899 Other long term (current) drug therapy

== ENCOUNTER → 2019-11-30 | Outpatient (CLI) | payer MEDICAID ==
--- NOTE | 2019-11-30 09:51 | REP ---
Clinical: Follow-up left ovarian cyst. Technique: Transabdominal pelvic ultrasound with color evaluation. Comparison: 10/21/2019 Findings: Bladder is collapsed. Heterogeneous uterus measures 9.7 x 5.3 x 6.9 cm and the previously suggested fundal fibroid is again identified measuring roughly 4 cm maximal diameter. The endometrial complex measures 6.3 mm thickness. The bilateral ovaries are normal in vascularity without evidence for torsion. Right ovary measures 2.1 x 1.5 x 2.5 cm. The left ovary measures 3.9 x 3.3 x 2.9 cm and includes 2.9 x 2.8 x 2.3 cm complex cyst similar to prior examination. No pelvic fluid or adnexal mass lesion. Impression: 1. Heterogeneous uterus with presumed fundal fibroid again noted and unchanged. 2. 2.9 cm complex but relatively benign appearing cyst in the left ovary similar to prior examination. Finding is nonspecific and may still represent normal physiologic cyst.
== END ==
LOC: M WHC 08:44
PROVIDERS: ATTEND Nurse Practitioner Family
DX: N83.202 Unspecified ovarian cyst, left side (principal)

== ENCOUNTER → 2019-12-02 | Outpatient (CLI) | payer MEDICAID ==
--- NOTE | 2019-12-02 15:07 | REPMRS ---
Patient History The patient states she had a clinical breast exam in 2019. No known family history of cancer. Taking hormonal contraceptives for 1 year. Digital Woman Screen Mammo: December 02, 2019 - Exam #: [id number] Bilateral CC and MLO view(s) were taken. Technologist: Kelly Geronimo, Technologist Prior study comparison: November 24, 2018, bilateral digital woman screen mammo performed at [facility]. January 20, 2014, bilateral digital mammo screening bilat, performed at [facility]. December 17, 2012, digital mammo diagnostic bilateral, performed at [facility]. FINDINGS: The breast tissue is almost entirely fat. There has been no change in the appearance of the mammogram from the prior studies. There is no interval development of dominant mass, architectural distortion, or grouped microcalcification typical of malignancy. 3-D tomosynthesis shows no additional findings. Assessment: BI-RADS/ACR category 1 mammogram. Negative Mammogram. Recommendation Routine screening mammogram of both breasts in 1 year (for women over age 40). This patient's Lifetime Breast Cancer RIsk is estimated at 9.0 %. This mammogram was interpreted with the aid of an FDA-approved computer-aided dectection system. Electronically Signed By: Tito Anne MD 12/02/19 8214
== END ==
LOC: M WHC 12:04
PROVIDERS: ATTEND Nurse Practitioner Family
DX: Z12.31 Encounter for screening mammogram for malignant neoplasm of breast (principal)

== ENCOUNTER → 2019-12-23 | Outpatient (CLI) | payer MEDICAID ==
--- NOTE | 2019-12-23 14:14 | REPPI ---
CHEST, TWO VIEWS: There is no evidence of acute infiltrate. No pleural effusion is seen. The heart is normal in size. The mediastinal silhouette is unremarkable. The visualized osseous structures are intact. IMPRESSION: No acute pulmonary disease. Electronically Signed by Johan Raygoza MD 12/23/2019 08:15 P
== END ==
LOC: M PLAIMG 10:52
PROVIDERS: ATTEND Physician Assistant
DX: Z01.818 Encounter for other preprocedural examination (principal)

== ENCOUNTER → 2019-12-23 | Outpatient (REF) | payer MEDICAID ==
[2019-12-23 13:47] LABS: BASO # 0.1 10^3/uL (0.0-0.2); BASO % 0.8 % (0.0-1.0); EOS # 0.2 10^3/uL (0.0-0.5); EOS % 3.7 % (0.0-3.0); HEMATOCRIT 45.5 % (36.0-47.0); HEMOGLOBIN 14.4 g/dl (12.0-15.5); LYMPH # 1.6 10^3/uL (1.5-5.0); LYMPH % 26.6 % (24.0-44.0); MEAN CORPUSCULAR HEMOGLOBIN 29.6 pg (27.0-33.0); MEAN CORPUSCULAR HGB CONC 31.6 g/dl (32.0-36.5); MEAN CORPUSCULAR VOLUME 93.4 fl (80.0-96.0); MONO # 0.4 10^3/uL (0.0-0.8); MONO % 5.8 % (0.0-5.0); NEUTROPHILS # 3.8 10^3/uL (1.5-8.5); NEUTROPHILS % 62.8 % (36.0-66.0); PLATELET COUNT, AUTOMATED 285 10^3/uL (150-450); RED BLOOD COUNT 4.87 10^6/uL (4.00-5.40)
[2019-12-23 13:51] LABS: ALBUMIN 3.5 GM/DL (3.2-5.2); BILIRUBIN,TOTAL 0.5 MG/DL (0.2-1.0); CALCIUM LEVEL 8.8 MG/DL (8.5-10.1); CREATININE FOR GFR 1.14 MG/DL (0.55-1.30); GLOMERULAR FILTRATION RATE 55.6 (>58); POTASSIUM SERUM 4.4 MEQ/L (3.5-5.1); TOTAL PROTEIN 6.8 GM/DL (6.4-8.2)
== END ==
LOC: M SFHCPLAZ 10:28
PROVIDERS: ATTEND Physician Assistant
DX: Z01.818 Encounter for other preprocedural examination (principal)

== ENCOUNTER → 2019-12-29 | Outpatient (CLI) | payer MEDICAID ==
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
== END ==
LOC: M PAIN 14:45
PROVIDERS: ATTEND Anesthesiology
DX: M79.18 Myalgia, other site (principal); E03.9 Hypothyroidism, unspecified; G40.89 Other seizures; Z79.899 Other long term (current) drug therapy; Z87.891 Personal history of nicotine dependence; Z88.5 Allergy status to narcotic agent; Z88.6 Allergy status to analgesic agent; Z88.8 Allergy status to other drugs, medicaments and biological substances; Z91.011 Allergy to milk products; Z91.018 Allergy to other foods

== ENCOUNTER 2020-01-04 09:04 | Outpatient (CLI) | payer MEDICAID ==
[2020-01-04] MEDS ORDERED: PHENYLephrine HCL 500 MCG/5 ML (100MCG/ML) SYRINGE (J2370) ONE (09:05)
[2020-01-04] MEDS ORDERED: propofoL 200 MG/20 ML VIAL ONE (09:05)
[2020-01-04] MEDS ORDERED: MIDAZOLAM INJ 2 MG/2 ML VIAL (J2250) As Ordered ONE (10:14)
--- NOTE | 2020-01-04 11:43 | REPVR ---
PROCEDURE INFORMATION: Exam: MR Head Without Contrast Exam date and time: 01/04/2020 11:26 AM Age: 44 years old Clinical indication: Condition or disease; Convulsions or seizures; Unspecified; Patient HX: Migraines and seizures TECHNIQUE: Imaging protocol: MR of the head without contrast. COMPARISON: MRI-Brain without Contrast 09/02/2013 11:12 AM FINDINGS: Limitations: The study is mildly limited due to patient motion artifact. Brain: There is no acute intracranial hemorrhage, cerebral edema, or midline shift. No restricted diffusion is present to suggest acute infarction. Ventricles: No hydrocephalus. Bones/joints: Unremarkable. Soft tissues: Unremarkable. Sinuses: Normal as visualized. No acute sinusitis. Mastoid air cells: Normal as visualized. No mastoid effusion. Orbits: Unremarkable. IMPRESSION: No acute intracranial abnormality. Electronically signed by: Buddy Hendrix On 01/04/2020 11:42:49 AM
[2020-01-04 11:45] VITALS: BP 112/71
== END 2020-01-04 12:04 | disposition home or self-care (01) ==
LOC: M SDC 09:04
PROVIDERS: ATTEND Physician Assistant Medical
DX: G40.89 Other seizures (principal); G43.709 Chronic migraine without aura, not intractable, without status migrainosus
CPT/HCPCS: 70551; 99156; 99157; J2250; J2370

== ENCOUNTER 2020-01-18 15:40 | Emergency (ER) | payer MEDICAID ==
[~2020-01-18] VITALS: Ht 154.9 cm; Wt 107.4 kg
[2020-01-18 16:14] LABS: BASO # 0.1 10^3/uL (0.0-0.2); BASO % 1.2 % (0.0-1.0); EOS # 0.4 10^3/uL (0.0-0.5); EOS % 5.4 % (0.0-3.0); HEMATOCRIT 45.2 % (36.0-47.0); HEMOGLOBIN 14.7 g/dl (12.0-15.5); LYMPH # 1.8 10^3/uL (1.5-5.0); LYMPH % 26.8 % (24.0-44.0); MEAN CORPUSCULAR HGB CONC 32.5 g/dl (32.0-36.5); MEAN CORPUSCULAR VOLUME 92.2 fl (80.0-96.0); MONO # 0.5 10^3/uL (0.0-0.8); NEUTROPHILS % 59.3 % (36.0-66.0); PLATELET COUNT, AUTOMATED 291 10^3/uL (150-450); WHITE BLOOD COUNT 6.7 10^3/uL (4.0-10.0)
[2020-01-18] MEDS ORDERED: methylPREDNISolone INJ 125 MG/2 ML VIAL (J2930) IV ONE (16:15)
[2020-01-18] MEDS ORDERED: ALBUTEROL 90 MCG/ACT 8GM HFA INHALER INH ONE (16:15)
[2020-01-18 16:43] LABS: ALBUMIN 3.2 GM/DL (3.2-5.2); ALT/SGPT 32 U/L (12-78); BILIRUBIN,DIRECT 0.1 MG/DL (0.0-0.2); BILIRUBIN,TOTAL 0.4 MG/DL (0.2-1.0); BLOOD UREA NITROGEN 10 MG/DL (7-18); CALCIUM LEVEL 8.5 MG/DL (8.5-10.1); CARBON DIOXIDE LEVEL 25 MEQ/L (21-32); CHLORIDE LEVEL 110 MEQ/L (98-107); CK-MB VALUE MASS < 1.0 NG/ML (<3.6); CPK CREATINE PHOSPHOKINASE 41 U/L (26-192); CREATININE FOR GFR 1.06 MG/DL (0.55-1.30); GLOMERULAR FILTRATION RATE > 60.0 (>58); GLUCOSE, FASTING 105 MG/DL (70-100); MB/CK RELATIVE INDEX 2.44 (< OR =4); NT-PRO BNP 29 PG/ML (<125); SODIUM LEVEL 141 MEQ/L (136-145); TOTAL PROTEIN 6.8 GM/DL (6.4-8.2); TROPONIN I < 0.02 NG/ML (< 0.10)
--- NOTE | 2020-01-18 16:56 | REP ---
CHEST, SINGLE VIEW: There is no evidence of acute infiltrate. No pleural effusion is seen. The heart is normal in size. The mediastinal silhouette is unremarkable. The visualized osseous structures are intact. IMPRESSION: No acute pulmonary disease. Electronically Signed by Johan Raygoza MD 01/18/2020 06:23 P
[2020-01-18] MEDS ORDERED: ISOVUE-370 76% 100ML VIAL (Q9967) As Ordered ONE (17:49)
[2020-01-18 20:00] VITALS: BP 113/66
--- NOTE | 2020-01-18 20:32 | REP ---
Bilateral lower extremity Duplex Doppler venous ultrasound: Real time compression and duplex Doppler interrogation of the bilateral lower extremity deep venous system is performed. Bilaterally, the common femoral, superficial femoral and popliteal veins are fully compressible with transducer pressure and demonstrate normal spontaneous and phasic flow, without evidence of deep venous thrombosis. Impression: No evidence of deep venous thrombosis of the bilateral lower extremity femoral popliteal venous system. Electronically Signed by Johan Raygoza MD 01/18/2020 08:24 P
--- NOTE | 2020-01-19 01:17 | ECGEPIP ---
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
--- NOTE | 2020-01-19 10:31 | REP ---
CT ANGIOGRAM CHEST: TECHNIQUE: Axial contrast enhanced images from the thoracic inlet to the upper abdomen using 100 mL Isovue 370 intravenous contrast material with multiplanar reformations. There is no CT evidence of pulmonary embolism. There is no thoracic aortic aneurysm or dissection. Heart is normal in size. There is no pleural or pericardial effusion. There is no mediastinal, hilar, or chest wall lymphadenopathy. Dependent atelectatic changes are seen in both lungs. There are degenerative changes of the spine. The patient has had a prior cholecystectomy. The other visualized upper abdominal structures are unremarkable. IMPRESSION: No acute findings. No evidence of pulmonary embolism. Dependent atelectatic changes in both lungs. Preliminary report provided by [facility] at the time of the exam. Electronically Signed by Joahn Raygoza MD 01/19/2020 10:33 A
== END 2020-01-18 20:13 | disposition home or self-care (01) ==
LOC: M ED 15:40
DX: R07.9 Chest pain, unspecified (principal); R50.9 Fever, unspecified; J44.9 Chronic obstructive pulmonary disease, unspecified; J45.909 Unspecified asthma, uncomplicated; N18.3 Chronic kidney disease, stage 3 (moderate); E66.9 Obesity, unspecified; E03.9 Hypothyroidism, unspecified; G89.29 Other chronic pain; M54.5 Low back pain; F43.10 Post-traumatic stress disorder, unspecified; F33.9 Major depressive disorder, recurrent, unspecified; F41.9 Anxiety disorder, unspecified; Z88.3 Allergy status to other anti-infective agents; Z88.5 Allergy status to narcotic agent; Z88.6 Allergy status to analgesic agent; Z88.8 Allergy status to other drugs, medicaments and biological substances; Z91.018 Allergy to other foods; Z79.899 Other long term (current) drug therapy
CPT/HCPCS: 36415; 71045; 71275; 80048; 80076; 82550; 82553; 83880; 85025; 87486; 87581; 87633; 87798; 93005; 93970; 94640; 96374; 99284; J2930; Q9967

== ENCOUNTER → 2020-03-23 | Outpatient (REF) | payer MEDICAID ==
[2020-03-23 17:56] LABS: APPEARANCE, URINE HAZY (CLEAR); BACTERIA, URINE AUTO NEGATIVE (NEGATIVE); BILIRUBIN, URINE AUTO NEGATIVE (NEGATIVE); BLOOD, URINE BLOOD 3+ (NEGATIVE); COLOR, URINE YELLOW (YELLOW); GLUCOSE, URINE (UA) AUTO NEGATIVE (NEGATIVE); KETONE, URINE AUTO NEGATIVE (NEGATIVE); LEUKOCYTE ESTERASE, URINE AUTO NEGATIVE (NEGATIVE); MUCUS, URINE SMALL (NEGATIVE); NITRITE, URINE AUTO NEGATIVE (NEGATIVE); PROTEIN, URINE AUTO 1+ mg/dL (NEGATIVE); RBC, URINE AUTO TNTC /HPF (0-3); SPECIFIC GRAVITY URINE AUTO 1.028 (1.002-1.035); SQUAMOUS EPITHELIAL CELL UR AU 3 /HPF (0-6); WBC, URINE AUTO 17 /HPF (0-3)
[2020-03-23 17:58] LABS: BASO # 0.1 10^3/uL (0.0-0.2); BASO % 0.9 % (0.0-1.0); EOS # 0.3 10^3/uL (0.0-0.5); HEMATOCRIT 39.2 % (36.0-47.0); HEMOGLOBIN 12.7 g/dl (12.0-15.5); LYMPH # 1.8 10^3/uL (1.5-5.0); LYMPH % 31.7 % (24.0-44.0); MEAN CORPUSCULAR HEMOGLOBIN 30.8 pg (27.0-33.0); MEAN CORPUSCULAR HGB CONC 32.4 g/dl (32.0-36.5); MEAN CORPUSCULAR VOLUME 94.9 fl (80.0-96.0); MONO # 0.4 10^3/uL (0.0-0.8); MONO % 7.2 % (0.0-5.0); NEUTROPHILS # 3.1 10^3/uL (1.5-8.5); NEUTROPHILS % 54.8 % (36.0-66.0); PLATELET COUNT, AUTOMATED 232 10^3/uL (150-450); RED BLOOD COUNT 4.13 10^6/uL (4.00-5.40); WHITE BLOOD COUNT 5.6 10^3/uL (4.0-10.0)
[2020-03-23 18:08] LABS: ALBUMIN 3.3 GM/DL (3.2-5.2); BLOOD UREA NITROGEN 14 MG/DL (7-18); CALCIUM LEVEL 8.5 MG/DL (8.5-10.1); CARBON DIOXIDE LEVEL 24 MEQ/L (21-32); CHLORIDE LEVEL 109 MEQ/L (98-107); CREATININE FOR GFR 0.91 MG/DL (0.55-1.30); FERRITIN 120 NG/ML (8-252); GLOMERULAR FILTRATION RATE > 60.0 (>58); GLUCOSE, FASTING 113 MG/DL (70-100); IRON (FE) 64 UG/DL (50-170); PERCENT SATURATION 27.8 % (13.2-45.0); PHOSPHORUS LEVEL 2.3 MG/DL (2.5-4.9); POTASSIUM SERUM 4.4 MEQ/L (3.5-5.1); SODIUM LEVEL 138 MEQ/L (136-145); TOTAL IRON BINDING CAPACITY 230 UG/DL (250-450); URIC ACID 4.6 MG/DL (2.6-6.0)
[2020-03-23 18:12] LABS: PTH INTACT 47.8 PG/ML (18.5-88.0)
== END ==
LOC: M LAB REF 16:35
PROVIDERS: ATTEND Internal Medicine Nephrology
DX: D50.9 Iron deficiency anemia, unspecified (principal); N18.3 Chronic kidney disease, stage 3 (moderate); D63.1 Anemia in chronic kidney disease; N25.81 Secondary hyperparathyroidism of renal origin

== ENCOUNTER → 2020-03-27 | Outpatient (REF) | payer MEDICAID ==
[2020-03-27 15:29] LABS: HEMOGLOBIN A1c 6.3 %
[2020-03-27 16:02] LABS: FOLATE > 24.0 NG/ML; TOTAL 25(OH) VITAMIN D 24.4 NG/ML (30.0-100.0); VITAMIN B12 LEVEL 446 PG/ML
== END ==
LOC: M SFHCPLAZ 14:05
PROVIDERS: ATTEND Physician Assistant
DX: G25.81 Restless legs syndrome (principal); R73.9 Hyperglycemia, unspecified; E55.9 Vitamin D deficiency, unspecified

== ENCOUNTER → 2020-03-31 | Outpatient (CLI) | payer MEDICAID | LOC: M LABSMTC 09:44 | PROVIDERS: ATTEND Anesthesiology | DX: Z11.59 Encounter for screening for other viral diseases (principal) | CPT/HCPCS: C9803; U0003 ==

== ENCOUNTER → 2020-03-31 | Outpatient (CLI) | payer MEDICAID ==
--- NOTE | 2020-03-31 14:24 | REP ---
PELVIC ULTRASOUND: Real-time sonographic evaluation of pelvis performed utilizing transabdominal technique. Bladder measures 10.9 x 5.0 cm. Uterus measures 11.9 x 5.3 x 5.5 cm. Echotexture is heterogenous, is mildly enlarged. There is a fundal fibroid which measures 4.6 x 4.3 x 3.6 cm. Endometrial thickness is approximately 12 mm. There is no endometrial fluid collection. Right ovary measures 2.5 x 1.8 x 2.9 cm and left ovary 4.4 x 3.1 x 4.3 cm. There is a complex cyst of the left ovary 3.7 x 3.2 x 2.9 cm. This may have slightly increased in size since the prior study. There is no other evidence of adnexal mass or free fluid. IMPRESSION: Small complex cyst left ovary may have slightly increased in size since 11/30/2019. Recommend followup ultrasound in 2-3 months or further evaluation may be made with MRI of the pelvis with and without contrast. Fundal fibroid.
== END ==
LOC: M WHC 10:04
PROVIDERS: ATTEND Nurse Practitioner Family
DX: N83.202 Unspecified ovarian cyst, left side (principal); D25.9 Leiomyoma of uterus, unspecified

== ENCOUNTER → 2020-04-03 | Outpatient (CLI) | payer MEDICAID ==
[~2020-04-03] MED LIST changes: +BUPIVACAINE HCL 0.25% 10ML VIAL As Ordered ONE; +BUPIVACAINE HCL 0.25% 30ML VIAL As Ordered ONE; +TRIAMCINOLONE ACETONIDE SUSP 40 MG/ML VIAL (J3301) As Ordered ONE; +diazePAM 2 MG TAB As Ordered ONE
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
== END ==
LOC: M PAIN 10:15
PROVIDERS: ATTEND Anesthesiology
DX: M79.18 Myalgia, other site (principal)
CPT/HCPCS: 20552; J3301

== ENCOUNTER → 2020-04-27 | Outpatient (REF) | payer MEDICAID ==
[~2020-04-27] MED LIST changes: -ALL10TAB29 PO; -BUPIVACAINE HCL 0.25% 10ML VIAL As Ordered ONE; -BUPIVACAINE HCL 0.25% 30ML VIAL As Ordered ONE; +CETI-24 PO; +NEUR300C PO; +PANT40TA29 PO; -PANT40TA3 PO; -TRIAMCINOLONE ACETONIDE SUSP 40 MG/ML VIAL (J3301) As Ordered ONE; -diazePAM 2 MG TAB As Ordered ONE; +propanolol PO; +ropinerole PO
[2020-04-27 17:05] LABS: HEMATOCRIT 43.5 % (36.0-47.0); HEMOGLOBIN 14.1 g/dl (12.0-15.5)
== END ==
LOC: M PLALAB 14:33
PROVIDERS: ATTEND Nurse Practitioner Family
DX: N93.8 Other specified abnormal uterine and vaginal bleeding (principal)

== ENCOUNTER → 2020-04-28 | Outpatient (CLI) | payer MEDICAID ==
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
== END ==
LOC: M PAIN 13:45 → M TMPAIN 13:45
PROVIDERS: ATTEND Anesthesiology
DX: M79.18 Myalgia, other site (principal)

== ENCOUNTER → 2020-06-02 | Outpatient (POV) | payer MEDICAID ==
[~2020-06-02] MED LIST changes: +BUPIVACAINE HCL 0.25% 10ML VIAL As Ordered ONE; +BUPIVACAINE HCL 0.25% 10ML VIAL ONE; +BUPIVACAINE HCL 0.25% 30ML VIAL As Ordered ONE; +BUPIVACAINE HCL 0.25% 30ML VIAL ONE; +TRIAMCINOLONE ACETONIDE SUSP 40 MG/ML VIAL (J3301) As Ordered ONE; +TRIAMCINOLONE ACETONIDE SUSP 40 MG/ML VIAL (J3301) ONE; +diazePAM 5 MG TAB As Ordered ONE; +diazePAM 5 MG TAB ONE
== END ==
LOC: M PAIN 09:00
PROVIDERS: ATTEND Anesthesiology
DX: M79.18 Myalgia, other site (principal)

== ENCOUNTER → 2020-06-15 | Outpatient (CLI) | payer MEDICAID ==
[~2020-06-15] MED LIST changes: -BUPIVACAINE HCL 0.25% 10ML VIAL As Ordered ONE; -BUPIVACAINE HCL 0.25% 10ML VIAL ONE; -BUPIVACAINE HCL 0.25% 30ML VIAL As Ordered ONE; -BUPIVACAINE HCL 0.25% 30ML VIAL ONE; -TRIAMCINOLONE ACETONIDE SUSP 40 MG/ML VIAL (J3301) As Ordered ONE; -TRIAMCINOLONE ACETONIDE SUSP 40 MG/ML VIAL (J3301) ONE; -diazePAM 5 MG TAB As Ordered ONE; -diazePAM 5 MG TAB ONE
== END ==
LOC: M PAIN 14:28
PROVIDERS: ATTEND Anesthesiology
DX: M79.7 Fibromyalgia (principal)

== ENCOUNTER → 2020-07-03 | Outpatient (REF) | payer MEDICAID ==
[2020-07-03 17:17] LABS: BASO # 0.1 10^3/uL (0.0-0.2); BASO % 0.7 % (0.0-1.0); EOS # 0.2 10^3/uL (0.0-0.5); LYMPH # 2.1 10^3/uL (1.5-5.0); LYMPH % 27.5 % (24.0-44.0); MEAN CORPUSCULAR HGB CONC 31.8 g/dl (32.0-36.5); MEAN CORPUSCULAR VOLUME 97.3 fl (80.0-96.0); MONO # 0.5 10^3/uL (0.0-0.8); MONO % 5.9 % (0.0-5.0); NEUTROPHILS # 4.7 10^3/uL (1.5-8.5); NEUTROPHILS % 62.5 % (36.0-66.0); PLATELET COUNT, AUTOMATED 251 10^3/uL (150-450); RED BLOOD COUNT 4.52 10^6/uL (4.00-5.40); WHITE BLOOD COUNT 7.6 10^3/uL (4.0-10.0)
[2020-07-03 17:42] LABS: ALBUMIN 3.1 GM/DL (3.2-5.2); BILIRUBIN,TOTAL 0.2 MG/DL (0.2-1.0); CALCIUM LEVEL 8.7 MG/DL (8.5-10.1); CREATININE FOR GFR 1.13 MG/DL (0.55-1.30); GLOMERULAR FILTRATION RATE 56.2 (>58); POTASSIUM SERUM 4.5 MEQ/L (3.5-5.1); THYROID STIMULATING HORMONE 2.96 uIU/ML (0.358-3.740); TOTAL PROTEIN 6.8 GM/DL (6.4-8.2)
== END ==
LOC: M SFHCADAM 16:47
PROVIDERS: ATTEND Family Medicine
DX: Z01.812 Encounter for preprocedural laboratory examination (principal); N93.9 Abnormal uterine and vaginal bleeding, unspecified; E03.9 Hypothyroidism, unspecified

== ENCOUNTER → 2020-07-07 | Outpatient (CLI) | payer MEDICAID | LOC: M LABSMTC 09:58 | PROVIDERS: ATTEND Anesthesiology | DX: Z01.812 Encounter for preprocedural laboratory examination (principal); Z20.828 Contact with and (suspected) exposure to other viral communicable diseases | CPT/HCPCS: C9803; U0003 ==

== ENCOUNTER 2020-07-12 07:42 | Day surgery (SDC) | payer MEDICAID ==
[~2020-07-12] VITALS: Ht 154.9 cm; Wt 116.6 kg
[~2020-07-12 07:42] MED LIST changes: -propanolol PO; -ropinerole PO
[2020-07-12 08:20] LABS: HEMATOCRIT 43.1 % (36.0-47.0); HEMOGLOBIN 14.2 g/dl (12.0-15.5); MEAN CORPUSCULAR HEMOGLOBIN 30.9 pg (27.0-33.0); MEAN CORPUSCULAR HGB CONC 32.9 g/dl (32.0-36.5); MEAN CORPUSCULAR VOLUME 93.7 fl (80.0-96.0); PLATELET COUNT, AUTOMATED 221 10^3/uL (150-450); WHITE BLOOD COUNT 8.2 10^3/uL (4.0-10.0)
[2020-07-12] MEDS ORDERED: SUGAMMADEX SODIUM 500 MG/5 ML VIAL (BRIDION) As Ordered ONE (08:27)
[2020-07-12] MEDS ORDERED: ONDANSETRON 4MG/2ML VIAL As Ordered ONE (08:27)
[2020-07-12] MEDS ORDERED: LIDOCAINE 2% 100MG/5ML SDV (FOR ANES.) As Ordered ONE (08:27)
[2020-07-12] MEDS ORDERED: ROCURONIUM BROMIDE 50 MG/5 ML VIAL As Ordered ONE (08:27)
[2020-07-12] MEDS ORDERED: propofoL 200 MG/20 ML VIAL As Ordered ONE (08:27)
[2020-07-12] MEDS ORDERED: dexameTHASONE 4 MG/ML 1ML VIAL (J1100 PER 1MG) As Ordered ONE (08:27)
[2020-07-12] MEDS ORDERED: KETOROLAC 60MG 2ML VIAL As Ordered ONE (08:27)
[2020-07-12] MEDS ORDERED: ACETAMINOPHEN 1000MG 100ML IV BTL (OFIRMEV) (J0131 PER 10MG) As Ordered ONE (08:28)
[2020-07-12] MEDS ORDERED: ZONI100C17 PO (08:29)
[2020-07-12] MEDS ORDERED: MIDAZOLAM INJ 2MG/2ML VIAL (J2250 PER 1MG) As Ordered ONE (08:29)
[2020-07-12] MEDS ORDERED: HYDROmorphone HCL 2 MG/ML 1ML VIAL (J1170) As Ordered ONE (08:29)
[2020-07-12] MEDS ORDERED: propanolol PO (08:29)
[2020-07-12] MEDS ORDERED: ropinerole PO (08:29)
[2020-07-12] MEDS ORDERED: fentaNYL 100 MCG/2 ML INJECTION (J3010) As Ordered ONE (08:29)
[2020-07-12 08:44] LABS: CALCIUM LEVEL 8.3 MG/DL (8.5-10.1); CREATININE FOR GFR 1.13 MG/DL (0.55-1.30); GLOMERULAR FILTRATION RATE 56.2 (>58); POTASSIUM SERUM 3.8 MEQ/L (3.5-5.1)
[2020-07-12] MEDS ORDERED: ceFAZolin 2 GM/D5W 50 ML IV BAG (J0690 PER 500MG) As Ordered ONE (09:04)
[2020-07-12] MEDS ORDERED: BUPIVACAINE HCL 0.25% 10ML VIAL As Ordered ONE (09:14)
[2020-07-12] MEDS ORDERED: LR 1,000 ML IV ONE (09:15)
[2020-07-12] MEDS ORDERED: ceFAZolin SOD 2 GM in IV 1 EA IV ONE (09:30)
--- NOTE | 2020-07-12 11:44 | ROOPDOC ---
[facility] Report Of Operation Report of Operation OPERATIVE REPORT: Preoperative diagnosis: Menorrhagia. Postoperative diagnosis: Same. Procedure: Robotic-assisted laparoscopic hysterectomy, bilateral salpingo- oophorectomy, cystoscopy. Surgeon: Julián Leos M.D. Roll Cutter: Dina Smith NP EBL: 50 mL's. Urine output: 100 mL's. Operative summary: Patient was taken to the operating room where general endotracheal anesthesia was induced. She was prepped and draped in sterile fashion in the dorsal lithotomy position. A Rhoades Catheter was placed. A V care uterine manipulator was placed. A Periumbilical incision was made with a scalpel. . A Veress needle was placed through this incision. Intra-abdominal location of Veress needle was assessed with saline filled syringe. A pneumoperitoneum was created. The Veress needle was removed. An 8 mm trocar using the CHOOMOGOiport was inserted through this incision. Three 8 mm suprapubic ports were placed under direct visualization The patient was placed in Trendelenburg position. The [place] surgical robot was docked to the ports. Using the fenestrated bipolar instrument and vessel sealer., the IP ligaments and broad ligaments were coagulated and incised. The round ligaments were coagulated and incised. The anterior and posterior leaves of the broad ligament were . Bladder flap was created. The uterine vessels were coagulated and incised using monopolar Endo Rex. A colpotomy was created in the upper vagina at the level of the V care Cup. The specimen including the uterus, cervix, fallopian tubes and ovaries was removed through the vagina. The vaginal cuff was closed with #1 V lock suture in running fashion. Cystoscopy was performed using a 70 cystoscope. Bilateral ureteral jets were identified. No evidence of injury to the bladder. The cystoscope was removed. All insurance removed. The skin was closed with 4-0 Monocryl subcuticular sutures. Dina Smith NP assisted with all aspects of the procedure. She helped position the patient. She helped insert the ports and manipulate the uterus. She removed the specimen. JULIÁN LEOS MD Jul 12, 2020 11:44
[2020-07-12] MEDS ORDERED: fentaNYL 100 MCG/2 ML INJECTION (J3010) IV PRN (11:45)
[2020-07-12] MEDS ORDERED: ONDANSETRON 4MG/2ML VIAL IV PRN ×2 (11:45)
[2020-07-12] MEDS ORDERED: METOCLOPRAMIDE INJ 10MG/2ML VIAL (J2765 PER 1) IV PRN (11:45)
[2020-07-12] MEDS ORDERED: MORPHINE 4 MG/ML 1ML VIAL/SYRINGE (J2270) IV PRN (11:45)
[2020-07-12] MEDS ORDERED: PERCOCET 5MG/325MG TAB PO PRN ×2 (11:45)
[2020-07-12] MEDS ORDERED: LR 1,000 ML IV SCH ×2 (11:45)
[2020-07-12 13:20] VITALS: O2SAT 97
[2020-07-12 13:30] VITALS: BP 102/83
[2020-07-12 14:00] VITALS: BP 116/87
[2020-07-12 15:00] VITALS: BP 123/87
[2020-07-12 16:00] VITALS: BP 124/90
[2020-07-12] MEDS ORDERED: ALBUTEROL SULFATE 2.5 MG/0.5 ML INH NEB SOLN NEB PRN (16:15)
[2020-07-12] MEDS: ADVAIR HFA 115/21MCG INHALER INH SCH (19:58)
[2020-07-12] MEDS: KETOROLAC 30 MG/ML 1ML VIAL IV PRN (20:36)
[2020-07-12] MEDS: ZONISAMIDE 100 MG CAP (ZONEGRAN) PO SCH (20:37)
[2020-07-12] MEDS: DOCUSATE SODIUM 100 MG CAP PO SCH (20:38)
[2020-07-12] MEDS: PROPRANOLOL 10 MG TAB PO SCH (20:38)
[2020-07-12] MEDS ORDERED: GABAPENTIN 300 MG CAP PO SCH (21:00)
[2020-07-12] MEDS ORDERED: PRAZOSIN 1 MG CAP PO SCH (21:00)
[2020-07-12] MEDS ORDERED: rOPINIRole 0.25 MG TAB(REQUIP) PO SCH (21:00)
[2020-07-12] MEDS ORDERED: FAMOTIDINE 20 MG TAB PO SCH (21:00)
[2020-07-12 22:00] VITALS: BP 133/93
[2020-07-13 02:00] VITALS: BP 115/76
[2020-07-13 03:06] VITALS: O2SAT 94
[2020-07-13] MEDS: KETOROLAC 30 MG/ML 1ML VIAL IV PRN ×2 (05:59→12:32)
[2020-07-13 06:00] VITALS: BP 121/66
[2020-07-13] MEDS ORDERED: LEVOTHYROXINE 100MCG TABLET (0.1MG) PO SCH (06:00)
[2020-07-13] MEDS: ADVAIR HFA 115/21MCG INHALER INH SCH (07:16)
[2020-07-13] MEDS ORDERED: ACETAMINOPH W/CODEINE #3 TAB UD PO PRN (08:30)
[2020-07-13] MEDS: DOCUSATE SODIUM 100 MG CAP PO SCH (08:39)
[2020-07-13] MEDS: ZONISAMIDE 100 MG CAP (ZONEGRAN) PO SCH (08:39)
[2020-07-13 08:40] VITALS: BP 121/66
[2020-07-13] MEDS: PROPRANOLOL 10 MG TAB PO SCH (08:40)
[2020-07-13] MEDS ORDERED: GABAPENTIN 300 MG CAP PO SCH (09:00)
[2020-07-13] MEDS ORDERED: PANTOPRAZOLE 40MG TAB (PROTONIX) PO SCH (09:00)
[2020-07-13] MEDS ORDERED: MIRALAX *UNIT DOSE* 17GM PACKET PO SCH (09:00)
[2020-07-13 14:00] VITALS: BP 124/88
== END 2020-07-13 18:20 | disposition home or self-care (01) ==
LOC: M SDC 07:42 → M MS5PR 13:20 → M SDC 07-13 18:20
PROVIDERS: ATTEND Specialist
DX: N92.0 Excessive and frequent menstruation with regular cycle (principal); D25.9 Leiomyoma of uterus, unspecified; N80.0 Endometriosis of uterus; N83.201 Unspecified ovarian cyst, right side; N83.202 Unspecified ovarian cyst, left side; E03.9 Hypothyroidism, unspecified; D64.9 Anemia, unspecified; N18.3 Chronic kidney disease, stage 3 (moderate); Z79.899 Other long term (current) drug therapy; J44.9 Chronic obstructive pulmonary disease, unspecified; F41.9 Anxiety disorder, unspecified; F32.9 Major depressive disorder, single episode, unspecified; Z88.8 Allergy status to other drugs, medicaments and biological substances; Z91.018 Allergy to other foods
CPT/HCPCS: 36415; 58571; 80048; 85027; 88307; 94640; 96374; 96375; 96376; J0131; J1100; J1170; J1885; J2250; J2405; J3010; S2900

== ENCOUNTER → 2020-07-25 | Outpatient (REF) | payer MEDICAID ==
[~2020-07-25] MED LIST changes: +propanolol PO; +ropinerole PO
[2020-07-25 18:27] LABS: BASO # 0.1 10^3/uL (0.0-0.2); BASO % 0.9 % (0.0-1.0); EOS # 0.4 10^3/uL (0.0-0.5); EOS % 5.7 % (0.0-3.0); HEMATOCRIT 43.2 % (36.0-47.0); HEMOGLOBIN 13.6 g/dl (12.0-15.5); LYMPH # 1.9 10^3/uL (1.5-5.0); LYMPH % 25.5 % (24.0-44.0); MEAN CORPUSCULAR HEMOGLOBIN 29.7 pg (27.0-33.0); MEAN CORPUSCULAR HGB CONC 31.5 g/dl (32.0-36.5); MEAN CORPUSCULAR VOLUME 94.3 fl (80.0-96.0); MONO # 0.5 10^3/uL (0.0-0.8); MONO % 6.6 % (0.0-5.0); NEUTROPHILS # 4.5 10^3/uL (1.5-8.5); NEUTROPHILS % 60.9 % (36.0-66.0); PLATELET COUNT, AUTOMATED 217 10^3/uL (150-450); RED BLOOD COUNT 4.58 10^6/uL (4.00-5.40); WHITE BLOOD COUNT 7.4 10^3/uL (4.0-10.0)
[2020-07-25 18:56] LABS: ALBUMIN 3.1 GM/DL (3.2-5.2); BLOOD UREA NITROGEN 16 MG/DL (7-18); CALCIUM LEVEL 8.9 MG/DL (8.5-10.1); CARBON DIOXIDE LEVEL 27 MEQ/L (21-32); CHLORIDE LEVEL 109 MEQ/L (98-107); CREATININE FOR GFR 1.06 MG/DL (0.55-1.30); GLOMERULAR FILTRATION RATE > 60.0 (>58); GLUCOSE, FASTING 124 MG/DL (70-100); PHOSPHORUS LEVEL 2.6 MG/DL (2.5-4.9); POTASSIUM SERUM 4.4 MEQ/L (3.5-5.1); SODIUM LEVEL 141 MEQ/L (136-145)
[2020-07-25 19:08] LABS: PTH INTACT 40.8 PG/ML (18.5-88.0)
== END ==
LOC: M LAB REF 17:52
PROVIDERS: ATTEND Internal Medicine Nephrology
DX: D50.9 Iron deficiency anemia, unspecified (principal); N18.30 Chronic kidney disease, stage 3 unspecified

== ENCOUNTER → 2020-08-30 | Outpatient (CLI) | payer MEDICAID ==
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
== END ==
LOC: M PAIN 15:00
PROVIDERS: ATTEND Anesthesiology
DX: M79.10 Myalgia, unspecified site (principal); R73.03 Prediabetes; G40.909 Epilepsy, unspecified, not intractable, without status epilepticus; J44.9 Chronic obstructive pulmonary disease, unspecified; G47.30 Sleep apnea, unspecified; E03.9 Hypothyroidism, unspecified; K21.9 Gastro-esophageal reflux disease without esophagitis; Z86.59 Personal history of other mental and behavioral disorders; Z87.891 Personal history of nicotine dependence; Z88.5 Allergy status to narcotic agent; Z88.6 Allergy status to analgesic agent; Z88.8 Allergy status to other drugs, medicaments and biological substances; Z91.011 Allergy to milk products; Z91.018 Allergy to other foods; E66.01 Morbid (severe) obesity due to excess calories; Z68.42 Body mass index [BMI] 45.0-49.9, adult; Z79.899 Other long term (current) drug therapy

== ENCOUNTER → 2020-09-06 | Outpatient (REF) | payer MEDICAID ==
[2020-09-06 13:43] LABS: HEMATOCRIT 42.7 % (36.0-47.0); HEMOGLOBIN 13.9 g/dl (12.0-15.5); MEAN CORPUSCULAR HEMOGLOBIN 30.5 pg (27.0-33.0); MEAN CORPUSCULAR HGB CONC 32.6 g/dl (32.0-36.5); MEAN CORPUSCULAR VOLUME 93.8 fl (80.0-96.0); PLATELET COUNT, AUTOMATED 250 10^3/uL (150-450); RED BLOOD COUNT 4.55 10^6/uL (4.00-5.40); WHITE BLOOD COUNT 6.3 10^3/uL (4.0-10.0)
[2020-09-06 14:00] LABS: BLOOD UREA NITROGEN 14 MG/DL (7-18); CALCIUM LEVEL 8.9 MG/DL (8.5-10.1); CARBON DIOXIDE LEVEL 27 MEQ/L (21-32); CHLORIDE LEVEL 111 MEQ/L (98-107); CHOLESTEROL LEVEL 209 MG/DL (<200); CHOLESTEROL RISK RATIO 4.543 (<5); CREATININE FOR GFR 0.94 MG/DL (0.55-1.30); FREE T4 1.19 NG/DL (0.76-1.46); GLOMERULAR FILTRATION RATE > 60.0 (>58); GLUCOSE, FASTING 108 MG/DL (70-100); HDL CHOLESTEROL 46 MG/DL (>40); LDL CHOLESTEROL 129 MG/DL (<100); NON-HDL-C 163 MG/DL; POTASSIUM SERUM 4.1 MEQ/L (3.5-5.1); SODIUM LEVEL 144 MEQ/L (136-145); THYROID STIMULATING HORMONE 0.672 uIU/ML (0.358-3.740); TRIGLYCERIDES LEVEL 169 MG/DL (<150)
[2020-09-06 14:39] LABS: HEMOGLOBIN A1c 6.2 %
== END ==
LOC: M PLALAB 09:28
PROVIDERS: ATTEND Physician Assistant
DX: J45.909 Unspecified asthma, uncomplicated (principal); E03.9 Hypothyroidism, unspecified; E78.5 Hyperlipidemia, unspecified; N18.31 Chronic kidney disease, stage 3a

== ENCOUNTER → 2020-10-19 | Outpatient (RCR) | payer MEDICAID | LOC: M PT 09-21 11:16 | PROVIDERS: ATTEND Anesthesiology | DX: M79.18 Myalgia, other site (principal) ==

== ENCOUNTER 2020-11-02 11:14 | Outpatient (RCR) | payer MEDICAID | END 2020-11-19 | LOC: M PT 11:14 | PROVIDERS: ATTEND Anesthesiology | DX: M79.18 Myalgia, other site (principal) ==

== ENCOUNTER → 2020-12-21 | Outpatient (CLI) | payer MEDICAID ==
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
== END ==
LOC: M PAIN 15:00
PROVIDERS: ATTEND Anesthesiology
DX: M79.18 Myalgia, other site (principal); R73.03 Prediabetes; G40.909 Epilepsy, unspecified, not intractable, without status epilepticus; J44.9 Chronic obstructive pulmonary disease, unspecified; G47.30 Sleep apnea, unspecified; E03.9 Hypothyroidism, unspecified; K21.9 Gastro-esophageal reflux disease without esophagitis; Z86.59 Personal history of other mental and behavioral disorders; Z87.891 Personal history of nicotine dependence; Z88.5 Allergy status to narcotic agent; Z88.6 Allergy status to analgesic agent; Z88.8 Allergy status to other drugs, medicaments and biological substances; Z91.011 Allergy to milk products; Z91.018 Allergy to other foods; E66.01 Morbid (severe) obesity due to excess calories; Z68.43 Body mass index [BMI] 50.0-59.9, adult; Z79.899 Other long term (current) drug therapy

== ENCOUNTER → 2021-01-04 | Outpatient (CLI) | payer MEDICAID ==
--- NOTE | 2021-01-04 13:18 | REPMRS ---
Patient History The patient states she had a clinical breast exam in 12/2020 Patient is postmenopausal. No known family history of cancer. Took hormonal contraceptives for 1 year. Digital Woman Screen Mammo: January 04, 2021 - Exam #: [id number] Bilateral MLO, CC, and XCCL view(s) were taken. Technologist: Claudia Bartholomew, Technologist Prior study comparison: December 02, 2019, bilateral digital woman screen mammo performed at [facility]. November 24, 2018, bilateral digital woman screen mammo performed at [facility]. January 20, 2014, bilateral digital mammo screening bilat, performed at [facility]. FINDINGS: The breast tissue is almost entirely fat. The Volpara volumetric breast density category is: A. There has been no change in the appearance of the mammogram from the prior studies. There is no interval development of dominant mass, architectural distortion, or grouped microcalcification typical of malignancy. 3-D tomosynthesis shows no additional findings. Assessment: BI-RADS/ACR category 1 mammogram. Negative Mammogram. Recommendation Routine screening mammogram of both breasts in 1 year (for women over age 40). This patient's [facility] Lifetime Breast Cancer RIsk is estimated at 7.3 %. This mammogram was interpreted with the aid of an FDA-approved computer-aided dectection system. Electronically Signed By: Tito Anne MD 01/04/21 2013
== END ==
LOC: M WHC 10:59
PROVIDERS: ATTEND Physician Assistant
DX: Z12.31 Encounter for screening mammogram for malignant neoplasm of breast (principal)

== ENCOUNTER 2021-01-11 15:15 | Outpatient (RCR) | payer MEDICAID | END 2021-01-17 | LOC: M PT 15:15 | PROVIDERS: ATTEND Anesthesiology | DX: M79.18 Myalgia, other site (principal) ==

== ENCOUNTER → 2021-01-25 | Outpatient (REF) | payer MEDICAID ==
[2021-01-25 18:06] LABS: APPEARANCE, URINE MANUAL CLEAR (CLEAR); BILIRUBIN, URINE MANUAL NEGATIVE (NEGATIVE); BLOOD URINE MANUAL NEGATIVE (NEGATIVE); COLOR, URINE MANUAL LT YELLOW (YELLOW); GLUCOSE, URINE (UA) MANUAL NEGATIVE (NEGATIVE); KETONE, URINE MANUAL NEGATIVE (NEGATIVE); LEUKOCYTE ESTERASE, URINE MAN NEGATIVE (NEGATIVE); NITRITE, URINE MANUAL NEGATIVE (NEGATIVE); PROTEIN, URINE MANUAL NEGATIVE (NEGATIVE); SPECIFIC GRAVITY,URINE MANUAL 1.025 (1.002-1.035); UROBILINOGEN, URINE MANUAL NORMAL (NORMAL)
[2021-01-25 18:09] LABS: BASO # 0.1 10^3/uL (0.0-0.2); EOS # 0.3 10^3/uL (0.0-0.5); EOS % 3.7 % (0.0-3.0); HEMATOCRIT 43.9 % (36.0-47.0); HEMOGLOBIN 13.8 g/dl (12.0-15.5); LYMPH # 1.8 10^3/uL (1.5-5.0); LYMPH % 26.7 % (24.0-44.0); MEAN CORPUSCULAR HEMOGLOBIN 29.8 pg (27.0-33.0); MEAN CORPUSCULAR HGB CONC 31.4 g/dl (32.0-36.5); MEAN CORPUSCULAR VOLUME 94.8 fl (80.0-96.0); MONO # 0.5 10^3/uL (0.0-0.8); NEUTROPHILS # 4.1 10^3/uL (1.5-8.5); NEUTROPHILS % 61.3 % (36.0-66.0); PLATELET COUNT, AUTOMATED 253 10^3/uL (150-450); RED BLOOD COUNT 4.63 10^6/uL (4.00-5.40); WHITE BLOOD COUNT 6.7 10^3/uL (4.0-10.0)
[2021-01-25 18:43] LABS: ALBUMIN 3.5 GM/DL (3.2-5.2); BLOOD UREA NITROGEN 17 MG/DL (7-18); CALCIUM LEVEL 8.9 MG/DL (8.5-10.1); CARBON DIOXIDE LEVEL 27 MEQ/L (21-32); CHLORIDE LEVEL 111 MEQ/L (98-107); CREATININE FOR GFR 0.85 MG/DL (0.55-1.30); GLOMERULAR FILTRATION RATE > 60.0 (>58); GLUCOSE, FASTING 130 MG/DL (70-100); PHOSPHORUS LEVEL 2.4 MG/DL (2.5-4.9); POTASSIUM SERUM 4.6 MEQ/L (3.5-5.1); SODIUM LEVEL 142 MEQ/L (136-145); URIC ACID 4.1 MG/DL (2.6-6.0)
== END ==
LOC: M LAB REF 16:50
PROVIDERS: ATTEND Internal Medicine Nephrology
DX: D50.9 Iron deficiency anemia, unspecified (principal); N18.31 Chronic kidney disease, stage 3a

== ENCOUNTER 2021-02-06 10:35 | Outpatient (RCR) | payer MEDICAID ==
[2021-02-13] MEDS ORDERED: PROAAER10 INH (13:22)
[2021-02-13] MEDS ORDERED: COQ150CH PO (13:22)
[2021-02-13] MEDS ORDERED: AIMO70IN SC (13:22)
[2021-02-13] MEDS ORDERED: ZONI100C17 PO (13:22)
[2021-02-13] MEDS ORDERED: ALBU83IN NEB (13:22)
[2021-02-13] MEDS ORDERED: REST15CA PO (13:22)
[2021-02-13] MEDS ORDERED: ESTR1TD TD (13:22)
[2021-02-13] MEDS ORDERED: SYMB80INH INH (13:22)
== END 2021-02-16 ==
LOC: M PT 10:35
PROVIDERS: ATTEND Anesthesiology
DX: M79.18 Myalgia, other site (principal)

== ENCOUNTER 2021-02-13 13:12 | Emergency (ER) | payer MEDICAID ==
[~2021-02-13] VITALS: Ht 154.9 cm; Wt 124.5 kg
[2021-02-13] MEDS ORDERED: SYMB80INH INH (13:22)
[2021-02-13] MEDS ORDERED: COQ150CH PO (13:22)
[2021-02-13] MEDS ORDERED: REST15CA PO (13:22)
[2021-02-13] MEDS ORDERED: ESTR1TD TD (13:22)
[2021-02-13] MEDS ORDERED: ZONI100C17 PO (13:22)
[2021-02-13] MEDS ORDERED: ALBU83IN NEB (13:22)
[2021-02-13] MEDS ORDERED: AIMO70IN SC (13:22)
[2021-02-13] MEDS ORDERED: PROAAER10 INH (13:22)
--- NOTE | 2021-02-13 14:27 | REP ---
INDICATION: left knee pain, concern for patellar subluxation. COMPARISON: None. TECHNIQUE: Five views of the left knee are provided. FINDINGS: Five views of the left knee demonstrate mild soft tissue swelling anterior and medial to the patella. Patella is not subluxed or dislocated on these radiographs. No associated patellar or femoral condylar fracture is seen. There is no evidence of joint effusion. There is a focus of dystrophic soft tissue calcification in the proximal calf posteriorly and medially. No fracture or subluxation is seen. No opaque foreign body noted. IMPRESSION: Prepatellar soft tissue swelling. Proximal calf dystrophic calcification. No acute traumatic abnormality noted.. <Electronically signed by Tito Anne > 02/13/21 4410
[2021-02-13 14:55] VITALS: BP 134/84
== END 2021-02-13 15:04 | disposition home or self-care (01) ==
LOC: M ED 13:12
DX: S83.92XA Sprain of unspecified site of left knee, initial encounter (principal); Y92.9 Unspecified place or not applicable; Y93.9 Activity, unspecified; Y99.9 Unspecified external cause status; Z79.51 Long term (current) use of inhaled steroids; Z79.899 Other long term (current) drug therapy; Z88.6 Allergy status to analgesic agent; Z88.8 Allergy status to other drugs, medicaments and biological substances

== ENCOUNTER → 2021-02-14 | Outpatient (CLI) | payer MEDICAID ==
[~2021-02-14] MED LIST changes: +AIMO70IN SC; +ALBU83IN NEB; +COQ150CH PO; +ESTR1TD TD; +REST15CA PO; +SYMB80INH INH
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
== END ==
LOC: M PAIN 15:00
PROVIDERS: ATTEND Anesthesiology
DX: M54.6 Pain in thoracic spine (principal); M54.5 Low back pain; G89.29 Other chronic pain; R73.03 Prediabetes; G40.909 Epilepsy, unspecified, not intractable, without status epilepticus; J44.9 Chronic obstructive pulmonary disease, unspecified; G47.30 Sleep apnea, unspecified; K21.9 Gastro-esophageal reflux disease without esophagitis; Z86.59 Personal history of other mental and behavioral disorders; Z87.891 Personal history of nicotine dependence; Z88.5 Allergy status to narcotic agent; Z88.6 Allergy status to analgesic agent; Z88.8 Allergy status to other drugs, medicaments and biological substances; Z91.011 Allergy to milk products; Z91.018 Allergy to other foods; E66.01 Morbid (severe) obesity due to excess calories; Z68.43 Body mass index [BMI] 50.0-59.9, adult; Z79.899 Other long term (current) drug therapy

== ENCOUNTER → 2021-02-22 | Outpatient (CLI) | payer MEDICAID ==
--- NOTE | 2021-02-22 15:03 | REP ---
INDICATION: LOW BACK PAIN. COMPARISON: None. TECHNIQUE: Seven views including lateral views in flexion and extension. FINDINGS: Lumbar vertebral body heights are preserved. Alignment is normal. Flexion extension lateral views show no subluxation or instability. There is no evidence of spondylolysis or spondylolisthesis. There is discogenic spurring anteriorly at L3-4 and to a lesser extent L4-5 in the lumbar spine as well as at L1-2 and T12-L1. Psoas margins are symmetric. Pedicles and posterior elements are intact. Sacrum and SI joints are unremarkable. There are clips in right upper quadrant of the abdomen. There is mild disc space narrowing at L4-5 and L3-4 as well as at L1-2. IMPRESSION: Degenerative disc disease at L1-2, L3-4, and L4-5. No subluxation or instability on flexion extension views. No acute bony abnormality. <Electronically signed by Tito Anne > 02/22/21 1500
--- NOTE | 2021-02-22 15:04 | REP ---
INDICATION: LOW BACK PAIN. COMPARISON: None. TECHNIQUE: Three views of the thoracic spine are provided. FINDINGS: Thoracic vertebral body heights are preserved. There is discogenic spurring at several mid and lower thoracic levels on the lateral radiograph. Alignment is normal. Pedicles and posterior elements are intact. No paravertebral soft tissue swelling or mass is seen. Swimmer's lateral view shows degenerative disc disease with spurring anteriorly at C4-5 in the cervical spine. IMPRESSION: Degenerative disc disease in the thoracic spine. No acute abnormality. <Electronically signed by Tito Anne > 02/22/21 5840
== END ==
LOC: M RAD 12:49
PROVIDERS: ATTEND Anesthesiology
DX: M54.5 Low back pain (principal)

== ENCOUNTER → 2021-03-10 | Outpatient (CLI) | payer MEDICAID | LOC: M LABSMTC 11:30 | PROVIDERS: ATTEND Anesthesiology | DX: Z20.828 Contact with and (suspected) exposure to other viral communicable diseases (principal); Z11.59 Encounter for screening for other viral diseases ==

== ENCOUNTER → 2021-03-13 | Outpatient (CLI) | payer MEDICAID ==
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
== END ==
LOC: M PAIN 13:40
PROVIDERS: ATTEND Anesthesiology
DX: M51.9 Unspecified thoracic, thoracolumbar and lumbosacral intervertebral disc disorder (principal); M54.5 Low back pain; G89.29 Other chronic pain; R73.03 Prediabetes; G40.909 Epilepsy, unspecified, not intractable, without status epilepticus; J44.9 Chronic obstructive pulmonary disease, unspecified; E03.9 Hypothyroidism, unspecified; E55.9 Vitamin D deficiency, unspecified; K21.9 Gastro-esophageal reflux disease without esophagitis; Z86.59 Personal history of other mental and behavioral disorders; Z87.891 Personal history of nicotine dependence; Z88.5 Allergy status to narcotic agent; Z88.6 Allergy status to analgesic agent; Z88.8 Allergy status to other drugs, medicaments and biological substances; Z91.011 Allergy to milk products; Z91.018 Allergy to other foods; E66.01 Morbid (severe) obesity due to excess calories; Z68.42 Body mass index [BMI] 45.0-49.9, adult; Z79.899 Other long term (current) drug therapy

== ENCOUNTER → 2021-03-15 | Day surgery (SDC) | payer MEDICAID ==
[~2021-03-15] VITALS: Ht 154.9 cm; Wt 123.4 kg
[~2021-03-15] MED LIST changes: +LIDOCAINE 2% 100MG/5ML SDV (FOR ANES.) As Ordered ONE; +NS 1,000 ML IV ONE; +propofoL 200 MG/20 ML VIAL As Ordered ONE
--- NOTE | 2021-03-15 14:37 | ROOR ---
Patient Name: Joyce Mata Procedure Date: 03/15/2021 2:12 PM Date of : 1975 Age: 45 Room: [facility] Gender: Female Note Status: Finalized Procedure: Upper GI endoscopy Indications: Surveillance procedure: esophageal polyp/spindle cells on path. r/o spindle cell tumor, Heartburn Providers: Gage Winston MD Referring MD: [facility] SE[facility] Veronica [facility] Requesting Provider: Medicines: Monitored Anesthesia Care Complications: No immediate complications. Procedure: Pre-Anesthesia Assessment: - The heart rate, respiratory rate, oxygen saturations, blood pressure, adequacy of pulmonary ventilation, and response to care were monitored throughout the procedure. The Endoscope was introduced through the mouth, and advanced to the second part of duodenum. The upper GI endoscopy was accomplished without difficulty. The patient tolerated the procedure well. Findings: A single diminutive nodule was found in the lower third of the esophagus. The polyp was removed with a cold snare. Resection and retrieval were complete. The exam of the esophagus was otherwise normal. The entire examined stomach was normal. Prominent, but not necessarily abnormal papilla. Biopsies were taken with a cold forceps for histology. Impression: - A tiny (3-4 mm) nodule found in the distal esophagus. Removed via cold snare excision - A few fundic gland polyps seen in body of stomach, otherwise normal stomach. - Prominent, but not necessarily abnormal papilla. Biopsied Recommendation: - Observe patient's clinical course. - Telephone endoscopist for pathology results in 2 weeks. Procedure Code(s): --- Professional --- 32060, Esophagogastroduodenoscopy, flexible, transoral; with removal of tumor(s), polyp(s), or other lesion(s) by snare technique [id number], 59, Esophagogastroduodenoscopy, flexible, transoral; with biopsy, single or multiple Diagnosis Code(s): --- Professional --- R12, Heartburn K22.8, Other specified diseases of esophagus CPT copyright 2019 [employer]. All rights reserved. The codes documented in this report are preliminary and upon computer language coder review may be revised to meet current compliance requirements. Gage Winston MD Gage Winston MD 03/15/2021 2:37:27 PM Electronically signed by Gage Winston MD Number of Addenda: 0 Note Initiated On: 03/15/2021 2:12 PM Estimated Blood Loss: Estimated blood loss: none.
[2021-03-15 14:55] VITALS: BP 120/69
== END | disposition home or self-care (01) ==
LOC: M OPP 12:02
PROVIDERS: ATTEND Internal Medicine Gastroenterology
DX: K22.8 Other specified diseases of esophagus (principal); R12 Heartburn; Z79.899 Other long term (current) drug therapy; Z88.8 Allergy status to other drugs, medicaments and biological substances; Z88.5 Allergy status to narcotic agent; Z87.891 Personal history of nicotine dependence

== ENCOUNTER → 2021-03-20 | Outpatient (CLI) | payer MEDICAID ==
[~2021-03-20] MED LIST changes: -LIDOCAINE 2% 100MG/5ML SDV (FOR ANES.) As Ordered ONE; -NS 1,000 ML IV ONE; -propofoL 200 MG/20 ML VIAL As Ordered ONE
--- NOTE | 2021-03-20 15:44 | REP ---
INDICATION: PAIN LEFT KNEE. COMPARISON: 02/13/2021 left knee exam. TECHNIQUE: Standing AP view bilateral knees. FINDINGS: There is no fracture or dislocation. Joint spaces are normal in thickness bilaterally. There is no intrinsic osseous pathology identified. IMPRESSION: No significant arthritic change. <Electronically signed by Johan Raygoza > 03/20/21 [id number]
== END ==
LOC: M SOG 13:01
PROVIDERS: ATTEND Orthopaedic Surgery Adult Reconstructive Orthopaedic Surgery
DX: M25.562 Pain in left knee (principal)

== ENCOUNTER → 2021-04-03 | Outpatient (CLI) | payer MEDICAID ==
--- NOTE | 2021-04-03 13:46 | REP ---
INDICATION: DERANGEMENT OF LEFT KNEE. COMPARISON: 11/17/2018 MRI [facility] orthopedic. Radiographs 03/20/2021. TECHNIQUE: Multiple sequences obtained in the axial, coronal and sagittal planes. Study is limited due to patient motion. FINDINGS: Menisci: Intact, no tear. Cruciate ligaments: Intact. Collateral ligaments: Intact. Extensor mechanism/patellar retinacula: Intact. There is moderate ill-defined soft tissue edema anterior to the patellar tendon. Cartilage: There is moderate focal chondromalacia of the lateral patellar facet peripherally. There is mild global chondromalacia of the femoral condyles and tibial plateaus. Bone marrow: There is mild subchondral marrow edema in the lateral patellar facet. A stable well-defined slightly lobulated bone lesion is seen centrally in the proximal tibia probably representing an intra chondroma. This measures approximately 1.9 cm in diameter. Joint fluid: There is a very small effusion. Popliteal region: There is a tiny amount of fluid in the medial popliteal fossa. IMPRESSION: Limited exam due to patient motion. No definite meniscal tear or other evidence of internal derangement. Moderate focal chondromalacia lateral patellar facet peripherally with very mild subchondral marrow edema. Otherwise mild global chondromalacia of the femoral condyles and tibial plateaus. There is a benign-appearing well-defined bone lesion in the proximal tibia likely representing an enchondroma. <Electronically signed by Johan Raygoza > 04/03/21 1134
== END ==
LOC: M PLARAD 10:44
PROVIDERS: ATTEND Orthopaedic Surgery Adult Reconstructive Orthopaedic Surgery
DX: M23.92 Unspecified internal derangement of left knee (principal); M22.42 Chondromalacia patellae, left knee

== ENCOUNTER → 2021-04-03 | Outpatient (CLI) | payer MEDICAID | LOC: M PLARAD 10:28 | PROVIDERS: ATTEND Anesthesiology | DX: M54.6 Pain in thoracic spine (principal); M54.5 Low back pain ==

== ENCOUNTER → 2021-04-13 | Outpatient (CLI) | payer MEDICAID ==
--- NOTE | 2021-04-13 12:18 | REPPI ---
INDICATION: R05 COUGH R06.02 SOB J45.901 EXACERBATION OF ASTHMA. COMPARISON: 12/23/2019 FINDINGS: The superior mediastinal structures are midline. The cardiac silhouette is unremarkable in size, shape, and position. The diaphragmatic surfaces of the lungs are regular, and the costophrenic angles are clear. The pulmonary shirley are clear. The imaged osseous structures are intact. IMPRESSION: There is no acute cardiopulmonary disease. <Electronically signed by Khanh Melvin > 04/13/21 [id number]
== END ==
LOC: M PLAIMG 11:43
PROVIDERS: ATTEND Physician Assistant
DX: R05 Cough (principal); R06.02 Shortness of breath; J45.901 Unspecified asthma with (acute) exacerbation

== ENCOUNTER → 2021-04-26 | Outpatient (CLI) | payer MEDICAID ==
[~2021-04-26] MED LIST changes: +CYMB60CA4 PO; +GABA-282 PO; +PROP10TA56 PO; +PROPANOLOL PO; +ROPI1TAB3 PO; +TIZA2CAP PO; +TRAM50TA2 PO; +[UNRECOGNIZED DRUG - REMARK]
== END ==
LOC: M PAIN 13:40
PROVIDERS: ATTEND Anesthesiology
DX: M79.10 Myalgia, unspecified site (principal); R73.03 Prediabetes; G40.909 Epilepsy, unspecified, not intractable, without status epilepticus; J44.9 Chronic obstructive pulmonary disease, unspecified; G47.30 Sleep apnea, unspecified; E03.9 Hypothyroidism, unspecified; E55.9 Vitamin D deficiency, unspecified; K21.9 Gastro-esophageal reflux disease without esophagitis; Z86.59 Personal history of other mental and behavioral disorders; Z87.891 Personal history of nicotine dependence; Z88.5 Allergy status to narcotic agent; Z88.6 Allergy status to analgesic agent; Z88.8 Allergy status to other drugs, medicaments and biological substances; Z91.011 Allergy to milk products; Z91.018 Allergy to other foods; E66.01 Morbid (severe) obesity due to excess calories; Z68.42 Body mass index [BMI] 45.0-49.9, adult; Z79.899 Other long term (current) drug therapy

== ENCOUNTER 2021-05-18 22:20 | Emergency (ER) | payer MEDICAID ==
[~2021-05-18] VITALS: Ht 154.9 cm; Wt 114.6 kg
[~2021-05-18 22:20] MED LIST changes: -CYMB60CA4 PO; -GABA-282 PO; -PROP10TA56 PO; -PROPANOLOL PO; -ROPI1TAB3 PO; -TIZA2CAP PO; -TRAM50TA2 PO; -[UNRECOGNIZED DRUG - REMARK]
[2021-05-19 08:07] LABS: BASO # 0.1 10^3/uL (0.0-0.2); BASO % 0.8 % (0.0-1.0); EOS # 0.2 10^3/uL (0.0-0.5); EOS % 3.2 % (0.0-3.0); HEMATOCRIT 46.7 % (36.0-47.0); HEMOGLOBIN 15.1 g/dl (12.0-15.5); LYMPH % 32.1 % (24.0-44.0); MEAN CORPUSCULAR HEMOGLOBIN 30.1 pg (27.0-33.0); MEAN CORPUSCULAR HGB CONC 32.3 g/dl (32.0-36.5); MONO # 0.7 10^3/uL (0.0-0.8); MONO % 10.5 % (2.0-8.0); NEUTROPHILS # 3.3 10^3/uL (1.5-8.5); NEUTROPHILS % 53.1 % (36.0-66.0); PLATELET COUNT, AUTOMATED 247 10^3/uL (150-450); RED BLOOD COUNT 5.02 10^6/uL (4.00-5.40); WHITE BLOOD COUNT 6.2 10^3/uL (4.0-10.0)
[2021-05-19 08:42] LABS: ALBUMIN 3.4 GM/DL (3.2-5.2); ALT/SGPT 32 U/L (12-78); BILIRUBIN,DIRECT < 0.1 MG/DL (0.0-0.2); BILIRUBIN,TOTAL 0.5 MG/DL (0.2-1.0); CK-MB VALUE MASS < 1.0 NG/ML (<3.6); CPK CREATINE PHOSPHOKINASE 78 U/L (26-192); LIPASE 64 U/L (73-393); MB/CK RELATIVE INDEX 1.28 (< OR =4); TOTAL PROTEIN 7.3 GM/DL (6.4-8.2); TROPONIN I < 0.02 NG/ML (< 0.10)
[2021-05-19 08:58] LABS: BLOOD UREA NITROGEN 12 MG/DL (7-18); CALCIUM LEVEL 9.2 MG/DL (8.5-10.1); CARBON DIOXIDE LEVEL 27 MEQ/L (21-32); CHLORIDE LEVEL 110 MEQ/L (98-107); CREATININE FOR GFR 0.92 MG/DL (0.55-1.30); GLOMERULAR FILTRATION RATE > 60.0 (>58); GLUCOSE, FASTING 118 MG/DL (70-100); POTASSIUM SERUM 3.7 MEQ/L (3.5-5.1); SODIUM LEVEL 142 MEQ/L (136-145)
[2021-05-19] MEDS ORDERED: ONDANSETRON 4 MG ORAL DISINTEGRATING TAB PO ONE (09:30)
--- NOTE | 2021-05-19 09:36 | ECGEPIP ---
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
[2021-05-19 09:56] VITALS: BP 154/72
== END 2021-05-19 10:21 | disposition home or self-care (01) ==
LOC: M ED 22:20
DX: R10.9 Unspecified abdominal pain (principal); R19.7 Diarrhea, unspecified; R11.0 Nausea; I11.0 Hypertensive heart disease with heart failure; E03.9 Hypothyroidism, unspecified; R56.9 Unspecified convulsions; G47.33 Obstructive sleep apnea (adult) (pediatric); D64.9 Anemia, unspecified; K31.84 Gastroparesis; N18.9 Chronic kidney disease, unspecified; F41.9 Anxiety disorder, unspecified; F33.9 Major depressive disorder, recurrent, unspecified; Z88.8 Allergy status to other drugs, medicaments and biological substances; Z79.899 Other long term (current) drug therapy
CPT/HCPCS: 36415; 80047; 80048; 80076; 82550; 82553; 83690; 85025; 93005; 93041; 99285; Q0162

== ENCOUNTER 2021-06-14 11:45 | Outpatient (RCR) | payer MEDICAID | END 2021-06-19 | LOC: M PT 11:45 | PROVIDERS: ATTEND Orthopaedic Surgery Adult Reconstructive Orthopaedic Surgery | DX: M22.2X1 Patellofemoral disorders, right knee (principal) ==

== ENCOUNTER → 2021-06-29 | Outpatient (CLI) | payer MEDICAID | LOC: M PAIN 13:45 | PROVIDERS: ATTEND Anesthesiology | DX: M25.562 Pain in left knee (principal); Z87.39 Personal history of other diseases of the musculoskeletal system and connective tissue; G40.909 Epilepsy, unspecified, not intractable, without status epilepticus; J44.9 Chronic obstructive pulmonary disease, unspecified; G47.30 Sleep apnea, unspecified; E03.9 Hypothyroidism, unspecified; E55.9 Vitamin D deficiency, unspecified; K21.9 Gastro-esophageal reflux disease without esophagitis; Z86.59 Personal history of other mental and behavioral disorders; Z87.891 Personal history of nicotine dependence; Z88.5 Allergy status to narcotic agent; Z88.6 Allergy status to analgesic agent; Z88.8 Allergy status to other drugs, medicaments and biological substances; Z91.011 Allergy to milk products; Z91.018 Allergy to other foods; E66.01 Morbid (severe) obesity due to excess calories; Z68.42 Body mass index [BMI] 45.0-49.9, adult; Z79.899 Other long term (current) drug therapy ==

== ENCOUNTER 2021-07-17 14:22 | Outpatient (RCR) | payer MEDICAID ==
[2021-07-19] MEDS ORDERED: ROPI1TAB3 PO (12:28)
[2021-07-19] MEDS ORDERED: NEUR300C PO (12:28)
[2021-07-19] MEDS ORDERED: PROPANOLOL PO (12:28)
[2021-07-19] MEDS ORDERED: TIZA2CAP PO (12:33)
[2021-07-19] MEDS ORDERED: PROP10TA56 PO (12:33)
[2021-07-19] MEDS ORDERED: CYMB60CA3 PO (12:33)
[2021-07-19] MEDS ORDERED: ESTR1TAB PO (12:33)
[2021-07-19] MEDS ORDERED: [UNRECOGNIZED DRUG - REMARK] (12:40)
== END 2021-07-19 ==
LOC: M PT 14:22
PROVIDERS: ATTEND Orthopaedic Surgery Adult Reconstructive Orthopaedic Surgery
DX: M22.2X1 Patellofemoral disorders, right knee (principal)

== ENCOUNTER → 2021-07-17 | Outpatient (CLI) | payer MEDICAID ==
[2021-07-17 15:17] LABS: HEMATOCRIT 46.6 % (36.0-47.0); HEMOGLOBIN 14.8 g/dl (12.0-15.5); MEAN CORPUSCULAR HEMOGLOBIN 30.3 pg (27.0-33.0); MEAN CORPUSCULAR HGB CONC 31.8 g/dl (32.0-36.5); MEAN CORPUSCULAR VOLUME 95.5 fl (80.0-96.0); PLATELET COUNT, AUTOMATED 258 10^3/uL (150-450); RED BLOOD COUNT 4.88 10^6/uL (4.00-5.40); WHITE BLOOD COUNT 6.7 10^3/uL (4.0-10.0)
[2021-07-17 15:29] LABS: HEMOGLOBIN A1c 5.9 %
[2021-07-17 15:46] LABS: ALBUMIN 3.6 GM/DL (3.2-5.2); BLOOD UREA NITROGEN 8 MG/DL (7-18); CALCIUM LEVEL 9.1 MG/DL (8.5-10.1); CARBON DIOXIDE LEVEL 26 MEQ/L (21-32); CHLORIDE LEVEL 109 MEQ/L (98-107); CREATININE FOR GFR 0.96 MG/DL (0.55-1.30); GLOMERULAR FILTRATION RATE > 60.0 (>58); GLUCOSE, FASTING 104 MG/DL (70-100); PHOSPHORUS LEVEL 2.1 MG/DL (2.5-4.9); POTASSIUM SERUM 4.5 MEQ/L (3.5-5.1); SODIUM LEVEL 140 MEQ/L (136-145)
== END ==
LOC: M PLALAB 12:38
PROVIDERS: ATTEND Internal Medicine Nephrology
DX: N18.2 Chronic kidney disease, stage 2 (mild) (principal); R73.03 Prediabetes

== ENCOUNTER 2021-07-18 21:34 | Inpatient (IN) | payer MEDICAID ==
[~2021-07-18] VITALS: Ht 154.9 cm; Wt 115.1 kg
[2021-07-18 23:48] LABS: HEMATOCRIT 41.7 % (36.0-47.0); HEMOGLOBIN 13.6 g/dl (12.0-15.5); MEAN CORPUSCULAR HEMOGLOBIN 30.6 pg (27.0-33.0); MEAN CORPUSCULAR HGB CONC 32.6 g/dl (32.0-36.5); MEAN CORPUSCULAR VOLUME 93.9 fl (80.0-96.0); PLATELET COUNT, AUTOMATED 188 10^3/uL (150-450); RED BLOOD COUNT 4.44 10^6/uL (4.00-5.40); WHITE BLOOD COUNT 6.2 10^3/uL (4.0-10.0)
[2021-07-19 00:16] LABS: HCG, SERUM QUALITATIVE NEGATIVE (NEGATIVE)
[2021-07-19 00:24] LABS: ACETAMINOPHEN LEVEL < 2.0 UG/ML (10.0-30.0); ALT/SGPT 22 U/L (12-78); BILIRUBIN,DIRECT 0.1 MG/DL (0.0-0.2); BILIRUBIN,TOTAL 0.3 MG/DL (0.2-1.0); BLOOD UREA NITROGEN 9 MG/DL (7-18); CALCIUM LEVEL 8.9 MG/DL (8.5-10.1); CARBON DIOXIDE LEVEL 27 MEQ/L (21-32); CHLORIDE LEVEL 109 MEQ/L (98-107); CREATININE FOR GFR 0.91 MG/DL (0.55-1.30); ETHYL ALCOHOL (ETHANOL) 0.003 % (0.000-0.010); GLOMERULAR FILTRATION RATE > 60.0 (>58); GLUCOSE, FASTING 127 MG/DL (70-100); POTASSIUM SERUM 3.9 MEQ/L (3.5-5.1); SALICYLATE LEVEL < 1.7 MG/DL (5.0-30.0); SODIUM LEVEL 143 MEQ/L (136-145); TOTAL PROTEIN 6.3 GM/DL (6.4-8.2)
[2021-07-19 00:28] LABS: AMPHETAMINES LEVEL URINE NEGATIVE (NEGATIVE); BARBITURATES URINE NEGATIVE (NEGATIVE); BENZODIAZEPINES URINE NEGATIVE (NEGATIVE); CANNABINOIDS URINE NEGATIVE (NEGATIVE); COCAINE METABOLITE URINE NEGATIVE (NEGATIVE); METHADONE URINE NEGATIVE (NEGATIVE); OPIATES URINE NEGATIVE (NEGATIVE); PHENCYCLIDINE URINE NEGATIVE (NEGATIVE)
[2021-07-19] MEDS ORDERED: NEUR300C PO (12:28)
[2021-07-19] MEDS ORDERED: ROPI1TAB3 PO (12:28)
[2021-07-19] MEDS ORDERED: PROPANOLOL PO (12:28)
[2021-07-19] MEDS ORDERED: PROP10TA56 PO (12:33)
[2021-07-19] MEDS ORDERED: CYMB60CA3 PO (12:33)
[2021-07-19] MEDS ORDERED: ESTR1TAB PO (12:33)
[2021-07-19] MEDS ORDERED: TIZA2CAP PO (12:33)
[2021-07-19] MEDS ORDERED: [UNRECOGNIZED DRUG - REMARK] (12:40)
[2021-07-19 12:44] LABS: RSV AMPLIFICATION NEGATIVE (NEGATIVE)
[2021-07-19] MEDS ORDERED: HOME MED LIST COMPLETE! XX SCH (12:45)
[2021-07-19] MEDS ORDERED: ACETAMINOPHEN TAB 650MG DOSE (2X325MG) PO ONE (14:40)
[2021-07-19] MEDS ORDERED: ALBUTEROL 90 MCG/ACT 8GM HFA INHALER INH PRN (15:55)
[2021-07-19] MEDS ORDERED: MOM 30ML SUSPENSION UDC PO PRN (16:10)
[2021-07-19] MEDS ORDERED: MAALOX 30 ML SUSP *UDC PO PRN (16:10)
[2021-07-19 16:38] VITALS: BP 117/54
[2021-07-19] MEDS ORDERED: GABAPENTIN 300 MG CAP PO SCH (21:00)
[2021-07-19] MEDS: rOPINIRole 1MG TAB PO SCH (21:17)
[2021-07-19] MEDS: SYMBICORT 80/4.5MCG INHALER 6GM INH SCH (21:17)
[2021-07-19] MEDS: FAMOTIDINE 20 MG TAB PO SCH (21:20)
[2021-07-19] MEDS: ZONISAMIDE 100 MG CAP (ZONEGRAN) PO SCH (21:20)
[2021-07-19] MEDS: PROPRANOLOL 10 MG TAB PO SCH (21:20)
[2021-07-20] MEDS: LEVOTHYROXINE 100MCG TABLET (0.1MG) PO SCH (05:52)
[2021-07-20 06:27] VITALS: BP 125/68
[2021-07-20] MEDS: SYMBICORT 80/4.5MCG INHALER 6GM INH SCH ×2 (08:18→20:16)
[2021-07-20] MEDS: PANTOPRAZOLE 40MG TAB (PROTONIX) PO SCH (08:19)
[2021-07-20] MEDS: GABAPENTIN 300 MG CAP PO SCH ×2 (08:19→20:17)
[2021-07-20] MEDS: estradioL 1 MG TAB PO SCH (08:19)
[2021-07-20] MEDS: ZONISAMIDE 100 MG CAP (ZONEGRAN) PO SCH ×2 (08:19→20:17)
[2021-07-20] MEDS: CETIRIZINE (ZyrTEC) 10 MG TAB PO SCH (08:20)
[2021-07-20] MEDS: DULoxetine 30MG CAPSULE (CYMBALTA) PO SCH (08:20)
[2021-07-20] MEDS: FOLIC ACID 1 MG TAB PO SCH (08:20)
[2021-07-20] MEDS ORDERED: traMADol 50 MG TAB PO ONE (09:15)
--- NOTE | 2021-07-20 13:05 | MHHPEPDOC ---
General Date Of Admission: Jul 19, 2021 Legal Status: 9.39 Chief Complaint "I had my pseudo seizures again. And just recently my Mom wished I was again, so I stopped taking my medicine. " History of Present Illness HISTORY OF THE PRESENT ILLNESS: Patient is a 45 -year-old , female, who reports having suicidal ideations after a breakup with her boyfriend. Reporting that she is having angry outbursts, feeling that members of her family are being extremely mean to her. She states that she had stopped taking her medications two weeks ago after her mother told her that she had wished she was "For 2 weeks it's like my life is on a roller coaster ride." She states that she did not take any gestures or attempts to self harm but feels that not taking her medications is suicidal because of her medical conditions. "When I don't take my medications, I will get sick and because I need to be on my meds. My pseudoseizures are coming back" This is her first psychiatric hospitalization, reporting depressive and anxiety symptoms. PER ED REPORT: Pt was brought to the ED by EMS after having a pseudoseizure. Pt reported to RN & MD that she has SI. Pt states "I had a pseudoseizure." Pt states that she has been under a lot of stress lately. 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 Her mother, sisters, & some of her boyfriend's family members have been mean to her, calling her names, & telling her that she is not a good mother. Pt states that she broke up with her boyfriend a week ago because they "have angry outbursts" with each other. Pt also reports financial px's & chronic pain/medical px's. Her medical px's include pseudoseizures, asthma, COPD, gastroparesis, stage II kidney disease, & chronic back pain. Pt also reports having a learning disability, MR? Pt states that she has SI & that she has been trying to kill herself for the past week by not taking her medical or psych meds. She also has not been using her CPAP. Pt states "Why keep fighting for my life? My coping skills are not working & my son is the only thing keeping me here." Pt reports a hx of suicide attempts via OD & jumping off a bridge. Her last suicide attempt was eighteen years ago. Pt reports a hx of self-harm via punching pepper & banging her head. Pt denies HI. She denies both AH & VH. She does not appear to be psychotic. Pt c/o depressed mood, anxiety, anger, poor concentration, decreased energy levels, poor sleep, & poor appetite. Pt reports a hx of PTSD, depression, & anxiety with no admissions. She has OP tx at [facility]. Pt states that she "used to be an alcoholic" but has been sober for five years. She states that she recently started having urges to drink. Pt denies drug use. Her tox screen was negative. Psychiatric Review of Systems Depression (2 or more weeks): depressed mood, anhedonia, insomnia/hypersomnia (sleeping poorly and sleeping too much ), difficulty concentrating, appetite changes, suicidal thoughts, other (feelings of Hopelessness and Helplessness, not taking her psychiatric medications, increased pian, relationship issues, anger, poor impulse control) Nichelle (4 or more days of): still with energy Psychosis: auditory hallucination (voices of her grandparents "you're ok, you'll be ok") PTSD: history of trauma, avoidance of triggers, mood fluctuations Anxiety: situational anxiety, stressor related anxiety Anxiety/ 6 months or more of: restlessness, keyed up, difficulty concentrating, irritability Past Psychiatric History Previous Psychiatric Diagnosis: PTSD, Depression, Anxiety, Previous Psychiatric Admissions: This is the first Suicide Attempts: history of one superficial cutting, states she jumped from a bridge but only received abrasions, Psychiatric Follow-up: [facility] - See Dr. Paniagua (via telepsychiatry) and Jania therapist Psychiatric medications: Cymbalta, Gabapentin, Temazepam. Past Medical History Medical Problems Asthma COPD Arthritis legs and back Stage 2 Kidney Thyroid Disease Migraines/Headaches and Pseudo Seizures Anemia Head Injury: Yes (concussion 2016, relapse from ETOH) Seizures: Yes Hospitalizations: Yes Surgeries: Yes (Hysterectomy, cholecystectomy, endoscopy, colonoscopy) Family Medical/Psychiatric HX Medical Problems Maternal side of family -lung cancer, hx of Diabetes, Thyroid issues Paternal side of the family -cardiac issues Psychiatric Disorders: Yes (Maternal Cousin - Depression) Addiction: No Suicide Attemps/Completions: Yes Addiction History nicotine (history of smoking quit in 2013), alcohol (use to drink daily - hard liquor, states "30 bottles in a day" quit ETOH in 2016) Social History Childhood: Born in [facility]. Lived with her grandparents and then lived with her father for a short period time and then [facility] her teen years. Describes her childhood "hateful" Has 4 sisters and she is the oldest. 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 Had IEP Employment: Disabled Social Support: [facility] and boyfriend Legal: None Marital: Single, has one daughter 25 years old. Mental Status Examination General Appearance: well groomed, disheveled (Mildly), appears stated age, hospital scubs/clothing Build: overweight Demeanor: average Eye Contact: average Activity: average Behavior: cooperative Speech: clear Mood: depressed, anxious Affect: constricted, congruent Thought Process: logical/linear Thought Content (Delusions): none reported Thought Content (Aggressive): none reported Perception (Hallucinations): none reported Perception (Other): none reported Cognition (Impairment of): none reported Cognition(Intelligence Est.): average Oriented: Awake, Alert, Oriented times three Insight: fair Judgment: Fair Psychosis: Denies Diagnoses Major Depressive Disorder, Single Episode, Mild Unspecified Anxiety Disorder PTSD Intellectual Developmental Disability A-FIB/CHADSVASC A-FIB History Current/History of A-Fib/PAF?: No Current PO Anticoag Therapy: No Assessment Patient is a 45 -year-old , female, who reports having suicidal ideations after a breakup with her boyfriend. Reporting that she is having angry outbursts, feeling that members of her family are being extremely mean to her. She states that she had stopped taking her medications two weeks ago after her mother told her that she had wished she was . Patient reporting several situational stressors. And reports being noncompliant with her medications stating that not taking her medication is "kind of like being suicidal. "Patient to be afforded individual therapy, group therapy, milieu therapy, medication management and a safe environment. Patient to resume her home medications. Response to medication will be assessed ongoing assessment mental state will be done on the unit. Once patient is stable psychiatrically, discharge planning will be commenced including aftercare planning. Initial Treatment Plan 1. Patient was admitted on a [9.39] status. 2. Complete history was obtained. 3. With patients permission, family will be contacted and database will be expanded. 4. Patients medication regimen will be reviewed and changed accordingly. 5. Patient will be provided with protected environment. 6. Patient will be treated with individual, group, and milieu therapies. 7. Patient will receive supportive psych-education. 8. Discharge planning will commence immediately. 9. Outpatient follow-up treatment will be strongly recommended. 10. The initial treatment plan will focus initially on: * Depression. * Risk for suicide. ESTIMATED LENGTH OF STAY: 5 days days TIME SPENT COUNSELING AND COORDINATING INITIAL CARE: 60 minutes. Tobacco Cessation Screen If Patient is a Smoker Not a current smoker N/A-No Antipsychotics Vital Signs Vital Signs Date Time Temp Pulse Resp B/P (MAP) Pulse Ox O2 Delivery O2 Flow Rate FiO2 07/20/21 09:42 16 07/20/21 06:27 97.4 79 125/68 (87) 100 Room Air Laboratory Data 24H Labs Laboratory Tests 2 07/19/21 11:55: Coronavirus (COVID-19)(PCR) NEGATIVE, Influenza Type A (RT-PCR) NEGATIVE, Influenza Type B (RT-PCR) NEGATIVE, Respiratory Syncytial Virus (PCR) NEGATIVE Medications Scheduled Budesonide/Formoterol (Symbicort 80-4.5 Mcg Inhaler) 6.9 Gm Hfa.aer.ad, 2 PUFFS INH BID, (Reported) Cetirizine HCl (Cetirizine HCl) 10 Mg Tablet, 10 MG PO DAILY, (Reported) Duloxetine Hcl (Cymbalta) 60 Mg Capsule.dr, 60 MG PO DAILY, (Reported) Erenumab-Aooe (Aimovig Autoinjector) 70 Mg/1 Ml Auto.injct, 70 MG SC QMONTH, (Reported) Estradiol (Estradiol) 1 Mg Tablet, 1 MG PO DAILY, (Reported) Famotidine (Famotidine) 40 Mg Tablet, 40 MG PO QPM, (Reported) Folic Acid (Folic Acid) 1 Mg Tablet, 1 MG PO DAILY, (Reported) Gabapentin (Neurontin) 300 Mg Capsule, 600 MG PO QAM, (Reported) Gabapentin (Neurontin) 300 Mg Capsule, 600 MG PO QPM, (Reported) Levothyroxine Sodium (Levoxyl) 100 Mcg Tablet, 100 MCG PO QAM, (Reported) Pantoprazole Sodium (Pantoprazole Sodium) 40 Mg Tab, 40 MG PO DAILY, (Reported) Propranolol HCl (Propranolol HCl) 10 Mg Tablet, 10 MG PO QHS, (Reported) Ropinirole HCl (Ropinirole HCl) 1 Mg Tablet, 1 MG PO QHS, (Reported) Zonisamide (Zonisamide) 100 Mg Capsule, 100 MG PO BID, (Reported) Scheduled PRN Albuterol Sulfate (Proair Hfa) 8.5 Gm Hfa.aer.ad, 2 PUFFS INH Q4-6HP PRN for SOB/WHEEZING, (Reported) Temazepam (Restoril) 15 Mg Capsule, 15 MG PO QPM PRN for sleep, (Reported) Tizanidine HCl (Tizanidine HCl) 2 Mg Capsule, 2 MG PO Q6H PRN for SPASMS, (Reported) Miscellaneous Medications [Med List Comment ] , (Reported) GOT LIST FROM [facility] Allergies Coded Allergies: strawberry (Verified Allergy, Intermediate, HIVES, 10/26/19) Antifungal - Imidazole (Verified Adverse Reaction, Intermediate, SEIZURES, 10/26/19) aspirin (Verified Adverse Reaction, Intermediate, VOMIT BLOOD, 10/26/19) carbamazepine (Verified Adverse Reaction, Intermediate, seizures, 09/30/19) clonazepam (Verified Adverse Reaction, Intermediate, SEIZURES, 10/26/19) escitalopram (Verified Adverse Reaction, Intermediate, SEIZURES, 10/26/19) hydrocodone (Verified Adverse Reaction, Intermediate, SEIZURES, 10/26/19) nefazodone (Verified Adverse Reaction, Intermediate, SEIZURES, 10/26/19) paroxetine (Verified Adverse Reaction, Intermediate, SEIZURES, 10/26/19) quetiapine (Verified Adverse Reaction, Intermediate, SEIZURES, 10/26/19) sertraline (Verified Adverse Reaction, Intermediate, SEIZURES, 10/26/19) topiramate (Verified Adverse Reaction, Intermediate, SEIZURES, 10/26/19) venlafaxine (Verified Adverse Reaction, Intermediate, SEIZURES, 10/26/19) Condensed Milk (Verified Adverse Reaction, Mild, GI SYMPTOMS, 09/30/19) WEI SHELLEY NP Jul 20, 2021 10:25
[2021-07-20] MEDS ORDERED: TEMAZEPAM 15 MG CAP PO PRN (13:10)
--- NOTE | 2021-07-20 13:54 | HPE ---
HISTORY AND PHYSICAL DATE OF ADMISSION: 07/19/2021 CHIEF COMPLAINT: Depression. HISTORY OF PRESENT ILLNESS: A 45-year-old female admitted to the inpatient mental health unit due to severe depression. She also complains this morning of pain in her lower back which is chronic but improved with Tramadol as well as difficulty ambulating with pain in her left knee when she ambulates. Patient says that her left knee joint pops out of place and has been treated as an outpatient by Orthopedic Surgery. She has also [facility] by Dr. Golden for her low back pain and had received injections with steroids and epidural in the past. Patient says that she is sleeping a little bit better. Her asthma has been stable without any nocturnal symptoms. She is requesting some ice for her left knee, otherwise she denies any changes in weight, fever, chills, nausea, vomiting, diarrhea, abdominal pain, chest pain, pressure, tightness, shortness of breath, palpitations, lightheadedness, dysuria, urgency or frequency, hematemesis, bright-red blood per rectum, melena, black tarry stools or unusual masses or nodules, or rash. She denies any symptoms of anemia, or diabetes. She has hypothyroidism. The Hospitalist was asked to do a routine medical exam. PAST MEDICAL HISTORY: Seizure disorder, asthma, COPD, depression, anxiety, PTSD, hypothyroidism, obstructive sleep apnea on CPAP, seasonal allergies, bulging disc in the lower back, right foot tendinitis, back osteoarthritis, vitamin D deficiency, obesity, heart failure with , thyroid nodules followed by ENT, anemia of chronic disease, gastroesophageal reflux disease, abnormal Pap smear, learning disability, alcoholism, quit, onychomycosis, TMJ, headache with negative MRI in 2009, colonoscopy, Stage II chronic kidney disease, gastroparesis, ovarian cyst, recurrent pseudoseizures, left knee patella instability and chondromalacia, left knee Damon's cyst, endoscopy with nodule in the distal esophagus, normal lower extremity electromyelogram. PAST SURGICAL HISTORY: Cholecystectomy, tubal ligation, colonoscopy, EGD with biopsy, hysterectomy with bilateral salpingo-oophorectomy. FAMILY HISTORY: Mother and father are alive. Mother has diabetes. SOCIAL HISTORY: Former smoker, last smoked about five years ago. Denies any alcohol or recreational drug use, 11th grade education, currently disabled. ALLERGIES: Aspirin, Vicodin, Topamax, Lexapro, Seroquel, Paxil, Synthroid, milk and Zofran. HOSPITAL MEDICATIONS: Gabapentin, Tramadol, Protonix, folic acid, Estrace, Zyrtec, Gabapentin, Cymbalta, Synthroid, Zonisamide, Requip, Famotidine, Propanolol, Symbicort, Mylanta, Milk of Magnesia, Tylenol, Proventil. REVIEW OF SYSTEMS: Per HPI, 12 point system otherwise negative. PHYSICAL EXAMINATION: VITAL SIGNS: Temperature is 97.4, pulse is 79, respiratory rate 18, blood pressure is 125/68, 100% on room air. GENERAL: Patient is awake, alert and oriented to person, place and time answering questions appropriately. NECK: No JVD. No cervical lymphadenopathy. LUNGS: Clear to auscultation. No wheezing, rales or rhonchi. HEART: S1 and S2, sinus rhythm. ABDOMEN: Obese, soft, nontender and nondistended. EXTREMITIES: No cyanosis or clubbing. She has point tenderness in the left patella as well as the lower back around L2 to L4. LABORATORY DATA/IMAGING STUDIES/MICROBIOLOGY: Have been reviewed. ASSESSMENT AND PLAN: A 45-year-old admitted to the inpatient Mental Health Unit due to severe depression, complains of left knee pain, low back pain with chronic history of osteoarthritis and gait instability. IMPRESSION: 1. Left knee pain and back pain, p.r.n. tramadol for pain control. Physical Therapy will be consulted to assist the patient with her mobility. 2. History of asthma, continue on as needed bronchodilators. 3. Left knee pain due to popliteal instability and as needed, ice and elevate if needed. No signs of cellulitis or joint effusion. Outpatient follow-up with her orthopedic surgeon. 4. Depression, management per primary team. 5. Obstructive sleep apnea, may use her home CPAP with her home settings. Patient may resume on all other home medications. Hospitalist will sign off, please re-consult as needed for any new acute medical issues. UCHE
[2021-07-20] MEDS: ACETAMINOPHEN TAB 650MG DOSE (2X325MG) PO PRN (14:33)
[2021-07-20 16:15] VITALS: BP 140/90
[2021-07-20] MEDS: FAMOTIDINE 20 MG TAB PO SCH (20:16)
[2021-07-20] MEDS: PROPRANOLOL 10 MG TAB PO SCH (20:17)
[2021-07-20] MEDS: rOPINIRole 1MG TAB PO SCH (20:17)
[2021-07-20] MEDS: traMADol 50 MG TAB PO PRN (20:21)
[2021-07-21] MEDS: LEVOTHYROXINE 100MCG TABLET (0.1MG) PO SCH (05:48)
[2021-07-21 06:18] VITALS: BP 125/81
[2021-07-21] MEDS: DULoxetine 30MG CAPSULE (CYMBALTA) PO SCH (08:11)
[2021-07-21] MEDS: ZONISAMIDE 100 MG CAP (ZONEGRAN) PO SCH ×2 (08:11→20:19)
[2021-07-21] MEDS: SYMBICORT 80/4.5MCG INHALER 6GM INH SCH ×2 (08:11→20:18)
[2021-07-21] MEDS: estradioL 1 MG TAB PO SCH (08:11)
[2021-07-21] MEDS: PANTOPRAZOLE 40MG TAB (PROTONIX) PO SCH (08:11)
[2021-07-21] MEDS: CETIRIZINE (ZyrTEC) 10 MG TAB PO SCH (08:11)
[2021-07-21] MEDS: GABAPENTIN 300 MG CAP PO SCH ×2 (08:11→20:19)
[2021-07-21] MEDS: FOLIC ACID 1 MG TAB PO SCH (08:11)
[2021-07-21] MEDS: traMADol 50 MG TAB PO PRN ×2 (08:12→20:21)
[2021-07-21] MEDS: ACETAMINOPHEN TAB 650MG DOSE (2X325MG) PO PRN (11:28)
[2021-07-21] MEDS: tiZANidine 4 MG TAB PO PRN (11:28)
[2021-07-21] MEDS ORDERED: PILL CUTTER 1 EACH XX PRN (11:35)
--- NOTE | 2021-07-21 15:22 | MHIPNPDOC ---
[facility] Progress Note Progress Note DATE OF SERVICE: 07/21/21 HISTORY: 45-year-old woman with a history of depression, anxiety, and borderline tendencies was admitted after an argument with her mother which resulted in d ecompensation and thoughts of wanting to commit suicide. Additionally this decompensation was precipitated by Joyce's decision to stop medication approximately 2 weeks ago. She was restarted on her home medications yesterday after admission, she denies having any side effects from the medications at this point in time and feels that she is little bit more stable now that she is away from her mother and has confirmed with her boyfriend that he is willing to continue dating her and they will move back in together. She does note that she is sometimes feeling little bit anxious during the middle of the day and request an additional dose of gabapentin 300 mg at noon. VITAL SIGNS: See below. NEW TEST RESULTS: None. CURRENT MEDICATIONS: See below. MENTAL STATUS EXAMINATION: Patient is a 45-year old female, who is dressed in hospital scrubs, appears slightly older than her stated age, dentition is poor appears that upper teeth are missing although close inspection of mouth was not performed. Speech: Is clear, spontaneous, with regular rate, rhythm, and volume. Language skills are intact. Thought processes including: Linear, and coherent. Thought content: Focused on her mood improving, is hopeful for the future, advocating for additional support for medications for herself. Abstract reasonin g, and computation: Intact. Description of associations: Linear. Description of abnormal or psychotic thoughts: Denies hallucinations or paranoia today; denies suicidal ideation today. Judgment: Fair. Insight: Poor. Orientation: X3. Recent and remote memory: Intact. Attention span and concentration: Intact. Mood: "A little better I think". Affect: Euthymic, full range, congruent to stated mood. DIAGNOSES: Major Depressive Disorder, Single Episode, Mild Unspecified Anxiety Disorder PTSD Intellectual Developmental Disability ASSESSMENT: If benign side effects from restarting her medications at this time, she appears to be in good spirits today as of before the future. At present she feels able to advocate for herself and believes that she might need a higher dose of Cymbalta as well, but would prefer to wait an additional day before making further adjustments. She discussed plans to engage in couples counseling with [facility]. Overall seems to be improving, will continue to monitor response to medications and maintain hospitalization for stabilization and safety at this time. MANAGEMENT PLAN: Add additional 300 mg dose of gabapentin noon starting tomorrow. Otherwise continue current medications. TIME SPENT: 20 minutes. Vital Signs Vital Signs Date Time Temp Pulse Resp B/P (MAP) Pulse Ox O2 Delivery O2 Flow Rate FiO2 07/21/21 09:05 16 07/21/21 06:18 96.6 79 125/81 (96) 97 Room Air Current Medications Current Medications Medications (Trade) Dose Ordered Sig/Estrella Route PRN Reason Start Time Stop Time Status Last Admin Dose Admin Acetaminophen (Tylenol Tab) 650 mg Q6HP PRN PO HEADACHE or MILD DISCOMFORT 07/19/21 16:10 07/21/21 11:28 Al Hydrox/Mg Hydrox/Simethicone (Mylanta) 30 ml Q4HP PRN PO HEARTBURN/INDIGESTION 07/19/21 16:10 Albuterol Sulfate (Proventil, Ventolin Hfa) 2 puff Q4HP PRN INH SOB/WHEEZING 07/19/21 15:55 Budesonide/ Formoterol Fumarate (Symbicort 80/ 4.5mcg) 2 puff RBID INH 07/19/21 20:00 07/21/21 08:11 Cetirizine HCl (ZyrTEC) 10 mg DAILY PO 07/20/21 09:00 07/21/21 08:11 Duloxetine HCl (Cymbalta) 60 mg DAILY PO 07/20/21 09:00 07/21/21 08:11 Estradiol (Estrace) 1 mg DAILY PO 07/20/21 09:00 07/21/21 08:11 Famotidine (Pepcid) 40 mg QPM PO 07/19/21 21:00 07/20/21 20:16 Folic Acid (Folic Acid) 1 mg DAILY PO 07/20/21 09:00 07/21/21 08:11 Gabapentin (Neurontin) 300 mg QAM PO 07/20/21 09:00 07/21/21 08:11 Gabapentin (Neurontin) 300 mg QPM PO 07/19/21 21:00 07/20/21 11:32 DC 07/19/21 21:20 Gabapentin (Neurontin) 600 mg QHS PO 07/20/21 21:00 07/20/21 20:17 Home Med (Home Med List Complete!) ASDIRECTED XX 07/19/21 12:45 07/19/21 15:42 DC Levothyroxine Sodium (Synthroid) 100 mcg QAM@0600 PO 07/20/21 06:00 07/21/21 05:48 Magnesium Hydroxide (Milk Of Magnesia) 30 ml DAILYPRN PRN PO CONSTIPATION 07/19/21 16:10 Pantoprazole Sodium (Protonix) 40 mg DAILY PO 07/20/21 09:00 07/21/21 08:11 Propranolol HCl (Inderal) 10 mg QHS PO 07/19/21 21:00 07/20/21 20:17 Ropinirole HCl (Requip) 1 mg QHS PO 07/19/21 21:00 07/20/21 20:17 Temazepam (Restoril) 15 mg QHSP PRN PO SLEEP 07/20/21 13:10 Tizanidine HCl (Zanaflex) 2 mg TID PRN PO SPASMS 07/20/21 16:00 07/21/21 11:28 Tramadol HCl (Ultram) 50 mg Q6HP PRN PO MODERATE PAIN (PS 5-7) 07/20/21 09:15 07/21/21 08:12 Zonisamide (Zonegran) 100 mg BID PO 07/19/21 21:00 07/21/21 08:11 Allergies Coded Allergies: strawberry (Verified Allergy, Intermediate, HIVES, 10/26/19) Antifungal - Imidazole (Verified Adverse Reaction, Intermediate, SEIZURES, 10/26/19) aspirin (Verified Adverse Reaction, Intermediate, VOMIT BLOOD, 10/26/19) carbamazepine (Verified Adverse Reaction, Intermediate, seizures, 09/30/19) clonazepam (Verified Adverse Reaction, Intermediate, SEIZURES, 10/26/19) escitalopram (Verified Adverse Reaction, Intermediate, SEIZURES, 10/26/19) hydrocodone (Verified Adverse Reaction, Intermediate, SEIZURES, 10/26/19) nefazodone (Verified Adverse Reaction, Intermediate, SEIZURES, 10/26/19) paroxetine (Verified Adverse Reaction, Intermediate, SEIZURES, 10/26/19) quetiapine (Verified Adverse Reaction, Intermediate, SEIZURES, 10/26/19) sertraline (Verified Adverse Reaction, Intermediate, SEIZURES, 10/26/19) topiramate (Verified Adverse Reaction, Intermediate, SEIZURES, 10/26/19) venlafaxine (Verified Adverse Reaction, Intermediate, SEIZURES, 10/26/19) Condensed Milk (Verified Adverse Reaction, Mild, GI SYMPTOMS, 09/30/19) CLARE GOMEZ MD Jul 21, 2021 15:22
[2021-07-21 16:31] VITALS: BP 107/57
[2021-07-21] MEDS: rOPINIRole 1MG TAB PO SCH (20:18)
[2021-07-21] MEDS: PROPRANOLOL 10 MG TAB PO SCH (20:19)
[2021-07-21] MEDS: FAMOTIDINE 20 MG TAB PO SCH (20:19)
[2021-07-22] MEDS: LEVOTHYROXINE 100MCG TABLET (0.1MG) PO SCH (05:54)
[2021-07-22 06:00] VITALS: BP 110/59
[2021-07-22] MEDS: SYMBICORT 80/4.5MCG INHALER 6GM INH SCH ×2 (08:14→21:25)
[2021-07-22] MEDS: GABAPENTIN 300 MG CAP PO SCH ×3 (08:15→21:16)
[2021-07-22] MEDS: CETIRIZINE (ZyrTEC) 10 MG TAB PO SCH (08:15)
[2021-07-22] MEDS: PANTOPRAZOLE 40MG TAB (PROTONIX) PO SCH (08:15)
[2021-07-22] MEDS: DULoxetine 30MG CAPSULE (CYMBALTA) PO SCH (08:15)
[2021-07-22] MEDS: estradioL 1 MG TAB PO SCH (08:15)
[2021-07-22] MEDS: FOLIC ACID 1 MG TAB PO SCH (08:15)
[2021-07-22] MEDS: ZONISAMIDE 100 MG CAP (ZONEGRAN) PO SCH ×2 (08:17→21:16)
[2021-07-22] MEDS: traMADol 50 MG TAB PO PRN (11:59)
--- NOTE | 2021-07-22 14:04 | MHIPNPDOC ---
[facility] Progress Note Progress Note DATE OF SERVICE: 07/22/21 HISTORY: 45-year-old woman with a history of depression, anxiety, and borderline tendencies was admitted after an argument with her mother which resulted in d ecompensation and thoughts of wanting to commit suicide. Additionally this decompensation was precipitated by Joyce's decision to stop medication approximately 2 weeks ago. She was restarted on her home medications yesterday after admission, she denies having any side effects from the medications at this point in time and feels that she is little bit more stable now that she is away from her mother and has confirmed with her boyfriend that he is willing to continue dating her and they will move back in together. She does note that she is sometimes feeling little bit anxious during the middle of the day and request an additional dose of gabapentin 300 mg at noon. Interval: Joyce was asleep today when I attempted to interview her. She was quite somnolent and did not want to wake up. Per medication ministration records that she received both tizanidine and tramadol today around noon, this would likely explain her increased somnolence. Additionally we added gabapentin to her medication regimen in the afternoon which may be increasing somnolence as well. VITAL SIGNS: See below. NEW TEST RESULTS: None. CURRENT MEDICATIONS: See below. MENTAL STATUS EXAMINATION: Patient is a 45-year old female, who is dressed in hospital scrubs, asleep Unable to conduct restlessness status examination as patient was asleep and had difficult time waking up DIAGNOSES: Major Depressive Disorder, Single Episode, Mild Unspecified Anxiety Disorder PTSD Intellectual Developmental Disability ASSESSMENT: Today he was quite somnolent and had difficulty engaging in the interview. She was allowed to sleep as she had received new dose of 300 mg gabapentin at noon along with her regular tizanidine and tramadol around noon as well. The combination of multiple medications which which may cause sedation is likely contributing to her current presentation. We will need to continue to monitor for oversedation to help prevent her from sleeping throughout the day, should likely consider reducing morning dose of gabapentin if sedation continues. MANAGEMENT PLAN: Continue current medications, if oversedation continues may consider reducing dose of new gabapentin or morning gabapentin to provide more even coverage throughout the day. TIME SPENT: 10 minutes. Vital Signs Vital Signs Date Time Temp Pulse Resp B/P (MAP) Pulse Ox O2 Delivery O2 Flow Rate FiO2 07/22/21 12:53 16 07/22/21 06:00 98.0 80 110/59 (76) 97 Room Air Current Medications Current Medications Medications (Trade) Dose Ordered Sig/Estrella Route PRN Reason Start Time Stop Time Status Last Admin Dose Admin Acetaminophen (Tylenol Tab) 650 mg Q6HP PRN PO HEADACHE or MILD DISCOMFORT 07/19/21 16:10 07/21/21 11:28 Al Hydrox/Mg Hydrox/Simethicone (Mylanta) 30 ml Q4HP PRN PO HEARTBURN/INDIGESTION 07/19/21 16:10 Albuterol Sulfate (Proventil, Ventolin Hfa) 2 puff Q4HP PRN INH SOB/WHEEZING 07/19/21 15:55 Budesonide/ Formoterol Fumarate (Symbicort 80/ 4.5mcg) 2 puff RBID INH 07/19/21 20:00 07/22/21 08:14 Cetirizine HCl (ZyrTEC) 10 mg DAILY PO 07/20/21 09:00 07/22/21 08:15 Duloxetine HCl (Cymbalta) 60 mg DAILY PO 07/20/21 09:00 07/22/21 08:15 Estradiol (Estrace) 1 mg DAILY PO 07/20/21 09:00 07/22/21 08:15 Famotidine (Pepcid) 40 mg QPM PO 07/19/21 21:00 07/21/21 20:19 Folic Acid (Folic Acid) 1 mg DAILY PO 07/20/21 09:00 07/22/21 08:15 Gabapentin (Neurontin) 300 mg DAILY@1200 PO 07/22/21 12:00 07/22/21 11:59 Gabapentin (Neurontin) 300 mg QAM PO 07/20/21 09:00 07/22/21 08:15 Gabapentin (Neurontin) 300 mg QPM PO 07/19/21 21:00 07/20/21 11:32 DC 07/19/21 21:20 Gabapentin (Neurontin) 600 mg QHS PO 07/20/21 21:00 07/21/21 20:19 Home Med (Home Med List Complete!) ASDIRECTED XX 07/19/21 12:45 07/19/21 15:42 DC Levothyroxine Sodium (Synthroid) 100 mcg QAM@0600 PO 07/20/21 06:00 07/22/21 05:54 Magnesium Hydroxide (Milk Of Magnesia) 30 ml DAILYPRN PRN PO CONSTIPATION 07/19/21 16:10 Pantoprazole Sodium (Protonix) 40 mg DAILY PO 07/20/21 09:00 07/22/21 08:15 Propranolol HCl (Inderal) 10 mg QHS PO 07/19/21 21:00 07/21/21 20:19 Ropinirole HCl (Requip) 1 mg QHS PO 07/19/21 21:00 07/21/21 20:18 Temazepam (Restoril) 15 mg QHSP PRN PO SLEEP 07/20/21 13:10 Tizanidine HCl (Zanaflex) 2 mg TID PRN PO SPASMS 07/20/21 16:00 07/21/21 11:28 Tramadol HCl (Ultram) 50 mg Q6HP PRN PO MODERATE PAIN (PS 5-7) 07/20/21 09:15 07/22/21 11:59 Zonisamide (Zonegran) 100 mg BID PO 07/19/21 21:00 07/22/21 08:17 Allergies Coded Allergies: strawberry (Verified Allergy, Intermediate, HIVES, 10/26/19) Antifungal - Imidazole (Verified Adverse Reaction, Intermediate, SEIZURES, 10/26/19) aspirin (Verified Adverse Reaction, Intermediate, VOMIT BLOOD, 10/26/19) carbamazepine (Verified Adverse Reaction, Intermediate, seizures, 09/30/19) clonazepam (Verified Adverse Reaction, Intermediate, SEIZURES, 10/26/19) escitalopram (Verified Adverse Reaction, Intermediate, SEIZURES, 10/26/19) hydrocodone (Verified Adverse Reaction, Intermediate, SEIZURES, 10/26/19) nefazodone (Verified Adverse Reaction, Intermediate, SEIZURES, 10/26/19) paroxetine (Verified Adverse Reaction, Intermediate, SEIZURES, 10/26/19) quetiapine (Verified Adverse Reaction, Intermediate, SEIZURES, 10/26/19) sertraline (Verified Adverse Reaction, Intermediate, SEIZURES, 10/26/19) topiramate (Verified Adverse Reaction, Intermediate, SEIZURES, 10/26/19) venlafaxine (Verified Adverse Reaction, Intermediate, SEIZURES, 10/26/19) Condensed Milk (Verified Adverse Reaction, Mild, GI SYMPTOMS, 09/30/19) CLARE GOMEZ MD Jul 22, 2021 14:04
[2021-07-22 16:40] VITALS: BP 139/88
[2021-07-22] MEDS: rOPINIRole 1MG TAB PO SCH (21:16)
[2021-07-22] MEDS: FAMOTIDINE 20 MG TAB PO SCH (21:20)
[2021-07-22] MEDS: PROPRANOLOL 10 MG TAB PO SCH (21:20)
[2021-07-22] MEDS: ACETAMINOPHEN TAB 650MG DOSE (2X325MG) PO PRN (21:25)
[2021-07-23] MEDS: LEVOTHYROXINE 100MCG TABLET (0.1MG) PO SCH (05:55)
[2021-07-23 07:13] VITALS: BP 137/74
[2021-07-23] MEDS: SYMBICORT 80/4.5MCG INHALER 6GM INH SCH ×2 (08:59→20:35)
[2021-07-23] MEDS: PANTOPRAZOLE 40MG TAB (PROTONIX) PO SCH (09:03)
[2021-07-23] MEDS: estradioL 1 MG TAB PO SCH (09:03)
[2021-07-23] MEDS: CETIRIZINE (ZyrTEC) 10 MG TAB PO SCH (09:03)
[2021-07-23] MEDS: DULoxetine 30MG CAPSULE (CYMBALTA) PO SCH (09:03)
[2021-07-23] MEDS: GABAPENTIN 300 MG CAP PO SCH ×3 (09:04→20:32)
[2021-07-23] MEDS: FOLIC ACID 1 MG TAB PO SCH (09:04)
[2021-07-23] MEDS: ZONISAMIDE 100 MG CAP (ZONEGRAN) PO SCH ×2 (09:05→20:32)
[2021-07-23] MEDS: ACETAMINOPHEN TAB 650MG DOSE (2X325MG) PO PRN (09:06)
[2021-07-23] MEDS: traMADol 50 MG TAB PO PRN (11:53)
--- NOTE | 2021-07-23 12:30 | MHIPNPDOC ---
[facility] Progress Note Progress Note DATE OF SERVICE: 07/23/21 HISTORY: 45-year-old woman with a history of depression, anxiety, and borderline tendencies was admitted after an argument with her mother which resulted in d ecompensation and thoughts of wanting to commit suicide. Additionally this decompensation was precipitated by Joyce's decision to stop medication approximately 2 weeks ago. She was restarted on her home medications yesterday after admission, she denies having any side effects from the medications at this point in time and feels that she is little bit more stable now that she is away from her mother and has confirmed with her boyfriend that he is willing to continue dating her and they will move back in together. She does note that she is sometimes feeling little bit anxious during the middle of the day and request an additional dose of gabapentin 300 mg at noon. VITAL SIGNS: See below. NEW TEST RESULTS: None. CURRENT MEDICATIONS: See below. MENTAL STATUS EXAMINATION: Patient is a 45-year old female, who is dressed in hospital scrubs, appears slightly older than her stated age, dentition is poor appears that upper teeth are missing although close inspection of mouth was not performed. Speech: Is clear, spontaneous, with regular rate, rhythm, and volume. Language skills are intact. Thought processes including: Linear, and coherent. Thought content: Focused on her mood improving, is hopeful for the future Abstract reasoning, and computation: Intact. Description of associations: Linear. Description of abnormal or psychotic thoughts: Denies hallucinations or paranoia today; denies suicidal ideation today. Judgment: Fair. Insight: Poor to fair at times Orientation: X3. Recent and remote memory: Intact. Attention span and concentration: Intact. Mood: "ok" Affect: Euthymic, full range, congruent to stated mood. DIAGNOSES: Major Depressive Disorder, Single Episode, Mild Unspecified Anxiety Disorder PTSD Intellectual Developmental Disability ASSESSMENT: Reports improvement in sleep and apatite. States that she continues to feel depressed and anxious. Bur reports that she is communicating with her boyfriend who is expressing remorse as he is not in another relationship and is apologizing to the patient. She reports continued depression and anxiety, this appears to be congruent. Reports much of her history of trauma is reoccurring for her. States that communicating with her mother is s trigger at times and increasing her pseudoseizures. MANAGEMENT PLAN: Continues mediations and supportive therapies. Otherwise continue current medications. TIME SPENT: 20 minutes. Vital Signs Vital Signs Date Time Temp Pulse Resp B/P (MAP) Pulse Ox O2 Delivery O2 Flow Rate FiO2 07/23/21 11:53 84 16 07/23/21 07:13 97.8 137/74 (95) 94 Room Air Current Medications Current Medications Medications (Trade) Dose Ordered Sig/Estrella Route PRN Reason Start Time Stop Time Status Last Admin Dose Admin Acetaminophen (Tylenol Tab) 650 mg Q6HP PRN PO HEADACHE or MILD DISCOMFORT 07/19/21 16:10 07/23/21 09:06 Al Hydrox/Mg Hydrox/Simethicone (Mylanta) 30 ml Q4HP PRN PO HEARTBURN/INDIGESTION 07/19/21 16:10 Albuterol Sulfate (Proventil, Ventolin Hfa) 2 puff Q4HP PRN INH SOB/WHEEZING 07/19/21 15:55 Budesonide/ Formoterol Fumarate (Symbicort 80/ 4.5mcg) 2 puff RBID INH 07/19/21 20:00 07/23/21 08:59 Cetirizine HCl (ZyrTEC) 10 mg DAILY PO 07/20/21 09:00 07/23/21 09:03 Duloxetine HCl (Cymbalta) 60 mg DAILY PO 07/20/21 09:00 07/23/21 09:03 Estradiol (Estrace) 1 mg DAILY PO 07/20/21 09:00 07/23/21 09:03 Famotidine (Pepcid) 40 mg QPM PO 07/19/21 21:00 07/22/21 21:20 Folic Acid (Folic Acid) 1 mg DAILY PO 07/20/21 09:00 07/23/21 09:04 Gabapentin (Neurontin) 300 mg DAILY@1200 PO 07/22/21 12:00 07/23/21 11:48 Gabapentin (Neurontin) 300 mg QAM PO 07/20/21 09:00 07/23/21 09:04 Gabapentin (Neurontin) 300 mg QPM PO 07/19/21 21:00 07/20/21 11:32 DC 07/19/21 21:20 Gabapentin (Neurontin) 600 mg QHS PO 07/20/21 21:00 07/22/21 21:16 Home Med (Home Med List Complete!) ASDIRECTED XX 07/19/21 12:45 07/19/21 15:42 DC Levothyroxine Sodium (Synthroid) 100 mcg QAM@0600 PO 07/20/21 06:00 07/23/21 05:55 Magnesium Hydroxide (Milk Of Magnesia) 30 ml DAILYPRN PRN PO CONSTIPATION 07/19/21 16:10 Pantoprazole Sodium (Protonix) 40 mg DAILY PO 07/20/21 09:00 07/23/21 09:03 Propranolol HCl (Inderal) 10 mg QHS PO 07/19/21 21:00 07/22/21 21:20 Ropinirole HCl (Requip) 1 mg QHS PO 07/19/21 21:00 07/22/21 21:16 Temazepam (Restoril) 15 mg QHSP PRN PO SLEEP 07/20/21 13:10 07/22/21 21:20 Tizanidine HCl (Zanaflex) 2 mg TID PRN PO SPASMS 07/20/21 16:00 07/21/21 11:28 Tramadol HCl (Ultram) 50 mg Q6HP PRN PO MODERATE PAIN (PS 5-7) 07/20/21 09:15 07/23/21 11:53 Zonisamide (Zonegran) 100 mg BID PO 07/19/21 21:00 07/23/21 09:05 Allergies Coded Allergies: strawberry (Verified Allergy, Intermediate, HIVES, 10/26/19) Antifungal - Imidazole (Verified Adverse Reaction, Intermediate, SEIZURES, 10/26/19) aspirin (Verified Adverse Reaction, Intermediate, VOMIT BLOOD, 10/26/19) carbamazepine (Verified Adverse Reaction, Intermediate, seizures, 09/30/19) clonazepam (Verified Adverse Reaction, Intermediate, SEIZURES, 10/26/19) escitalopram (Verified Adverse Reaction, Intermediate, SEIZURES, 10/26/19) hydrocodone (Verified Adverse Reaction, Intermediate, SEIZURES, 10/26/19) nefazodone (Verified Adverse Reaction, Intermediate, SEIZURES, 10/26/19) paroxetine (Verified Adverse Reaction, Intermediate, SEIZURES, 10/26/19) quetiapine (Verified Adverse Reaction, Intermediate, SEIZURES, 10/26/19) sertraline (Verified Adverse Reaction, Intermediate, SEIZURES, 10/26/19) topiramate (Verified Adverse Reaction, Intermediate, SEIZURES, 10/26/19) venlafaxine (Verified Adverse Reaction, Intermediate, SEIZURES, 10/26/19) Condensed Milk (Verified Adverse Reaction, Mild, GI SYMPTOMS, 09/30/19) WEI SHELLEY NP Jul 23, 2021 12:30
[2021-07-23 17:47] VITALS: BP 122/67
[2021-07-23] MEDS: FAMOTIDINE 20 MG TAB PO SCH (20:31)
[2021-07-23] MEDS: PROPRANOLOL 10 MG TAB PO SCH (20:34)
[2021-07-23] MEDS: rOPINIRole 1MG TAB PO SCH (20:36)
[2021-07-24 06:00] VITALS: BP 114/64
[2021-07-24] MEDS: LEVOTHYROXINE 100MCG TABLET (0.1MG) PO SCH (06:09)
[2021-07-24] MEDS: DULoxetine 30MG CAPSULE (CYMBALTA) PO SCH (08:25)
[2021-07-24] MEDS: ZONISAMIDE 100 MG CAP (ZONEGRAN) PO SCH ×2 (08:25→20:23)
[2021-07-24] MEDS: FOLIC ACID 1 MG TAB PO SCH (08:25)
[2021-07-24] MEDS: estradioL 1 MG TAB PO SCH (08:25)
[2021-07-24] MEDS: ACETAMINOPHEN TAB 650MG DOSE (2X325MG) PO PRN (08:25)
[2021-07-24] MEDS: PANTOPRAZOLE 40MG TAB (PROTONIX) PO SCH (08:25)
[2021-07-24] MEDS: CETIRIZINE (ZyrTEC) 10 MG TAB PO SCH (08:26)
[2021-07-24] MEDS: SYMBICORT 80/4.5MCG INHALER 6GM INH SCH ×2 (08:26→20:22)
[2021-07-24] MEDS: GABAPENTIN 300 MG CAP PO SCH ×3 (08:28→20:23)
[2021-07-24] MEDS: tiZANidine 4 MG TAB PO PRN (12:05)
--- NOTE | 2021-07-24 15:15 | MHIPNPDOC ---
[facility] Progress Note Progress Note DATE OF SERVICE: 07/24/21 HISTORY: 45-year-old woman with a history of depression, anxiety, and borderline tendencies was admitted after an argument with her mother which resulted in d ecompensation and thoughts of wanting to commit suicide. Additionally this decompensation was precipitated by Joyce's decision to stop medication approximately 2 weeks ago. She was restarted on her home medications yesterday after admission, she denies having any side effects from the medications at this point in time and feels that she is little bit more stable now that she is away from her mother and has confirmed with her boyfriend that he is willing to continue dating her and they will move back in together. She does note that she is sometimes feeling little bit anxious during the middle of the day and request an additional dose of gabapentin 300 mg at noon. VITAL SIGNS: See below. NEW TEST RESULTS: None. CURRENT MEDICATIONS: See below. MENTAL STATUS EXAMINATION: Patient is a 45-year old female, who is dressed in hospital scrubs, appears slightly older than her stated age, dentition is poor appears that upper teeth are missing although close inspection of mouth was not performed. Fair hygiene and grooming, maintains good eye contact Speech: Is clear, spontaneous, with regular rate, rhythm, and volume. Language skills are intact. Thought processes including: Linear, and coherent. Thought content: Reporting decreasing depression and anxiety, no suicidal or homicidal ideations today abstract reasoning, and computation: Intact. Description of associations: Linear. Description of abnormal or psychotic thoughts: None Judgment: Fair. Insight: Fair Orientation: X3. Recent and remote memory: Intact. Attention span and concentration: Intact. Mood: "ok" Affect: Flat. congruent to stated mood. DIAGNOSES: Major Depressive Disorder, Single Episode, Mild Unspecified Anxiety Disorder PTSD Intellectual Developmental Disability ASSESSMENT: Patient reports that she is mildly social with her peers. Reports that her sleep was interrupted numerous times last night and that she was incontinent. States that she is having any suicidal ideations today. Reports decreasing depression and anxiety, having supportive communication with her boyfriend. States that she is returning to her boyfriend upon discharge. And feels that she can be ready for discharge on Friday states that she is going to have supportive services in her home -by home health aide agency. She is seen by Dr. Paniagua at [facility] via telemetry psychiatry MANAGEMENT PLAN: Continues mediations and supportive therapies. Discharge on Friday TIME SPENT: 20 minutes. Vital Signs Vital Signs Date Time Temp Pulse Resp B/P (MAP) Pulse Ox O2 Delivery O2 Flow Rate FiO2 07/24/21 06:00 98.1 72 16 114/64 (81) 99 07/23/21 07:13 Room Air Current Medications Current Medications Medications (Trade) Dose Ordered Sig/Estrella Route PRN Reason Start Time Stop Time Status Last Admin Dose Admin Acetaminophen (Tylenol Tab) 650 mg Q6HP PRN PO HEADACHE or MILD DISCOMFORT 07/19/21 16:10 07/24/21 08:25 Al Hydrox/Mg Hydrox/Simethicone (Mylanta) 30 ml Q4HP PRN PO HEARTBURN/INDIGESTION 07/19/21 16:10 Albuterol Sulfate (Proventil, Ventolin Hfa) 2 puff Q4HP PRN INH SOB/WHEEZING 07/19/21 15:55 Budesonide/ Formoterol Fumarate (Symbicort 80/ 4.5mcg) 2 puff RBID INH 07/19/21 20:00 07/24/21 08:26 Cetirizine HCl (ZyrTEC) 10 mg DAILY PO 07/20/21 09:00 07/24/21 08:26 Duloxetine HCl (Cymbalta) 60 mg DAILY PO 07/20/21 09:00 07/24/21 08:25 Estradiol (Estrace) 1 mg DAILY PO 07/20/21 09:00 07/24/21 08:25 Famotidine (Pepcid) 40 mg QPM PO 07/19/21 21:00 07/23/21 20:31 Folic Acid (Folic Acid) 1 mg DAILY PO 07/20/21 09:00 07/24/21 08:25 Gabapentin (Neurontin) 300 mg DAILY@1200 PO 07/22/21 12:00 07/24/21 12:02 Gabapentin (Neurontin) 300 mg QAM PO 07/20/21 09:00 07/24/21 08:28 Gabapentin (Neurontin) 300 mg QPM PO 07/19/21 21:00 07/20/21 11:32 DC 07/19/21 21:20 Gabapentin (Neurontin) 600 mg QHS PO 07/20/21 21:00 07/23/21 20:32 Home Med (Home Med List Complete!) ASDIRECTED XX 07/19/21 12:45 07/19/21 15:42 DC Levothyroxine Sodium (Synthroid) 100 mcg QAM@0600 PO 07/20/21 06:00 07/24/21 06:09 Magnesium Hydroxide (Milk Of Magnesia) 30 ml DAILYPRN PRN PO CONSTIPATION 07/19/21 16:10 Pantoprazole Sodium (Protonix) 40 mg DAILY PO 07/20/21 09:00 07/24/21 08:25 Propranolol HCl (Inderal) 10 mg QHS PO 07/19/21 21:00 07/23/21 20:34 Ropinirole HCl (Requip) 1 mg QHS PO 07/19/21 21:00 07/23/21 20:36 Temazepam (Restoril) 15 mg QHSP PRN PO SLEEP 07/20/21 13:10 07/22/21 21:20 Tizanidine HCl (Zanaflex) 2 mg TID PRN PO SPASMS 07/20/21 16:00 07/24/21 12:05 Tramadol HCl (Ultram) 50 mg Q6HP PRN PO MODERATE PAIN (PS 5-7) 07/20/21 09:15 07/23/21 11:53 Zonisamide (Zonegran) 100 mg BID PO 07/19/21 21:00 07/24/21 08:25 Allergies Coded Allergies: strawberry (Verified Allergy, Intermediate, HIVES, 10/26/19) Antifungal - Imidazole (Verified Adverse Reaction, Intermediate, SEIZURES, 10/26/19) aspirin (Verified Adverse Reaction, Intermediate, VOMIT BLOOD, 10/26/19) carbamazepine (Verified Adverse Reaction, Intermediate, seizures, 09/30/19) clonazepam (Verified Adverse Reaction, Intermediate, SEIZURES, 10/26/19) escitalopram (Verified Adverse Reaction, Intermediate, SEIZURES, 10/26/19) hydrocodone (Verified Adverse Reaction, Intermediate, SEIZURES, 10/26/19) nefazodone (Verified Adverse Reaction, Intermediate, SEIZURES, 10/26/19) paroxetine (Verified Adverse Reaction, Intermediate, SEIZURES, 10/26/19) quetiapine (Verified Adverse Reaction, Intermediate, SEIZURES, 10/26/19) sertraline (Verified Adverse Reaction, Intermediate, SEIZURES, 10/26/19) topiramate (Verified Adverse Reaction, Intermediate, SEIZURES, 10/26/19) venlafaxine (Verified Adverse Reaction, Intermediate, SEIZURES, 10/26/19) Condensed Milk (Verified Adverse Reaction, Mild, GI SYMPTOMS, 09/30/19) WEI SHELLEY NP Jul 24, 2021 15:15
[2021-07-24 19:24] VITALS: BP 127/69
[2021-07-24] MEDS: FAMOTIDINE 20 MG TAB PO SCH (20:22)
[2021-07-24] MEDS: rOPINIRole 1MG TAB PO SCH (20:22)
[2021-07-24] MEDS: PROPRANOLOL 10 MG TAB PO SCH (20:25)
[2021-07-25] MEDS: LEVOTHYROXINE 100MCG TABLET (0.1MG) PO SCH (05:57)
[2021-07-25 06:00] VITALS: BP 123/61
[2021-07-25] MEDS: SYMBICORT 80/4.5MCG INHALER 6GM INH SCH ×2 (08:05→20:34)
[2021-07-25] MEDS: estradioL 1 MG TAB PO SCH (08:07)
[2021-07-25] MEDS: ZONISAMIDE 100 MG CAP (ZONEGRAN) PO SCH ×2 (08:07→20:35)
[2021-07-25] MEDS: CETIRIZINE (ZyrTEC) 10 MG TAB PO SCH (08:08)
[2021-07-25] MEDS: GABAPENTIN 300 MG CAP PO SCH ×3 (08:08→20:35)
[2021-07-25] MEDS: PANTOPRAZOLE 40MG TAB (PROTONIX) PO SCH (08:08)
[2021-07-25] MEDS: DULoxetine 30MG CAPSULE (CYMBALTA) PO SCH (08:08)
[2021-07-25] MEDS: FOLIC ACID 1 MG TAB PO SCH (08:08)
[2021-07-25] MEDS ORDERED: TRAM50TA2 PO (09:29)
[2021-07-25] MEDS ORDERED: GABA-282 PO (09:29)
[2021-07-25] MEDS: traMADol 50 MG TAB PO PRN (12:01)
--- NOTE | 2021-07-25 17:34 | MHIPNPDOC ---
[facility] Progress Note Progress Note DATE OF SERVICE: 07/25/21 HISTORY: 45-year-old woman with a history of depression, anxiety, and borderline tendencies was admitted after an argument with her mother which resulted in decompensation and thoughts of wanting to commit suicide. Additionally this decompensation was precipitated by Joyce's decision to stop medication approximately 2 weeks ago. She was restarted on her home medications yesterday after admission, she denies having any side effects from the medications at this point in time and feels that she is little bit more stable now that she is away from her mother and has confirmed with her boyfriend that he is willing to continue dating her and they will move back in together. She does note that she is sometimes feeling little bit anxious during the middle of the day and request an additional dose of gabapentin 300 mg at noon. VITAL SIGNS: See below. NEW TEST RESULTS: None. CURRENT MEDICATIONS: See below. MENTAL STATUS EXAMINATION: Patient is a 45-year old female, who is dressed in hospital scrubs, appears slightly older than her stated age, dentition is poor appears that upper teeth are missing although close inspection of mouth was not performed. Fair hygiene and grooming, maintains good eye contact Speech: Is clear, spontaneous, with regular rate, rhythm, and volume. Language skills are intact. Thought processes including: Linear, and coherent. Thought content: Reporting decreasing depression and anxiety, no suicidal or homicidal ideations today abstract reasoning, and computation: Intact. Description of associations: Linear. Description of abnormal or psychotic thoughts: None Judgment: Fair. Insight: Fair Orientation: X3. Recent and remote memory: Intact. Attention span and concentration: Intact. Mood: "ok" Affect: Flat. congruent to stated mood. DIAGNOSES: Major Depressive Disorder, Single Episode, Mild Unspecified Anxiety Disorder PTSD Intellectual Developmental Disability ASSESSMENT: Patient reports that depression is decreasing, less anxious and denies any suicidal ideation. Reports that she is moderately agitated that she is rooming with a new roommate who is a loud snorer. Patient states that she and her boyfriend have been communicating and the relationship is still guarded but they are willing to work on things. She reports her mood is "good", her affect is reactive. Patient states that she is safe to her be discharged tomorrow MANAGEMENT PLAN: Continues mediations and supportive therapies. Discharge tomorrow TIME SPENT: 20 minutes. Vital Signs Vital Signs Date Time Temp Pulse Resp B/P (MAP) Pulse Ox O2 Delivery O2 Flow Rate FiO2 07/25/21 12:01 72 16 07/25/21 06:00 97.2 123/61 (81) 96 07/23/21 07:13 Room Air Current Medications Current Medications Medications (Trade) Dose Ordered Sig/Estrella Route PRN Reason Start Time Stop Time Status Last Admin Dose Admin Acetaminophen (Tylenol Tab) 650 mg Q6HP PRN PO HEADACHE or MILD DISCOMFORT 07/19/21 16:10 07/24/21 08:25 Al Hydrox/Mg Hydrox/Simethicone (Mylanta) 30 ml Q4HP PRN PO HEARTBURN/INDIGESTION 07/19/21 16:10 Albuterol Sulfate (Proventil, Ventolin Hfa) 2 puff Q4HP PRN INH SOB/WHEEZING 07/19/21 15:55 Budesonide/ Formoterol Fumarate (Symbicort 80/ 4.5mcg) 2 puff RBID INH 07/19/21 20:00 07/25/21 08:05 Cetirizine HCl (ZyrTEC) 10 mg DAILY PO 07/20/21 09:00 07/25/21 08:08 Duloxetine HCl (Cymbalta) 60 mg DAILY PO 07/20/21 09:00 07/25/21 08:08 Estradiol (Estrace) 1 mg DAILY PO 07/20/21 09:00 07/25/21 08:07 Famotidine (Pepcid) 40 mg QPM PO 07/19/21 21:00 07/24/21 20:22 Folic Acid (Folic Acid) 1 mg DAILY PO 07/20/21 09:00 07/25/21 08:08 Gabapentin (Neurontin) 300 mg DAILY@1200 PO 07/22/21 12:00 07/25/21 11:56 Gabapentin (Neurontin) 300 mg QAM PO 07/20/21 09:00 07/25/21 08:08 Gabapentin (Neurontin) 300 mg QPM PO 07/19/21 21:00 07/20/21 11:32 DC 07/19/21 21:20 Gabapentin (Neurontin) 600 mg QHS PO 07/20/21 21:00 07/24/21 20:23 Home Med (Home Med List Complete!) ASDIRECTED XX 07/19/21 12:45 07/19/21 15:42 DC Levothyroxine Sodium (Synthroid) 100 mcg QAM@0600 PO 07/20/21 06:00 07/25/21 05:57 Magnesium Hydroxide (Milk Of Magnesia) 30 ml DAILYPRN PRN PO CONSTIPATION 07/19/21 16:10 Pantoprazole Sodium (Protonix) 40 mg DAILY PO 07/20/21 09:00 07/25/21 08:08 Propranolol HCl (Inderal) 10 mg QHS PO 07/19/21 21:00 07/24/21 20:25 Ropinirole HCl (Requip) 1 mg QHS PO 07/19/21 21:00 07/24/21 20:22 Temazepam (Restoril) 15 mg QHSP PRN PO SLEEP 07/20/21 13:10 07/22/21 21:20 Tizanidine HCl (Zanaflex) 2 mg TID PRN PO SPASMS 07/20/21 16:00 07/24/21 12:05 Tramadol HCl (Ultram) 50 mg Q6HP PRN PO MODERATE PAIN (PS 5-7) 07/20/21 09:15 07/25/21 12:01 Zonisamide (Zonegran) 100 mg BID PO 07/19/21 21:00 07/25/21 08:07 Allergies Coded Allergies: strawberry (Verified Allergy, Intermediate, HIVES, 10/26/19) Antifungal - Imidazole (Verified Adverse Reaction, Intermediate, SEIZURES, 10/26/19) aspirin (Verified Adverse Reaction, Intermediate, VOMIT BLOOD, 10/26/19) carbamazepine (Verified Adverse Reaction, Intermediate, seizures, 09/30/19) clonazepam (Verified Adverse Reaction, Intermediate, SEIZURES, 10/26/19) escitalopram (Verified Adverse Reaction, Intermediate, SEIZURES, 10/26/19) hydrocodone (Verified Adverse Reaction, Intermediate, SEIZURES, 10/26/19) nefazodone (Verified Adverse Reaction, Intermediate, SEIZURES, 10/26/19) paroxetine (Verified Adverse Reaction, Intermediate, SEIZURES, 10/26/19) quetiapine (Verified Adverse Reaction, Intermediate, SEIZURES, 10/26/19) sertraline (Verified Adverse Reaction, Intermediate, SEIZURES, 10/26/19) topiramate (Verified Adverse Reaction, Intermediate, SEIZURES, 10/26/19) venlafaxine (Verified Adverse Reaction, Intermediate, SEIZURES, 10/26/19) Condensed Milk (Verified Adverse Reaction, Mild, GI SYMPTOMS, 09/30/19) WEI SHELLEY NP Jul 25, 2021 12:53
[2021-07-25 19:26] VITALS: BP 130/73
[2021-07-25 20:34] VITALS: BP 140/78
[2021-07-25] MEDS: PROPRANOLOL 10 MG TAB PO SCH (20:34)
[2021-07-25] MEDS: rOPINIRole 1MG TAB PO SCH (20:34)
[2021-07-25] MEDS: FAMOTIDINE 20 MG TAB PO SCH (20:35)
[2021-07-26] MEDS: LEVOTHYROXINE 100MCG TABLET (0.1MG) PO SCH (05:38)
[2021-07-26] MEDS: traMADol 50 MG TAB PO PRN (05:39)
[2021-07-26 06:31] VITALS: BP 138/89
[2021-07-26] MEDS: SYMBICORT 80/4.5MCG INHALER 6GM INH SCH (08:02)
[2021-07-26] MEDS: CETIRIZINE (ZyrTEC) 10 MG TAB PO SCH (08:03)
[2021-07-26] MEDS: GABAPENTIN 300 MG CAP PO SCH (08:03)
[2021-07-26] MEDS: DULoxetine 30MG CAPSULE (CYMBALTA) PO SCH (08:03)
[2021-07-26] MEDS: FOLIC ACID 1 MG TAB PO SCH (08:06)
[2021-07-26] MEDS: ZONISAMIDE 100 MG CAP (ZONEGRAN) PO SCH (08:06)
[2021-07-26] MEDS: estradioL 1 MG TAB PO SCH (08:06)
[2021-07-26] MEDS: PANTOPRAZOLE 40MG TAB (PROTONIX) PO SCH (08:06)
--- NOTE | 2021-07-26 13:27 | MHDSPDOC ---
[facility] Discharge Summary Discharge Summary DATE OF ADMISSION: Jul 19, 2021 at 16:07 DATE OF DISCHARGE: Jul 26, 2021 at 10:50 DISCHARGE DIAGNOSES: Major Depressive Disorder, Single Episode, Mild Unspecified Anxiety Disorder PTSD Intellectual Developmental Disability REASON FOR ADMISSION: 45-year-old woman with a history of depression, anxiety, and borderline tendencies was admitted after an argument with her mother which resulted in decompensation and thoughts of wanting to commit suicide. Additionally this decompensation was precipitated by Joyce's decision to stop medication approximately 2 weeks ago. She was restarted on her home medications yesterday after admission, she denies having any side effects from the medications at this point in time and feels that she is little bit more stable now that she is away from her mother and has confirmed with her boyfriend that he is willing to continue dating her and they will move back in together. She does note that she is sometimes feeling little bit anxious during the middle of the day and request an additional dose of gabapentin 300 mg at noon. VITAL SIGNS: See below. CONSULTANTS INVOLVED: See Medical H + P by Hospitalist TREATMENT AND PROGRESS ON THE UNIT: Patient was admitted to the [facility] on a legal status was afforded the following treatment modalities: 1) Individual Therapy 2) Group Therapy 3) Medication Management 4) Milieu Therapy 5) Safe Environment HOSPITAL COURSE: Patient was admitted to [facility] on a legal status. Patient was started on her home medications that she had reported she stopped taking after a fight with her mother. She had complaints of knee pain and back pain and reported that addition of tramadol was effective. Reported medications beneficial and tolerated them well. Mood, anxiety, and intrusive thoughts improved with treatment. Pt attended groups daily during stay. Pts symptoms improved with treatment. On day of discharge pt. denied depression, anxiety, insomnia, SI/HI, hallucinations, delusions. Pt was discharged home with follow- up at [facility] . Pt felt safe for discharge. On day of discharge she went to her outpatient physical therapy appointment downstairs of the hospital. DISCHARGE ASSESSMENT: In today's interview, patient is alert and oriented, pt.s dress is appropriate. Hygiene and grooming is well-kempt. Smiles on approach and is pleasant and engaged in the interview. Denies depression and anxiety. Denies suicidal and homicidal ideation, planning or intent. Denies and is not observed with sophie, psychotic symptoms of delusions, bizarre thinking, obsessions, paranoia, ruminations illogical thoughts, flight of ideas or having poor insight and judgement. Reinforced with patient need to abstain from alcohol and drugs. At discharge patient has normal mentation, declines further hospitalization on a voluntary status and meets criteria for discharge today. Discussed indications of medications, potential benefits and risks, alternatives (including no treatment) and questions were encouraged and answered. Patient encouraged to return to hospital if symptoms worsen or change and encouraged to call unit if he/she/they needs to speak to provider for questions regarding medications or care. MENTAL STATUS EXAMINATION ON DISCHARGE: 45-year-old woman with a history of depression, anxiety, and borderline tendencies was admitted after an argument with her mother which resulted in decompensation and thoughts of wanting to commit suicide, patient reporting situational stressors that worsened her mood, anxiety borderline personality symptoms . Speech: Is fluid, conversant, normal rate, tone and volume Language skills are intact Thought processes including: linear and goal oriented Thought content: denies depression and anxiety. Denies suicidal/homicidal ideation, planning or intent. Abstract reasoning, and computation: fair Description of associations: denies, none observed Description of abnormal or psychotic thoughts: denies, none observed. Judgment: fair Insight: fair Orientation: alert and oriented to person, place, time and situation Recent and remote memory: intact Attention span and concentration: good Language: expansive Fund of knowledge: average Mood: Euthymic Mood Affect: reactive Suicide Risk Assessment: 1) Does the patient wish to be ? No 2) Since your admission, have you had any actual thought of killing yourself? No 3) Since your admission, have you been thinking about how you might do this? No 4) Since your admission, have you had these thoughts and had some intention of acting on them? No 5) Since your admission, have you started to work out or worked out the details of how to kill yourself? No 5A) Do you intent to carry out this plan? No and NA 6) Have you ever done anything, started anything, or prepared to do anything with any intent to ? No 6A) How long since your admission did you do any of these? NA MEDICATIONS ON DISCHARGE: See Medication Reconciliation PLAN/FOLLOWUP ARRANGEMENTS: Mental Health Appt 1 * [facility] * Established With This Provider Yes * Therapist REBECA * Date Aug 02, 2021 * Time 14:00 * Address of Clinic or Practice [address] [place] [address] * Follow Up Care Education Label * Medical * Medical Follow Up [facility] * Established With This Provider Yes * Therapist NIMISHA HENDRIX * Date Aug 09, 2021 * Time 11:00 * Address of Clinic or Practice [address] [place] [address] * The amount of time spent in the coordination of care for this patient was approximately 25 minutes. ETOH/Disorder Med Rx ETOH/DRUG DISORDER RX: N/A Vital Signs/I&Os Vital Signs Date Time Temp Pulse Resp B/P (MAP) Pulse Ox O2 Delivery O2 Flow Rate FiO2 07/26/21 06:31 97.2 82 18 138/89 (105) 99 Room Air Medications Scheduled Budesonide/Formoterol (Symbicort 80-4.5 Mcg Inhaler) 6.9 Gm Hfa.aer.ad, 2 PUFFS INH BID, (Reported) Cetirizine HCl (Cetirizine HCl) 10 Mg Tablet, 10 MG PO DAILY, (Reported) Duloxetine Hcl (Cymbalta) 60 Mg Capsule.dr, 60 MG PO DAILY, (Reported) Erenumab-Aooe (Aimovig Autoinjector) 70 Mg/1 Ml Auto.injct, 70 MG SC QMONTH, (Reported) Estradiol (Estradiol) 1 Mg Tablet, 1 MG PO DAILY, (Reported) Famotidine (Famotidine) 40 Mg Tablet, 40 MG PO QPM, (Reported) Folic Acid (Folic Acid) 1 Mg Tablet, 1 MG PO DAILY, (Reported) Gabapentin (Neurontin) 300 Mg Capsule, 600 MG PO QAM, (Reported) Gabapentin (Neurontin) 300 Mg Capsule, 600 MG PO QPM, (Reported) Gabapentin (Gabapentin) 300 Mg Capsule, 300 MG PO DAILY@1200 for Anxiety, #7 Levothyroxine Sodium (Levoxyl) 100 Mcg Tablet, 100 MCG PO QAM, (Reported) Pantoprazole Sodium (Pantoprazole Sodium) 40 Mg Tab, 40 MG PO DAILY, (Reported) Propranolol HCl (Propranolol HCl) 10 Mg Tablet, 10 MG PO QHS, (Reported) Ropinirole HCl (Ropinirole HCl) 1 Mg Tablet, 1 MG PO QHS, (Reported) Zonisamide (Zonisamide) 100 Mg Capsule, 100 MG PO BID, (Reported) Scheduled PRN Albuterol Sulfate (Proair Hfa) 8.5 Gm Hfa.aer.ad, 2 PUFFS INH Q4-6HP PRN for SOB/WHEEZING, (Reported) Temazepam (Restoril) 15 Mg Capsule, 15 MG PO QPM PRN for sleep, (Reported) Tizanidine HCl (Tizanidine HCl) 2 Mg Capsule, 2 MG PO Q6H PRN for SPASMS, (Reported) Tramadol HCl (Tramadol HCl) 50 Mg Tablet, 50 MG PO BIDP PRN for MODERATE PAIN (PS 5-7), #14 Allergies Coded Allergies: strawberry (Verified Allergy, Intermediate, HIVES, 10/26/19) Antifungal - Imidazole (Verified Adverse Reaction, Intermediate, SEIZURES, 10/26/19) aspirin (Verified Adverse Reaction, Intermediate, VOMIT BLOOD, 10/26/19) carbamazepine (Verified Adverse Reaction, Intermediate, seizures, 09/30/19) clonazepam (Verified Adverse Reaction, Intermediate, SEIZURES, 10/26/19) escitalopram (Verified Adverse Reaction, Intermediate, SEIZURES, 10/26/19) hydrocodone (Verified Adverse Reaction, Intermediate, SEIZURES, 10/26/19) nefazodone (Verified Adverse Reaction, Intermediate, SEIZURES, 10/26/19) paroxetine (Verified Adverse Reaction, Intermediate, SEIZURES, 10/26/19) quetiapine (Verified Adverse Reaction, Intermediate, SEIZURES, 10/26/19) sertraline (Verified Adverse Reaction, Intermediate, SEIZURES, 10/26/19) topiramate (Verified Adverse Reaction, Intermediate, SEIZURES, 10/26/19) venlafaxine (Verified Adverse Reaction, Intermediate, SEIZURES, 10/26/19) Condensed Milk (Verified Adverse Reaction, Mild, GI SYMPTOMS, 09/30/19) WEI SHELLEY NP Jul 26, 2021 13:27
== END 2021-07-26 10:50 | disposition home or self-care (01) | DRG 751 ==
LOC: M ED 21:34 → M ED INP 07-19 16:07 → M PSY 07-19 16:45
PROVIDERS: ADMIT Student in an Organized Health Care Education/Training Program; ATTEND Psychiatry & Neurology Psychiatry
DX: F32.0 Major depressive disorder, single episode, mild (principal); F79 Unspecified intellectual disabilities; R45.851 Suicidal ideations; Z91.14 Patient's other noncompliance with medication regimen; G40.909 Epilepsy, unspecified, not intractable, without status epilepticus; F43.10 Post-traumatic stress disorder, unspecified; F41.9 Anxiety disorder, unspecified; Z79.899 Other long term (current) drug therapy; Z91.018 Allergy to other foods; Z88.6 Allergy status to analgesic agent; Z88.8 Allergy status to other drugs, medicaments and biological substances; Z88.5 Allergy status to narcotic agent; J45.909 Unspecified asthma, uncomplicated; E03.9 Hypothyroidism, unspecified; G47.33 Obstructive sleep apnea (adult) (pediatric); E66.9 Obesity, unspecified; M19.90 Unspecified osteoarthritis, unspecified site; E55.9 Vitamin D deficiency, unspecified; K21.9 Gastro-esophageal reflux disease without esophagitis; E04.1 Nontoxic single thyroid nodule; N18.2 Chronic kidney disease, stage 2 (mild)

== ENCOUNTER → 2021-07-31 | Outpatient (CLI) | payer MEDICAID ==
[~2021-07-31] MED LIST changes: +CYMB60CA3 PO; +GABA-282 PO; +PROP10TA56 PO; +PROPANOLOL PO; +ROPI1TAB3 PO; +TIZA2CAP PO; +TRAM50TA2 PO; +[UNRECOGNIZED DRUG - REMARK]
== END ==
LOC: M WHC 14:16
PROVIDERS: ATTEND Nurse Practitioner Women's Health
DX: Z12.31 Encounter for screening mammogram for malignant neoplasm of breast (principal)

== ENCOUNTER 2021-08-09 10:53 | Outpatient (RCR) | payer MEDICAID ==
[~2021-08-09 10:53] MED LIST changes: -CYMB60CA3 PO; +CYMB60CA4 PO
== END 2021-08-19 ==
LOC: M PT 10:53
PROVIDERS: ATTEND Orthopaedic Surgery Adult Reconstructive Orthopaedic Surgery
DX: M22.2X1 Patellofemoral disorders, right knee (principal)

== ENCOUNTER → 2021-08-31 | Outpatient (CLI) | payer MEDICAID | LOC: M PAIN 11:45 | PROVIDERS: ATTEND Anesthesiology | DX: M25.562 Pain in left knee (principal); M79.2 Neuralgia and neuritis, unspecified; G43.909 Migraine, unspecified, not intractable, without status migrainosus; J45.40 Moderate persistent asthma, uncomplicated; G47.33 Obstructive sleep apnea (adult) (pediatric); E03.9 Hypothyroidism, unspecified; E55.9 Vitamin D deficiency, unspecified; K21.9 Gastro-esophageal reflux disease without esophagitis; Z86.59 Personal history of other mental and behavioral disorders; Z87.891 Personal history of nicotine dependence; Z88.5 Allergy status to narcotic agent; Z88.6 Allergy status to analgesic agent; Z88.8 Allergy status to other drugs, medicaments and biological substances; Z91.013 Allergy to seafood; Z91.018 Allergy to other foods; E66.01 Morbid (severe) obesity due to excess calories; Z68.42 Body mass index [BMI] 45.0-49.9, adult; Z79.891 Long term (current) use of opiate analgesic; Z79.899 Other long term (current) drug therapy ==

== ENCOUNTER → 2021-10-30 | Outpatient (CLI) | payer MEDICAID | LOC: M PAIN 14:45 | PROVIDERS: ATTEND Anesthesiology | DX: M25.562 Pain in left knee (principal); M94.262 Chondromalacia, left knee; G89.29 Other chronic pain; E11.9 Type 2 diabetes mellitus without complications; G43.909 Migraine, unspecified, not intractable, without status migrainosus; J45.40 Moderate persistent asthma, uncomplicated; E03.9 Hypothyroidism, unspecified; K21.9 Gastro-esophageal reflux disease without esophagitis; Z86.59 Personal history of other mental and behavioral disorders; Z87.891 Personal history of nicotine dependence; Z88.5 Allergy status to narcotic agent; Z88.6 Allergy status to analgesic agent; Z88.8 Allergy status to other drugs, medicaments and biological substances; Z91.011 Allergy to milk products; Z91.018 Allergy to other foods; E66.01 Morbid (severe) obesity due to excess calories; Z68.42 Body mass index [BMI] 45.0-49.9, adult; Z79.891 Long term (current) use of opiate analgesic; Z79.899 Other long term (current) drug therapy ==

== ENCOUNTER → 2021-11-01 | Outpatient (CLI) | payer MEDICAID | LOC: M PLALAB 09:15 | PROVIDERS: ATTEND Physician Assistant Medical | DX: H53.459 Other localized visual field defect, unspecified eye (principal) ==

== ENCOUNTER → 2021-11-01 | Outpatient (CLI) | payer MEDICAID | LOC: M LABSMTC 09:06 | PROVIDERS: ATTEND Anesthesiology | DX: Z01.818 Encounter for other preprocedural examination (principal); Z11.52 Encounter for screening for COVID-19 ==

== ENCOUNTER 2021-11-06 08:17 | Day surgery (SDC) | payer MEDICAID ==
[~2021-11-06] VITALS: Ht 154.9 cm; Wt 111.6 kg
[~2021-11-06 08:17] MED LIST changes: +LIDOCAINE 1% MDV 20ML VIAL SQ PRN; +LR 1,000 ML IV ONE
[2021-11-06] MEDS ORDERED: ISOVUE-300 61% 50ML VIAL As Ordered ONE (11:55)
[2021-11-06] MEDS ORDERED: BUPIVACAINE HCL 0.25% 10ML VIAL As Ordered ONE (11:55)
[2021-11-06] MEDS ORDERED: LIDOCAINE 1% SDV 30ML VIAL As Ordered ONE (11:55)
[2021-11-06] MEDS ORDERED: TRIAMCINOLONE ACETONIDE SUSP 40 MG/ML VIAL (J3301) As Ordered ONE (11:55)
[2021-11-06] MEDS ORDERED: LIDOCAINE 2% 100MG/5ML SDV (FOR ANES.) As Ordered ONE (12:24)
[2021-11-06] MEDS ORDERED: MIDAZOLAM INJ 2MG/2ML VIAL (J2250 PER 1MG) As Ordered ONE (12:24)
[2021-11-06] MEDS ORDERED: fentaNYL 100 MCG/2 ML INJECTION As Ordered ONE (12:24)
[2021-11-06] MEDS ORDERED: propofoL 200 MG/20 ML VIAL As Ordered ONE (12:24)
[2021-11-06 13:56] VITALS: BP 130/78
== END 2021-11-06 14:05 | disposition home or self-care (01) ==
LOC: M SDC 08:17
PROVIDERS: ATTEND Anesthesiology
DX: M25.562 Pain in left knee (principal); M94.262 Chondromalacia, left knee; I12.9 Hypertensive chronic kidney disease with stage 1 through stage 4 chronic kidney disease, or unspecified chronic kidney disease; E11.9 Type 2 diabetes mellitus without complications; E03.9 Hypothyroidism, unspecified; M10.9 Gout, unspecified; K21.9 Gastro-esophageal reflux disease without esophagitis; Z86.73 Personal history of transient ischemic attack (TIA), and cerebral infarction without residual deficits; N18.2 Chronic kidney disease, stage 2 (mild); J44.9 Chronic obstructive pulmonary disease, unspecified; F43.10 Post-traumatic stress disorder, unspecified; F32.9 Major depressive disorder, single episode, unspecified; F41.9 Anxiety disorder, unspecified; Z87.891 Personal history of nicotine dependence; Z79.51 Long term (current) use of inhaled steroids; G43.909 Migraine, unspecified, not intractable, without status migrainosus; G47.33 Obstructive sleep apnea (adult) (pediatric); Z88.8 Allergy status to other drugs, medicaments and biological substances; Z91.018 Allergy to other foods; Z88.5 Allergy status to narcotic agent
CPT/HCPCS: 20611; 76000; J2250; J3010; J3301; Q9967

== ENCOUNTER → 2021-11-10 | Outpatient (CLI) | payer MEDICAID ==
[~2021-11-10] MED LIST changes: -LIDOCAINE 1% MDV 20ML VIAL SQ PRN; -LR 1,000 ML IV ONE
== END ==
LOC: M LAB 10:53
PROVIDERS: ATTEND Internal Medicine Gastroenterology
DX: K31.84 Gastroparesis (principal)

== ENCOUNTER → 2021-11-13 | Outpatient (CLI) | payer MEDICAID | LOC: M PAIN 11:45 | PROVIDERS: ATTEND Anesthesiology | DX: M79.18 Myalgia, other site (principal); G43.909 Migraine, unspecified, not intractable, without status migrainosus; J45.40 Moderate persistent asthma, uncomplicated; G47.33 Obstructive sleep apnea (adult) (pediatric); E03.9 Hypothyroidism, unspecified; K21.9 Gastro-esophageal reflux disease without esophagitis; Z86.59 Personal history of other mental and behavioral disorders; Z88.5 Allergy status to narcotic agent; Z88.6 Allergy status to analgesic agent; Z88.8 Allergy status to other drugs, medicaments and biological substances; Z91.011 Allergy to milk products; Z91.018 Allergy to other foods; E66.01 Morbid (severe) obesity due to excess calories; Z68.42 Body mass index [BMI] 45.0-49.9, adult; Z79.891 Long term (current) use of opiate analgesic; Z79.899 Other long term (current) drug therapy ==

== ENCOUNTER → 2021-11-14 | Outpatient (CLI) | payer MEDICAID ==
[2021-11-14 15:23] LABS: HEMOGLOBIN 14.4 g/dl (12.0-15.5); MEAN CORPUSCULAR HEMOGLOBIN 29.8 pg (27.0-33.0); MEAN CORPUSCULAR HGB CONC 31.3 g/dl (32.0-36.5); MEAN CORPUSCULAR VOLUME 95.2 fl (80.0-96.0); PLATELET COUNT, AUTOMATED 274 10^3/uL (150-450); RED BLOOD COUNT 4.83 10^6/uL (4.00-5.40); WHITE BLOOD COUNT 9.7 10^3/uL (4.0-10.0)
[2021-11-14 15:41] LABS: HEMOGLOBIN A1c 6.2 %
[2021-11-14 16:41] LABS: ALBUMIN 3.5 GM/DL (3.2-5.2); ALT/SGPT 17 U/L (12-78); BILIRUBIN,TOTAL 0.2 MG/DL (0.2-1.0); BLOOD UREA NITROGEN 14 MG/DL (7-18); CALCIUM LEVEL 9.3 MG/DL (8.5-10.1); CARBON DIOXIDE LEVEL 30 MEQ/L (21-32); CHLORIDE LEVEL 106 MEQ/L (98-107); CHOLESTEROL LEVEL 213 MG/DL (<200); CHOLESTEROL RISK RATIO 3.803 (<5); FERRITIN 95 NG/ML (8-252); GLOMERULAR FILTRATION RATE > 60.0 (>58); GLUCOSE, FASTING 97 MG/DL (70-100); HDL CHOLESTEROL 56 MG/DL (>40); IRON (FE) 71 UG/DL (50-170); LDL CHOLESTEROL 126 MG/DL (<100); NON-HDL-C 157 MG/DL; PERCENT SATURATION 24.7 % (13.2-45.0); POTASSIUM SERUM 4.9 MEQ/L (3.5-5.1); SODIUM LEVEL 140 MEQ/L (136-145); TOTAL 25(OH) VITAMIN D 23.6 NG/ML (30.0-100.0); TOTAL IRON BINDING CAPACITY 288 UG/DL (250-450); TOTAL PROTEIN 7.2 GM/DL (6.4-8.2); TRIGLYCERIDES LEVEL 157 MG/DL (<150)
== END ==
LOC: M PLALAB 12:21
PROVIDERS: ATTEND Nurse Practitioner Adult Health
DX: E03.9 Hypothyroidism, unspecified (principal)

== ENCOUNTER → 2021-11-16 | Outpatient (REF) | payer MEDICAID | LOC: M LAB REF 11:22 | PROVIDERS: ATTEND Internal Medicine Gastroenterology | DX: K31.84 Gastroparesis (principal) ==

== ENCOUNTER → 2021-11-27 | Outpatient (CLI) | payer MEDICAID | LOC: M PAIN 15:00 → M TMPAIN 15:00 | PROVIDERS: ATTEND Anesthesiology | DX: M54.9 Dorsalgia, unspecified (principal); M79.18 Myalgia, other site; E11.9 Type 2 diabetes mellitus without complications; G43.909 Migraine, unspecified, not intractable, without status migrainosus; J45.40 Moderate persistent asthma, uncomplicated; G47.33 Obstructive sleep apnea (adult) (pediatric); E03.9 Hypothyroidism, unspecified; K21.9 Gastro-esophageal reflux disease without esophagitis; Z86.59 Personal history of other mental and behavioral disorders; Z87.891 Personal history of nicotine dependence; Z88.5 Allergy status to narcotic agent; Z88.6 Allergy status to analgesic agent; Z88.8 Allergy status to other drugs, medicaments and biological substances; Z91.011 Allergy to milk products; Z91.018 Allergy to other foods; Z79.891 Long term (current) use of opiate analgesic; Z79.899 Other long term (current) drug therapy ==

== ENCOUNTER → 2021-12-17 | Outpatient (CLI) | payer MEDICAID ==
[~2021-12-17] MED LIST changes: +COLE1TAB PO; +TEMA22.5 PO; +VITAD400CA PO
[2021-12-17 16:14] LABS: ALBUMIN 3.6 GM/DL (3.2-5.2); ALT/SGPT 23 U/L (12-78); BILIRUBIN,TOTAL 0.4 MG/DL (0.2-1.0); BLOOD UREA NITROGEN 12 MG/DL (7-18); CALCIUM LEVEL 9.5 MG/DL (8.5-10.1); CARBON DIOXIDE LEVEL 29 MEQ/L (21-32); CHLORIDE LEVEL 108 MEQ/L (98-107); CREATININE FOR GFR 0.92 MG/DL (0.55-1.30); GLOMERULAR FILTRATION RATE > 60.0 (>58); GLUCOSE, FASTING 95 MG/DL (70-100); POTASSIUM SERUM 4.5 MEQ/L (3.5-5.1); SODIUM LEVEL 141 MEQ/L (136-145); TOTAL PROTEIN 7.3 GM/DL (6.4-8.2)
== END ==
LOC: M PLALAB 12:04
PROVIDERS: ATTEND Psychiatry & Neurology Neurology
DX: I10 Essential (primary) hypertension (principal)

== ENCOUNTER → 2021-12-18 | Outpatient (CLI) | payer MEDICAID ==
[~2021-12-18] MED LIST changes: +BUPIVACAINE HCL 0.25% 10ML VIAL As Ordered ONE; +BUPIVACAINE HCL 0.25% 30ML VIAL As Ordered ONE; +TRIAMCINOLONE ACETONIDE SUSP 40 MG/ML VIAL (J3301) As Ordered ONE; +diazePAM 5MG TABLET As Ordered ONE
== END ==
LOC: M PAIN 08:30
PROVIDERS: ATTEND Anesthesiology
DX: M79.18 Myalgia, other site (principal); G43.909 Migraine, unspecified, not intractable, without status migrainosus; J45.40 Moderate persistent asthma, uncomplicated; G47.33 Obstructive sleep apnea (adult) (pediatric); E03.9 Hypothyroidism, unspecified; E55.9 Vitamin D deficiency, unspecified; K21.9 Gastro-esophageal reflux disease without esophagitis; Z86.59 Personal history of other mental and behavioral disorders; Z87.891 Personal history of nicotine dependence; Z88.5 Allergy status to narcotic agent; Z88.6 Allergy status to analgesic agent; Z88.8 Allergy status to other drugs, medicaments and biological substances; Z91.011 Allergy to milk products; Z91.018 Allergy to other foods; E66.01 Morbid (severe) obesity due to excess calories; Z68.42 Body mass index [BMI] 45.0-49.9, adult; Z79.891 Long term (current) use of opiate analgesic; Z79.899 Other long term (current) drug therapy
CPT/HCPCS: 20552; J3301

== ENCOUNTER → 2021-12-29 | Outpatient (CLI) | payer MEDICAID ==
[~2021-12-29] MED LIST changes: -BUPIVACAINE HCL 0.25% 10ML VIAL As Ordered ONE; -BUPIVACAINE HCL 0.25% 30ML VIAL As Ordered ONE; -TRIAMCINOLONE ACETONIDE SUSP 40 MG/ML VIAL (J3301) As Ordered ONE; -diazePAM 5MG TABLET As Ordered ONE
== END ==
LOC: M LABSMTC 11:08
PROVIDERS: ATTEND Anesthesiology
DX: Z01.812 Encounter for preprocedural laboratory examination (principal); Z20.822 Contact with and (suspected) exposure to COVID-19

== ENCOUNTER 2022-01-01 12:36 | Outpatient (CLI) | payer MEDICAID ==
[2022-01-01] MEDS ORDERED: PROHANCE 279.3MG/ML 5ML VIAL As Ordered ONE (13:12)
[2022-01-01] MEDS ORDERED: PROHANCE 279.3MG/ML 15ML VIAL As Ordered ONE (13:13)
[2022-01-01] MEDS ORDERED: MIDAZOLAM INJ 2MG/2ML VIAL (J2250 PER 1MG) As Ordered ONE (13:23)
[2022-01-01] MEDS ORDERED: ALBUTEROL SULFATE 2.5 MG/0.5 ML INH NEB SOLN INH ONE (13:50)
[2022-01-01 16:00] VITALS: BP 144/85
== END 2022-01-01 16:07 | disposition home or self-care (01) ==
LOC: M RAD 12:36
PROVIDERS: ATTEND Physician Assistant Medical
DX: H53.40 Unspecified visual field defects (principal); H47.012 Ischemic optic neuropathy, left eye
CPT/HCPCS: 70543; 70553; A9576; J2250

== ENCOUNTER → 2022-01-24 | Outpatient (CLI) | payer MEDICAID | LOC: M RAD 08:22 | PROVIDERS: ATTEND Nurse Practitioner Adult Health | DX: S89.92XA Unspecified injury of left lower leg, initial encounter (principal); Y92.9 Unspecified place or not applicable; Y93.9 Activity, unspecified; Y99.9 Unspecified external cause status; X58.XXXA Exposure to other specified factors, initial encounter ==

== ENCOUNTER → 2022-02-04 | Outpatient (CLI) | payer MEDICAID | LOC: M PAIN 11:15 | PROVIDERS: ATTEND Nurse Practitioner Family | DX: M25.562 Pain in left knee (principal); G89.29 Other chronic pain; R73.03 Prediabetes; G43.909 Migraine, unspecified, not intractable, without status migrainosus; J45.40 Moderate persistent asthma, uncomplicated; G47.33 Obstructive sleep apnea (adult) (pediatric); E03.9 Hypothyroidism, unspecified; E55.9 Vitamin D deficiency, unspecified; K21.9 Gastro-esophageal reflux disease without esophagitis; Z86.59 Personal history of other mental and behavioral disorders; Z87.891 Personal history of nicotine dependence; Z88.5 Allergy status to narcotic agent; Z88.8 Allergy status to other drugs, medicaments and biological substances; Z91.011 Allergy to milk products; Z91.018 Allergy to other foods; E66.01 Morbid (severe) obesity due to excess calories; Z68.41 Body mass index [BMI] 40.0-44.9, adult; Z79.899 Other long term (current) drug therapy ==

== ENCOUNTER → 2022-02-07 | Outpatient (CLI) | payer MEDICAID ==
[2022-02-07 15:30] LABS: BASO # 0.1 10^3/uL (0.0-0.2); BASO % 0.7 % (0.0-1.0); EOS # 0.2 10^3/uL (0.0-0.5); EOS % 2.8 % (0.0-3.0); HEMATOCRIT 44.5 % (36.0-47.0); HEMOGLOBIN 14.2 g/dl (12.0-15.5); LYMPH # 2.3 10^3/uL (1.5-5.0); MEAN CORPUSCULAR HEMOGLOBIN 30.7 pg (27.0-33.0); MEAN CORPUSCULAR HGB CONC 31.9 g/dl (32.0-36.5); MEAN CORPUSCULAR VOLUME 96.1 fl (80.0-96.0); MONO # 0.5 10^3/uL (0.0-0.8); MONO % 5.8 % (2.0-8.0); NEUTROPHILS # 5.6 10^3/uL (1.5-8.5); NEUTROPHILS % 64.5 % (36.0-66.0); PLATELET COUNT, AUTOMATED 220 10^3/uL (150-450); RED BLOOD COUNT 4.63 10^6/uL (4.00-5.40)
[2022-02-07 15:31] LABS: APPEARANCE, URINE CLOUDY (CLEAR); BACTERIA, URINE AUTO 3+ (NEGATIVE); BILIRUBIN, URINE AUTO NEGATIVE (NEGATIVE); BLOOD, URINE BLOOD NEGATIVE (NEGATIVE); COLOR, URINE YELLOW (YELLOW); GLUCOSE, URINE (UA) AUTO NEGATIVE (NEGATIVE); KETONE, URINE AUTO NEGATIVE (NEGATIVE); LEUKOCYTE ESTERASE, URINE AUTO TRACE (NEGATIVE); MUCUS, URINE SMALL (NEGATIVE); NITRITE, URINE AUTO NEGATIVE (NEGATIVE); PROTEIN, URINE AUTO NEGATIVE (NEGATIVE); RBC, URINE AUTO 1 /HPF (0-3); SPECIFIC GRAVITY URINE AUTO 1.025 (1.002-1.035); SQUAMOUS EPITHELIAL CELL UR AU 24 /HPF (0-6); TRANSITIONAL EPITHELIAL AUTO <1 /HPF; UROBILINOGEN, URINE AUTO 0.2 mg/dL (0.0-2.0); WBC, URINE AUTO 12 /HPF (0-3)
[2022-02-07 15:58] LABS: ALBUMIN 3.2 GM/DL (3.2-5.2); BLOOD UREA NITROGEN 12 MG/DL (7-18); CARBON DIOXIDE LEVEL 30 MEQ/L (21-32); CHLORIDE LEVEL 108 MEQ/L (98-107); CREATININE FOR GFR 0.92 MG/DL (0.55-1.30); GLOMERULAR FILTRATION RATE > 60.0 (>58); GLUCOSE, FASTING 125 MG/DL (70-100); PHOSPHORUS LEVEL 1.9 MG/DL (2.5-4.9); POTASSIUM SERUM 4.3 MEQ/L (3.5-5.1); SODIUM LEVEL 139 MEQ/L (136-145)
[2022-02-08 06:33] LABS: WHITE BLOOD COUNT 8.7 10^3/uL (4.0-10.0)
== END ==
LOC: M LAB 02-06 15:06
PROVIDERS: ATTEND Nurse Practitioner Family
DX: N18.2 Chronic kidney disease, stage 2 (mild) (principal); R73.03 Prediabetes

== ENCOUNTER 2022-02-24 09:29 | Inpatient (IN) | payer MEDICAID ==
[~2022-02-24] VITALS: Ht 154.9 cm; Wt 112.7 kg
[~2022-02-24 09:29] MED LIST changes: -ZONI100C17 PO; +ZONI100C67 PO
[2022-02-24] MEDS ORDERED: ACETAMINOPHEN 325 MG TAB PO ONE (09:45)
[2022-02-24] MEDS ORDERED: NS 1,000 ML IV ONE (09:45)
[2022-02-24 10:06] LABS: BASO % 0.4 % (0.0-1.0); EOS # 0.1 10^3/uL (0.0-0.5); EOS % 1.6 % (0.0-3.0); HEMATOCRIT 42.6 % (36.0-47.0); HEMOGLOBIN 13.8 g/dl (12.0-15.5); LYMPH # 0.3 10^3/uL (1.5-5.0); LYMPH % 3.8 % (24.0-44.0); MEAN CORPUSCULAR HEMOGLOBIN 30.4 pg (27.0-33.0); MEAN CORPUSCULAR HGB CONC 32.4 g/dl (32.0-36.5); MEAN CORPUSCULAR VOLUME 93.8 fl (80.0-96.0); MONO # 0.5 10^3/uL (0.0-0.8); MONO % 6.5 % (2.0-8.0); NEUTROPHILS % 87.3 % (36.0-66.0); PLATELET COUNT, AUTOMATED 205 10^3/uL (150-450); RED BLOOD COUNT 4.54 10^6/uL (4.00-5.40); WHITE BLOOD COUNT 6.9 10^3/uL (4.0-10.0)
[2022-02-24 10:33] LABS: HCG, SERUM QUALITATIVE NEGATIVE (NEGATIVE)
[2022-02-24 10:37] LABS: ALBUMIN 3.3 GM/DL (3.2-5.2); ALT/SGPT 19 U/L (12-78); AMYLASE 24 U/L (25-115); BILIRUBIN,DIRECT 0.1 MG/DL (0.0-0.2); BILIRUBIN,TOTAL 0.4 MG/DL (0.2-1.0); BLOOD UREA NITROGEN 9 MG/DL (7-18); CALCIUM LEVEL 9.3 MG/DL (8.5-10.1); CARBON DIOXIDE LEVEL 25 MEQ/L (21-32); CHLORIDE LEVEL 107 MEQ/L (98-107); CREATININE FOR GFR 0.97 MG/DL (0.55-1.30); FREE T4 1.22 NG/DL (0.76-1.46); GLOMERULAR FILTRATION RATE > 60.0 (>58); GLUCOSE, FASTING 125 MG/DL (70-100); LIPASE 69 U/L (73-393); POTASSIUM SERUM 3.6 MEQ/L (3.5-5.1); SODIUM LEVEL 139 MEQ/L (136-145); THYROID STIMULATING HORMONE 0.913 uIU/ML (0.358-3.740); TOTAL PROTEIN 6.9 GM/DL (6.4-8.2)
[2022-02-24] MEDS ORDERED: ISOVUE-370 76% 100ML VIAL As Ordered ONE (10:52)
[2022-02-24] MEDS ORDERED: dexameTHASONE 4 MG/ML 1ML VIAL (J1100 PER 1MG) IV ONE (12:25)
[2022-02-24] MEDS: COMBIVENT RESPIMAT 100-20MCG INHALER 4GM INH SCH ×3 (12:30→13:05)
[2022-02-24] MEDS ORDERED: ZONI50CA11 PO ×2 (12:36)
[2022-02-24] MEDS ORDERED: TIZA10TA PO (13:24)
[2022-02-24] MEDS ORDERED: ERGO500029 PO (13:24)
[2022-02-24] MEDS ORDERED: PANT20TA6 PO (13:24)
[2022-02-24] MEDS ORDERED: GABA-282 PO (13:24)
[2022-02-24] MEDS ORDERED: HOME MED LIST COMPLETE! XX SCH (13:25)
[2022-02-24 13:26] LABS: CHOLESTEROL LEVEL 194 MG/DL (<200); HDL CHOLESTEROL 50 MG/DL (>40); LDH LACTATE DEHYDROGENASE 194 U/L (84-246); LDL CHOLESTEROL 116 MG/DL (<100); NON-HDL-C 144 MG/DL; NT-PRO BNP 113 PG/ML (<125); TRIGLYCERIDES LEVEL 140 MG/DL (<150)
[2022-02-24] MEDS ORDERED: tiZANidine 4 MG TAB PO PRN (13:40)
[2022-02-24] MEDS: DULoxetine 30MG CAPSULE (CYMBALTA) PO SCH (14:34)
[2022-02-24] MEDS: CETIRIZINE (ZyrTEC) 10 MG TAB PO SCH (14:35)
[2022-02-24] MEDS: FOLIC ACID 1 MG TAB PO SCH (14:35)
[2022-02-24] MEDS: estradioL 1 MG TAB PO SCH (14:35)
[2022-02-24] MEDS: guaiFENesin ER 600 MG TAB PO SCH ×2 (14:35→22:52)
[2022-02-24] MEDS: NS 1,000 ML IV SCH ×2 (14:35→22:49)
[2022-02-24] MEDS ORDERED: REMDESIVIR 200 MG in NS 250 ML IV ONE (16:00)
[2022-02-24] MEDS ORDERED: ACETAMINOPHEN TAB 650MG DOSE (2X325MG) PO PRN (17:45)
[2022-02-24] MEDS ORDERED: SODIUM CHLORIDE 0.9% INJ 10 ML SYR IV ONE (18:00)
[2022-02-24 19:08] LABS: CHOLESTEROL RISK RATIO 3.58 (<5)
[2022-02-24] MEDS: SYMBICORT 80/4.5MCG INHALER 6GM INH SCH (19:54)
[2022-02-24 20:08] LABS: CK-MB VALUE MASS < 1.0 NG/ML (<3.6); CPK CREATINE PHOSPHOKINASE 46 U/L (26-192); MB/CK RELATIVE INDEX 2.17 (< OR =4)
[2022-02-24] MEDS ORDERED: ZONISAMIDE 50 MG CAP (ZONEGRAN) PO SCH (21:00)
[2022-02-24 21:51] VITALS: BP 123/65
[2022-02-24 21:54] VITALS: O2SAT 94
[2022-02-24 22:00] VITALS: O2SAT 94
[2022-02-24] MEDS ORDERED: ONDANSETRON 4MG/2ML VIAL IV PRN (22:35)
[2022-02-24 22:44] VITALS: BP 123/65
[2022-02-24] MEDS: PROPRANOLOL 10 MG TAB PO SCH (22:44)
[2022-02-24] MEDS: ZONISAMIDE 100 MG CAP (ZONEGRAN) PO SCH (22:51)
[2022-02-24] MEDS: PANTOPRAZOLE 20 MG TAB PO SCH (22:51)
[2022-02-24] MEDS: FAMOTIDINE 20 MG TAB PO SCH (22:51)
[2022-02-24] MEDS: TEMAZEPAM 7.5 MG CAP PO PRN (22:51)
[2022-02-24] MEDS: ENOXAPARIN 60MG/0.6ML SYRINGE (J1650 PER 10MG) SC SCH (22:52)
[2022-02-24] MEDS: rOPINIRole 1MG TAB PO SCH (22:52)
[2022-02-24] MEDS: GABAPENTIN 300 MG CAP PO SCH (22:52)
[2022-02-24 23:00] VITALS: O2SAT 94
[2022-02-24 23:44] VITALS: BP 107/54
[2022-02-25] VITALS (10 sets, daily range): BP systolic 100–117; BP diastolic 51–59; O2SAT 93–94
[2022-02-25 00:32] LABS: APPEARANCE, URINE HAZY (CLEAR); BACTERIA, URINE AUTO 3+ (NEGATIVE); BILIRUBIN, URINE AUTO NEGATIVE (NEGATIVE); BLOOD, URINE BLOOD NEGATIVE (NEGATIVE); COLOR, URINE YELLOW (YELLOW); GLUCOSE, URINE (UA) AUTO NEGATIVE (NEGATIVE); KETONE, URINE AUTO NEGATIVE (NEGATIVE); LEUKOCYTE ESTERASE, URINE AUTO NEGATIVE (NEGATIVE); MUCUS, URINE SMALL (NEGATIVE); NITRITE, URINE AUTO NEGATIVE (NEGATIVE); PROTEIN, URINE AUTO NEGATIVE (NEGATIVE); RBC, URINE AUTO 1 /HPF (0-3); SPECIFIC GRAVITY URINE AUTO 1.014 (1.002-1.035); SQUAMOUS EPITHELIAL CELL UR AU 3 /HPF (0-6); UROBILINOGEN, URINE AUTO 0.2 mg/dL (0.0-2.0); WBC, URINE AUTO 1 /HPF (0-3)
[2022-02-25 01:12] LABS: CK-MB VALUE MASS < 1.0 NG/ML (<3.6); CPK CREATINE PHOSPHOKINASE 50 U/L (26-192)
[2022-02-25] MEDS: LEVOTHYROXINE 100MCG TABLET (0.1MG) PO SCH (05:19)
[2022-02-25 06:40] LABS: HEMATOCRIT 37.5 % (36.0-47.0); LYMPH # 0.6 10^3/uL (1.5-5.0); LYMPH % 18.1 % (24.0-44.0); MEAN CORPUSCULAR HEMOGLOBIN 30.5 pg (27.0-33.0); MEAN CORPUSCULAR VOLUME 95.4 fl (80.0-96.0); MONO # 0.4 10^3/uL (0.0-0.8); MONO % 12.2 % (2.0-8.0); NEUTROPHILS # 2.5 10^3/uL (1.5-8.5); NEUTROPHILS % 69.4 % (36.0-66.0); PLATELET COUNT, AUTOMATED 204 10^3/uL (150-450); RED BLOOD COUNT 3.93 10^6/uL (4.00-5.40); WHITE BLOOD COUNT 3.5 10^3/uL (4.0-10.0)
[2022-02-25 07:10] LABS: ALBUMIN 2.7 GM/DL (3.2-5.2); ALT/SGPT 19 U/L (12-78); BILIRUBIN,DIRECT 0.1 MG/DL (0.0-0.2); BILIRUBIN,TOTAL 0.2 MG/DL (0.2-1.0); BLOOD UREA NITROGEN 7 MG/DL (7-18); CALCIUM LEVEL 8.3 MG/DL (8.5-10.1); CARBON DIOXIDE LEVEL 23 MEQ/L (21-32); CHLORIDE LEVEL 114 MEQ/L (98-107); CREATININE FOR GFR 0.77 MG/DL (0.55-1.30); GLOMERULAR FILTRATION RATE > 60.0 (>58); GLUCOSE, FASTING 125 MG/DL (70-100); POTASSIUM SERUM 3.8 MEQ/L (3.5-5.1); SODIUM LEVEL 144 MEQ/L (136-145); TOTAL PROTEIN 6.1 GM/DL (6.4-8.2)
[2022-02-25 07:16] LABS: CK-MB VALUE MASS < 1.0 NG/ML (<3.6); CPK CREATINE PHOSPHOKINASE 36 U/L (26-192); MB/CK RELATIVE INDEX 2.78 (< OR =4)
[2022-02-25] MEDS: SYMBICORT 80/4.5MCG INHALER 6GM INH SCH ×2 (07:43→20:05)
[2022-02-25] MEDS: DULoxetine 30MG CAPSULE (CYMBALTA) PO SCH (08:18)
[2022-02-25] MEDS: FOLIC ACID 1 MG TAB PO SCH (08:18)
[2022-02-25] MEDS: GABAPENTIN 300 MG CAP PO SCH ×2 (08:18→21:02)
[2022-02-25] MEDS: PANTOPRAZOLE 20 MG TAB PO SCH ×2 (08:18→21:02)
[2022-02-25] MEDS: guaiFENesin ER 600 MG TAB PO SCH ×2 (08:18→21:02)
[2022-02-25] MEDS: estradioL 1 MG TAB PO SCH (08:18)
[2022-02-25] MEDS: ZONISAMIDE 100 MG CAP (ZONEGRAN) PO SCH ×2 (08:18→21:02)
[2022-02-25] MEDS: CETIRIZINE (ZyrTEC) 10 MG TAB PO SCH (08:18)
[2022-02-25] MEDS: ENOXAPARIN 60MG/0.6ML SYRINGE (J1650 PER 10MG) SC SCH ×2 (08:19→21:01)
[2022-02-25] MEDS: dexameTHASONE 4 MG/ML 1ML VIAL (J1100 PER 1MG) IV SCH (08:19)
[2022-02-25] MEDS: REMDESIVIR 100 MG in NS 250 ML IV SCH (16:39)
[2022-02-25] MEDS ORDERED: SODIUM CHLORIDE 0.9% INJ 10 ML SYR IV SCH (17:00)
[2022-02-25] MEDS: FAMOTIDINE 20 MG TAB PO SCH (21:01)
[2022-02-25] MEDS: PROPRANOLOL 10 MG TAB PO SCH (21:02)
[2022-02-25] MEDS: rOPINIRole 1MG TAB PO SCH (21:02)
[2022-02-25] MEDS: TEMAZEPAM 7.5 MG CAP PO PRN (22:12)
[2022-02-26 02:07] VITALS: O2SAT 91
[2022-02-26 05:34] VITALS: BP 121/65
[2022-02-26] MEDS: LEVOTHYROXINE 100MCG TABLET (0.1MG) PO SCH (05:38)
[2022-02-26 06:15] LABS: BASO % 0.2 % (0.0-1.0); HEMOGLOBIN 11.8 g/dl (12.0-15.5); LYMPH # 1.6 10^3/uL (1.5-5.0); LYMPH % 31.9 % (24.0-44.0); MEAN CORPUSCULAR HEMOGLOBIN 30.3 pg (27.0-33.0); MEAN CORPUSCULAR HGB CONC 31.9 g/dl (32.0-36.5); MEAN CORPUSCULAR VOLUME 94.9 fl (80.0-96.0); MONO # 0.7 10^3/uL (0.0-0.8); MONO % 13.1 % (2.0-8.0); NEUTROPHILS # 2.7 10^3/uL (1.5-8.5); NEUTROPHILS % 54.4 % (36.0-66.0); PLATELET COUNT, AUTOMATED 206 10^3/uL (150-450)
[2022-02-26 06:41] LABS: INR 1.09; PROTHROMBIN TIME 14.5 SECONDS (12.7-14.5)
[2022-02-26 06:42] LABS: PARTIAL THROMBOPLASTIN TIME 43.7 SECONDS (25.9-37.0)
[2022-02-26 06:46] LABS: ALBUMIN 2.6 GM/DL (3.2-5.2); ALT/SGPT 18 U/L (12-78); BILIRUBIN,DIRECT < 0.1 MG/DL (0.0-0.2); BILIRUBIN,TOTAL 0.2 MG/DL (0.2-1.0); BLOOD UREA NITROGEN 14 MG/DL (7-18); CALCIUM LEVEL 8.6 MG/DL (8.5-10.1); CARBON DIOXIDE LEVEL 28 MEQ/L (21-32); CHLORIDE LEVEL 112 MEQ/L (98-107); CREATININE FOR GFR 0.86 MG/DL (0.55-1.30); FERRITIN 180 NG/ML (8-252); GLOMERULAR FILTRATION RATE > 60.0 (>58); GLUCOSE, FASTING 122 MG/DL (70-100); LDH LACTATE DEHYDROGENASE 115 U/L (84-246); MAGNESIUM LEVEL 2.1 MG/DL (1.8-2.4); NT-PRO BNP 191 PG/ML (<125); POTASSIUM SERUM 3.6 MEQ/L (3.5-5.1); SODIUM LEVEL 143 MEQ/L (136-145)
[2022-02-26 08:00] VITALS: O2SAT 94
[2022-02-26] MEDS: SYMBICORT 80/4.5MCG INHALER 6GM INH SCH (08:03)
[2022-02-26] MEDS: ENOXAPARIN 60MG/0.6ML SYRINGE (J1650 PER 10MG) SC SCH (08:55)
[2022-02-26] MEDS: GABAPENTIN 300 MG CAP PO SCH (08:56)
[2022-02-26] MEDS: guaiFENesin ER 600 MG TAB PO SCH (08:56)
[2022-02-26] MEDS: dexameTHASONE 4 MG/ML 1ML VIAL (J1100 PER 1MG) IV SCH (08:56)
[2022-02-26] MEDS: estradioL 1 MG TAB PO SCH (08:56)
[2022-02-26] MEDS: ZONISAMIDE 100 MG CAP (ZONEGRAN) PO SCH (08:56)
[2022-02-26] MEDS: CETIRIZINE (ZyrTEC) 10 MG TAB PO SCH (08:57)
[2022-02-26] MEDS: DULoxetine 30MG CAPSULE (CYMBALTA) PO SCH (08:57)
[2022-02-26] MEDS: FOLIC ACID 1 MG TAB PO SCH (08:57)
[2022-02-26] MEDS: PANTOPRAZOLE 20 MG TAB PO SCH (08:57)
[2022-02-26] MEDS: REMDESIVIR 100 MG in NS 250 ML IV SCH (12:01)
[2022-02-27 15:08] LABS: BODY FLUID CULTURE Not indicated. (.); LEGIONELLA ANTIGEN URINE Negative (Negative); ORGANISM ID Not indicated. (.); SPECIMEN SOURCE Urine (.); URINE STREP PNEUMONIAE ANTIGEN Negative (Negative)
== END 2022-02-26 13:56 | disposition home or self-care (01) | DRG 137 ==
LOC: M ED 09:29 → M ED INP 12:30 → ENRESERV 20:06 → M 4MAIN 21:50
PROVIDERS: ADMIT Internal Medicine; ATTEND Family Medicine
DX: U07.1 COVID-19 (principal); F43.10 Post-traumatic stress disorder, unspecified; I12.9 Hypertensive chronic kidney disease with stage 1 through stage 4 chronic kidney disease, or unspecified chronic kidney disease; J45.909 Unspecified asthma, uncomplicated; G47.33 Obstructive sleep apnea (adult) (pediatric); E03.9 Hypothyroidism, unspecified; G43.909 Migraine, unspecified, not intractable, without status migrainosus; F32.A Depression, unspecified; F41.9 Anxiety disorder, unspecified; R56.9 Unspecified convulsions; G25.81 Restless legs syndrome; E55.9 Vitamin D deficiency, unspecified; K21.9 Gastro-esophageal reflux disease without esophagitis; N18.2 Chronic kidney disease, stage 2 (mild); E66.01 Morbid (severe) obesity due to excess calories; F79 Unspecified intellectual disabilities; Z79.899 Other long term (current) drug therapy; Z91.018 Allergy to other foods; Z88.8 Allergy status to other drugs, medicaments and biological substances; Z88.6 Allergy status to analgesic agent; K31.84 Gastroparesis

== ENCOUNTER → 2022-03-06 | Outpatient (CLI) | payer MEDICAID ==
[~2022-03-06] MED LIST changes: +ERGO500029 PO; +PANT20TA6 PO; +TIZA10TA PO; +ZONI50CA11 PO
[2022-03-06 12:45] LABS: CHOLESTEROL RISK RATIO 4.153 (<5); FREE T4 1.25 NG/DL (0.76-1.46); THYROID STIMULATING HORMONE 0.958 uIU/ML (0.358-3.740)
[2022-03-06 12:47] LABS: TOTAL 25(OH) VITAMIN D 61.4 NG/ML (30.0-100.0)
== END ==
LOC: M LAB 11:32
PROVIDERS: ATTEND Nurse Practitioner Family
DX: E03.9 Hypothyroidism, unspecified (principal); E55.9 Vitamin D deficiency, unspecified; Z13.220 Encounter for screening for lipoid disorders

== ENCOUNTER → 2022-03-13 | Outpatient (CLI) | payer MEDICAID | LOC: M WHC 09:53 | PROVIDERS: ATTEND Nurse Practitioner Family | DX: Z12.31 Encounter for screening mammogram for malignant neoplasm of breast (principal) ==

== ENCOUNTER → 2022-03-25 | Outpatient (CLI) | payer MEDICAID ==
[~2022-03-25] MED LIST changes: +ALBU2.5V10 INH; +ALBU2.5V10 NEB; -ALBU83IN INH; -ALBU83IN NEB; +LORA-674
== END ==
LOC: M PAIN 11:30
PROVIDERS: ATTEND Anesthesiology
DX: M25.562 Pain in left knee (principal); M94.262 Chondromalacia, left knee; M17.12 Unilateral primary osteoarthritis, left knee; G89.29 Other chronic pain; G43.909 Migraine, unspecified, not intractable, without status migrainosus; J45.909 Unspecified asthma, uncomplicated; G47.33 Obstructive sleep apnea (adult) (pediatric); E03.9 Hypothyroidism, unspecified; E55.9 Vitamin D deficiency, unspecified; K21.9 Gastro-esophageal reflux disease without esophagitis; R73.03 Prediabetes; Z86.59 Personal history of other mental and behavioral disorders; Z88.5 Allergy status to narcotic agent; Z88.6 Allergy status to analgesic agent; Z88.8 Allergy status to other drugs, medicaments and biological substances; Z91.011 Allergy to milk products; Z91.018 Allergy to other foods; E66.01 Morbid (severe) obesity due to excess calories; Z68.42 Body mass index [BMI] 45.0-49.9, adult; Z79.899 Other long term (current) drug therapy

== ENCOUNTER → 2022-04-01 | Outpatient (CLI) | payer MEDICAID ==
[2022-04-01 11:53] LABS: BASO # 0.1 10^3/uL (0.0-0.2); BASO % 0.9 % (0.0-1.0); EOS # 0.2 10^3/uL (0.0-0.5); EOS % 2.8 % (0.0-3.0); HEMATOCRIT 44.1 % (36.0-47.0); LYMPH # 1.9 10^3/uL (1.5-5.0); MEAN CORPUSCULAR HGB CONC 31.7 g/dl (32.0-36.5); MEAN CORPUSCULAR VOLUME 94.6 fl (80.0-96.0); MONO # 0.5 10^3/uL (0.0-0.8); NEUTROPHILS # 3.7 10^3/uL (1.5-8.5); PLATELET COUNT, AUTOMATED 256 10^3/uL (150-450); RED BLOOD COUNT 4.66 10^6/uL (4.00-5.40); WHITE BLOOD COUNT 6.4 10^3/uL (4.0-10.0)
[2022-04-01 11:59] LABS: INR 0.92; PROTHROMBIN TIME 12.8 SECONDS (12.7-14.5)
[2022-04-01 12:00] LABS: PARTIAL THROMBOPLASTIN TIME 31.9 SECONDS (25.9-37.0)
== END ==
LOC: M LAB 11:03
PROVIDERS: ATTEND Psychiatry & Neurology Neurology
DX: G93.2 Benign intracranial hypertension (principal)

== ENCOUNTER → 2022-04-08 | Outpatient (CLI) | payer MEDICAID ==
[2022-04-08 13:47] LABS: APPEARANCE, CSF CLEAR (CLEAR); COLOR, CSF COLORLESS (COLORLESS); CSF TUBE# CELL CNT TUBE 1
[2022-04-08 13:49] LABS: CSF TUBE# GLU TUBE 1; CSF TUBE# TP TUBE 1; GLUCOSE CSF 75 MG/DL (40-75); TOTAL PROTEIN,CSF 32 MG/DL (15-45)
[2022-04-08 14:50] VITALS: BP 178/84
== END ==
LOC: M IRPRO 11:33
PROVIDERS: ATTEND Psychiatry & Neurology Neurology
DX: G93.2 Benign intracranial hypertension (principal)

== ENCOUNTER → 2022-04-11 | Outpatient (CLI) | payer MEDICAID | LOC: M LABSMTC 11:22 | PROVIDERS: ATTEND Anesthesiology | DX: Z20.828 Contact with and (suspected) exposure to other viral communicable diseases (principal); Z11.59 Encounter for screening for other viral diseases ==

== ENCOUNTER 2022-04-15 08:17 | Day surgery (SDC) | payer MEDICAID ==
[~2022-04-15] VITALS: Ht 154.9 cm; Wt 114.3 kg
[2022-04-15] MEDS ORDERED: BUPIVACAINE HCL 0.25% 10ML VIAL As Ordered ONE (11:01)
[2022-04-15] MEDS ORDERED: LIDOCAINE 1% MDV 20ML VIAL As Ordered ONE (11:01)
[2022-04-15] MEDS ORDERED: ISOVUE-300 61% 50ML VIAL As Ordered ONE (11:01)
[2022-04-15] MEDS ORDERED: LIDOCAINE 1% SDV 30ML VIAL As Ordered ONE (11:13)
[2022-04-15] MEDS ORDERED: fentaNYL 100 MCG/2 ML INJECTION As Ordered ONE (11:31)
[2022-04-15] MEDS ORDERED: MIDAZOLAM INJ 2MG/2ML VIAL (J2250 PER 1MG) As Ordered ONE (11:31)
[2022-04-15] MEDS ORDERED: methylPREDNISolone SUSP 40MG/ML 1ML VIAL (DEPO MEDROL) XX ONE (12:05)
[2022-04-15 12:10] VITALS: BP 132/78
== END 2022-04-15 12:17 | disposition home or self-care (01) ==
LOC: M SDC 08:17
PROVIDERS: ATTEND Anesthesiology
DX: M25.562 Pain in left knee (principal); M94.262 Chondromalacia, left knee; M17.12 Unilateral primary osteoarthritis, left knee; Z88.5 Allergy status to narcotic agent; Z88.8 Allergy status to other drugs, medicaments and biological substances; Z91.018 Allergy to other foods; Z91.011 Allergy to milk products; Z79.899 Other long term (current) drug therapy; E03.9 Hypothyroidism, unspecified; I10 Essential (primary) hypertension; E55.9 Vitamin D deficiency, unspecified; J44.9 Chronic obstructive pulmonary disease, unspecified; G43.909 Migraine, unspecified, not intractable, without status migrainosus; G47.33 Obstructive sleep apnea (adult) (pediatric); D64.9 Anemia, unspecified; N18.2 Chronic kidney disease, stage 2 (mild); Z86.73 Personal history of transient ischemic attack (TIA), and cerebral infarction without residual deficits; F43.10 Post-traumatic stress disorder, unspecified; F41.9 Anxiety disorder, unspecified; F32.A Depression, unspecified; K21.9 Gastro-esophageal reflux disease without esophagitis; Z79.51 Long term (current) use of inhaled steroids
CPT/HCPCS: 20611; 76000; J1030; J2250; J3010; Q9967

== ENCOUNTER → 2022-04-23 | Outpatient (CLI) | payer MEDICAID | LOC: M PAIN 15:00 | PROVIDERS: ATTEND Nurse Practitioner Family | DX: M94.262 Chondromalacia, left knee (principal); G89.29 Other chronic pain; R73.03 Prediabetes; G43.909 Migraine, unspecified, not intractable, without status migrainosus; J45.909 Unspecified asthma, uncomplicated; G47.33 Obstructive sleep apnea (adult) (pediatric); E03.9 Hypothyroidism, unspecified; E55.9 Vitamin D deficiency, unspecified; K21.9 Gastro-esophageal reflux disease without esophagitis; Z86.59 Personal history of other mental and behavioral disorders; Z87.891 Personal history of nicotine dependence; Z88.5 Allergy status to narcotic agent; Z88.6 Allergy status to analgesic agent; Z88.8 Allergy status to other drugs, medicaments and biological substances; Z91.011 Allergy to milk products; Z91.018 Allergy to other foods; E66.01 Morbid (severe) obesity due to excess calories; Z68.42 Body mass index [BMI] 45.0-49.9, adult; Z79.890 Hormone replacement therapy; Z79.899 Other long term (current) drug therapy ==

== ENCOUNTER → 2022-04-23 | Outpatient (CLI) | payer MEDICAID ==
[2022-04-23 15:42] LABS: BASO # 0.1 10^3/uL (0.0-0.2); BASO % 0.9 % (0.0-1.0); EOS # 0.3 10^3/uL (0.0-0.5); EOS % 2.4 % (0.0-3.0); HEMATOCRIT 45.1 % (36.0-47.0); HEMOGLOBIN 14.1 g/dl (12.0-15.5); MEAN CORPUSCULAR HEMOGLOBIN 29.4 pg (27.0-33.0); MEAN CORPUSCULAR HGB CONC 31.3 g/dl (32.0-36.5); MONO # 0.8 10^3/uL (0.0-0.8); MONO % 7.8 % (2.0-8.0); NEUTROPHILS # 6.5 10^3/uL (1.5-8.5); NEUTROPHILS % 60.6 % (36.0-66.0); PLATELET COUNT, AUTOMATED 316 10^3/uL (150-450); WHITE BLOOD COUNT 10.7 10^3/uL (4.0-10.0)
[2022-04-23 16:00] LABS: ALBUMIN 3.4 GM/DL (3.2-5.2); ALT/SGPT 14 U/L (12-78); BILIRUBIN,TOTAL 0.2 MG/DL (0.2-1.0); BLOOD UREA NITROGEN 10 MG/DL (7-18); C REACTIVE PROTEIN QUANTITATIV 2.45 MG/DL (0.00-0.30); CARBON DIOXIDE LEVEL 25 MEQ/L (21-32); CHLORIDE LEVEL 112 MEQ/L (98-107); CREATININE FOR GFR 0.88 MG/DL (0.55-1.30); GLOMERULAR FILTRATION RATE > 60.0 (>58); GLUCOSE, FASTING 84 MG/DL (70-100); RHEUMATOID FACTOR QUANT < 10.0 IU/ML (<15.0); SODIUM LEVEL 140 MEQ/L (136-145); TOTAL PROTEIN 7.2 GM/DL (6.4-8.2)
[2022-04-23 16:07] LABS: ERYTHROCYTE SEDIMENTATION RATE 31 mm/hr (0-20)
== END ==
LOC: M LAB 13:35
PROVIDERS: ATTEND Internal Medicine Rheumatology
DX: M35.3 Polymyalgia rheumatica (principal)

== ENCOUNTER → 2022-05-13 | Outpatient (CLI) | payer MEDICAID | LOC: M RAD 14:14 | PROVIDERS: ATTEND Orthopaedic Surgery Adult Reconstructive Orthopaedic Surgery | DX: M22.2X2 Patellofemoral disorders, left knee (principal) ==

== ENCOUNTER → 2022-05-16 | Outpatient (REF) | payer MEDICAID ==
[2022-05-16 17:29] LABS: HEMATOCRIT 45.6 % (36.0-47.0); HEMOGLOBIN 14.4 g/dl (12.0-15.5); MEAN CORPUSCULAR HEMOGLOBIN 30.1 pg (27.0-33.0); MEAN CORPUSCULAR VOLUME 95.2 fl (80.0-96.0); RED BLOOD COUNT 4.79 10^6/uL (4.00-5.40); WHITE BLOOD COUNT 7.5 10^3/uL (4.0-10.0)
[2022-05-16 17:30] LABS: BASO # 0.1 10^3/uL (0.0-0.2); BASO % 0.7 % (0.0-1.0); EOS # 0.2 10^3/uL (0.0-0.5); EOS % 2.5 % (0.0-3.0); LYMPH # 1.9 10^3/uL (1.5-5.0); LYMPH % 25.8 % (24.0-44.0); MEAN CORPUSCULAR HGB CONC 31.6 g/dl (32.0-36.5); MONO # 0.5 10^3/uL (0.0-0.8); MONO % 6.4 % (2.0-8.0); NEUTROPHILS # 4.8 10^3/uL (1.5-8.5); NEUTROPHILS % 64.3 % (36.0-66.0); PLATELET COUNT, AUTOMATED 230 10^3/uL (150-450)
[2022-05-16 18:09] LABS: ALBUMIN 3.6 GM/DL (3.2-5.2); ALT/SGPT 17 U/L (12-78); BILIRUBIN,TOTAL 0.4 MG/DL (0.2-1.0); BLOOD UREA NITROGEN 10 MG/DL (7-18); C REACTIVE PROTEIN QUANTITATIV 1.67 MG/DL (0.00-0.30); CALCIUM LEVEL 9.1 MG/DL (8.5-10.1); CARBON DIOXIDE LEVEL 27 MEQ/L (21-32); CHLORIDE LEVEL 111 MEQ/L (98-107); COMPLEMENT C3 150 MG/DL (90-180); COMPLEMENT C4 31 MG/DL (10-40); CREATININE FOR GFR 0.85 MG/DL (0.55-1.30); GLOMERULAR FILTRATION RATE > 60.0 (>58); GLUCOSE, FASTING 97 MG/DL (70-100); POTASSIUM SERUM 4.1 MEQ/L (3.5-5.1); SODIUM LEVEL 142 MEQ/L (136-145); TOTAL PROTEIN 7.1 GM/DL (6.4-8.2)
[2022-05-16 18:11] LABS: ERYTHROCYTE SEDIMENTATION RATE 16 mm/hr (0-20)
[2022-05-21 12:08] LABS: ANTI DS-DNA AB Negative (Negative)
== END ==
LOC: M SFHCRHEU 12:05
PROVIDERS: ATTEND Internal Medicine Rheumatology
DX: M35.3 Polymyalgia rheumatica (principal); R79.82 Elevated C-reactive protein (CRP); R76.8 Other specified abnormal immunological findings in serum

== ENCOUNTER → 2022-06-03 | Outpatient (CLI) | payer MEDICAID | LOC: M PAIN 11:30 | PROVIDERS: ATTEND Nurse Practitioner Family | DX: M79.10 Myalgia, unspecified site (principal); G89.29 Other chronic pain; R73.03 Prediabetes; G43.909 Migraine, unspecified, not intractable, without status migrainosus; J45.909 Unspecified asthma, uncomplicated; G47.33 Obstructive sleep apnea (adult) (pediatric); E03.9 Hypothyroidism, unspecified; E55.9 Vitamin D deficiency, unspecified; K21.9 Gastro-esophageal reflux disease without esophagitis; I10 Essential (primary) hypertension; Z86.59 Personal history of other mental and behavioral disorders; Z87.891 Personal history of nicotine dependence; Z88.5 Allergy status to narcotic agent; Z88.6 Allergy status to analgesic agent; Z88.8 Allergy status to other drugs, medicaments and biological substances; Z91.011 Allergy to milk products; Z91.018 Allergy to other foods; E66.01 Morbid (severe) obesity due to excess calories; Z68.42 Body mass index [BMI] 45.0-49.9, adult; Z79.899 Other long term (current) drug therapy ==

== ENCOUNTER → 2022-07-15 | Outpatient (CLI) | payer MEDICAID | LOC: M PAIN 14:45 | PROVIDERS: ATTEND Nurse Practitioner Family | DX: M94.262 Chondromalacia, left knee (principal); G89.29 Other chronic pain; R73.03 Prediabetes; G43.909 Migraine, unspecified, not intractable, without status migrainosus; J45.909 Unspecified asthma, uncomplicated; G47.33 Obstructive sleep apnea (adult) (pediatric); E55.9 Vitamin D deficiency, unspecified; K21.9 Gastro-esophageal reflux disease without esophagitis; I10 Essential (primary) hypertension; Z86.59 Personal history of other mental and behavioral disorders; Z87.891 Personal history of nicotine dependence; Z88.5 Allergy status to narcotic agent; Z88.6 Allergy status to analgesic agent; Z88.8 Allergy status to other drugs, medicaments and biological substances; Z91.011 Allergy to milk products; Z91.018 Allergy to other foods; E66.01 Morbid (severe) obesity due to excess calories; Z68.42 Body mass index [BMI] 45.0-49.9, adult; Z79.899 Other long term (current) drug therapy ==

== ENCOUNTER 2022-07-26 23:42 | Emergency (ER) | payer MEDICAID ==
[~2022-07-26] VITALS: Ht 154.9 cm; Wt 107.0 kg
[2022-07-27 00:29] LABS: BASO # 0.1 10^3/uL (0.0-0.2); BASO % 0.6 % (0.0-1.0); EOS # 0.3 10^3/uL (0.0-0.5); EOS % 3.3 % (0.0-3.0); HEMATOCRIT 43.4 % (36.0-47.0); HEMOGLOBIN 13.8 g/dl (12.0-15.5); LYMPH # 2.1 10^3/uL (1.5-5.0); LYMPH % 25.6 % (24.0-44.0); MEAN CORPUSCULAR HEMOGLOBIN 29.7 pg (27.0-33.0); MEAN CORPUSCULAR HGB CONC 31.8 g/dl (32.0-36.5); MEAN CORPUSCULAR VOLUME 93.5 fl (80.0-96.0); MONO # 0.5 10^3/uL (0.0-0.8); MONO % 6.3 % (2.0-8.0); NEUTROPHILS # 5.2 10^3/uL (1.5-8.5); NEUTROPHILS % 63.6 % (36.0-66.0); PLATELET COUNT, AUTOMATED 227 10^3/uL (150-450); RED BLOOD COUNT 4.64 10^6/uL (4.00-5.40); WHITE BLOOD COUNT 8.1 10^3/uL (4.0-10.0)
[2022-07-27 01:00] LABS: BLOOD UREA NITROGEN 14 MG/DL (7-18); CALCIUM LEVEL 9.8 MG/DL (8.5-10.1); CARBON DIOXIDE LEVEL 27 MEQ/L (21-32); CHLORIDE LEVEL 109 MEQ/L (98-107); CREATININE FOR GFR 0.86 MG/DL (0.55-1.30); GLOMERULAR FILTRATION RATE > 60.0 (>58); GLUCOSE, FASTING 116 MG/DL (70-100); MAGNESIUM LEVEL 1.9 MG/DL (1.8-2.4); POTASSIUM SERUM 3.8 MEQ/L (3.5-5.1); SODIUM LEVEL 141 MEQ/L (136-145)
[2022-07-27 03:32] VITALS: BP 113/52
== END 2022-07-27 04:30 | disposition home or self-care (01) ==
LOC: M ED 23:42
DX: G40.909 Epilepsy, unspecified, not intractable, without status epilepticus (principal); E03.9 Hypothyroidism, unspecified; K21.9 Gastro-esophageal reflux disease without esophagitis; F32.A Depression, unspecified; Z79.51 Long term (current) use of inhaled steroids; Z79.899 Other long term (current) drug therapy; Z88.1 Allergy status to other antibiotic agents; Z88.2 Allergy status to sulfonamides; Z88.5 Allergy status to narcotic agent; Z91.011 Allergy to milk products; Z91.018 Allergy to other foods

== ENCOUNTER → 2022-07-29 | Outpatient (REF) | LOC: M LAB 10:40 | PROVIDERS: ATTEND Nurse Practitioner Adult Health | DX: Z02.1 Encounter for pre-employment examination (principal) ==

== ENCOUNTER → 2022-08-01 | Outpatient (CLI) | payer MEDICAID | LOC: M LABSMTC 11:35 | PROVIDERS: ATTEND Anesthesiology | DX: Z01.812 Encounter for preprocedural laboratory examination (principal); Z20.822 Contact with and (suspected) exposure to COVID-19 ==

== ENCOUNTER 2022-08-16 21:13 | Inpatient (IN) | payer MEDICAID ==
[~2022-08-16] VITALS: Ht 162.6 cm; Wt 104.3 kg
[~2022-08-16 21:13] MED LIST changes: -LORA-674; +LORA-674 PO
[2022-08-16] MEDS ORDERED: ACETAMINOPHEN 325 MG TAB PO ONE (21:30)
[2022-08-16 22:05] LABS: HEMATOCRIT 38.9 % (36.0-47.0); HEMOGLOBIN 12.4 g/dl (12.0-15.5); MEAN CORPUSCULAR HEMOGLOBIN 30.1 pg (27.0-33.0); MEAN CORPUSCULAR HGB CONC 31.9 g/dl (32.0-36.5); MEAN CORPUSCULAR VOLUME 94.4 fl (80.0-96.0); PLATELET COUNT, AUTOMATED 208 10^3/uL (150-450); RED BLOOD COUNT 4.12 10^6/uL (4.00-5.40); WHITE BLOOD COUNT 6.6 10^3/uL (4.0-10.0)
[2022-08-16 22:40] LABS: RSV AMPLIFICATION NEGATIVE (NEGATIVE)
[2022-08-16 22:46] LABS: AMPHETAMINES LEVEL URINE NEGATIVE (NEGATIVE); BARBITURATES URINE NEGATIVE (NEGATIVE); BENZODIAZEPINES URINE NEGATIVE (NEGATIVE); CANNABINOIDS URINE NEGATIVE (NEGATIVE); COCAINE METABOLITE URINE NEGATIVE (NEGATIVE); METHADONE URINE NEGATIVE (NEGATIVE); OPIATES URINE NEGATIVE (NEGATIVE); PHENCYCLIDINE URINE NEGATIVE (NEGATIVE)
[2022-08-16 22:58] LABS: ACETAMINOPHEN LEVEL < 2.0 UG/ML (10.0-30.0); ALBUMIN 2.9 GM/DL (3.2-5.2); ALT/SGPT 18 U/L (12-78); BILIRUBIN,DIRECT < 0.1 MG/DL (0.0-0.2); BILIRUBIN,TOTAL 0.2 MG/DL (0.2-1.0); BLOOD UREA NITROGEN 15 MG/DL (7-18); CALCIUM LEVEL 8.5 MG/DL (8.5-10.1); CARBON DIOXIDE LEVEL 26 MEQ/L (21-32); CHLORIDE LEVEL 112 MEQ/L (98-107); CREATININE FOR GFR 1.28 MG/DL (0.55-1.30); ETHYL ALCOHOL (ETHANOL) < 0.003 % (0.000-0.010); GLOMERULAR FILTRATION RATE 48.2 (>58); GLUCOSE, FASTING 121 MG/DL (70-100); POTASSIUM SERUM 4.2 MEQ/L (3.5-5.1); SALICYLATE LEVEL < 1.7 MG/DL (5.0-30.0); SODIUM LEVEL 143 MEQ/L (136-145)
[2022-08-17] MEDS ORDERED: MOM 30ML SUSPENSION UDC PO PRN (00:35)
[2022-08-17] MEDS ORDERED: OLANZapine ORAL DISINTEGRATING TAB 5MG PO PRN (00:35)
[2022-08-17] MEDS ORDERED: MAALOX 30 ML SUSP *UDC PO PRN (00:35)
[2022-08-17] MEDS ORDERED: ALBU8.5H INH (01:40)
[2022-08-17] MEDS ORDERED: DULO1CAP6 PO (01:40)
[2022-08-17] MEDS ORDERED: ZONI100C67 PO (01:40)
[2022-08-17] MEDS ORDERED: MED REC COMMENT (01:42)
[2022-08-17] MEDS ORDERED: HOME MED LIST COMPLETE! XX SCH (01:45)
[2022-08-17 02:26] VITALS: BP 131/80
[2022-08-17] MEDS: traZODone 50 MG TAB PO PRN ×2 (02:49→20:44)
[2022-08-17] MEDS: ACETAMINOPHEN TAB 650MG DOSE (2X325MG) PO PRN (08:37)
[2022-08-17] MEDS: GABAPENTIN 300 MG CAP PO SCH ×2 (11:24→20:44)
[2022-08-17] MEDS: DULoxetine 30MG CAPSULE (CYMBALTA) PO SCH (11:24)
[2022-08-17] MEDS ORDERED: ALBUTEROL SULFATE 2.5 MG/0.5 ML INH NEB SOLN INH PRN (12:00)
[2022-08-17] MEDS ORDERED: tiZANidine 4 MG TAB PO PRN (12:00)
[2022-08-17] MEDS: estradioL 1 MG TAB PO SCH (13:08)
[2022-08-17] MEDS: ZONISAMIDE 100 MG CAP (ZONEGRAN) PO SCH ×2 (13:08→20:43)
[2022-08-17] MEDS: LORATADINE 10 MG TAB PO SCH (13:08)
[2022-08-17] MEDS: FOLIC ACID 1MG TAB PO SCH (13:08)
[2022-08-17] MEDS: PANTOPRAZOLE 20 MG TAB PO SCH ×2 (14:22→20:44)
[2022-08-17 16:10] VITALS: BP 130/81
[2022-08-17] MEDS: TEMAZEPAM 7.5 MG CAP PO PRN (20:43)
[2022-08-17] MEDS: PRAZOSIN 1 MG CAP PO SCH (20:44)
[2022-08-17] MEDS: FAMOTIDINE 20 MG TAB PO SCH (20:44)
[2022-08-17] MEDS: PROPRANOLOL 10 MG TAB PO SCH (20:44)
[2022-08-17] MEDS: rOPINIRole 1MG TAB PO SCH (20:44)
[2022-08-17] MEDS: SYMBICORT 80/4.5MCG INHALER 6GM INH SCH (21:02)
[2022-08-17 21:05] VITALS: BP 111/63
[2022-08-18] MEDS: LEVOTHYROXINE 100MCG TABLET (0.1MG) PO SCH (06:15)
[2022-08-18 06:26] VITALS: BP 100/70
[2022-08-18] MEDS: SYMBICORT 80/4.5MCG INHALER 6GM INH SCH ×2 (08:06→20:43)
[2022-08-18] MEDS: FOLIC ACID 1MG TAB PO SCH (08:07)
[2022-08-18] MEDS: GABAPENTIN 300 MG CAP PO SCH ×2 (08:07→20:42)
[2022-08-18] MEDS: ZONISAMIDE 100 MG CAP (ZONEGRAN) PO SCH ×2 (08:07→20:42)
[2022-08-18] MEDS: DULoxetine 30MG CAPSULE (CYMBALTA) PO SCH (08:07)
[2022-08-18] MEDS: PANTOPRAZOLE 20 MG TAB PO SCH ×2 (08:07→20:43)
[2022-08-18] MEDS: estradioL 1 MG TAB PO SCH (08:07)
[2022-08-18] MEDS: LORATADINE 10 MG TAB PO SCH (08:07)
[2022-08-18] MEDS ORDERED: RIZATRIPTAN MLT 10 MG TAB PO PRN (12:25)
[2022-08-18] MEDS ORDERED: FIORICET TAB PO ONE (13:00)
[2022-08-18 16:20] VITALS: BP 130/74
[2022-08-18] MEDS: PROPRANOLOL 10 MG TAB PO SCH (20:42)
[2022-08-18] MEDS: TEMAZEPAM 7.5 MG CAP PO PRN (20:42)
[2022-08-18] MEDS: traZODone 50 MG TAB PO PRN (20:42)
[2022-08-18] MEDS: PRAZOSIN 1 MG CAP PO SCH (20:43)
[2022-08-18] MEDS: rOPINIRole 1MG TAB PO SCH (20:43)
[2022-08-18] MEDS: FAMOTIDINE 20 MG TAB PO SCH (20:45)
[2022-08-18 22:00] VITALS: BP 132/69
[2022-08-19] MEDS: LEVOTHYROXINE 100MCG TABLET (0.1MG) PO SCH (06:33)
[2022-08-19 07:10] VITALS: BP 127/62
[2022-08-19] MEDS: DULoxetine 30MG CAPSULE (CYMBALTA) PO SCH (08:29)
[2022-08-19] MEDS: SYMBICORT 80/4.5MCG INHALER 6GM INH SCH ×2 (08:29→20:38)
[2022-08-19] MEDS: LORATADINE 10 MG TAB PO SCH (08:29)
[2022-08-19] MEDS: estradioL 1 MG TAB PO SCH (08:29)
[2022-08-19] MEDS: GABAPENTIN 300 MG CAP PO SCH ×2 (08:29→20:39)
[2022-08-19] MEDS: FOLIC ACID 1MG TAB PO SCH (08:29)
[2022-08-19] MEDS: ZONISAMIDE 100 MG CAP (ZONEGRAN) PO SCH ×2 (08:29→20:40)
[2022-08-19] MEDS: CARBAMIDE PEROXIDE 6.5% OTIC SOLN 15ML AU SCH ×2 (09:00→20:44)
[2022-08-19 10:57] LABS: PROLACTIN 5.8 NG/ML
[2022-08-19] MEDS: PANTOPRAZOLE 20 MG TAB PO SCH ×2 (11:15→20:39)
[2022-08-19] MEDS: ACETAMINOPHEN TAB 650MG DOSE (2X325MG) PO PRN (11:16)
[2022-08-19] MEDS ORDERED: CETIRIZINE (ZyrTEC) 10 MG TAB PO ONE (14:00)
[2022-08-19] MEDS: CIPRODEX OTIC SUSP 7.5ML AS SCH ×2 (15:32→20:54)
[2022-08-19] MEDS: FLUTICASONE PROP 0.05% NASAL SPRAY 16 GM (FLONASE) NARES SCH ×2 (15:32→20:39)
[2022-08-19 17:01] VITALS: BP 115/65
[2022-08-19] MEDS: rOPINIRole 1MG TAB PO SCH (20:39)
[2022-08-19] MEDS: FAMOTIDINE 20 MG TAB PO SCH (20:39)
[2022-08-19] MEDS: TEMAZEPAM 7.5 MG CAP PO PRN (20:39)
[2022-08-19] MEDS: PRAZOSIN 1 MG CAP PO SCH (20:40)
[2022-08-19] MEDS: traZODone 50 MG TAB PO PRN (20:40)
[2022-08-19 20:42] VITALS: BP 116/76
[2022-08-19] MEDS: PROPRANOLOL 10 MG TAB PO SCH (20:42)
[2022-08-20] MEDS: LEVOTHYROXINE 100MCG TABLET (0.1MG) PO SCH (05:38)
[2022-08-20 07:04] VITALS: BP 112/59
[2022-08-20] MEDS: SYMBICORT 80/4.5MCG INHALER 6GM INH SCH (08:29)
[2022-08-20] MEDS: GABAPENTIN 300 MG CAP PO SCH (08:30)
[2022-08-20] MEDS: ZONISAMIDE 100 MG CAP (ZONEGRAN) PO SCH (08:30)
[2022-08-20] MEDS: FOLIC ACID 1MG TAB PO SCH (08:30)
[2022-08-20] MEDS: LORATADINE 10 MG TAB PO SCH (08:30)
[2022-08-20] MEDS: PANTOPRAZOLE 20 MG TAB PO SCH (08:30)
[2022-08-20] MEDS: DULoxetine 30MG CAPSULE (CYMBALTA) PO SCH (08:30)
[2022-08-20] MEDS: CIPRODEX OTIC SUSP 7.5ML AS SCH (08:30)
[2022-08-20] MEDS: estradioL 1 MG TAB PO SCH (08:30)
[2022-08-20] MEDS: FLUTICASONE PROP 0.05% NASAL SPRAY 16 GM (FLONASE) NARES SCH (08:31)
[2022-08-20] MEDS ORDERED: CETIRIZINE (ZyrTEC) 10 MG TAB PO SCH (09:00)
[2022-08-20] MEDS: CARBAMIDE PEROXIDE 6.5% OTIC SOLN 15ML AU SCH (09:03)
[2022-08-20] MEDS ORDERED: CETI10TA PO (09:51)
[2022-08-20] MEDS ORDERED: MINI1CAP PO (09:51)
[2022-08-20] MEDS ORDERED: TRAZ-252 PO (09:51)
[2022-08-20] MEDS ORDERED: CARBOT AU (09:51)
[2022-08-20] MEDS ORDERED: CIPR7.5D2 AS (09:51)
[2022-08-20] MEDS ORDERED: MAXA10TA15 PO (09:51)
[2022-08-20] MEDS ORDERED: CYMB1CAP5 PO (09:51)
== END 2022-08-20 11:25 | disposition home or self-care (01) | DRG 751 ==
LOC: EDBD 21:13 → M ED 21:13 → M PSY 08-17 00:33 → M ED INP 08-17 00:33 → M PSY 08-17 01:55
PROVIDERS: ADMIT Psychiatry & Neurology Psychiatry; ATTEND Psychiatry & Neurology Psychiatry
DX: F33.9 Major depressive disorder, recurrent, unspecified (principal); R56.9 Unspecified convulsions; Z91.14 Patient's other noncompliance with medication regimen; E66.01 Morbid (severe) obesity due to excess calories; F43.10 Post-traumatic stress disorder, unspecified; F10.10 Alcohol abuse, uncomplicated; Z91.018 Allergy to other foods; Z88.6 Allergy status to analgesic agent; Z88.8 Allergy status to other drugs, medicaments and biological substances; Z91.011 Allergy to milk products; Z88.5 Allergy status to narcotic agent; Z79.899 Other long term (current) drug therapy; Z62.810 Personal history of physical and sexual abuse in childhood; I12.9 Hypertensive chronic kidney disease with stage 1 through stage 4 chronic kidney disease, or unspecified chronic kidney disease; N18.2 Chronic kidney disease, stage 2 (mild); G47.33 Obstructive sleep apnea (adult) (pediatric); J45.909 Unspecified asthma, uncomplicated; E03.9 Hypothyroidism, unspecified; G43.909 Migraine, unspecified, not intractable, without status migrainosus; K21.9 Gastro-esophageal reflux disease without esophagitis; E55.9 Vitamin D deficiency, unspecified; Z87.891 Personal history of nicotine dependence; H66.92 Otitis media, unspecified, left ear

== ENCOUNTER 2022-08-27 12:38 | Inpatient (IN) | payer MEDICAID ==
[~2022-08-27] VITALS: Ht 154.9 cm; Wt 113.3 kg
[~2022-08-27 12:38] MED LIST changes: +ALBU8.5H INH; +CARBOT AU; +CETI10TA PO; +CIPR7.5D2 AS; +CYMB1CAP5 PO; +DULO1CAP6 PO; +MAXA10TA15 PO; +MED REC COMMENT; +MINI1CAP PO
[2022-08-27] MEDS ORDERED: NS 1,000 ML IV ONE (13:00)
[2022-08-27 13:21] LABS: BASO % 0.8 % (0.0-1.0); EOS # 0.2 10^3/uL (0.0-0.5); EOS % 2.8 % (0.0-3.0); LYMPH # 1.2 10^3/uL (1.5-5.0); LYMPH % 22.9 % (24.0-44.0); MEAN CORPUSCULAR HGB CONC 31.8 g/dl (32.0-36.5); MEAN CORPUSCULAR VOLUME 94.4 fl (80.0-96.0); MONO # 0.4 10^3/uL (0.0-0.8); MONO % 6.6 % (2.0-8.0); NEUTROPHILS # 3.5 10^3/uL (1.5-8.5); NEUTROPHILS % 66.7 % (36.0-66.0); PLATELET COUNT, AUTOMATED 213 10^3/uL (150-450); RED BLOOD COUNT 4.66 10^6/uL (4.00-5.40); WHITE BLOOD COUNT 5.3 10^3/uL (4.0-10.0)
[2022-08-27 14:24] LABS: RSV AMPLIFICATION NEGATIVE (NEGATIVE)
[2022-08-27 14:33] LABS: HCG, SERUM QUALITATIVE NEGATIVE (NEGATIVE)
[2022-08-27 14:52] LABS: AMPHETAMINES LEVEL URINE NEGATIVE (NEGATIVE); BARBITURATES URINE POSITIVE (NEGATIVE); BENZODIAZEPINES URINE NEGATIVE (NEGATIVE); CANNABINOIDS URINE NEGATIVE (NEGATIVE); COCAINE METABOLITE URINE NEGATIVE (NEGATIVE); METHADONE URINE NEGATIVE (NEGATIVE); OPIATES URINE NEGATIVE (NEGATIVE); PHENCYCLIDINE URINE NEGATIVE (NEGATIVE)
[2022-08-27 14:53] LABS: ACETAMINOPHEN LEVEL < 2.0 UG/ML (10.0-30.0); ALBUMIN 3.1 GM/DL (3.2-5.2); ALT/SGPT 15 U/L (12-78); BILIRUBIN,DIRECT < 0.1 MG/DL (0.0-0.2); BILIRUBIN,TOTAL 0.4 MG/DL (0.2-1.0); BLOOD UREA NITROGEN 7 MG/DL (7-18); CALCIUM LEVEL 8.6 MG/DL (8.5-10.1); CARBON DIOXIDE LEVEL 25 MEQ/L (21-32); CHLORIDE LEVEL 112 MEQ/L (98-107); CREATININE FOR GFR 0.85 MG/DL (0.55-1.30); ETHYL ALCOHOL (ETHANOL) < 0.003 % (0.000-0.010); GLOMERULAR FILTRATION RATE > 60.0 (>58); GLUCOSE, FASTING 115 MG/DL (70-100); POTASSIUM SERUM 4.3 MEQ/L (3.5-5.1); SALICYLATE LEVEL < 1.7 MG/DL (5.0-30.0); SODIUM LEVEL 143 MEQ/L (136-145); TOTAL PROTEIN 6.3 GM/DL (6.4-8.2)
[2022-08-27] MEDS ORDERED: med rec comment (16:02)
[2022-08-27] MEDS ORDERED: HOME MED LIST COMPLETE! XX SCH (16:05)
[2022-08-27] MEDS: NS 1,000 ML IV SCH (17:20)
[2022-08-27] MEDS ORDERED: ATROPINE SULF 1MG/10ML SYRINGE (J0461) As Ordered ONE (17:25)
[2022-08-27 20:15] VITALS: BP 126/77
[2022-08-27] MEDS: HEPARIN SOD (PORCINE) 5000UNITS/ML 1ML VIAL/SYRINGE SC SCH (20:23)
[2022-08-27] MEDS: ALBUTEROL SULFATE 2.5 MG/0.5 ML INH NEB SOLN NEB SCH (20:27)
[2022-08-27 22:00] VITALS: BP 96/52
[2022-08-27 23:00] VITALS: BP 98/54
[2022-08-28] VITALS (9 sets, daily range): BP systolic 92–130; BP diastolic 51–75
[2022-08-28] MEDS: NS 1,000 ML IV SCH ×2 (01:28→09:14)
[2022-08-28 05:10] LABS: HEMATOCRIT 40.9 % (36.0-47.0); HEMOGLOBIN 12.5 g/dl (12.0-15.5); MEAN CORPUSCULAR HEMOGLOBIN 30.2 pg (27.0-33.0); MEAN CORPUSCULAR HGB CONC 30.6 g/dl (32.0-36.5); MEAN CORPUSCULAR VOLUME 98.8 fl (80.0-96.0); PLATELET COUNT, AUTOMATED 215 10^3/uL (150-450); RED BLOOD COUNT 4.14 10^6/uL (4.00-5.40); WHITE BLOOD COUNT 6.8 10^3/uL (4.0-10.0)
[2022-08-28] MEDS: HEPARIN SOD (PORCINE) 5000UNITS/ML 1ML VIAL/SYRINGE SC SCH ×2 (05:18→13:00)
[2022-08-28 05:30] LABS: ALBUMIN 2.7 GM/DL (3.2-5.2); ALT/SGPT 16 U/L (12-78); BILIRUBIN,TOTAL 0.3 MG/DL (0.2-1.0); BLOOD UREA NITROGEN 9 MG/DL (7-18); CARBON DIOXIDE LEVEL 20 MEQ/L (21-32); CHLORIDE LEVEL 115 MEQ/L (98-107); CREATININE FOR GFR 0.73 MG/DL (0.55-1.30); GLOMERULAR FILTRATION RATE > 60.0 (>58); GLUCOSE, FASTING 117 MG/DL (70-100); POTASSIUM SERUM 3.9 MEQ/L (3.5-5.1); SODIUM LEVEL 141 MEQ/L (136-145); TOTAL PROTEIN 6.2 GM/DL (6.4-8.2)
[2022-08-28] MEDS: ALBUTEROL SULFATE 2.5 MG/0.5 ML INH NEB SOLN NEB SCH ×2 (08:00→11:24)
[2022-08-28] MEDS ORDERED: MAALOX 30 ML SUSP *UDC PO ONE (08:05)
[2022-08-28] MEDS ORDERED: PROMETHAZINE 25MG/ML 1ML VIAL IV ONE (08:30)
[2022-08-28] MEDS ORDERED: ALBUTEROL SULFATE 2.5 MG/0.5 ML INH NEB SOLN NEB PRN (13:25)
== END 2022-08-28 19:05 | DRG 351 ==
LOC: M ED 12:38 → EDBD 12:38 → M ED INP 16:47 → OBSVTOIN 18:12 → M ICU 20:08
PROVIDERS: ADMIT Student in an Organized Health Care Education/Training Program; ATTEND Internal Medicine
DX: T14.91XA Suicide attempt, initial encounter (principal); G93.40 Encephalopathy, unspecified; R56.9 Unspecified convulsions; I13.0 Hypertensive heart and chronic kidney disease with heart failure and stage 1 through stage 4 chronic kidney disease, or unspecified chronic kidney disease; K31.84 Gastroparesis; E66.01 Morbid (severe) obesity due to excess calories; I50.9 Heart failure, unspecified; K21.9 Gastro-esophageal reflux disease without esophagitis; R00.1 Bradycardia, unspecified; G43.909 Migraine, unspecified, not intractable, without status migrainosus; F41.9 Anxiety disorder, unspecified; Z79.899 Other long term (current) drug therapy; Z88.6 Allergy status to analgesic agent; Z88.8 Allergy status to other drugs, medicaments and biological substances; Z91.018 Allergy to other foods; F79 Unspecified intellectual disabilities; F32.A Depression, unspecified; G47.33 Obstructive sleep apnea (adult) (pediatric); N18.2 Chronic kidney disease, stage 2 (mild); J45.909 Unspecified asthma, uncomplicated; E03.9 Hypothyroidism, unspecified; F43.10 Post-traumatic stress disorder, unspecified; Z87.891 Personal history of nicotine dependence; G25.81 Restless legs syndrome

== ENCOUNTER 2022-08-28 17:07 | Inpatient (IN) | payer MEDICAID ==
[~2022-08-28] VITALS: Ht 154.9 cm; Wt 101.6 kg
[~2022-08-28 17:07] MED LIST changes: +med rec comment
[2022-08-28] MEDS ORDERED: MOM 30ML SUSPENSION UDC PO PRN (18:20)
[2022-08-28] MEDS ORDERED: IBUPROFEN 400MG TAB PO PRN (18:20)
[2022-08-28 19:51] VITALS: BP 133/81
[2022-08-28] MEDS: CARBAMIDE PEROXIDE 6.5% OTIC SOLN 15ML AS ONE ×2 (22:31→23:00)
[2022-08-29 06:15] VITALS: BP 113/68
[2022-08-29] MEDS: CARBAMIDE PEROXIDE 6.5% OTIC SOLN 15ML AS SCH ×2 (08:32→20:21)
[2022-08-29] MEDS: ENOXAPARIN 40MG/0.4ML SYRINGE (J1650 PER 10MG) SC SCH ×2 (09:00→20:15)
[2022-08-29] MEDS ORDERED: DULoxetine 30MG CAPSULE (CYMBALTA) PO SCH (09:00)
[2022-08-29] MEDS ORDERED: HOME MED LIST COMPLETE! XX SCH (09:20)
[2022-08-29] MEDS ORDERED: ALBUTEROL 90 MCG/ACT 8GM HFA INHALER INH PRN (09:25)
[2022-08-29] MEDS: LEVOTHYROXINE 100MCG TABLET (0.1MG) PO SCH (11:48)
[2022-08-29] MEDS: GABAPENTIN 300 MG CAP PO SCH ×2 (11:50→20:20)
[2022-08-29] MEDS: LORATADINE 10 MG TAB PO SCH (11:50)
[2022-08-29] MEDS: FOLIC ACID 1MG TAB PO SCH (11:51)
[2022-08-29] MEDS: estradioL 1 MG TAB PO SCH (11:52)
[2022-08-29] MEDS: CIPRODEX OTIC SUSP 7.5ML AS SCH ×2 (11:53→20:21)
[2022-08-29] MEDS: SYMBICORT 80/4.5MCG INHALER 6GM INH SCH ×2 (11:54→20:21)
[2022-08-29] MEDS: ONDANSETRON 4MG TAB PO PRN (14:25)
[2022-08-29 18:30] VITALS: BP 138/71
[2022-08-29] MEDS: ZONISAMIDE 100 MG CAP (ZONEGRAN) PO SCH (20:20)
[2022-08-29] MEDS: traZODone 50 MG TAB PO PRN (20:20)
[2022-08-29] MEDS: FAMOTIDINE 20 MG TAB PO SCH (20:20)
[2022-08-30] MEDS: LEVOTHYROXINE 100MCG TABLET (0.1MG) PO SCH (05:41)
[2022-08-30 06:16] VITALS: BP 112/74
[2022-08-30] MEDS: ONDANSETRON 4MG TAB PO PRN (06:39)
[2022-08-30] MEDS: ACETAMINOPHEN TAB 650MG DOSE (2X325MG) PO PRN (06:41)
[2022-08-30] MEDS: ENOXAPARIN 40MG/0.4ML SYRINGE (J1650 PER 10MG) SC SCH ×2 (07:47→20:42)
[2022-08-30] MEDS: SYMBICORT 80/4.5MCG INHALER 6GM INH SCH ×2 (07:51→20:43)
[2022-08-30] MEDS: FOLIC ACID 1MG TAB PO SCH (07:54)
[2022-08-30] MEDS: ARIPiprazole 2 MG TAB PO SCH (07:54)
[2022-08-30] MEDS: CIPRODEX OTIC SUSP 7.5ML AS SCH ×2 (07:54→20:43)
[2022-08-30] MEDS: GABAPENTIN 300 MG CAP PO SCH ×2 (07:54→20:41)
[2022-08-30] MEDS: ZONISAMIDE 100 MG CAP (ZONEGRAN) PO SCH ×2 (07:55→20:42)
[2022-08-30] MEDS: DULoxetine 30MG CAPSULE (CYMBALTA) PO SCH (07:55)
[2022-08-30] MEDS: estradioL 1 MG TAB PO SCH (07:55)
[2022-08-30] MEDS: LORATADINE 10 MG TAB PO SCH (07:55)
[2022-08-30] MEDS: CARBAMIDE PEROXIDE 6.5% OTIC SOLN 15ML AS SCH ×2 (07:58→20:57)
[2022-08-30 16:18] VITALS: BP 118/76
[2022-08-30] MEDS: FAMOTIDINE 20 MG TAB PO SCH (20:43)
[2022-08-30] MEDS: IBUPROFEN 800 MG TAB PO SCH (22:23)
[2022-08-31] MEDS: LEVOTHYROXINE 100MCG TABLET (0.1MG) PO SCH (06:10)
[2022-08-31] MEDS: IBUPROFEN 800 MG TAB PO SCH ×3 (06:13→21:01)
[2022-08-31 06:21] VITALS: BP 109/58
[2022-08-31] MEDS: ENOXAPARIN 40MG/0.4ML SYRINGE (J1650 PER 10MG) SC SCH ×2 (08:28→20:18)
[2022-08-31] MEDS: SYMBICORT 80/4.5MCG INHALER 6GM INH SCH ×2 (08:33→20:13)
[2022-08-31] MEDS: FOLIC ACID 1MG TAB PO SCH (08:33)
[2022-08-31] MEDS: ARIPiprazole 2 MG TAB PO SCH (08:33)
[2022-08-31] MEDS: GABAPENTIN 300 MG CAP PO SCH ×2 (08:34→20:14)
[2022-08-31] MEDS: DULoxetine 30MG CAPSULE (CYMBALTA) PO SCH (08:34)
[2022-08-31] MEDS: LORATADINE 10 MG TAB PO SCH (08:34)
[2022-08-31] MEDS: estradioL 1 MG TAB PO SCH (08:34)
[2022-08-31] MEDS: ZONISAMIDE 100 MG CAP (ZONEGRAN) PO SCH ×2 (08:34→20:14)
[2022-08-31] MEDS: CIPRODEX OTIC SUSP 7.5ML AS SCH ×2 (08:35→20:15)
[2022-08-31] MEDS: CARBAMIDE PEROXIDE 6.5% OTIC SOLN 15ML AS SCH ×2 (08:35→21:00)
[2022-08-31] MEDS: ONDANSETRON 4MG TAB PO PRN (14:56)
[2022-08-31 16:16] VITALS: BP 124/73
[2022-08-31] MEDS: FAMOTIDINE 20 MG TAB PO SCH (20:14)
[2022-08-31] MEDS: TEMAZEPAM 15 MG CAP PO PRN (20:14)
[2022-08-31] MEDS: traZODone 50 MG TAB PO PRN (20:14)
[2022-08-31] MEDS: PRAZOSIN 1 MG CAP PO SCH (20:14)
[2022-09-01] MEDS: LEVOTHYROXINE 100MCG TABLET (0.1MG) PO SCH (06:11)
[2022-09-01] MEDS: IBUPROFEN 800 MG TAB PO SCH ×3 (06:12→20:27)
[2022-09-01 06:38] VITALS: BP 122/79
[2022-09-01 06:48] LABS: HEMATOCRIT 38.8 % (36.0-47.0); MEAN CORPUSCULAR HEMOGLOBIN 29.8 pg (27.0-33.0); MEAN CORPUSCULAR HGB CONC 30.9 g/dl (32.0-36.5); MEAN CORPUSCULAR VOLUME 96.3 fl (80.0-96.0); PLATELET COUNT, AUTOMATED 214 10^3/uL (150-450); RED BLOOD COUNT 4.03 10^6/uL (4.00-5.40); WHITE BLOOD COUNT 5.4 10^3/uL (4.0-10.0)
[2022-09-01] MEDS: SYMBICORT 80/4.5MCG INHALER 6GM INH SCH ×2 (07:40→20:31)
[2022-09-01] MEDS: ZONISAMIDE 100 MG CAP (ZONEGRAN) PO SCH ×2 (07:41→20:31)
[2022-09-01] MEDS: estradioL 1 MG TAB PO SCH (07:41)
[2022-09-01] MEDS: GABAPENTIN 300 MG CAP PO SCH ×2 (07:41→20:31)
[2022-09-01] MEDS: CIPRODEX OTIC SUSP 7.5ML AS SCH ×2 (07:41→20:32)
[2022-09-01] MEDS: ENOXAPARIN 40MG/0.4ML SYRINGE (J1650 PER 10MG) SC SCH ×2 (07:42→20:27)
[2022-09-01] MEDS: ARIPiprazole 2 MG TAB PO SCH (07:42)
[2022-09-01] MEDS: DULoxetine 30MG CAPSULE (CYMBALTA) PO SCH (07:42)
[2022-09-01] MEDS: LORATADINE 10 MG TAB PO SCH (07:42)
[2022-09-01] MEDS: FOLIC ACID 1MG TAB PO SCH (07:42)
[2022-09-01] MEDS: CARBAMIDE PEROXIDE 6.5% OTIC SOLN 15ML AS SCH ×2 (07:45→20:40)
[2022-09-01 16:14] VITALS: BP 120/68
[2022-09-01] MEDS: traZODone 50 MG TAB PO PRN (20:31)
[2022-09-01] MEDS: FAMOTIDINE 20 MG TAB PO SCH (20:31)
[2022-09-01] MEDS: PRAZOSIN 1 MG CAP PO SCH (20:31)
[2022-09-01] MEDS: TEMAZEPAM 15 MG CAP PO PRN (20:31)
[2022-09-02] MEDS: IBUPROFEN 800 MG TAB PO SCH ×2 (06:00→14:00)
[2022-09-02] MEDS: LEVOTHYROXINE 100MCG TABLET (0.1MG) PO SCH (06:07)
[2022-09-02 06:26] VITALS: BP 133/74
[2022-09-02] MEDS: ENOXAPARIN 40MG/0.4ML SYRINGE (J1650 PER 10MG) SC SCH ×2 (08:15→21:00)
[2022-09-02] MEDS: ARIPiprazole 2 MG TAB PO SCH (08:19)
[2022-09-02] MEDS: SYMBICORT 80/4.5MCG INHALER 6GM INH SCH ×2 (08:19→21:54)
[2022-09-02] MEDS: DULoxetine 30MG CAPSULE (CYMBALTA) PO SCH (08:19)
[2022-09-02] MEDS: estradioL 1 MG TAB PO SCH (08:19)
[2022-09-02] MEDS: FOLIC ACID 1MG TAB PO SCH (08:20)
[2022-09-02] MEDS: CIPRODEX OTIC SUSP 7.5ML AS SCH ×2 (08:20→21:56)
[2022-09-02] MEDS: ZONISAMIDE 100 MG CAP (ZONEGRAN) PO SCH ×2 (08:20→21:56)
[2022-09-02] MEDS: GABAPENTIN 300 MG CAP PO SCH ×2 (08:20→21:55)
[2022-09-02] MEDS: LORATADINE 10 MG TAB PO SCH (08:20)
[2022-09-02 18:13] VITALS: BP 154/67
[2022-09-02] MEDS: PRAZOSIN 1 MG CAP PO SCH (21:54)
[2022-09-02] MEDS: traZODone 50 MG TAB PO PRN (21:55)
[2022-09-02] MEDS: FAMOTIDINE 20 MG TAB PO SCH (21:56)
[2022-09-03] MEDS: LEVOTHYROXINE 100MCG TABLET (0.1MG) PO SCH (05:53)
[2022-09-03 06:00] VITALS: BP 125/75
[2022-09-03] MEDS: SYMBICORT 80/4.5MCG INHALER 6GM INH SCH ×2 (08:08→20:09)
[2022-09-03] MEDS: ENOXAPARIN 40MG/0.4ML SYRINGE (J1650 PER 10MG) SC SCH (08:08)
[2022-09-03] MEDS: CIPRODEX OTIC SUSP 7.5ML AS SCH ×2 (08:12→20:11)
[2022-09-03] MEDS: GABAPENTIN 300 MG CAP PO SCH ×2 (08:12→20:10)
[2022-09-03] MEDS: estradioL 1 MG TAB PO SCH (08:12)
[2022-09-03] MEDS: FOLIC ACID 1MG TAB PO SCH (08:12)
[2022-09-03] MEDS: LORATADINE 10 MG TAB PO SCH (08:12)
[2022-09-03] MEDS: DULoxetine 30MG CAPSULE (CYMBALTA) PO SCH (08:12)
[2022-09-03] MEDS: ARIPiprazole 2 MG TAB PO SCH (08:12)
[2022-09-03] MEDS: ZONISAMIDE 100 MG CAP (ZONEGRAN) PO SCH ×2 (08:12→20:10)
[2022-09-03] MEDS: ACETAMINOPHEN TAB 650MG DOSE (2X325MG) PO PRN (10:36)
[2022-09-03] MEDS: diphenhydrAMINE 25MG CAP PO PRN (17:16)
[2022-09-03 18:14] VITALS: BP 140/73
[2022-09-03] MEDS: traZODone 50 MG TAB PO PRN (20:09)
[2022-09-03] MEDS: FAMOTIDINE 20 MG TAB PO SCH (20:10)
[2022-09-03] MEDS: PRAZOSIN 1 MG CAP PO SCH (20:11)
[2022-09-03] MEDS: TEMAZEPAM 15 MG CAP PO PRN (20:11)
[2022-09-04] MEDS: LEVOTHYROXINE 100MCG TABLET (0.1MG) PO SCH (05:33)
[2022-09-04 06:06] VITALS: BP 122/59
[2022-09-04 07:04] LABS: HEMOGLOBIN 12.1 g/dl (12.0-15.5); MEAN CORPUSCULAR HEMOGLOBIN 30.5 pg (27.0-33.0); MEAN CORPUSCULAR HGB CONC 31.8 g/dl (32.0-36.5); MEAN CORPUSCULAR VOLUME 95.7 fl (80.0-96.0); PLATELET COUNT, AUTOMATED 198 10^3/uL (150-450); RED BLOOD COUNT 3.97 10^6/uL (4.00-5.40); WHITE BLOOD COUNT 5.1 10^3/uL (4.0-10.0)
[2022-09-04] MEDS: SYMBICORT 80/4.5MCG INHALER 6GM INH SCH ×2 (08:10→20:32)
[2022-09-04] MEDS: ARIPiprazole 2 MG TAB PO SCH (08:11)
[2022-09-04] MEDS: LORATADINE 10 MG TAB PO SCH (08:11)
[2022-09-04] MEDS: DULoxetine 30MG CAPSULE (CYMBALTA) PO SCH (08:12)
[2022-09-04] MEDS: GABAPENTIN 300 MG CAP PO SCH ×2 (08:12→20:33)
[2022-09-04] MEDS: CIPRODEX OTIC SUSP 7.5ML AS SCH ×2 (08:13→20:33)
[2022-09-04] MEDS: estradioL 1 MG TAB PO SCH (08:13)
[2022-09-04] MEDS: FOLIC ACID 1MG TAB PO SCH (08:13)
[2022-09-04] MEDS: ZONISAMIDE 100 MG CAP (ZONEGRAN) PO SCH ×2 (08:13→20:33)
[2022-09-04] MEDS: diphenhydrAMINE 25MG CAP PO PRN (12:24)
[2022-09-04 18:28] VITALS: BP 188/66
[2022-09-04] MEDS: FAMOTIDINE 20 MG TAB PO SCH (20:33)
[2022-09-04] MEDS: TEMAZEPAM 15 MG CAP PO PRN (20:33)
[2022-09-04] MEDS: traZODone 50 MG TAB PO PRN (20:33)
[2022-09-04 20:35] VITALS: BP 119/65
[2022-09-04] MEDS: PRAZOSIN 1 MG CAP PO SCH (20:35)
[2022-09-05] MEDS: LEVOTHYROXINE 100MCG TABLET (0.1MG) PO SCH (05:47)
[2022-09-05 06:30] VITALS: BP 128/66
[2022-09-05] MEDS: LORATADINE 10 MG TAB PO SCH (08:41)
[2022-09-05] MEDS: SYMBICORT 80/4.5MCG INHALER 6GM INH SCH (08:42)
[2022-09-05] MEDS: ARIPiprazole 2 MG TAB PO SCH (08:42)
[2022-09-05] MEDS: GABAPENTIN 300 MG CAP PO SCH (08:43)
[2022-09-05] MEDS: DULoxetine 30MG CAPSULE (CYMBALTA) PO SCH (08:43)
[2022-09-05] MEDS: FOLIC ACID 1MG TAB PO SCH (08:43)
[2022-09-05] MEDS: estradioL 1 MG TAB PO SCH (08:44)
[2022-09-05] MEDS: ZONISAMIDE 100 MG CAP (ZONEGRAN) PO SCH (08:44)
[2022-09-05] MEDS ORDERED: REST15CA PO (09:34)
[2022-09-05] MEDS ORDERED: MINI1CAP PO (09:34)
[2022-09-05] MEDS ORDERED: ABIL1TAB13 PO (09:34)
== END 2022-09-05 11:23 | disposition home or self-care (01) | DRG 751 ==
LOC: M ED INP 19:12 → M PSY 19:13
PROVIDERS: ADMIT Psychiatry & Neurology Psychiatry; ATTEND Psychiatry & Neurology Psychiatry
DX: F33.9 Major depressive disorder, recurrent, unspecified (principal); E55.9 Vitamin D deficiency, unspecified; F79 Unspecified intellectual disabilities; F43.10 Post-traumatic stress disorder, unspecified; F10.10 Alcohol abuse, uncomplicated; Z79.899 Other long term (current) drug therapy; Z91.018 Allergy to other foods; Z91.011 Allergy to milk products; Z88.8 Allergy status to other drugs, medicaments and biological substances; Z88.6 Allergy status to analgesic agent; Z88.5 Allergy status to narcotic agent; K21.9 Gastro-esophageal reflux disease without esophagitis; J44.9 Chronic obstructive pulmonary disease, unspecified; M19.90 Unspecified osteoarthritis, unspecified site

== ENCOUNTER 2022-09-07 18:39 | Emergency (ER) | payer MEDICAID ==
[~2022-09-07] VITALS: Ht 154.9 cm; Wt 97.8 kg
[~2022-09-07 18:39] MED LIST changes: +ABIL1TAB13 PO
[2022-09-07 19:41] LABS: BASO # 0.1 10^3/uL (0.0-0.2); BASO % 0.9 % (0.0-1.0); EOS # 0.2 10^3/uL (0.0-0.5); EOS % 2.6 % (0.0-3.0); HEMATOCRIT 50.6 % (36.0-47.0); HEMOGLOBIN 15.8 g/dl (12.0-15.5); LYMPH % 25.2 % (24.0-44.0); MEAN CORPUSCULAR HEMOGLOBIN 29.9 pg (27.0-33.0); MEAN CORPUSCULAR HGB CONC 31.2 g/dl (32.0-36.5); MEAN CORPUSCULAR VOLUME 95.7 fl (80.0-96.0); MONO # 0.5 10^3/uL (0.0-0.8); MONO % 6.5 % (2.0-8.0); NEUTROPHILS % 64.4 % (36.0-66.0); PLATELET COUNT, AUTOMATED 239 10^3/uL (150-450); RED BLOOD COUNT 5.29 10^6/uL (4.00-5.40); WHITE BLOOD COUNT 7.8 10^3/uL (4.0-10.0)
[2022-09-07 20:09] LABS: ALBUMIN 4.2 G/DL (3.2-5.2); ALT/SGPT 16 U/L (7.0-40); BILIRUBIN,DIRECT 0.1 MG/DL (<0.4); BILIRUBIN,TOTAL 0.4 MG/DL (0.3-1.2); BLOOD UREA NITROGEN 12 MG/DL (9-23); CARBON DIOXIDE LEVEL 24 MMOL/L (20-31); CHLORIDE LEVEL 106 MMOL/L (98-107); CREATININE FOR GFR 0.95 MG/DL (0.55-1.30); GLOMERULAR FILTRATION RATE > 60.0 (>58); GLUCOSE, FASTING 110 MG/DL (60-100); LIPASE 36 U/L (12-53); POTASSIUM SERUM 4.3 MMOL/L (3.5-5.1); SODIUM LEVEL 142 MMOL/L (136-145); TOTAL PROTEIN 7.9 G/DL (5.7-8.2)
[2022-09-08] MEDS ORDERED: ONDANSETRON 4MG ORAL DISINTEGRATING TAB PO ONE (03:00)
[2022-09-08] MEDS ORDERED: ONDANSETRON 4MG TAB PO ONE (11:25)
[2022-09-08] MEDS ORDERED: ONDA-83 PO (12:57)
[2022-09-08 13:04] VITALS: BP 174/95
== END 2022-09-08 13:17 | disposition home or self-care (01) ==
LOC: M ED 18:39
DX: R10.84 Generalized abdominal pain (principal); R11.2 Nausea with vomiting, unspecified; R19.7 Diarrhea, unspecified; Z86.73 Personal history of transient ischemic attack (TIA), and cerebral infarction without residual deficits; R56.9 Unspecified convulsions; J44.9 Chronic obstructive pulmonary disease, unspecified; G47.33 Obstructive sleep apnea (adult) (pediatric); K21.9 Gastro-esophageal reflux disease without esophagitis; N18.9 Chronic kidney disease, unspecified; Z90.49 Acquired absence of other specified parts of digestive tract; Z90.710 Acquired absence of both cervix and uterus; Z87.891 Personal history of nicotine dependence; Z88.1 Allergy status to other antibiotic agents; Z88.5 Allergy status to narcotic agent; Z88.6 Allergy status to analgesic agent; Z88.8 Allergy status to other drugs, medicaments and biological substances; Z91.018 Allergy to other foods; Z79.51 Long term (current) use of inhaled steroids; Z79.899 Other long term (current) drug therapy

== ENCOUNTER → 2022-09-09 | Outpatient (CLI) | payer MEDICAID ==
[~2022-09-09] MED LIST changes: +ONDA-83 PO
[2022-09-09 13:33] LABS: BASO # 0.1 10^3/uL (0.0-0.2); BASO % 0.7 % (0.0-1.0); EOS # 0.1 10^3/uL (0.0-0.5); EOS % 1.5 % (0.0-3.0); HEMATOCRIT 50.4 % (36.0-47.0); HEMOGLOBIN 15.3 g/dl (12.0-15.5); LYMPH # 1.9 10^3/uL (1.5-5.0); LYMPH % 21.5 % (24.0-44.0); MEAN CORPUSCULAR HEMOGLOBIN 29.3 pg (27.0-33.0); MEAN CORPUSCULAR HGB CONC 30.4 g/dl (32.0-36.5); MEAN CORPUSCULAR VOLUME 96.6 fl (80.0-96.0); MONO # 0.7 10^3/uL (0.0-0.8); MONO % 7.7 % (2.0-8.0); NEUTROPHILS # 5.9 10^3/uL (1.5-8.5); NEUTROPHILS % 68.3 % (36.0-66.0); PLATELET COUNT, AUTOMATED 235 10^3/uL (150-450); RED BLOOD COUNT 5.22 10^6/uL (4.00-5.40); WHITE BLOOD COUNT 8.7 10^3/uL (4.0-10.0)
[2022-09-09 13:50] LABS: ALBUMIN 3.9 G/DL (3.2-5.2); ALT/SGPT 15 U/L (7.0-40); BILIRUBIN,TOTAL 0.5 MG/DL (0.3-1.2); BLOOD UREA NITROGEN 17 MG/DL (9-23); CALCIUM LEVEL 8.8 MG/DL (8.5-10.1); CARBON DIOXIDE LEVEL 26 MMOL/L (20-31); CHLORIDE LEVEL 103 MMOL/L (98-107); CHOLESTEROL LEVEL 180 MG/DL (<200); CHOLESTEROL RISK RATIO 4.63 (<5); CREATININE FOR GFR 1.03 MG/DL (0.55-1.30); FERRITIN 123.1 NG/ML (7.3-270.7); FREE T4 1.04 NG/DL (0.89-1.76); GLOMERULAR FILTRATION RATE > 60.0 (>58); GLUCOSE, FASTING 113 MG/DL (60-100); HDL CHOLESTEROL 38.8 MG/DL (>40); IRON (FE) 52 UG/DL (50-170); LDL CHOLESTEROL 115.8 MG/DL (<100); NON-HDL-C 141 MG/DL; PERCENT SATURATION 19.4 % (13.2-45.0); POTASSIUM SERUM 3.7 MMOL/L (3.5-5.1); SODIUM LEVEL 140 MMOL/L (136-145); THYROID STIMULATING HORMONE 2.761 uIU/ML (0.55-4.78); TOTAL 25(OH) VITAMIN D 63.1 NG/ML (20.0-100.0); TOTAL IRON BINDING CAPACITY 268 UG/DL (250-425); TOTAL PROTEIN 7.3 G/DL (5.7-8.2); TRIGLYCERIDES LEVEL 127 MG/DL (<150)
[2022-09-09 14:07] LABS: HEMOGLOBIN A1c 5.5 % (4.0-6.0)
== END ==
LOC: M PLALAB 11:08
PROVIDERS: ATTEND Nurse Practitioner Family
DX: E03.9 Hypothyroidism, unspecified (principal); E55.9 Vitamin D deficiency, unspecified; R73.01 Impaired fasting glucose; N18.31 Chronic kidney disease, stage 3a; D50.9 Iron deficiency anemia, unspecified; E78.5 Hyperlipidemia, unspecified

== ENCOUNTER → 2022-09-26 | Outpatient (CLI) | payer MEDICAID | LOC: M LABSMTC 10:25 | PROVIDERS: ATTEND Anesthesiology | DX: Z01.812 Encounter for preprocedural laboratory examination (principal); Z11.52 Encounter for screening for COVID-19 ==

== ENCOUNTER 2022-10-01 12:47 | Day surgery (SDC) | payer MEDICAID ==
[~2022-10-01] VITALS: Ht 154.9 cm; Wt 99.2 kg
[~2022-10-01 12:47] MED LIST changes: +MIDAZOLAM INJ 2MG/2ML VIAL (J2250 PER 1MG) As Ordered ONE; +ONDANSETRON 4MG 2ML VIAL As Ordered ONE; +fentaNYL 100 MCG/2 ML INJECTION As Ordered ONE; +propofoL 500 MG/50 ML VIAL As Ordered ONE
[2022-10-01] MEDS ORDERED: LR 1,000 ML IV SCH (13:40)
[2022-10-01] MEDS ORDERED: [UNRECOGNIZED DRUG - OTHER] IA ONE (14:00)
[2022-10-01 15:30] VITALS: BP 129/74
== END 2022-10-01 15:32 | disposition home or self-care (01) ==
LOC: M SDC 12:47
PROVIDERS: ATTEND Orthopaedic Surgery Adult Reconstructive Orthopaedic Surgery
DX: M22.2X2 Patellofemoral disorders, left knee (principal); K80.71 Calculus of gallbladder and bile duct without cholecystitis with obstruction; J45.909 Unspecified asthma, uncomplicated; G40.909 Epilepsy, unspecified, not intractable, without status epilepticus; E03.9 Hypothyroidism, unspecified; E55.9 Vitamin D deficiency, unspecified; E78.5 Hyperlipidemia, unspecified; D64.9 Anemia, unspecified; Z79.51 Long term (current) use of inhaled steroids; E66.01 Morbid (severe) obesity due to excess calories; Z87.891 Personal history of nicotine dependence; G47.33 Obstructive sleep apnea (adult) (pediatric); N18.2 Chronic kidney disease, stage 2 (mild); Z79.899 Other long term (current) drug therapy; Z88.8 Allergy status to other drugs, medicaments and biological substances
CPT/HCPCS: 20610; J2250; J2405; J3010; J7327

== ENCOUNTER 2022-11-13 00:40 | Emergency (ER) | payer MEDICAID ==
[~2022-11-13 00:40] MED LIST changes: -MIDAZOLAM INJ 2MG/2ML VIAL (J2250 PER 1MG) As Ordered ONE; -ONDANSETRON 4MG 2ML VIAL As Ordered ONE; -fentaNYL 100 MCG/2 ML INJECTION As Ordered ONE; -propofoL 500 MG/50 ML VIAL As Ordered ONE
[2022-11-13 01:13] LABS: HEMATOCRIT 41.9 % (36.0-47.0); HEMOGLOBIN 13.4 g/dl (12.0-15.5); MEAN CORPUSCULAR HEMOGLOBIN 30.2 pg (27.0-33.0); MEAN CORPUSCULAR VOLUME 94.4 fl (80.0-96.0); PLATELET COUNT, AUTOMATED 231 10^3/uL (150-450); RED BLOOD COUNT 4.44 10^6/uL (4.00-5.40); WHITE BLOOD COUNT 7.3 10^3/uL (4.0-10.0)
[2022-11-13 01:45] LABS: MAGNESIUM LEVEL 1.8 MG/DL (1.8-2.4)
[2022-11-13 01:46] LABS: BLOOD UREA NITROGEN 14 MG/DL (9-23); CALCIUM LEVEL 8.8 MG/DL (8.5-10.1); CARBON DIOXIDE LEVEL 25 MMOL/L (20-31); CHLORIDE LEVEL 109 MMOL/L (98-107); CPK CREATINE PHOSPHOKINASE 24 U/L (34-145); CREATININE FOR GFR 0.91 MG/DL (0.55-1.30); GLOMERULAR FILTRATION RATE > 60.0 (>58); GLUCOSE, FASTING 139 MG/DL (60-100); POTASSIUM SERUM 3.9 MMOL/L (3.5-5.1); SODIUM LEVEL 140 MMOL/L (136-145)
[2022-11-13] MEDS ORDERED: KETOROLAC 30 MG/ML 1ML VIAL IV ONE (02:55)
== END 2022-11-13 03:15 | disposition home or self-care (01) ==
LOC: EDBD 00:40 → M ED 00:40
DX: G40.909 Epilepsy, unspecified, not intractable, without status epilepticus (principal); Z88.6 Allergy status to analgesic agent; Z88.8 Allergy status to other drugs, medicaments and biological substances; Z91.018 Allergy to other foods; Z91.011 Allergy to milk products; Z79.52 Long term (current) use of systemic steroids; Z79.811 Long term (current) use of aromatase inhibitors; Z79.2 Long term (current) use of antibiotics; Z79.899 Other long term (current) drug therapy

== ENCOUNTER 2022-12-02 10:44 | Emergency (ER) | payer MEDICAID ==
[~2022-12-02] VITALS: Ht 154.9 cm; Wt 97.7 kg
[2022-12-02 10:44] VITALS: BP 117/75
== END 2022-12-02 15:50 | disposition left against medical advice (07) ==
LOC: M ED 10:44
DX: Z53.21 Procedure and treatment not carried out due to patient leaving prior to being seen by health care provider (principal)

== ENCOUNTER 2022-12-14 15:57 | Inpatient (IN) | payer MEDICAID ==
[~2022-12-14] VITALS: Ht 154.9 cm; Wt 97.5 kg
[2022-12-14 18:24] LABS: HEMATOCRIT 43.4 % (36.0-47.0); HEMOGLOBIN 13.9 g/dl (12.0-15.5); MEAN CORPUSCULAR HEMOGLOBIN 29.8 pg (27.0-33.0); MEAN CORPUSCULAR VOLUME 92.9 fl (80.0-96.0); PLATELET COUNT, AUTOMATED 253 10^3/uL (150-450); RED BLOOD COUNT 4.67 10^6/uL (4.00-5.40); WHITE BLOOD COUNT 7.8 10^3/uL (4.0-10.0)
[2022-12-14 18:51] LABS: AMPHETAMINES LEVEL URINE NEGATIVE (NEGATIVE); BARBITURATES URINE NEGATIVE (NEGATIVE); BENZODIAZEPINES URINE NEGATIVE (NEGATIVE); CANNABINOIDS URINE NEGATIVE (NEGATIVE); COCAINE METABOLITE URINE NEGATIVE (NEGATIVE); METHADONE URINE NEGATIVE (NEGATIVE); OPIATES URINE NEGATIVE (NEGATIVE); PHENCYCLIDINE URINE NEGATIVE (NEGATIVE)
[2022-12-14 18:55] LABS: ACETAMINOPHEN LEVEL 8.5 UG/ML (10.0-20.0); SALICYLATE LEVEL < 3.0 MG/DL (<30)
[2022-12-14 18:57] LABS: ETHYL ALCOHOL (ETHANOL) < 0.003 % (0.000-0.010)
[2022-12-14 18:58] LABS: HCG, SERUM QUALITATIVE NEGATIVE (NEGATIVE)
[2022-12-14 18:59] LABS: ALBUMIN 3.4 G/DL (3.2-5.2); ALKALINE PHOSPHATASE 104 U/L (46-116); ALT/SGPT 9 U/L (7.0-40); AST/SGOT 9 U/L (<34); BILIRUBIN,DIRECT < 0.1 MG/DL (<0.4); BILIRUBIN,TOTAL 0.3 MG/DL (0.3-1.2); BLOOD UREA NITROGEN 12 MG/DL (9-23); CALCIUM LEVEL 9.4 MG/DL (8.5-10.1); CARBON DIOXIDE LEVEL 27 MMOL/L (20-31); CHLORIDE LEVEL 105 MMOL/L (98-107); CREATININE FOR GFR 0.93 MG/DL (0.55-1.30); GLOMERULAR FILTRATION RATE > 60.0 (>58); GLUCOSE, FASTING 106 MG/DL (60-100); SODIUM LEVEL 139 MMOL/L (136-145); TOTAL PROTEIN 6.9 G/DL (5.7-8.2)
[2022-12-14] MEDS ORDERED: CYMB60CA4 PO (20:26)
[2022-12-14] MEDS ORDERED: PRAZ1CAP PO (20:27)
[2022-12-14] MEDS ORDERED: MED REC COMMENT (20:29)
[2022-12-14] MEDS ORDERED: HOME MED LIST COMPLETE! XX SCH (20:35)
[2022-12-14] MEDS ORDERED: ACETAMINOPHEN TAB 650MG DOSE (2X325MG) PO ONE (20:55)
[2022-12-14] MEDS ORDERED: ZONISAMIDE 100 MG CAP (ZONEGRAN) PO SCH (21:05)
[2022-12-14] MEDS ORDERED: PANTOPRAZOLE 20 MG TAB PO ONE (21:05)
[2022-12-14] MEDS ORDERED: GABAPENTIN 300 MG CAP PO ONE (21:05)
[2022-12-14] MEDS ORDERED: PRAZOSIN 1 MG CAP PO ONE ×2 (21:05→21:15)
[2022-12-14] MEDS ORDERED: FAMOTIDINE 20 MG TAB PO ONE (21:05)
[2022-12-14] MEDS: TEMAZEPAM 15 MG CAP PO SCH (23:29)
[2022-12-14] MEDS: TEMAZEPAM 7.5 MG CAP PO SCH (23:30)
[2022-12-15] MEDS ORDERED: ALBUTEROL 90 MCG/ACT 8GM HFA INHALER INH PRN (08:15)
[2022-12-15] MEDS ORDERED: ONDANSETRON 4MG ORAL DISINTEGRATING TAB PO PRN (08:25)
[2022-12-15] MEDS: ARIPiprazole 2 MG TAB PO SCH (09:50)
[2022-12-15] MEDS: LORATADINE 10 MG TAB PO SCH (09:51)
[2022-12-15] MEDS: DULoxetine 30MG CAPSULE (CYMBALTA) PO SCH (09:52)
[2022-12-15] MEDS: estradioL 1 MG TAB PO SCH (09:52)
[2022-12-15] MEDS: FOLIC ACID 1MG TAB PO SCH (09:53)
[2022-12-15] MEDS: PANTOPRAZOLE 20 MG TAB PO SCH ×2 (09:54→21:13)
[2022-12-15] MEDS: GABAPENTIN 300 MG CAP PO SCH ×2 (09:54→20:35)
[2022-12-15] MEDS: ZONISAMIDE 100 MG CAP (ZONEGRAN) PO SCH ×2 (09:55→21:03)
[2022-12-15] MEDS ORDERED: ACETAMINOPHEN TAB 650MG DOSE (2X325MG) PO ONE (12:05)
[2022-12-15] MEDS ORDERED: ACETAMINOPHEN TAB 650MG DOSE (2X325MG) PO PRN (20:25)
[2022-12-15] MEDS ORDERED: ACETAMINOPHEN 325 MG TAB As Ordered ONE (20:28)
[2022-12-15] MEDS: TEMAZEPAM 7.5 MG CAP PO SCH (20:34)
[2022-12-15] MEDS: TEMAZEPAM 15 MG CAP PO SCH (20:34)
[2022-12-15] MEDS: SYMBICORT 80/4.5MCG INHALER 6GM INH SCH (20:55)
[2022-12-15] MEDS ORDERED: traZODone 50 MG TAB PO SCH (21:00)
[2022-12-15] MEDS ORDERED: FAMOTIDINE 20 MG TAB PO SCH (21:00)
[2022-12-15] MEDS ORDERED: TEMAZEPAM 7.5 MG CAP PO SCH (21:00)
[2022-12-16] MEDS ORDERED: LEVOTHYROXINE 100MCG TABLET (0.1MG) PO SCH (06:00)
[2022-12-16] MEDS: estradioL 1 MG TAB PO SCH (08:59)
[2022-12-16] MEDS: GABAPENTIN 300 MG CAP PO SCH ×2 (08:59→20:36)
[2022-12-16] MEDS: ARIPiprazole 2 MG TAB PO SCH (08:59)
[2022-12-16] MEDS: DULoxetine 30MG CAPSULE (CYMBALTA) PO SCH (09:00)
[2022-12-16] MEDS: LORATADINE 10 MG TAB PO SCH (09:00)
[2022-12-16] MEDS: FOLIC ACID 1MG TAB PO SCH (09:00)
[2022-12-16] MEDS: ZONISAMIDE 100 MG CAP (ZONEGRAN) PO SCH ×2 (09:00→20:37)
[2022-12-16] MEDS: NICOTINE 21MG/24HR 1 EA TRANSDERMAL TD SCH (09:00)
[2022-12-16] MEDS: PANTOPRAZOLE 20 MG TAB PO SCH ×2 (09:23→20:36)
[2022-12-16] MEDS: SYMBICORT 80/4.5MCG INHALER 6GM INH SCH ×2 (09:35→20:37)
[2022-12-16] MEDS ORDERED: ALBUTEROL 90 MCG/ACT 8GM HFA INHALER INH PRN (12:45)
[2022-12-16] MEDS ORDERED: ALBUTEROL SULFATE 2.5MG/0.5ML INH NEB SOLN INH PRN (12:45)
[2022-12-16] MEDS ORDERED: ONDANSETRON 4MG TAB PO PRN (12:45)
[2022-12-16] MEDS ORDERED: MOME50SP2 NARES (14:39)
[2022-12-16 14:48] VITALS: BP 122/76
[2022-12-16] MEDS ORDERED: SYMB80INH INH (16:31)
[2022-12-16] MEDS: FLUTICASONE PROP 0.05% NASAL SPRAY 16 GM (FLONASE) NARES SCH (17:15)
[2022-12-16] MEDS: TEMAZEPAM 7.5 MG CAP PO SCH (20:36)
[2022-12-16] MEDS: FAMOTIDINE 20 MG TAB PO SCH (20:36)
[2022-12-16] MEDS: PRAZOSIN 1 MG CAP PO SCH (20:37)
[2022-12-16] MEDS ORDERED: traZODone 50 MG TAB PO SCH (21:00)
[2022-12-17] MEDS: LEVOTHYROXINE 100MCG TABLET (0.1MG) PO SCH (06:09)
[2022-12-17 06:37] VITALS: BP 99/56
[2022-12-17] MEDS: NICOTINE 21MG/24HR 1 EA TRANSDERMAL TD SCH (08:26)
[2022-12-17] MEDS: FLUTICASONE PROP 0.05% NASAL SPRAY 16 GM (FLONASE) NARES SCH (08:29)
[2022-12-17] MEDS: SYMBICORT 80/4.5MCG INHALER 6GM INH SCH ×2 (08:29→20:41)
[2022-12-17] MEDS: estradioL 1 MG TAB PO SCH (08:31)
[2022-12-17] MEDS: PANTOPRAZOLE 20 MG TAB PO SCH ×2 (08:31→20:44)
[2022-12-17] MEDS: ZONISAMIDE 100 MG CAP (ZONEGRAN) PO SCH ×2 (08:31→20:42)
[2022-12-17] MEDS: LORATADINE 10 MG TAB PO SCH (08:31)
[2022-12-17] MEDS: GABAPENTIN 300 MG CAP PO SCH ×2 (08:31→20:42)
[2022-12-17] MEDS: DULoxetine 30MG CAPSULE (CYMBALTA) PO SCH (08:31)
[2022-12-17] MEDS: FOLIC ACID 1MG TAB PO SCH (08:31)
[2022-12-17] MEDS: ARIPiprazole 2 MG TAB PO SCH (08:31)
[2022-12-17] MEDS ORDERED: SUMAtriptan SUCCINATE 25 MG TAB PO ONE (08:40)
[2022-12-17] MEDS ORDERED: TETRAHYDROZOLINE OPHTH 0.05% 15 ML BTL OS PRN (11:30)
[2022-12-17] MEDS ORDERED: FIORICET TAB PO PRN (11:35)
[2022-12-17] MEDS ORDERED: TETRAHYDROZOLINE OPHTH 0.05% 15 ML BTL OS ONE (12:00)
[2022-12-17] MEDS: POLYVINYL ALCOHOL OPHTH SOLN 15ML (LIQUITEARS) OS SCH ×3 (13:22→20:42)
[2022-12-17 16:28] VITALS: BP 129/82
[2022-12-17] MEDS: TEMAZEPAM 7.5 MG CAP PO SCH (20:42)
[2022-12-17 20:44] VITALS: BP 111/75
[2022-12-17] MEDS: PRAZOSIN 1 MG CAP PO SCH (20:44)
[2022-12-17] MEDS: FAMOTIDINE 20 MG TAB PO SCH (20:45)
[2022-12-18] MEDS: LEVOTHYROXINE 100MCG TABLET (0.1MG) PO SCH (06:14)
[2022-12-18 06:42] VITALS: BP 102/57
[2022-12-18] MEDS ORDERED: POLYOPD OS (08:09)
[2022-12-18] MEDS ORDERED: [UNRECOGNIZED DRUG - CODE] OS (08:09)
[2022-12-18] MEDS: SYMBICORT 80/4.5MCG INHALER 6GM INH SCH (08:11)
[2022-12-18] MEDS: DULoxetine 30MG CAPSULE (CYMBALTA) PO SCH (08:11)
[2022-12-18] MEDS: PANTOPRAZOLE 20 MG TAB PO SCH (08:12)
[2022-12-18] MEDS: LORATADINE 10 MG TAB PO SCH (08:12)
[2022-12-18] MEDS: FOLIC ACID 1MG TAB PO SCH (08:12)
[2022-12-18] MEDS: GABAPENTIN 300 MG CAP PO SCH (08:12)
[2022-12-18] MEDS: ARIPiprazole 2 MG TAB PO SCH (08:12)
[2022-12-18] MEDS: ZONISAMIDE 100 MG CAP (ZONEGRAN) PO SCH (08:12)
[2022-12-18] MEDS: FLUTICASONE PROP 0.05% NASAL SPRAY 16 GM (FLONASE) NARES SCH (08:13)
[2022-12-18] MEDS: NICOTINE 21MG/24HR 1 EA TRANSDERMAL TD SCH (08:13)
[2022-12-18] MEDS: estradioL 1 MG TAB PO SCH (08:14)
[2022-12-18] MEDS: POLYVINYL ALCOHOL OPHTH SOLN 15ML (LIQUITEARS) OS SCH (08:18)
[2022-12-18] MEDS ORDERED: VITAMIN D 50,000 UNITS CAPSULE (ERGOCALCIFEROL 1.25MG) PO SCH (09:00)
== END 2022-12-18 12:20 | disposition home or self-care (01) | DRG 754 ==
LOC: EDBD 15:57 → M ED 15:57 → M ED INP 12-16 12:44 → M PSY 12-16 14:59
PROVIDERS: ADMIT Student in an Organized Health Care Education/Training Program; ATTEND Psychiatry & Neurology Psychiatry
DX: F32.A Depression, unspecified (principal); F79 Unspecified intellectual disabilities; R45.851 Suicidal ideations; Z88.6 Allergy status to analgesic agent; Z88.8 Allergy status to other drugs, medicaments and biological substances; Z91.018 Allergy to other foods; F43.10 Post-traumatic stress disorder, unspecified; F60.3 Borderline personality disorder; F41.9 Anxiety disorder, unspecified; G43.909 Migraine, unspecified, not intractable, without status migrainosus; Z79.899 Other long term (current) drug therapy; Z91.011 Allergy to milk products; J44.9 Chronic obstructive pulmonary disease, unspecified; K21.9 Gastro-esophageal reflux disease without esophagitis; G47.33 Obstructive sleep apnea (adult) (pediatric); M17.0 Bilateral primary osteoarthritis of knee; Z87.891 Personal history of nicotine dependence

== ENCOUNTER → 2022-12-31 | Outpatient (CLI) | payer MEDICAID ==
[~2022-12-31] MED LIST changes: +MOME50SP2 NARES; +POLYOPD OS; +[UNRECOGNIZED DRUG - CODE] OS
== END ==
LOC: M PAIN 11:00
PROVIDERS: ATTEND Nurse Practitioner Family
DX: M79.18 Myalgia, other site (principal); G89.29 Other chronic pain; R73.03 Prediabetes; G43.909 Migraine, unspecified, not intractable, without status migrainosus; J45.909 Unspecified asthma, uncomplicated; G47.33 Obstructive sleep apnea (adult) (pediatric); E03.9 Hypothyroidism, unspecified; E55.9 Vitamin D deficiency, unspecified; K21.9 Gastro-esophageal reflux disease without esophagitis; I10 Essential (primary) hypertension; F17.210 Nicotine dependence, cigarettes, uncomplicated; Z86.59 Personal history of other mental and behavioral disorders; Z88.5 Allergy status to narcotic agent; Z88.6 Allergy status to analgesic agent; Z88.8 Allergy status to other drugs, medicaments and biological substances; Z91.011 Allergy to milk products; Z91.018 Allergy to other foods; E66.01 Morbid (severe) obesity due to excess calories; Z68.41 Body mass index [BMI] 40.0-44.9, adult; Z79.890 Hormone replacement therapy; Z79.899 Other long term (current) drug therapy

== ENCOUNTER → 2023-01-14 | Outpatient (CLI) | payer MEDICAID ==
[2023-01-14 14:17] LABS: ALBUMIN 3.4 G/DL (3.2-5.2); ALKALINE PHOSPHATASE 96 U/L (46-116); ALT/SGPT < 9 U/L (7.0-40); AST/SGOT < 8 U/L (<34); BILIRUBIN,TOTAL 0.3 MG/DL (0.3-1.2); BLOOD UREA NITROGEN 19 MG/DL (9-23); CALCIUM LEVEL 9.1 MG/DL (8.5-10.1); CARBON DIOXIDE LEVEL 27 MMOL/L (20-31); CHLORIDE LEVEL 106 MMOL/L (98-107); CHOLESTEROL LEVEL 205 MG/DL (<200); CHOLESTEROL RISK RATIO 4.29 (<5); CREATININE FOR GFR 0.94 MG/DL (0.55-1.30); FREE T4 1.06 NG/DL (0.89-1.76); GLOMERULAR FILTRATION RATE > 60.0 (>58); GLUCOSE, FASTING 118 MG/DL (60-100); HDL CHOLESTEROL 47.7 MG/DL (>40); LDL CHOLESTEROL 123.3 MG/DL (<100); NON-HDL-C 157.3 MG/DL; POTASSIUM SERUM 4.1 MMOL/L (3.5-5.1); SODIUM LEVEL 138 MMOL/L (136-145); THYROID STIMULATING HORMONE 0.652 uIU/ML (0.55-4.78); TOTAL PROTEIN 6.6 G/DL (5.7-8.2); TRIGLYCERIDES LEVEL 170 MG/DL (<150)
[2023-01-14 14:19] LABS: HEMOGLOBIN A1c 5.8 % (4.0-6.0)
[2023-01-14 14:25] LABS: BASO # 0.1 10^3/uL (0.0-0.2); BASO % 0.8 % (0.0-1.0); EOS # 0.3 10^3/uL (0.0-0.5); EOS % 4.4 % (0.0-3.0); HEMATOCRIT 43.3 % (36.0-47.0); HEMOGLOBIN 13.7 g/dl (12.0-15.5); LYMPH # 1.9 10^3/uL (1.5-5.0); LYMPH % 24.8 % (24.0-44.0); MEAN CORPUSCULAR HEMOGLOBIN 29.7 pg (27.0-33.0); MEAN CORPUSCULAR HGB CONC 31.6 g/dl (32.0-36.5); MEAN CORPUSCULAR VOLUME 93.7 fl (80.0-96.0); MONO # 0.5 10^3/uL (0.0-0.8); NEUTROPHILS # 4.9 10^3/uL (1.5-8.5); NEUTROPHILS % 62.7 % (36.0-66.0); PLATELET COUNT, AUTOMATED 222 10^3/uL (150-450); RED BLOOD COUNT 4.62 10^6/uL (4.00-5.40); WHITE BLOOD COUNT 7.8 10^3/uL (4.0-10.0)
== END ==
LOC: M PLALAB 10:40
PROVIDERS: ATTEND Nurse Practitioner Family
DX: E03.9 Hypothyroidism, unspecified (principal); R73.01 Impaired fasting glucose; E78.5 Hyperlipidemia, unspecified

== ENCOUNTER → 2023-01-14 | Outpatient (CLI) | payer MEDICAID ==
[2023-01-14 14:10] LABS: ALBUMIN 3.4 G/DL (3.2-5.2); BLOOD UREA NITROGEN 20 MG/DL (9-23); CALCIUM LEVEL 8.9 MG/DL (8.5-10.1); CARBON DIOXIDE LEVEL 28 MMOL/L (20-31); CHLORIDE LEVEL 106 MMOL/L (98-107); CREATININE FOR GFR 0.97 MG/DL (0.55-1.30); GLOMERULAR FILTRATION RATE > 60.0 (>58); GLUCOSE, FASTING 118 MG/DL (60-100); PHOSPHORUS LEVEL 2.9 MG/DL (2.5-4.9); POTASSIUM SERUM 4.2 MMOL/L (3.5-5.1); SODIUM LEVEL 139 MMOL/L (136-145)
[2023-01-14 14:14] LABS: APPEARANCE, URINE HAZY (CLEAR); BACTERIA, URINE AUTO NEGATIVE (NEGATIVE); BILIRUBIN, URINE AUTO NEGATIVE (NEGATIVE); BLOOD, URINE BLOOD NEGATIVE (NEGATIVE); CALCIUM OXALATE CRYSTALS LARGE; COLOR, URINE YELLOW (YELLOW); GLUCOSE, URINE (UA) AUTO NEGATIVE (NEGATIVE); KETONE, URINE AUTO TRACE mg/dL (NEGATIVE); LEUKOCYTE ESTERASE, URINE AUTO NEGATIVE (NEGATIVE); MUCUS, URINE SMALL (NEGATIVE); NITRITE, URINE AUTO NEGATIVE (NEGATIVE); PROTEIN, URINE AUTO NEGATIVE (NEGATIVE); RBC, URINE AUTO 0 /HPF (0-3); SPECIFIC GRAVITY URINE AUTO 1.029 (1.002-1.035); SQUAMOUS EPITHELIAL CELL UR AU 13 /HPF (0-6); WBC, URINE AUTO 0 /HPF (0-3)
[2023-01-14 14:19] LABS: HEMOGLOBIN A1c 5.9 % (4.0-6.0)
[2023-01-14 14:23] LABS: CREATININE, URINE 186.9 MG/DL
[2023-01-14 14:25] LABS: BASO # 0.1 10^3/uL (0.0-0.2); BASO % 0.8 % (0.0-1.0); EOS # 0.3 10^3/uL (0.0-0.5); EOS % 4.4 % (0.0-3.0); HEMATOCRIT 42.5 % (36.0-47.0); HEMOGLOBIN 13.7 g/dl (12.0-15.5); LYMPH # 2.1 10^3/uL (1.5-5.0); LYMPH % 26.6 % (24.0-44.0); MALB URINE SIEMENS < 3.0 MG/L; MAU/CREAT RATIO 1.6 MCG/MG (0.0-30.0); MEAN CORPUSCULAR HEMOGLOBIN 30.3 pg (27.0-33.0); MEAN CORPUSCULAR HGB CONC 32.2 g/dl (32.0-36.5); MONO # 0.5 10^3/uL (0.0-0.8); MONO % 6.1 % (2.0-8.0); NEUTROPHILS # 4.8 10^3/uL (1.5-8.5); NEUTROPHILS % 61.8 % (36.0-66.0); PLATELET COUNT, AUTOMATED 226 10^3/uL (150-450); RED BLOOD COUNT 4.52 10^6/uL (4.00-5.40); WHITE BLOOD COUNT 7.7 10^3/uL (4.0-10.0)
== END ==
LOC: M PLALAB 10:43
PROVIDERS: ATTEND Nurse Practitioner Family
DX: N18.31 Chronic kidney disease, stage 3a (principal); R73.03 Prediabetes

== ENCOUNTER 2023-02-20 23:24 | Emergency (ER) | payer MEDICAID ==
[~2023-02-20] VITALS: Ht 154.9 cm; Wt 100.3 kg
[~2023-02-20 23:24] MED LIST changes: +ARTIDRO4 OS; -POLYOPD OS
[2023-02-20 23:33] VITALS: BP 151/92
[2023-02-21] MEDS ORDERED: ACETAMINOPHEN 1000MG 100ML IV BAG IV ONE (01:45)
[2023-02-21] MEDS ORDERED: NS 1,000 ML IV ONE (01:45)
[2023-02-21 02:26] LABS: HEMATOCRIT 39.1 % (36.0-47.0); HEMOGLOBIN 12.8 g/dl (12.0-15.5); MEAN CORPUSCULAR HEMOGLOBIN 30.5 pg (27.0-33.0); MEAN CORPUSCULAR HGB CONC 32.7 g/dl (32.0-36.5); MEAN CORPUSCULAR VOLUME 93.1 fl (80.0-96.0); PLATELET COUNT, AUTOMATED 216 10^3/uL (150-450); WHITE BLOOD COUNT 6.5 10^3/uL (4.0-10.0)
[2023-02-21 02:37] LABS: AMPHETAMINES LEVEL URINE NEGATIVE (NEGATIVE); BARBITURATES URINE NEGATIVE (NEGATIVE); BENZODIAZEPINES URINE NEGATIVE (NEGATIVE); CANNABINOIDS URINE NEGATIVE (NEGATIVE); METHADONE URINE NEGATIVE (NEGATIVE); OPIATES URINE NEGATIVE (NEGATIVE); PHENCYCLIDINE URINE NEGATIVE (NEGATIVE)
[2023-02-21 02:38] LABS: COCAINE METABOLITE URINE NEGATIVE (NEGATIVE)
[2023-02-21 02:52] LABS: ETHYL ALCOHOL (ETHANOL) < 0.003 % (0.000-0.010)
[2023-02-21 02:54] LABS: ACETAMINOPHEN LEVEL < 2.0 UG/ML (10.0-20.0); ALBUMIN 2.9 G/DL (3.2-5.2); ALKALINE PHOSPHATASE 83 U/L (46-116); ALT/SGPT 10 U/L (7.0-40); AST/SGOT 14 U/L (<34); BILIRUBIN,DIRECT < 0.1 MG/DL (<0.4); BILIRUBIN,TOTAL 0.2 MG/DL (0.3-1.2); BLOOD UREA NITROGEN 11 MG/DL (9-23); CALCIUM LEVEL 7.5 MG/DL (8.5-10.1); CARBON DIOXIDE LEVEL 22 MMOL/L (20-31); CHLORIDE LEVEL 113 MMOL/L (98-107); CREATININE FOR GFR 0.74 MG/DL (0.55-1.30); GLOMERULAR FILTRATION RATE > 60.0 (>58); GLUCOSE, FASTING 120 MG/DL (60-100); POTASSIUM SERUM 3.7 MMOL/L (3.5-5.1); SALICYLATE LEVEL < 3.0 MG/DL (<30); SODIUM LEVEL 141 MMOL/L (136-145); TOTAL PROTEIN 5.7 G/DL (5.7-8.2)
[2023-02-21 02:56] LABS: THYROID STIMULATING HORMONE 0.226 uIU/ML (0.55-4.78)
== END 2023-02-21 03:59 | disposition home or self-care (01) ==
LOC: EDBD 23:24 → M ED 23:24
DX: R56.9 Unspecified convulsions (principal); R51.9 Headache, unspecified; J45.909 Unspecified asthma, uncomplicated; J44.9 Chronic obstructive pulmonary disease, unspecified; Z79.52 Long term (current) use of systemic steroids; Z79.891 Long term (current) use of opiate analgesic; Z79.83 Long term (current) use of bisphosphonates; Z79.899 Other long term (current) drug therapy; Z88.6 Allergy status to analgesic agent; Z88.1 Allergy status to other antibiotic agents; Z91.018 Allergy to other foods; Z88.8 Allergy status to other drugs, medicaments and biological substances
CPT/HCPCS: 80048; 80076; 80143; 80307; 82077; 84443; 85027; 96374; 99283; J0131

== ENCOUNTER → 2023-02-28 | Outpatient (CLI) | payer MEDICAID | LOC: M RAD 12:38 | PROVIDERS: ATTEND Physician Assistant | DX: M25.532 Pain in left wrist (principal) ==

== ENCOUNTER → 2023-03-06 | Outpatient (CLI) | payer MEDICAID ==
[2023-03-06 16:21] LABS: APPEARANCE, URINE HAZY (CLEAR); BACTERIA, URINE AUTO NEGATIVE (NEGATIVE); BILIRUBIN, URINE AUTO NEGATIVE (NEGATIVE); BLOOD, URINE BLOOD NEGATIVE (NEGATIVE); COLOR, URINE AMBER (YELLOW); GLUCOSE, URINE (UA) AUTO NEGATIVE (NEGATIVE); KETONE, URINE AUTO 1+ mg/dL (NEGATIVE); LEUKOCYTE ESTERASE, URINE AUTO NEGATIVE (NEGATIVE); MUCUS, URINE SMALL (NEGATIVE); NITRITE, URINE AUTO NEGATIVE (NEGATIVE); PROTEIN, URINE AUTO 1+ mg/dL (NEGATIVE); RBC, URINE AUTO 1 /HPF (0-3); SPECIFIC GRAVITY URINE AUTO 1.036 (1.002-1.035); SQUAMOUS EPITHELIAL CELL UR AU 7 /HPF (0-6); WBC, URINE AUTO 1 /HPF (0-3)
[2023-03-06 16:54] LABS: CREATININE, URINE 245.6 MG/DL; MAU/CREAT RATIO 2.4 MCG/MG (0.0-30.0)
== END ==
LOC: M LAB 15:52
PROVIDERS: ATTEND Nurse Practitioner Family
DX: N18.2 Chronic kidney disease, stage 2 (mild) (principal); R73.03 Prediabetes

== ENCOUNTER → 2023-03-19 | Outpatient (CLI) | payer MEDICAID | LOC: M SOG 08:03 | PROVIDERS: ATTEND Orthopaedic Surgery | DX: M22.2X2 Patellofemoral disorders, left knee (principal) ==

== ENCOUNTER → 2023-05-02 | Outpatient (CLI) | payer MEDICAID ==
[~2023-05-02] MED LIST changes: +DICY-61 PO; -DICY10CA13 PO; -MAXA10TA15 PO; +RIZA10TA66 PO; -ROPI1TAB3 PO; +ROPI1TAB73 PO
[2023-05-02 14:25] LABS: BASO # 0.1 10^3/uL (0.0-0.2); BASO % 0.9 % (0.0-1.0); EOS # 0.3 10^3/uL (0.0-0.5); EOS % 3.6 % (0.0-3.0); HEMATOCRIT 44.6 % (36.0-47.0); HEMOGLOBIN 13.7 g/dl (12.0-15.5); LYMPH # 2.1 10^3/uL (1.5-5.0); LYMPH % 30.4 % (24.0-44.0); MEAN CORPUSCULAR HEMOGLOBIN 29.3 pg (27.0-33.0); MEAN CORPUSCULAR HGB CONC 30.7 g/dl (32.0-36.5); MEAN CORPUSCULAR VOLUME 95.3 fl (80.0-96.0); MONO # 0.5 10^3/uL (0.0-0.8); MONO % 6.6 % (2.0-8.0); NEUTROPHILS % 57.9 % (36.0-66.0); PLATELET COUNT, AUTOMATED 234 10^3/uL (150-450); RED BLOOD COUNT 4.68 10^6/uL (4.00-5.40)
[2023-05-02 14:35] LABS: HEMOGLOBIN A1c 5.7 % (4.0-6.0)
[2023-05-02 14:55] LABS: ALBUMIN 3.4 G/DL (3.2-5.2); ALKALINE PHOSPHATASE 91 U/L (46-116); ALT/SGPT < 9 U/L (7.0-40); AST/SGOT < 8 U/L (<34); BILIRUBIN,TOTAL 0.4 MG/DL (0.3-1.2); BLOOD UREA NITROGEN 18 MG/DL (9-23); CALCIUM LEVEL 9.1 MG/DL (8.5-10.1); CARBON DIOXIDE LEVEL 27 MMOL/L (20-31); CHLORIDE LEVEL 108 MMOL/L (98-107); CHOLESTEROL LEVEL 174 MG/DL (<200); CHOLESTEROL RISK RATIO 3.84 (<5); CREATININE FOR GFR 0.97 MG/DL (0.55-1.30); FREE T4 1.14 NG/DL (0.89-1.76); GLOMERULAR FILTRATION RATE > 60.0 (>58); GLUCOSE, FASTING 103 MG/DL (60-100); HDL CHOLESTEROL 45.3 MG/DL (>40); LDL CHOLESTEROL 98.1 MG/DL (<100); NON-HDL-C 128.7 MG/DL; POTASSIUM SERUM 4.5 MMOL/L (3.5-5.1); SODIUM LEVEL 141 MMOL/L (136-145); THYROID STIMULATING HORMONE 0.121 uIU/ML (0.55-4.78); TOTAL PROTEIN 6.4 G/DL (5.7-8.2); TRIGLYCERIDES LEVEL 153 MG/DL (<150)
== END ==
LOC: M PLAIMG 11:17
PROVIDERS: ATTEND Nurse Practitioner Family
DX: M25.551 Pain in right hip (principal); R73.01 Impaired fasting glucose

== ENCOUNTER → 2023-05-21 | Outpatient (CLI) | payer MEDICAID ==
[~2023-05-21] MED LIST changes: +ARIP1TAB6 PO; +LEVO88TA3 PO; +NICO14PA TD; +POLY1.4S OS; +PROP40TA62 PO
== END ==
LOC: M PAIN 11:30
PROVIDERS: ATTEND Anesthesiology
DX: M79.18 Myalgia, other site (principal); R73.03 Prediabetes; G43.909 Migraine, unspecified, not intractable, without status migrainosus; G47.33 Obstructive sleep apnea (adult) (pediatric); E03.9 Hypothyroidism, unspecified; E55.9 Vitamin D deficiency, unspecified; Z86.59 Personal history of other mental and behavioral disorders; Z87.891 Personal history of nicotine dependence; Z88.8 Allergy status to other drugs, medicaments and biological substances; Z79.890 Hormone replacement therapy; Z79.899 Other long term (current) drug therapy

== ENCOUNTER 2023-05-24 22:07 | Inpatient (IN) | payer MEDICAID ==
[~2023-05-24] VITALS: Ht 154.9 cm; Wt 95.1 kg
[~2023-05-24 22:07] MED LIST changes: -LEVO88TA3 PO; -NICO14PA TD
[2023-05-24 22:47] LABS: HEMATOCRIT 41.1 % (36.0-47.0); HEMOGLOBIN 13.1 g/dl (12.0-15.5); MEAN CORPUSCULAR HEMOGLOBIN 29.8 pg (27.0-33.0); MEAN CORPUSCULAR HGB CONC 31.9 g/dl (32.0-36.5); MEAN CORPUSCULAR VOLUME 93.4 fl (80.0-96.0); PLATELET COUNT, AUTOMATED 200 10^3/uL (150-450); WHITE BLOOD COUNT 6.1 10^3/uL (4.0-10.0)
[2023-05-24 23:07] LABS: ETHYL ALCOHOL (ETHANOL) 0.003 % (0.000-0.010)
[2023-05-24 23:09] LABS: ACETAMINOPHEN LEVEL < 2.0 UG/ML (10.0-20.0); ALBUMIN 3.4 G/DL (3.2-5.2); ALKALINE PHOSPHATASE 82 U/L (46-116); ALT/SGPT < 9 U/L (7.0-40); AST/SGOT < 8 U/L (<34); BILIRUBIN,DIRECT < 0.1 MG/DL (<0.4); BILIRUBIN,TOTAL 0.2 MG/DL (0.3-1.2); BLOOD UREA NITROGEN 12 MG/DL (9-23); CARBON DIOXIDE LEVEL 27 MMOL/L (20-31); CHLORIDE LEVEL 110 MMOL/L (98-107); CREATININE FOR GFR 0.84 MG/DL (0.55-1.30); GLOMERULAR FILTRATION RATE > 60.0 (>58); GLUCOSE, FASTING 113 MG/DL (60-100); POTASSIUM SERUM 3.8 MMOL/L (3.5-5.1); SALICYLATE LEVEL < 3.0 MG/DL (<30); SODIUM LEVEL 143 MMOL/L (136-145); TOTAL PROTEIN 6.4 G/DL (5.7-8.2)
[2023-05-24 23:13] LABS: THYROID STIMULATING HORMONE 0.972 uIU/ML (0.55-4.78)
[2023-05-24 23:15] LABS: HCG, SERUM QUALITATIVE NEGATIVE (NEGATIVE)
[2023-05-25 00:06] LABS: AMPHETAMINES LEVEL URINE NEGATIVE (NEGATIVE); BARBITURATES URINE NEGATIVE (NEGATIVE); BENZODIAZEPINES URINE NEGATIVE (NEGATIVE); CANNABINOIDS URINE NEGATIVE (NEGATIVE); COCAINE METABOLITE URINE NEGATIVE (NEGATIVE); METHADONE URINE NEGATIVE (NEGATIVE); OPIATES URINE NEGATIVE (NEGATIVE); PHENCYCLIDINE URINE NEGATIVE (NEGATIVE)
[2023-05-25] MEDS ORDERED: PANT40TA29 PO (00:21)
[2023-05-25] MEDS ORDERED: LEVO88TA3 PO (00:21)
[2023-05-25] MEDS ORDERED: HOME MED LIST COMPLETE! XX SCH (00:25)
[2023-05-26] MEDS ORDERED: LEVOTHYROXINE 88MCG TABLET (0.088 MG) PO SCH (09:00)
[2023-05-26] MEDS: LEVOTHYROXINE 88MCG TABLET (0.088 MG) PO SCH (11:51)
[2023-05-26] MEDS: PANTOPRAZOLE 40MG TAB (PROTONIX) PO SCH ×2 (11:51→20:50)
[2023-05-26] MEDS: GABAPENTIN 300 MG CAP PO SCH ×2 (11:51→20:51)
[2023-05-26] MEDS: LORATADINE 10 MG TAB PO SCH (11:52)
[2023-05-26] MEDS: FAMOTIDINE 20 MG TAB PO SCH (11:52)
[2023-05-26] MEDS: FOLIC ACID 1MG TAB PO SCH (11:52)
[2023-05-26] MEDS: DULoxetine 30MG CAPSULE (CYMBALTA) PO SCH (11:52)
[2023-05-26] MEDS: estradioL 1 MG TAB PO SCH (11:52)
[2023-05-26] MEDS: ZONISAMIDE 100 MG CAP (ZONEGRAN) PO SCH ×2 (13:52→20:50)
[2023-05-26] MEDS ORDERED: ACETAMINOPHEN TAB 650MG DOSE (2X325MG) PO PRN (14:00)
[2023-05-26] MEDS ORDERED: IBUPROFEN 400MG TAB PO PRN (14:00)
[2023-05-26] MEDS ORDERED: diphenhydrAMINE 25MG CAP PO PRN (14:00)
[2023-05-26] MEDS ORDERED: MAALOX 30 ML SUSP *UDC PO PRN (14:00)
[2023-05-26] MEDS ORDERED: traZODone 50 MG TAB PO PRN (14:00)
[2023-05-26] MEDS ORDERED: MOM 30ML SUSPENSION UDC PO PRN (14:00)
[2023-05-26 17:27] VITALS: BP 143/77; TEMP 96.2; O2SAT 98
[2023-05-26] MEDS: TEMAZEPAM 7.5 MG CAP PO SCH (20:51)
[2023-05-26] MEDS: PRAZOSIN 1 MG CAP PO SCH (20:51)
[2023-05-27] MEDS: LEVOTHYROXINE 88MCG TABLET (0.088 MG) PO SCH (05:54)
[2023-05-27 06:18] VITALS: BP 102/60; TEMP 97.6; O2SAT 95
[2023-05-27] MEDS: DULoxetine 30MG CAPSULE (CYMBALTA) PO SCH (07:58)
[2023-05-27] MEDS: LORATADINE 10 MG TAB PO SCH (07:58)
[2023-05-27] MEDS: FOLIC ACID 1MG TAB PO SCH (07:58)
[2023-05-27] MEDS: estradioL 1 MG TAB PO SCH (07:58)
[2023-05-27] MEDS: ZONISAMIDE 100 MG CAP (ZONEGRAN) PO SCH ×2 (07:58→20:25)
[2023-05-27] MEDS: PANTOPRAZOLE 40MG TAB (PROTONIX) PO SCH ×2 (07:59→20:24)
[2023-05-27] MEDS: FAMOTIDINE 20 MG TAB PO SCH (07:59)
[2023-05-27] MEDS: GABAPENTIN 300 MG CAP PO SCH ×2 (07:59→20:25)
[2023-05-27] MEDS ORDERED: NICOTINE 14 MG/24 HR TRANSDERMAL TD PRN (08:35)
[2023-05-27 18:47] VITALS: BP 123/67; TEMP 98; O2SAT 100
[2023-05-27 20:23] VITALS: BP 107/70
[2023-05-27] MEDS: PRAZOSIN 1 MG CAP PO SCH (20:23)
[2023-05-27] MEDS: TEMAZEPAM 7.5 MG CAP PO SCH (20:27)
[2023-05-28] MEDS: LEVOTHYROXINE 88MCG TABLET (0.088 MG) PO SCH (05:28)
[2023-05-28 06:13] VITALS: BP 118/70; TEMP 97.2; O2SAT 97
[2023-05-28 08:18] LABS: CHOLESTEROL RISK RATIO 4.47 (<5); HDL CHOLESTEROL 41.6 MG/DL (>40); LDL CHOLESTEROL 102.4 MG/DL (<100); NON-HDL-C 144.4 MG/DL
[2023-05-28] MEDS: PANTOPRAZOLE 40MG TAB (PROTONIX) PO SCH (08:18)
[2023-05-28] MEDS: estradioL 1 MG TAB PO SCH (08:18)
[2023-05-28] MEDS: FOLIC ACID 1MG TAB PO SCH (08:18)
[2023-05-28] MEDS: FAMOTIDINE 20 MG TAB PO SCH (08:19)
[2023-05-28] MEDS: DULoxetine 30MG CAPSULE (CYMBALTA) PO SCH (08:19)
[2023-05-28] MEDS: LORATADINE 10 MG TAB PO SCH (08:19)
[2023-05-28] MEDS: GABAPENTIN 300 MG CAP PO SCH (08:19)
[2023-05-28] MEDS: ZONISAMIDE 100 MG CAP (ZONEGRAN) PO SCH (08:19)
[2023-05-28] MEDS ORDERED: PRAZ1CAP PO (09:11)
[2023-05-28] MEDS ORDERED: DULO1CAP6 PO (09:11)
[2023-05-28] MEDS ORDERED: NICO14PA TD (09:11)
[2023-05-28] MEDS ORDERED: ARIP1TAB6 PO (09:11)
== END 2023-05-28 11:43 | disposition home or self-care (01) | DRG 751 ==
LOC: M ED 22:07 → M ED INP 05-26 13:57 → M PSY 05-26 17:22
PROVIDERS: ADMIT Student in an Organized Health Care Education/Training Program; ATTEND Student in an Organized Health Care Education/Training Program
DX: F33.1 Major depressive disorder, recurrent, moderate (principal); G62.9 Polyneuropathy, unspecified; F79 Unspecified intellectual disabilities; F43.10 Post-traumatic stress disorder, unspecified; F10.10 Alcohol abuse, uncomplicated; F17.200 Nicotine dependence, unspecified, uncomplicated; F41.1 Generalized anxiety disorder; Z88.8 Allergy status to other drugs, medicaments and biological substances; Z91.018 Allergy to other foods; Z88.6 Allergy status to analgesic agent; Z91.011 Allergy to milk products; Z79.899 Other long term (current) drug therapy; J44.9 Chronic obstructive pulmonary disease, unspecified; E03.9 Hypothyroidism, unspecified; K21.9 Gastro-esophageal reflux disease without esophagitis

== ENCOUNTER → 2023-06-02 | Outpatient (CLI) | payer MEDICAID ==
[~2023-06-02] MED LIST changes: +LEVO88TA3 PO; +NICO14PA TD
== END ==
LOC: M WHC 14:45
PROVIDERS: ATTEND Nurse Practitioner Family
DX: Z12.31 Encounter for screening mammogram for malignant neoplasm of breast (principal)

== ENCOUNTER 2023-06-11 14:07 | Emergency (ER) | payer MEDICAID ==
[~2023-06-11] VITALS: Ht 154.9 cm; Wt 97.0 kg
[2023-06-11] MEDS: MORPHINE 4 MG/ML 1ML VIAL IV PRN ×2 (14:33→15:49)
[2023-06-11 18:17] LABS: AMPHETAMINES LEVEL URINE NEGATIVE (NEGATIVE); BARBITURATES URINE NEGATIVE (NEGATIVE); BENZODIAZEPINES URINE NEGATIVE (NEGATIVE); COCAINE METABOLITE URINE NEGATIVE (NEGATIVE); METHADONE URINE NEGATIVE (NEGATIVE); PHENCYCLIDINE URINE NEGATIVE (NEGATIVE)
[2023-06-11 18:18] LABS: CANNABINOIDS URINE NEGATIVE (NEGATIVE)
[2023-06-11 18:20] LABS: OPIATES URINE POSITIVE (NEGATIVE)
[2023-06-11] MEDS ORDERED: PERCOCET 5MG/325MG TAB PO ONE (18:45)
[2023-06-11] MEDS ORDERED: PERC5TAB12 PO (18:46)
[2023-06-11 19:17] VITALS: BP 127/80; TEMP 97.5; O2SAT 98
== END 2023-06-11 19:19 | disposition home or self-care (01) ==
LOC: M ED 14:07
DX: S42.352A Displaced comminuted fracture of shaft of humerus, left arm, initial encounter for closed fracture (principal); V03.10XA Pedestrian on foot injured in collision with car, pick-up truck or van in traffic accident, initial encounter; E11.9 Type 2 diabetes mellitus without complications; J44.9 Chronic obstructive pulmonary disease, unspecified; K21.9 Gastro-esophageal reflux disease without esophagitis; G40.909 Epilepsy, unspecified, not intractable, without status epilepticus; Z88.1 Allergy status to other antibiotic agents; Z88.6 Allergy status to analgesic agent; Z88.5 Allergy status to narcotic agent; Z88.8 Allergy status to other drugs, medicaments and biological substances; Z91.011 Allergy to milk products; Z91.048 Other nonmedicinal substance allergy status; Z79.811 Long term (current) use of aromatase inhibitors; Z79.810 Long term (current) use of selective estrogen receptor modulators (SERMs); Z79.899 Other long term (current) drug therapy

== ENCOUNTER → 2023-06-12 | Outpatient (CLI) | payer MEDICAID ==
[~2023-06-12] MED LIST changes: +PERC5TAB12 PO
== END ==
LOC: M SOG 14:44
PROVIDERS: ATTEND Orthopaedic Surgery
DX: S42.35 Comminuted fracture of shaft of humerus (principal)

== ENCOUNTER → 2023-07-10 | Outpatient (CLI) | payer MEDICAID ==
[~2023-07-10] MED LIST changes: +LORA-1041 PO; -LORA-674 PO
== END ==
LOC: M SOG 09:04
PROVIDERS: ATTEND Student in an Organized Health Care Education/Training Program
DX: S42.232A 3-part fracture of surgical neck of left humerus, initial encounter for closed fracture (principal); W18.30XA Fall on same level, unspecified, initial encounter; Y92.009 Unspecified place in unspecified non-institutional (private) residence as the place of occurrence of the external cause

== ENCOUNTER → 2023-07-29 | Outpatient (CLI) | payer MEDICAID | LOC: M PAIN 14:15 | PROVIDERS: ATTEND Nurse Practitioner Family | DX: M79.10 Myalgia, unspecified site (principal); G89.29 Other chronic pain; Z87.891 Personal history of nicotine dependence; Z88.4 Allergy status to anesthetic agent; E66.01 Morbid (severe) obesity due to excess calories; Z68.41 Body mass index [BMI] 40.0-44.9, adult; Z79.899 Other long term (current) drug therapy ==

== ENCOUNTER → 2023-08-21 | Outpatient (CLI) | payer MEDICAID | LOC: M SOG 11:10 | PROVIDERS: ATTEND Orthopaedic Surgery | DX: S42.232A 3-part fracture of surgical neck of left humerus, initial encounter for closed fracture (principal); Y93.9 Activity, unspecified; Y92.9 Unspecified place or not applicable ==

== ENCOUNTER → 2023-09-08 | Outpatient (CLI) | payer MEDICAID | LOC: M SOG 08:00 | PROVIDERS: ATTEND Orthopaedic Surgery | DX: M25.562 Pain in left knee (principal) ==

== ENCOUNTER → 2023-09-25 | Outpatient (CLI) | payer MEDICAID | LOC: M PLAIMG 07:53 | PROVIDERS: ATTEND Orthopaedic Surgery | DX: M94.262 Chondromalacia, left knee (principal); M25.562 Pain in left knee ==

== ENCOUNTER → 2023-10-02 | Outpatient (CLI) | payer MEDICAID | LOC: M SOG 09:39 | PROVIDERS: ATTEND Physician Assistant | DX: S42.232D 3-part fracture of surgical neck of left humerus, subsequent encounter for fracture with routine healing (principal); S52.022D Displaced fracture of olecranon process without intraarticular extension of left ulna, subsequent encounter for closed fracture with routine healing; Y93.9 Activity, unspecified; Y92.9 Unspecified place or not applicable ==

== ENCOUNTER → 2023-10-02 | Outpatient (CLI) | payer MEDICAID ==
[~2023-10-02] MED LIST changes: +BENZ200C70 PO; +OSEL75CA PO
== END ==
LOC: M PAIN 14:00
PROVIDERS: ATTEND Nurse Practitioner Family
DX: M79.18 Myalgia, other site (principal); G89.29 Other chronic pain; Z87.891 Personal history of nicotine dependence; Z88.8 Allergy status to other drugs, medicaments and biological substances; Z86.16 Personal history of COVID-19; E66.01 Morbid (severe) obesity due to excess calories; Z68.41 Body mass index [BMI] 40.0-44.9, adult; Z79.899 Other long term (current) drug therapy

== ENCOUNTER 2023-10-07 09:36 | Emergency (ER) | payer MEDICAID ==
[~2023-10-07 09:36] MED LIST changes: -BENZ200C70 PO; -OSEL75CA PO
[2023-10-07] MEDS ORDERED: OSEL75CA PO (11:58)
[2023-10-07] MEDS ORDERED: BENZ200C70 PO (11:58)
[2023-10-07 12:04] VITALS: BP 134/72; TEMP 100.3; O2SAT 99
== END 2023-10-07 12:17 | disposition home or self-care (01) ==
LOC: M ED 09:36
DX: J09.X9 Influenza due to identified novel influenza A virus with other manifestations (principal); J45.909 Unspecified asthma, uncomplicated; Z86.79 Personal history of other diseases of the circulatory system; Z79.891 Long term (current) use of opiate analgesic; Z79.2 Long term (current) use of antibiotics; Z79.899 Other long term (current) drug therapy

== ENCOUNTER 2023-11-03 09:33 | Day surgery (SDC) | payer MEDICAID ==
[~2023-11-03] VITALS: Ht 154.9 cm; Wt 94.9 kg
[~2023-11-03 09:33] MED LIST changes: +BENZ200C70 PO; +NS 1,000 ML IV ONE; +OSEL75CA PO; +TEMA15CA2 PO
[2023-11-03] MEDS ORDERED: propofoL 200 MG/20 ML VIAL As Ordered ONE ×2 (10:19→10:47)
[2023-11-03] MEDS ORDERED: fentaNYL 100 MCG/2 ML INJECTION As Ordered ONE (10:20)
[2023-11-03 11:01] VITALS: TEMP 96.7
[2023-11-03 11:18] VITALS: BP 141/83; O2SAT 97
== END 2023-11-03 11:19 | disposition home or self-care (01) ==
LOC: M OPP 09:33
PROVIDERS: ATTEND Internal Medicine Gastroenterology
DX: Z12.11 Encounter for screening for malignant neoplasm of colon (principal); Z86.010 Personal history of colon polyps; D12.3 Benign neoplasm of transverse colon; K64.8 Other hemorrhoids; K44.9 Diaphragmatic hernia without obstruction or gangrene; K31.7 Polyp of stomach and duodenum; G47.30 Sleep apnea, unspecified; Z79.1 Long term (current) use of non-steroidal anti-inflammatories (NSAID); Z79.818 Long term (current) use of other agents affecting estrogen receptors and estrogen levels; Z79.891 Long term (current) use of opiate analgesic; Z79.899 Other long term (current) drug therapy; Z88.1 Allergy status to other antibiotic agents; Z88.5 Allergy status to narcotic agent; Z88.6 Allergy status to analgesic agent; Z88.8 Allergy status to other drugs, medicaments and biological substances; Z91.018 Allergy to other foods
CPT/HCPCS: 43251; 45385; 88305; J3010

== ENCOUNTER → 2023-11-18 | Outpatient (CLI) | payer MEDICAID ==
[~2023-11-18] MED LIST changes: -NS 1,000 ML IV ONE
[2023-11-18 13:31] LABS: BASO # 0.1 10^3/uL (0.0-0.2); BASO % 0.9 % (0.0-1.0); EOS # 0.3 10^3/uL (0.0-0.5); EOS % 3.8 % (0.0-3.0); HEMATOCRIT 44.2 % (36.0-47.0); HEMOGLOBIN 13.9 g/dl (12.0-15.5); LYMPH # 1.8 10^3/uL (1.5-5.0); LYMPH % 26.5 % (24.0-44.0); MEAN CORPUSCULAR HGB CONC 31.4 g/dl (32.0-36.5); MEAN CORPUSCULAR VOLUME 95.3 fl (80.0-96.0); MONO # 0.4 10^3/uL (0.0-0.8); MONO % 5.4 % (2.0-8.0); NEUTROPHILS # 4.3 10^3/uL (1.5-8.5); PLATELET COUNT, AUTOMATED 221 10^3/uL (150-450); RED BLOOD COUNT 4.64 10^6/uL (4.00-5.40); WHITE BLOOD COUNT 6.8 10^3/uL (4.0-10.0)
[2023-11-18 13:50] LABS: HEMOGLOBIN A1c 5.6 % (4.0-6.0)
[2023-11-18 14:01] LABS: ALBUMIN 3.3 G/DL (3.2-5.2); ALKALINE PHOSPHATASE 87 U/L (46-116); ALT/SGPT < 9 U/L (7.0-40); AST/SGOT < 8 U/L (<34); BILIRUBIN,TOTAL 0.3 MG/DL (0.3-1.2); BLOOD UREA NITROGEN 13 MG/DL (9-23); CALCIUM LEVEL 9.2 MG/DL (8.5-10.1); CARBON DIOXIDE LEVEL 28 MMOL/L (20-31); CHLORIDE LEVEL 110 MMOL/L (98-107); CHOLESTEROL LEVEL 205 MG/DL (<200); CHOLESTEROL RISK RATIO 3.94 (<5); CREATININE FOR GFR 0.92 MG/DL (0.55-1.30); GLOMERULAR FILTRATION RATE > 60.0 (>58); GLUCOSE, FASTING 130 MG/DL (60-100); HDL CHOLESTEROL 51.9 MG/DL (>40); LDL CHOLESTEROL 116.9 MG/DL (<100); NON-HDL-C 153.1 MG/DL; POTASSIUM SERUM 4.2 MMOL/L (3.5-5.1); SODIUM LEVEL 141 MMOL/L (136-145); TOTAL PROTEIN 6.8 G/DL (5.7-8.2); TRIGLYCERIDES LEVEL 181 MG/DL (<150)
[2023-11-18 14:02] LABS: TOTAL 25(OH) VITAMIN D 55.6 NG/ML (20.0-100.0)
[2023-11-18 14:03] LABS: FREE T4 1.26 NG/DL (0.89-1.76); THYROID STIMULATING HORMONE 0.816 uIU/ML (0.55-4.78)
== END ==
LOC: M PLALAB 09:49
PROVIDERS: ATTEND Nurse Practitioner Family
DX: R73.01 Impaired fasting glucose (principal); E03.9 Hypothyroidism, unspecified; E78.5 Hyperlipidemia, unspecified; E55.9 Vitamin D deficiency, unspecified

== ENCOUNTER → 2023-12-02 | Outpatient (CLI) | payer MEDICAID ==
[~2023-12-02] MED LIST changes: +TRIAMCINOLONE ACETONIDE SUSP 40MG/ML 1ML VIAL As Ordered ONE; +diazePAM 5MG TABLET As Ordered ONE
== END ==
LOC: M PAIN 12:45
PROVIDERS: ATTEND Anesthesiology
DX: M79.18 Myalgia, other site (principal); G89.29 Other chronic pain; Z87.891 Personal history of nicotine dependence; Z88.4 Allergy status to anesthetic agent; E66.01 Morbid (severe) obesity due to excess calories; Z68.41 Body mass index [BMI] 40.0-44.9, adult; Z79.899 Other long term (current) drug therapy
CPT/HCPCS: 20552; J0665; J3301

== ENCOUNTER → 2024-01-05 | Outpatient (CLI) | payer MEDICAID ==
[~2024-01-05] MED LIST changes: -TRIAMCINOLONE ACETONIDE SUSP 40MG/ML 1ML VIAL As Ordered ONE; -diazePAM 5MG TABLET As Ordered ONE
== END ==
LOC: M PAIN 11:45
PROVIDERS: ATTEND Nurse Practitioner Family
DX: M79.10 Myalgia, unspecified site (principal); J45.30 Mild persistent asthma, uncomplicated; G43.009 Migraine without aura, not intractable, without status migrainosus; E03.9 Hypothyroidism, unspecified; G47.33 Obstructive sleep apnea (adult) (pediatric); Z79.51 Long term (current) use of inhaled steroids; Z79.890 Hormone replacement therapy; Z79.899 Other long term (current) drug therapy; Z88.8 Allergy status to other drugs, medicaments and biological substances; Z87.891 Personal history of nicotine dependence

== ENCOUNTER → 2024-01-22 | Outpatient (CLI) | payer MEDICAID | LOC: M SOG 09:35 | PROVIDERS: ATTEND Physician Assistant | DX: S42.232D 3-part fracture of surgical neck of left humerus, subsequent encounter for fracture with routine healing (principal) ==

== ENCOUNTER → 2024-03-04 | Outpatient (CLI) | payer MEDICAID | LOC: M PAIN 10:00 | PROVIDERS: ATTEND Nurse Practitioner Family | DX: M79.18 Myalgia, other site (principal); G89.29 Other chronic pain; G43.109 Migraine with aura, not intractable, without status migrainosus; J45.40 Moderate persistent asthma, uncomplicated; G47.33 Obstructive sleep apnea (adult) (pediatric); F33.9 Major depressive disorder, recurrent, unspecified; F43.10 Post-traumatic stress disorder, unspecified; F70 Mild intellectual disabilities; R73.01 Impaired fasting glucose; E03.9 Hypothyroidism, unspecified; E55.9 Vitamin D deficiency, unspecified; E66.9 Obesity, unspecified; F10.21 Alcohol dependence, in remission; M47.816 Spondylosis without myelopathy or radiculopathy, lumbar region; Z87.891 Personal history of nicotine dependence; Z79.890 Hormone replacement therapy; Z79.899 Other long term (current) drug therapy; Z88.8 Allergy status to other drugs, medicaments and biological substances; Z68.41 Body mass index [BMI] 40.0-44.9, adult ==

== ENCOUNTER → 2024-05-18 | Outpatient (CLI) | payer MEDICAID | LOC: M PAIN 17:00 | PROVIDERS: ATTEND Nurse Practitioner Family | DX: M79.18 Myalgia, other site (principal); M54.6 Pain in thoracic spine; M54.50 Low back pain, unspecified; G89.29 Other chronic pain; G43.109 Migraine with aura, not intractable, without status migrainosus; J45.40 Moderate persistent asthma, uncomplicated; G47.33 Obstructive sleep apnea (adult) (pediatric); F33.9 Major depressive disorder, recurrent, unspecified; F41.1 Generalized anxiety disorder; F43.10 Post-traumatic stress disorder, unspecified; F70 Mild intellectual disabilities; R73.01 Impaired fasting glucose; E03.9 Hypothyroidism, unspecified; E55.9 Vitamin D deficiency, unspecified; E66.9 Obesity, unspecified; F10.21 Alcohol dependence, in remission; M47.816 Spondylosis without myelopathy or radiculopathy, lumbar region; H40.9 Unspecified glaucoma; Z87.891 Personal history of nicotine dependence; Z68.41 Body mass index [BMI] 40.0-44.9, adult; Z88.8 Allergy status to other drugs, medicaments and biological substances; Z79.890 Hormone replacement therapy; Z79.899 Other long term (current) drug therapy ==

== ENCOUNTER → 2024-05-21 | Outpatient (CLI) | payer MEDICAID | LOC: M RAD 13:38 | PROVIDERS: ATTEND Nurse Practitioner Family | DX: M54.6 Pain in thoracic spine (principal); M54.50 Low back pain, unspecified ==

== ENCOUNTER → 2024-06-04 | Outpatient (CLI) | payer MEDICAID | LOC: M WHC 13:01 | PROVIDERS: ATTEND Nurse Practitioner Family | DX: Z12.31 Encounter for screening mammogram for malignant neoplasm of breast (principal); R92.313 Mammographic fatty tissue density, bilateral breasts ==

== ENCOUNTER → 2024-06-24 | Outpatient (CLI) | payer MEDICAID ==
[~2024-06-24] MED LIST changes: +TRIAMCINOLONE ACETONIDE SUSP 40MG/ML 1ML VIAL As Ordered ONE; +diazePAM 5MG TABLET As Ordered ONE
== END ==
LOC: M PAIN 14:00
PROVIDERS: ATTEND Anesthesiology
DX: M79.18 Myalgia, other site (principal); G89.29 Other chronic pain; G43.109 Migraine with aura, not intractable, without status migrainosus; J45.40 Moderate persistent asthma, uncomplicated; G47.33 Obstructive sleep apnea (adult) (pediatric); F33.9 Major depressive disorder, recurrent, unspecified; F41.1 Generalized anxiety disorder; F43.10 Post-traumatic stress disorder, unspecified; F70 Mild intellectual disabilities; R73.01 Impaired fasting glucose; E03.9 Hypothyroidism, unspecified; E55.9 Vitamin D deficiency, unspecified; E66.9 Obesity, unspecified; F10.21 Alcohol dependence, in remission; M47.816 Spondylosis without myelopathy or radiculopathy, lumbar region; H40.9 Unspecified glaucoma; Z87.891 Personal history of nicotine dependence; Z79.890 Hormone replacement therapy; Z79.899 Other long term (current) drug therapy; Z88.8 Allergy status to other drugs, medicaments and biological substances; Z68.41 Body mass index [BMI] 40.0-44.9, adult
CPT/HCPCS: 20553; J0665; J3301

== ENCOUNTER 2024-07-18 11:33 | Emergency (ER) | payer MEDICAID ==
[~2024-07-18] VITALS: Ht 154.9 cm; Wt 100.0 kg
[~2024-07-18 11:33] MED LIST changes: +GABA-1172 PO; -GABA-282 PO; -TRIAMCINOLONE ACETONIDE SUSP 40MG/ML 1ML VIAL As Ordered ONE; -diazePAM 5MG TABLET As Ordered ONE
[2024-07-18 12:44] LABS: RSV AMPLIFICATION NEGATIVE (NEGATIVE)
[2024-07-18 14:53] VITALS: BP 120/88; TEMP 98.2; O2SAT 97
[2024-07-18] MEDS ORDERED: BENZ200C70 PO (15:24)
== END 2024-07-18 15:41 | disposition home or self-care (01) ==
LOC: M ED 11:33
DX: J45.909 Unspecified asthma, uncomplicated (principal); R19.7 Diarrhea, unspecified; R05.9 Cough, unspecified; G40.909 Epilepsy, unspecified, not intractable, without status epilepticus; K21.9 Gastro-esophageal reflux disease without esophagitis; M54.50 Low back pain, unspecified; Z88.6 Allergy status to analgesic agent; Z88.5 Allergy status to narcotic agent; Z88.8 Allergy status to other drugs, medicaments and biological substances; Z91.011 Allergy to milk products; Z91.09 Other allergy status, other than to drugs and biological substances; Z79.899 Other long term (current) drug therapy

== ENCOUNTER → 2024-07-27 | Outpatient (CLI) | payer MEDICAID | LOC: M PAIN 15:30 | PROVIDERS: ATTEND Nurse Practitioner Family | DX: Z53.21 Procedure and treatment not carried out due to patient leaving prior to being seen by health care provider (principal) ==

== ENCOUNTER → 2024-08-03 | Outpatient (CLI) | payer MEDICAID ==
[2024-08-03 13:50] LABS: BASO # 0.1 10^3/uL (0.0-0.2); BASO % 0.6 % (0.0-1.0); EOS # 0.3 10^3/uL (0.0-0.5); EOS % 2.5 % (0.0-3.0); HEMATOCRIT 44.9 % (36.0-47.0); HEMOGLOBIN 14.6 g/dl (12.0-15.5); LYMPH # 3.8 10^3/uL (1.5-5.0); LYMPH % 34.7 % (24.0-44.0); MEAN CORPUSCULAR HEMOGLOBIN 31.6 pg (27.0-33.0); MEAN CORPUSCULAR HGB CONC 32.5 g/dl (32.0-36.5); MEAN CORPUSCULAR VOLUME 97.2 fl (80.0-96.0); MONO # 0.7 10^3/uL (0.0-0.8); MONO % 6.3 % (2.0-8.0); NEUTROPHILS # 6.1 10^3/uL (1.5-8.5); NEUTROPHILS % 55.5 % (36.0-66.0); PLATELET COUNT, AUTOMATED 248 10^3/uL (150-450); RED BLOOD COUNT 4.62 10^6/uL (4.00-5.40); WHITE BLOOD COUNT 10.9 10^3/uL (4.0-10.0)
[2024-08-03 14:19] LABS: IRON (FE) 181 UG/DL (50-170); PERCENT SATURATION 65.6 % (13.2-45.0); TOTAL IRON BINDING CAPACITY 276 UG/DL (250-425)
[2024-08-03 14:20] LABS: ALBUMIN 3.2 G/DL (3.2-5.2); ALKALINE PHOSPHATASE 92 U/L (46-116); ALT/SGPT 15 U/L (7.0-40); AST/SGOT < 8 U/L (<34); BILIRUBIN,TOTAL 0.8 MG/DL (0.3-1.2); BLOOD UREA NITROGEN 23 MG/DL (9-23); CALCIUM LEVEL 9.3 MG/DL (8.5-10.1); CARBON DIOXIDE LEVEL 29 MMOL/L (20-31); CHLORIDE LEVEL 108 MMOL/L (98-107); CHOLESTEROL LEVEL 227 MG/DL (<200); CHOLESTEROL RISK RATIO 3.66 (<5); CREATININE FOR GFR 1.04 MG/DL (0.55-1.30); FREE T4 1.58 NG/DL (0.89-1.76); GLOMERULAR FILTRATION RATE > 60.0 (>58); GLUCOSE, FASTING 87 MG/DL (60-100); HDL CHOLESTEROL 61.9 MG/DL (>40); LDL CHOLESTEROL 118.3 MG/DL (<100); NON-HDL-C 165.1 MG/DL; POTASSIUM SERUM 3.9 MMOL/L (3.5-5.1); SODIUM LEVEL 141 MMOL/L (136-145); THYROID STIMULATING HORMONE 1.236 uIU/ML (0.55-4.78); TOTAL PROTEIN 6.8 G/DL (5.7-8.2); TRIGLYCERIDES LEVEL 234 MG/DL (<150)
[2024-08-03 14:21] LABS: HEMOGLOBIN A1c 5.8 % (4.0-6.0)
== END ==
LOC: M PLALAB 09:18
PROVIDERS: ATTEND Nurse Practitioner Family
DX: D64.9 Anemia, unspecified (principal); E55.9 Vitamin D deficiency, unspecified; E03.9 Hypothyroidism, unspecified; R73.01 Impaired fasting glucose; E78.5 Hyperlipidemia, unspecified

== ENCOUNTER → 2024-09-06 | Outpatient (CLI) | payer MEDICAID | LOC: M PAIN 11:15 | PROVIDERS: ATTEND Nurse Practitioner Family | DX: M79.18 Myalgia, other site (principal); G89.29 Other chronic pain; J45.40 Moderate persistent asthma, uncomplicated; G47.33 Obstructive sleep apnea (adult) (pediatric); F33.9 Major depressive disorder, recurrent, unspecified; F41.1 Generalized anxiety disorder; F43.10 Post-traumatic stress disorder, unspecified; F70 Mild intellectual disabilities; R73.01 Impaired fasting glucose; E03.9 Hypothyroidism, unspecified; E66.9 Obesity, unspecified; F10.21 Alcohol dependence, in remission; M47.816 Spondylosis without myelopathy or radiculopathy, lumbar region; H40.9 Unspecified glaucoma; Z87.891 Personal history of nicotine dependence; Z79.890 Hormone replacement therapy; Z79.899 Other long term (current) drug therapy; Z88.8 Allergy status to other drugs, medicaments and biological substances ==

== ENCOUNTER 2024-11-06 10:14 | Emergency (ER) | payer MEDICAID ==
[2024-11-06 12:08] VITALS: BP 129/70; TEMP 96.6; O2SAT 100
== END 2024-11-06 12:10 | disposition home or self-care (01) ==
LOC: M ED 10:14
DX: R05.9 Cough, unspecified (principal); B97.4 Respiratory syncytial virus as the cause of diseases classified elsewhere; E11.9 Type 2 diabetes mellitus without complications; Z88.5 Allergy status to narcotic agent; Z88.6 Allergy status to analgesic agent; Z88.8 Allergy status to other drugs, medicaments and biological substances; Z91.011 Allergy to milk products; Z91.018 Allergy to other foods; Z79.1 Long term (current) use of non-steroidal anti-inflammatories (NSAID); Z79.899 Other long term (current) drug therapy

== ENCOUNTER → 2025-02-17 | Outpatient (REF) | payer MEDICAID ==
[2025-02-17 11:29] LABS: BASO # 0.1 10^3/uL (0.0-0.2); BASO % 1.3 % (0.0-1.0); EOS # 0.4 10^3/uL (0.0-0.5); EOS % 6.5 % (0.0-3.0); HEMATOCRIT 45.1 % (36.0-47.0); HEMOGLOBIN 14.1 g/dl (12.0-15.5); LYMPH # 2.2 10^3/uL (1.5-5.0); LYMPH % 33.2 % (24.0-44.0); MEAN CORPUSCULAR HEMOGLOBIN 29.8 pg (27.0-33.0); MEAN CORPUSCULAR HGB CONC 31.3 g/dl (32.0-36.5); MEAN CORPUSCULAR VOLUME 95.3 fl (80.0-96.0); MONO # 0.5 10^3/uL (0.0-0.8); NEUTROPHILS # 3.5 10^3/uL (1.5-8.5); NEUTROPHILS % 51.9 % (36.0-66.0); PLATELET COUNT, AUTOMATED 260 10^3/uL (150-450); RED BLOOD COUNT 4.73 10^6/uL (4.00-5.40); WHITE BLOOD COUNT 6.8 10^3/uL (4.0-10.0)
[2025-02-17 11:44] LABS: ALBUMIN 3.5 G/DL (3.2-5.2); BILIRUBIN,TOTAL 0.5 MG/DL (0.3-1.2); CALCIUM LEVEL 9.3 MG/DL (8.5-10.1); CHOLESTEROL RISK RATIO 5.22 (<5); CREATININE FOR GFR 0.84 MG/DL (0.55-1.30); GLOMERULAR FILTRATION RATE 86.2 (>58); HDL CHOLESTEROL 46.9 MG/DL (>40); LDL CHOLESTEROL 150.9 MG/DL (<100); NON-HDL-C 198.1 MG/DL; POTASSIUM SERUM 4.9 MMOL/L (3.5-5.1); TOTAL PROTEIN 6.9 G/DL (5.7-8.2)
[2025-02-17 11:47] LABS: FREE T4 0.63 NG/DL (0.89-1.76); THYROID STIMULATING HORMONE 70.708 uIU/ML (0.55-4.78)
[2025-02-17 11:49] LABS: HEMOGLOBIN A1c 5.7 % (4.0-6.0)
== END ==
LOC: M SFHCPLAZ 10:43
PROVIDERS: ATTEND Nurse Practitioner Family
DX: E55.9 Vitamin D deficiency, unspecified (principal); E03.9 Hypothyroidism, unspecified; R73.01 Impaired fasting glucose; E78.5 Hyperlipidemia, unspecified

== ENCOUNTER → 2025-05-09 | Outpatient (CLI) | payer MEDICAID | LOC: M RAD 12:45 | PROVIDERS: ATTEND Nurse Practitioner Family | DX: M79.671 Pain in right foot (principal) ==

== ENCOUNTER → 2025-06-07 | Outpatient (CLI) | payer MEDICAID | LOC: M WHC 13:25 | PROVIDERS: ATTEND Nurse Practitioner Family | DX: Z12.31 Encounter for screening mammogram for malignant neoplasm of breast (principal) ==

== ENCOUNTER → 2025-06-07 | Outpatient (CLI) | payer MEDICAID ==
[2025-06-07 15:30] LABS: BASO # 0.1 10^3/uL (0.0-0.2); BASO % 0.8 % (0.0-1.0); EOS # 0.3 10^3/uL (0.0-0.5); EOS % 3.8 % (0.0-3.0); LYMPH # 2.4 10^3/uL (1.5-5.0); LYMPH % 32.3 % (24.0-44.0); MONO # 0.6 10^3/uL (0.0-0.8); MONO % 7.8 % (2.0-8.0); NEUTROPHILS # 4.1 10^3/uL (1.5-8.5); NEUTROPHILS % 55.2 % (36.0-66.0); PLATELET COUNT, AUTOMATED 253 10^3/uL (150-450)
[2025-06-07 15:49] LABS: ESTIMATED AVERAGE GLUCOSE 126.0 MG/DL (60-110)
[2025-06-07 16:08] LABS: TOTAL 25(OH) VITAMIN D 28.2 NG/ML (20.0-100.0)
[2025-06-07 16:12] LABS: ALT/SGPT 12 U/L (7.0-40); AST/SGOT 13 U/L (<34); CALCIUM LEVEL 8.9 MG/DL (8.5-10.1); CARBON DIOXIDE LEVEL 28 MMOL/L (20-31); CHLORIDE LEVEL 107 MMOL/L (98-107); CHOLESTEROL LEVEL 208 MG/DL (<200); CHOLESTEROL RISK RATIO 4.81 (<5); CREATININE FOR GFR 0.87 MG/DL (0.55-1.30); GLOMERULAR FILTRATION RATE 82.6 (>58); NON-HDL-C 164.8 MG/DL; POTASSIUM SERUM 4.9 MMOL/L (3.5-5.1); SODIUM LEVEL 144 MMOL/L (136-145); TRIGLYCERIDES LEVEL 418 MG/DL (<150)
[2025-06-07 16:13] LABS: FREE T4 1.16 NG/DL (0.89-1.76)
== END ==
LOC: M PLALAB 13:50
PROVIDERS: ATTEND Nurse Practitioner Family
DX: E55.9 Vitamin D deficiency, unspecified (principal); E03.9 Hypothyroidism, unspecified; R73.01 Impaired fasting glucose; E78.5 Hyperlipidemia, unspecified

== ENCOUNTER → 2025-07-11 | Outpatient (REF) | payer MEDICAID ==
[~2025-07-11] MED LIST changes: +CARB15DR25 AU; -CARBOT AU
[2025-07-13 16:38] LABS: HPV APTIMA Not Detected (Not Detected)
== END ==
LOC: M SFHCPLAZ 17:57
PROVIDERS: ATTEND Nurse Practitioner Family
DX: Z12.4 Encounter for screening for malignant neoplasm of cervix (principal)

== ENCOUNTER 2025-09-12 11:23 | Emergency (ER) | payer MEDICAID ==
[~2025-09-12] VITALS: Ht 154.9 cm; Wt 102.4 kg
[~2025-09-12 11:23] MED LIST changes: +[UNRECOGNIZED DRUG - CODE] OS; -[UNRECOGNIZED DRUG - CODE] OS
[2025-09-12 12:13] LABS: BASO # 0.1 10^3/uL (0.0-0.2); BASO % 1.0 % (0.0-1.0); EOS # 0.3 10^3/uL (0.0-0.5); EOS % 4.7 % (0.0-3.0); LYMPH # 2.0 10^3/uL (1.5-5.0); LYMPH % 32.8 % (24.0-44.0); MONO # 0.4 10^3/uL (0.0-0.8); MONO % 7.0 % (2.0-8.0); NEUTROPHILS # 3.4 10^3/uL (1.5-8.5); NEUTROPHILS % 54.3 % (36.0-66.0); PLATELET COUNT, AUTOMATED 273 10^3/uL (150-450)
[2025-09-12 12:21] LABS: KETONE, URINE AUTO RFX NEGATIVE (NEGATIVE); LEUKOCYTE ESTERASE UR AUTO RFX NEGATIVE (NEGATIVE); MUCUS, URINE RFX LARGE (NEGATIVE); NITRITE, URINE AUTO RFX NEGATIVE (NEGATIVE); RBC, URINE AUTO RFX 2 /HPF (0-3); SQUAM EPITHELIAL CELL UR AURFX 11 /HPF (0-6)
[2025-09-12 12:24] LABS: WBC, URINE AUTO RFX 11 /HPF (0-3)
[2025-09-12 12:46] LABS: ALT/SGPT 19.0 U/L (7.0-40); AST/SGOT 22.0 U/L (<34); CALCIUM LEVEL 9.0 MG/DL (8.5-10.1); CARBON DIOXIDE LEVEL 23.0 MMOL/L (20-31); CHLORIDE LEVEL 107.0 MMOL/L (98-107); CREATININE FOR GFR 0.87 MG/DL (0.55-1.30); GLOMERULAR FILTRATION RATE 82.6 (>58); POTASSIUM SERUM 4.2 MMOL/L (3.5-5.1); SODIUM LEVEL 143.0 MMOL/L (136-145)
[2025-09-12] MEDS: DICYCLOMINE 10 MG CAP PO ONE (14:29)
[2025-09-12] MEDS: NS (Normal Saline) 0.9% 1,000 ML IV ONE (14:29)
[2025-09-12 15:30] VITALS: BP 123/74; O2SAT 98
[2025-09-12] MEDS ORDERED: DICY-61 PO (15:30)
[2025-09-12] MEDS ORDERED: REGL5TAB2 PO (15:30)
[2025-09-12 15:40] VITALS: TEMP 97.6
== END 2025-09-12 15:45 | disposition home or self-care (01) ==
LOC: M ED 11:23
DX: R11.2 Nausea with vomiting, unspecified (principal); R10.9 Unspecified abdominal pain; R19.7 Diarrhea, unspecified; J44.9 Chronic obstructive pulmonary disease, unspecified; Z79.1 Long term (current) use of non-steroidal anti-inflammatories (NSAID); Z79.899 Other long term (current) drug therapy
CPT/HCPCS: 74021; 80048; 80076; 81001; 83690; 85025; 87086; 96361; 96374; 99284; J2765

== ENCOUNTER → 2025-09-23 | Outpatient (CLI) | payer MEDICAID ==
[~2025-09-23] MED LIST changes: +REGL5TAB2 PO
[2025-09-23 18:04] LABS: ALT/SGPT 17.0 U/L (7.0-40); AST/SGOT 15.0 U/L (<34); CALCIUM LEVEL 9.6 MG/DL (8.5-10.1); CARBON DIOXIDE LEVEL 33.0 MMOL/L (20-31); CHLORIDE LEVEL 104.0 MMOL/L (98-107); CHOLESTEROL LEVEL 227.0 MG/DL (<200); CHOLESTEROL RISK RATIO 3.91 (<5); CREATININE FOR GFR 1.28 MG/DL (0.55-1.30); GLOMERULAR FILTRATION RATE 51.7 (>58); LDL CHOLESTEROL 119.6 MG/DL (<100); NON-HDL-C 169.0 MG/DL; POTASSIUM SERUM 4.9 MMOL/L (3.5-5.1); SODIUM LEVEL 143.0 MMOL/L (136-145); TRIGLYCERIDES LEVEL 247.0 MG/DL (<150)
[2025-09-23 18:12] LABS: FREE T4 1.24 NG/DL (0.89-1.76)
== END ==
LOC: M PLALAB 14:45
PROVIDERS: ATTEND Nurse Practitioner Family
DX: E03.9 Hypothyroidism, unspecified (principal); E78.5 Hyperlipidemia, unspecified